=== PATIENT | female | born 1965 | race Caucasian/White ===

== ENCOUNTER → 2020-07-30 09:15 | Outpatient (BNVA) | payer BC, SELFPAY | PROVIDERS: PCP Internal Medicine; Referring Provider Internal Medicine; Visit Provider Internal Medicine | DX: Z76.89 Persons encountering health services in other specified circumstances (principal) ==

== ENCOUNTER → 2020-08-13 12:51 | Outpatient (REF) | payer BC, SELFPAY | LOC: HO.SL 12:51 | PROVIDERS: PCP Internal Medicine; Visit Provider Internal Medicine | DX: G47.33 Obstructive sleep apnea (adult) (pediatric) (principal) | CPT/HCPCS: 95806 ==

== ENCOUNTER → 2020-09-18 10:17 | Outpatient (BNVA) | payer BC, SELFPAY | PROVIDERS: PCP Internal Medicine; Referring Provider Internal Medicine; Visit Provider Psychiatry & Neurology Neurology | DX: Z76.89 Persons encountering health services in other specified circumstances (principal) ==

== ENCOUNTER → 2020-10-15 20:31 | Outpatient (REF) | payer BC, SELFPAY | LOC: HO.SL 20:31 | PROVIDERS: Visit Provider Psychiatry & Neurology Neurology | DX: G47.33 Obstructive sleep apnea (adult) (pediatric) (principal); E66.01 Morbid (severe) obesity due to excess calories | CPT/HCPCS: 95810 ==

== ENCOUNTER → 2020-11-13 10:24 | Outpatient (BNVA) | payer BC, SELFPAY | PROVIDERS: PCP Internal Medicine; Visit Provider Psychiatry & Neurology Neurology | DX: Z13.89 Encounter for screening for other disorder (principal) ==

== ENCOUNTER → 2020-12-12 13:14 | Outpatient (BNVA) | payer BC, SELFPAY | PROVIDERS: PCP Internal Medicine; Visit Provider Internal Medicine Pulmonary Disease ==

== ENCOUNTER → 2020-12-17 13:54 | Outpatient (REF) | payer BC, SELFPAY ==
--- NOTE | 2020-12-17 14:02 | CA_ITS ---
Transthoracic Echocardiogram Patient (Last, First, Middle): Tabby Reynoso, Gender: Female Date of : 1965 Age: 55 Procedure Date: 12/17/2020 Procedure Type: Transthoracic Echocardiogram Location: OP Height: 160.02 cm Weight: 145.15 kg BSA: 2.36 m2 Heart Rate: bpm BP: 132 / 80 mmHg Leak Gang Supervisor: Referring MD: Álvaro Celis MD Symptoms: Z98.890 - Other specified postprocedural states Study Quality: Technically Difficult ECG Rhythm: Atrial flutter Conclusions: - The left ventricular systolic function is normal. The visually estimated ejection fraction is between 55-60%. - There is mild septal asymmetric hypertrophy. - The left atrium is severely dilated. - There is moderate mitral annular calcification. There is mild mitral valve regurgitation. Gradient across the mitral valve increased to 8 mm Hg at 70/Min. Mitral valve area by pressure half time 2.4 sq cm. The leaflets seem to be opening. Overall doubt any significant mitral stenosis. - There is mild tricuspid valve regurgitation. - The right ventricular systolic pressure is 60 mmHg. Moderate to severe pulmonary hypertension is present. Findings Procedure Information Contrast agent, definity, is being given per protocol without apparent complications. Left Ventricle Normal left ventricular cavity size. The left ventricular systolic function is normal. The visually estimated ejection fraction is between 55-60%. There is no evidence of regional wall motion abnormalities. Diastolic function is indeterminate on the basis of available data. E/E prime ratio is >15, consistent with elevated filling pressures. There is mild septal asymmetric hypertrophy. Right Ventricle Normal right ventricular cavity size and systolic function. Atria The left atrium is severely dilated. The right atrium is mildly dilated. Aortic Valve The aortic valve was not well visualized. The peak aortic velocity is 2.35 m/s with a calculated peak gradient of 22 mmHg. The mean gradient is 14 mmHg. The aortic valve area is 1.81 cm2. There is no aortic valve regurgitation. Dimensionless index 0.51. No significant aortic stenosis. Mitral Valve There is moderate mitral annular calcification. There is mild mitral valve regurgitation. Gradient across the mitral valve increased to 8 mm Hg at 70/Min. Mitral valve area by pressure half time 2.4 sq cm. The leaflets seem to be opening. Overall doubt any significant mitral stenosis. Elevated gradients probably from the mitral annular calcification. Pulmonic Valve The pulmonic valve was not well visualized. Tricuspid Valve Normal tricuspid valve structure. There is mild tricuspid valve regurgitation. The right ventricular systolic pressure is 60 mmHg. Moderate to severe pulmonary hypertension is present. Great Vessels The asc aorta is normal in size. Venous The inferior vena cava is normal in size and collapses greater than 50% with inspiration. Pericardium/Pleural There is no evidence of pericardial effusion. Prior Study Comparison No significant change compared to prior study dated: 10/25/2019. Measurements 2D Linear Measurements IVSd: 1.22 0.6-0.9/0.6-1.0 cm LVIDd: 4.87 3.9-5.3/4.2-5.9 cm LVIDd Index: 2.06 2.4-3.2/2.2-3.1 cm/m2 LVIDs: 3.20 2.0-3.6 cm LVPWd: 1.22 0.7-1.1 cm LA Diam: 5.00 2.7-3.8/3.0-4.0 cm LAIDs Index: 2.12 1.5-2.3 cm/m2 LV Mass: 286.12 67-162/88-224 g LV Mass Index: 121.24 43-95/49-115 g/m2 LVOT Diam: 2.00 3.0+(-)1.3 cm 2D Systolic Function EF 4C: 57.90 >55% EF 2C: 57.60 >55% EF BiP: 57.90 >55% Mitral Valve MV VTI: 0.63 MV Pk Drake: 2.15 MV Mn Drake: 1.17 MV Pk Grad: 18.00 MV Mn Grad: 7.00 MV Pk E: 2.15 MV PK A: 1.09 MV Decel Time: 266.00 E/A: 2.00 E'Lateral: 7.18 E'Medial: 6.20 E/E' Med: 34.70 E/E' Lat: 29.90 PHT: 78.00 MVA PHT: 2.82 MVA Continuity: 1.36 Decel [place]: 8.62 Aortic Valve AoV Pk Drake: 2.35 AoV Mn Drake: 1.77 AoV VTI: 0.48 AoV Pk Grad: 22.00 Aov Mn Grad: 14.00 DAVID Cont.VTI: 1.81 LVOT LVOT Pk Drake: 1.21 LVOT Mn Drake: 0.81 LVOT VTI: 0.27 LVOT Pk Grad: 6.00 LVOT Mn Grad: 3.00 LVOT Diam: 2.00 LVOT Area: 3.14 Diastolic Function MV Pk E: 2.15 MV Pk A: 1.09 E/A: 2.00 E'Medial: 6.20 E/E' Med: 34.70 E' Laterial: 7.18 E/E' Lat: 29.90 Tricuspid Valve TR Pk Drake: 3.51 TR Pk Grad: 49.00 RA Press: 3.00 RVSP: 60.00 Great Vessels Aorta Ao Asc: 2.50 2.1-3.4 cm Pulmonary Valve PV Pk Drake: 1.02 Peak PV Grad: 4.00 Updated in Other Vendor System with Status of Final Álvaro Celis MD electronically signed on 12/19/2020 5:13:49 PM with status of Final
== END ==
LOC: HO.CARD 13:54
PROVIDERS: PCP Internal Medicine; Visit Provider Internal Medicine
DX: Z98.890 Other specified postprocedural states (principal)
CPT/HCPCS: 93306; Q9957

== ENCOUNTER → 2020-12-25 12:30 | Outpatient (BNVA) | payer BC, SELFPAY | PROVIDERS: PCP Internal Medicine; Visit Provider Internal Medicine | DX: Z45.018 Encounter for adjustment and management of other part of cardiac pacemaker (principal); I42.1 Obstructive hypertrophic cardiomyopathy; I48.0 Paroxysmal atrial fibrillation; I05.9 Rheumatic mitral valve disease, unspecified; I27.20 Pulmonary hypertension, unspecified; E66.01 Morbid (severe) obesity due to excess calories; G47.33 Obstructive sleep apnea (adult) (pediatric); Z98.890 Other specified postprocedural states | CPT/HCPCS: 93005 ==

== ENCOUNTER 2020-12-28 10:41 | Outpatient (REF) | payer BC, SELFPAY ==
--- NOTE | 2020-12-28 15:00 | PFT_ITS ---
FLOWS: FEV1 of 73% of predicted at 1.94 L. FVC 79% of predicted at 2.68 L. FEV1 to FVC ratio of 0.73. Positive bronchodilator response. Next line. LUNG VOLUMES: Total lung capacity 89% of predicted at 4.37 L. Residual volume 111% of predicted at 2.0 L. Slow vital capacity 76% of predicted at 2.37 L. Expiratory reserve volume 14% of predicted at 0.14 L. Diffusion capacity is mildly decreased, diffusion capacity adjust normal after correction for alveolar ventilation. IMPRESSION: No obstructive or restrictive ventilatory defect. Positive bronchodilator response. Decreased expiratory reserve volume suggests extrathoracic restriction likely secondary to abdominal obesity. Freddy Kraus MD AP/MODL / [id number]
== END 2020-12-28 10:42 | disposition home or self-care (01) ==
LOC: HO.RESP 10:41
PROVIDERS: PCP Internal Medicine; Visit Provider Internal Medicine Pulmonary Disease
DX: R06.00 Dyspnea, unspecified (principal)
CPT/HCPCS: 94060; 94727; 94729

== ENCOUNTER → 2021-01-01 09:38 | Outpatient (BNVA) | payer BC, SELFPAY | PROVIDERS: PCP Internal Medicine; Visit Provider Psychiatry & Neurology Neurology ==

== ENCOUNTER → 2021-01-02 12:53 | Outpatient (BNVA) | payer BC, SELFPAY | PROVIDERS: PCP Internal Medicine; Visit Provider Internal Medicine Pulmonary Disease ==

== ENCOUNTER → 2021-01-30 13:01 | Outpatient (BNVA) | payer BC, SELFPAY | PROVIDERS: PCP Internal Medicine; Visit Provider Internal Medicine Pulmonary Disease ==

== ENCOUNTER → 2021-02-05 10:29 | Outpatient (BNVA) | payer BC, SELFPAY | PROVIDERS: PCP Internal Medicine; Visit Provider Psychiatry & Neurology Neurology ==

== ENCOUNTER → 2021-03-27 12:58 | Outpatient (BNVA) | payer BC, SELFPAY | PROVIDERS: PCP Internal Medicine; Visit Provider Internal Medicine Pulmonary Disease ==

== ENCOUNTER → 2021-06-24 12:38 | Outpatient (BNVA) | payer BC, SELFPAY | PROVIDERS: PCP Internal Medicine; Referring Provider Internal Medicine; Visit Provider Internal Medicine ==

== ENCOUNTER → 2021-12-09 10:24 | Outpatient (REF) | payer BC, SELFPAY ==
--- NOTE | 2021-12-09 10:28 | CA_ITS ---
Transthoracic Echocardiogram Patient (Last, First, Middle): Tabby Reynoso, Gender: Female Date of : 1965 Age: 56 Procedure Date: 12/09/2021 Procedure Type: Transthoracic Echocardiogram Location: OP Height: 160.02 cm Weight: 145.15 kg BSA: 2.36 m2 Heart Rate: bpm BP: 122 / 80 mmHg Automatic Pattern Edger: VH/OT Referring MD: Álvaro Celis MD Electric Meter Technician: Nicolas Medina MD Symptoms: I42.1 - Obstructive hypertrophic cardiomyopathy Study Quality: Technically Difficult ECG Rhythm: Sinus Conclusions: - 1. Normal LV systolic function with elevated filling pressures 2. Severely elevated right ventricular systolic pressure 3. Mild aortic stenosis and regurgitation 4. Mean gradient of 8 mm across mitral valve of unclear significance, consider CINDY Findings Procedure Information Contrast agent, definity, is being given per protocol without apparent complications. Left Ventricle Normal left ventricular cavity size. There is mildly increased left ventricular wall thickness. The left ventricular systolic function is normal. The visually estimated ejection fraction is between 55-60%. Elevated filling pressures. Right Ventricle The right ventricle was not well visualized. Atria The left atrium was not well visualized. Interatrial shunt cannot be excluded. The right atrium was not well visualized. Aortic Valve The aortic valve was not well visualized. There is mild aortic valve stenosis. The peak aortic gradient is 25 mmHg.The mean gradient is 13 mmHg. The aortic valve area is 1.86 cm2. There is mild aortic valve regurgitation. Mitral Valve The mitral valve was not well visualized. The mean mitral valve gradient is 8.00 mmHg. Mitral stenosis cannot be entirely ruled out on this study Pulmonic Valve The pulmonic valve was not well visualized. Tricuspid Valve There is mild tricuspid valve regurgitation. Mildly elevated right atrial pressure. Severe pulmonary hypertension is present. Great Vessels All visible segments of the aorta are normal in size. The pulmonary artery was not well visualized. Venous The inferior vena cava is mildly dilated and collapses less than 50% with inspiration. Prior Study Comparison Changes noted compared to prior study. RV systolic pressure is further elevated. Cannot entirely rule out mitral stenosis on this study. Mild aortic stenosis is present. Recommendations, Care & Conclusions Consider a CINDY if clinically appropriate. Measurements 2D Linear Measurements IVSd: 1.21 0.6-0.9/0.6-1.0 cm LVIDd: 5.19 3.9-5.3/4.2-5.9 cm LVIDd Index: 2.20 2.4-3.2/2.2-3.1 cm/m2 LVIDs: 3.83 2.0-3.6 cm LVPWd: 1.23 0.7-1.1 cm LV Mass: 316.57 67-162/88-224 g LV Mass Index: 134.14 43-95/49-115 g/m2 LVOT Diam: 2.10 3.0+(-)1.3 cm 2D Systolic Function EF 4C: 57.80 >55% EF 2C: 51.00 >55% Mitral Valve MV VTI: 0.66 MV Pk Drake: 2.28 MV Mn Drake: 1.29 MV Pk Grad: 21.00 MV Mn Grad: 8.00 MV Pk E: 1.45 MV PK A: 0.80 MV Decel Time: 233.00 E/A: 1.80 E'Lateral: 6.64 E'Medial: 4.68 E/E' Med: 31.00 E/E' Lat: 21.80 PHT: 68.00 MVA Continuity: 1.47 Decel [place]: 6.24 MR VTI: 2.38 Aortic Valve AoV Pk Drake: 2.50 AoV Mn Drake: 1.66 AoV VTI: 0.52 AoV Pk Grad: 25.00 Aov Mn Grad: 13.00 DAVID Cont.VTI: 1.86 AI Pk Drake: 4.44 AI [place]: 1.79 LVOT LVOT Pk Drake: 1.11 LVOT Mn Drake: 0.79 LVOT VTI: 0.28 LVOT Pk Grad: 5.00 LVOT Mn Grad: 3.00 LVOT Diam: 2.10 LVOT Area: 3.46 Diastolic Function MV Pk E: 1.45 MV Pk A: 0.80 E/A: 1.80 E'Medial: 4.68 E/E' Med: 31.00 E' Laterial: 6.64 E/E' Lat: 21.80 Right Ventricle TAPSE (mm): 18.00 TVS' Drake: 9.00 Tricuspid Valve TR Pk Drake: 4.08 TR Pk Grad: 67.00 RA Press: 8.00 RVSP: 75.00 Great Vessels Aorta Sinus of Valsalva: 3.10 2.0-3.5 cm Ao Asc: 2.70 2.1-3.4 cm Updated in Other Vendor System with Status of Final Nicolas Medina MD electronically signed on 12/09/2021 4:43:17 PM with status of Final
== END ==
LOC: HO.CARD 10:24
PROVIDERS: Visit Provider Internal Medicine
DX: I42.1 Obstructive hypertrophic cardiomyopathy (principal)
CPT/HCPCS: 93306; Q9957

== ENCOUNTER → 2021-12-24 12:39 | Outpatient (BNVA) | payer BC, SELFPAY | PROVIDERS: PCP Internal Medicine; Referring Provider Internal Medicine; Visit Provider Internal Medicine | DX: Z45.018 Encounter for adjustment and management of other part of cardiac pacemaker (principal); I42.1 Obstructive hypertrophic cardiomyopathy; I48.0 Paroxysmal atrial fibrillation; I05.9 Rheumatic mitral valve disease, unspecified; I27.20 Pulmonary hypertension, unspecified; G47.33 Obstructive sleep apnea (adult) (pediatric); E66.01 Morbid (severe) obesity due to excess calories; Z98.890 Other specified postprocedural states; Z68.43 Body mass index [BMI] 50.0-59.9, adult | CPT/HCPCS: 93005; 93280 ==

== ENCOUNTER → 2021-12-26 14:59 | Outpatient (BNVA) | payer BC, SELFPAY | PROVIDERS: PCP Internal Medicine; Visit Provider Internal Medicine Pulmonary Disease | DX: Z13.89 Encounter for screening for other disorder (principal) ==

== ENCOUNTER 2022-04-06 13:09 | Inpatient (IN) | payer BC, SELFPAY ==
--- NOTE | ~2022-04-06 | CT_ITS ---
EXAMINATION: CT ABDOMEN AND PELVIS WITHOUT CONTRAST CLINICAL INFORMATION: Abdominal wall cellulitis. Rule out abscess. COMPARISON: None TECHNIQUE: Multidetector volumetric imaging was performed from the superior aspect of the liver through the pubic symphysis. Sagittal and coronal reformatted images were obtained on the technologist's workstation. This CT examination was performed using dose optimization techniques as appropriate, variously including the following: *Automated exposure control *Adjustment of mA and/or kV according to patient size (this includes techniques or standardized protocols for targeted exams where dose is matched to indication/reason for exam; i.e. extremities or head) *Use of iterative reconstruction technique DLP: 1995 mGy-cm FINDINGS: LUNG BASES: Incompletely imaged cardiac pacer leads. Mild right basilar atelectasis. LIVER, GALLBLADDER, AND BILIARY TREE: Subtly nodular surface contour and enlarged caudate lobe. No gross liver lesion. No biliary ductal dilation. The gallbladder is unremarkable with no evidence of radiopaque gallstones, gallbladder wall thickening, or obvious pericholecystic inflammatory changes. PANCREAS: Unremarkable. SPLEEN: Unremarkable. ADRENAL GLANDS: Unremarkable. KIDNEYS AND URETERS: The kidneys are normal in size, shape, and attenuation. No hydronephrosis, hydroureter, or calculi seen. No perinephric stranding. BLADDER: Unremarkable. GASTROINTESTINAL TRACT: Sigmoid and descending colonic diverticulosis. No evidence of acute diverticulitis. No dilated bowel loops. No bowel wall thickening. Normal appendix. No ascites or free air. ABDOMINAL WALL: Skin edema and subcutaneous stranding in the ventral lower abdominal wall/pannus. No loculated fluid collection to suggest abscess. Possible small fat-containing umbilical hernia. LYMPH NODES: Prominent right inguinal lymph nodes measuring up to 1.2 cm in right external iliac chain lymph node measuring 0.8 cm, nonspecific and presumably reactive. Enlarged portacaval lymph node measuring 1.3 cm in short axis, also nonspecific. No other lymphadenopathy. VASCULAR: Unremarkable. PELVIC VISCERA: Gynecologic structures grossly unremarkable. OSSEOUS STRUCTURES: No acute fracture or suspicious osseous lesion. Mild degenerative disc disease in the lower thoracic spine. CT/CT abdomen pelvis wo con IMPRESSION: 1. Skin and subcutaneous edema in the ventral lower abdominal wall/pannus. No loculated fluid collection to suggest abscess. No soft tissue gas. 2. No acute intra-abdominal process. 3. Subtly nodular liver surface contour and mild enlargement of the caudate lobe. Correlate clinically with history or signs or symptoms of hepatocellular disease and cirrhosis. 4. Colonic diverticulosis.
--- NOTE | ~2022-04-06 | XR_ITS ---
EXAMINATION: XR CHEST CLINICAL INFORMATION: Shortness of breath. COMPARISON: Chest radiograph done on 08/17/2018. TECHNIQUE: Frontal view of the chest was obtained. FINDINGS: Postsurgical changes of sternotomy with intact hardware. Bilateral clear lung eddy. Both lungs are hyperinflated. The cardiac mediastinal silhouette is apparently enlarged likely related to the technique. Dual lead pacer device is present at left pectoralis region with intact hardware. No evidence of any pleural effusion or pneumothorax. XR/XR chest 1V IMPRESSION: Hyperinflated clear lung eddy.
[2022-04-06 13:32] VITALS: BP 158/79; PULSE 70; RESP 20; TEMP 37.2; O2SAT 94; BMI 53.1
[2022-04-06 13:50] LABS: Basophils Absolute Auto 0.1 X10*3/uL (0.0-0.2); Basophils Percent Auto 0.4 % (0-2); Eosinophils Absolute Auto 0.1 X10*3/uL (0.0-0.4); Eosinophils Percent Auto 0.6 % (0-4); Hematocrit 37.4 % (37.0-47.0); Hemoglobin 11.5 g/dl (12.0-16.0); Imm Gran Abs Auto 0.12 X10*3/uL (0.00-0.03); Imm Gran Pct Auto 0.5 % (0.0-0.4); Lymphocytes Absolute Auto 0.8 X10*3/uL (1.2-4.9); Lymphocytes Percent Auto 3.4 % (20-40); MANUAL DIFF FLAG SCAN; Mean Corpuscular HGB Conc 30.7 g/dl (31.0-35.0); Mean Corpuscular Hemoglobin 24.1 pg (27.0-33.0); Mean Corpuscular Volume 78.4 fL (80.0-98.0); Mean Platelet Volume 9.2 fL (9.4-12.3); Monocytes Absolute Auto 1.2 X10*3/uL (0.1-1.2); Monocytes Percent Auto 5.5 % (2-11); Neutrophils Absolute Auto 20.1 x10*3/uL (2.0-8.3); Neutrophils Percent Auto 89.6 % (45-73); Platelet Count 281 X10*3/uL (160-400); Red Blood Count 4.77 X10*6/uL (4.20-5.50); Red Cell Distribution Width 16.6 % (11.0-16.0); SCAN SMEAR FLAG 1; White Blood Count 22.4 X10*3/uL (4.8-10.8)
[2022-04-06 14:09] LABS: Anion Gap 16 (12-20); Blood Urea Nitrogen 12 mg/dL (9-16); Calcium 8.7 mg/dL (8.4-10.2); Carbon Dioxide 26 mmol/L (22-29); Chloride 99 mmol/L (96-108); Creatinine Clr Calc Pharmacy 111.7; Estimated Glomerular Filt Rate > 60; Glucose Random 141 mg/dL (60-115); Potassium 3.9 mmol/L (3.3-5.1); SLIDE REVIEW VERIFIED; Sodium 137 mmol/L (135-145)
--- NOTE | 2022-04-06 14:50 | ED.GENADULT ---
HPI - General Adult General Chief complaint: General Medical Stated complaint: Cellulitis/Fever Time Seen by Provider: 04/06/22 14:39 Source: patient and family Mode of arrival: ambulatory Limitations: no limitations History of Present Illness HPI narrative: 56-year-old female with a history of paroxysmal AFib s/p MAZE procedure, untreated plaque psoriasis, pulmonary HTN, restrictive lung disease, MIKIE, HOCM s/p ventricular septic myomectomy, morbid obesity with BMI 53 and history of abdominal wall cellulitis x2 in the past who presents to the ER for evaluation after she woke up today with shaking chills, generalized weakness and new onset right lower abdominal wall redness and tenderness. She reports about 1 month ago she was on antibiotics for abdominal wall cellulitis in the same area, completely resolved with PO antibiotics. The other prior episode was several years ago. She reports generally feeling unwell with fatigue, dry mouth and weakness. She denies history of DM but admits she was pre-diabetic and needed to get rechecked. MD complaint: abdominal wall cellulitis Onset (ago): hour(s) Location: abdomen Radiation: non-radiation Severity: moderate Severity scale (1-10): 6 Quality: aching Pain Consistency: constant Relieving factors: immobilization Exacerbating factors: movement Associated symptoms: fever/chills, loss of appetite, malaise, shortness of breath and weakness Treatments prior to arrival: none Related Data Home Medications Medication Instructions Recorded Confirmed acitretin 25 mg capsule 25 mg PO QAM 07/30/20 12/24/21 cholecalciferol (vitamin D3) 25 25 mcg PO DAILY 07/30/20 12/24/21 mcg (1,000 unit) capsule venlafaxine 150 mg 150 mg PO DAILY 07/30/20 12/24/21 capsule,extended release 24 hr levothyroxine 88 mcg tablet 1 tab PO DAILY 04/06/22 Previous Rx's Medication Instructions Recorded gabapentin 300 mg capsule 300 mg PO BEDTIME Periodic Limb 11/13/20 Movement disorder #30 caps tiotropium bromide 18 mcg capsule 1 cap inhalation DAILY #60 ea 06/21/21 with inhalation device (Spiriva with HandiHaler) metoprolol tartrate 50 mg tablet 50 mg PO BID 90 days #180 tabs 07/22/21 apixaban 5 mg tablet (Eliquis) 5 mg PO BID #180 tabs 12/24/21 potassium chloride 20 mEq 20 meq PO DAILY 90 days #90 tabs 12/24/21 tablet,extended release montelukast 10 mg tablet 10 mg PO DAILY 30 days #30 tabs 12/26/21 (Singulair) bumetanide 2 mg tablet 2 mg PO DAILY #90 tabs 03/13/22 Allergies Allergy/AdvReac Type Severity Reaction Status Date / Time adhesive [ADHESIVE] AdvReac Unknown RASH - Verified 04/06/22 13:32 SKIN CAME OFF WITH TAPE apremilast [Otezla] AdvReac Unknown nausea, Verified 04/06/22 13:32 vomiting Sulfa (Sulfonamide AdvReac Unknown UNKNOWN Verified 04/06/22 13:32 Antibiotics) [SULFA (SULFONAMIDE ANTIBIOTICS)] Review of Systems Review of Systems: Constitutional: No Fever, + Chills ENT/Mouth: No sore throat, No Rhinorrhea, No Swallowing Difficulty Eyes: No Eye Pain, No Swelling, No Redness Cardiovascular: No Chest Pain, + SOB, No Orthopnea, No Edema Respiratory: No Cough, No Sputum, No Wheezing, + dyspnea Gastrointestinal: No Nausea, No Vomiting, No Diarrhea, No abdominal Pain, No Hematochezia, No Melena Genitourinary: No Dysuria, No Urinary Frequency, No Hematuria Musculoskeletal: No joint pain, No Myalgias Skin: + Skin Lesions, + rash Neuro: + Weakness, No Numbness, No Dizziness, No Headache Psych: No Anxiety/Panic, No Depression Heme/Lymph: No Bruising, No Lymphadenopathy Endocrine: No Polyuria, No Polydipsia PMFSH Past Medical History Medical History Celiac disease HOCM (hypertrophic obstructive cardiomyopathy) MONICA (iron deficiency anemia) Mitral valve disease Morbid obesity PAF (paroxysmal atrial fibrillation) Pulmonary hypertension Surgical History History of cardiac catheterization History of cardiac pacemaker (~10/2018) History of heart surgery (~10/2018) Status post ventricular septal myectomy Family History Family History Father CVD (cardiovascular disease) Mother CVD (cardiovascular disease) Social History Social History Advance Directives: No Advance Directives Information Provided: No Physical Exam ED Vital Signs: Vital Signs - 24 hr 04/06/22 13:32 Temperature 98.9 F Pulse Rate 70 Respiratory Rate 20 Blood Pressure 158/79 H Pulse Oximetry 94 Oxygen Delivery Method Room Air BMI result Body Mass Index 53.1 Course Course Course Narrative: 56-year-old female with history of Paroxysmal AFib, MIKIE, pulmonary hypertension, HOCM s/p ventricular septal mymectomy, status post pacemaker who presents to the ER for evaluation of shaking chills, rigors, and lower abdominal wall cellulitis. Recent history of the same about 1 month ago with complete resolution. On arrival to the ER today she is afebrile and hemodynamically stable. She generally feels unwell with weakness, fatigue, malaise. Basic labs were sent from triage and patient has a significant leukocytosis of 22,000. her abdominal wall cellulitis appears to be superficial, very tender without any areas of fluctuance. Anticipate she will require admission for IV antibiotics. Case d/w Dr. Moody. Reevaluation(s) Reevaluation #1: elevated inflammatory markers. Lactic acid is normal. Blood cultures have been sent. Spoke with the hospitalist regarding admission, recommending CT scan for further evaluation and abscess rule out. This has been ordered. Plan for admission and IV antibiotics discussed with the patient who agrees with plan. Medical Decision Making Lab Data Result diagrams: 04/06/22 13:45 04/06/22 13:45 Labs: Lab Results 04/06/22 04/06/22 04/06/22 Range/Units 13:45 13:45 13:45 WBC 22.4 H (4.8-10.8) X10*3/uL RBC 4.77 (4.20-5.50) X10*6/uL Hgb 11.5 L (12.0-16.0) g/dl Hct 37.4 (37.0-47.0) % MCV 78.4 L (80.0-98.0) fL MCH 24.1 L (27.0-33.0) pg MCHC 30.7 L (31.0-35.0) g/dl RDW 16.6 H (11.0-16.0) % Plt Count 281 (160-400) X10*3/uL MPV 9.2 L (9.4-12.3) fL Immature Gran % (Auto) 0.5 H (0.0-0.4) % Neut % (Auto) 89.6 H (45-73) % Lymph % (Auto) 3.4 L (20-40) % [place] % (Auto) 5.5 (2-11) % Eos % (Auto) 0.6 (0-4) % Baso % (Auto) 0.4 (0-2) % Lymph # (Auto) 0.8 L (1.2-4.9) X10*3/uL [place] # (Auto) 1.2 (0.1-1.2) X10*3/uL Eos # (Auto) 0.1 (0.0-0.4) X10*3/uL Baso # (Auto) 0.1 (0.0-0.2) X10*3/uL Abs Immat Gran (auto) 0.12 H (0.00-0.03) X10*3/uL Absolute Neuts (auto) 20.1 H (2.0-8.3) x10*3/uL Absolute Nucleated RBC 0.000 (0.0-0.012) X10*3/uL Nucleated RBC % (auto) 0.0 (0.0-0.2) /100WBC Smear Tech's Comments VERIFIED ESR 39 H (0-20) MM/HR Sodium 137 (135-145) mmol/L Potassium 3.9 (3.3-5.1) mmol/L Chloride 99 (96-108) mmol/L Carbon Dioxide 26 (22-29) mmol/L Anion Gap 16 (12-20) BUN 12 (9-16) mg/dL Creatinine 0.78 (0.5-1.4) mg/dL Estim Creat Clear Calc 111.7 Estimated GFR > 60 Random Glucose 141 H (60-115) mg/dL Estimat Average Glucose mg/dL Hemoglobin A1c % % Lactic Acid (0.5-2.0) mmol/L Calcium 8.7 (8.4-10.2) mg/dL C-Reactive Protein 3.08 H (< or = 0.50) mg/dL B-Natriuretic Peptide (<100) pg/mL COVID-19 (FLY) (Negative) COVID-19 Clin Com 04/06/22 04/06/22 04/06/22 Range/Units 13:45 13:45 14:54 WBC (4.8-10.8) X10*3/uL RBC (4.20-5.50) X10*6/uL Hgb (12.0-16.0) g/dl Hct (37.0-47.0) % MCV (80.0-98.0) fL MCH (27.0-33.0) pg MCHC (31.0-35.0) g/dl RDW (11.0-16.0) % Plt Count (160-400) X10*3/uL MPV (9.4-12.3) fL Immature Gran % (Auto) (0.0-0.4) % Neut % (Auto) (45-73) % Lymph % (Auto) (20-40) % [place] % (Auto) (2-11) % Eos % (Auto) (0-4) % Baso % (Auto) (0-2) % Lymph # (Auto) (1.2-4.9) X10*3/uL [place] # (Auto) (0.1-1.2) X10*3/uL Eos # (Auto) (0.0-0.4) X10*3/uL Baso # (Auto) (0.0-0.2) X10*3/uL Abs Immat Gran (auto) (0.00-0.03) X10*3/uL Absolute Neuts (auto) (2.0-8.3) x10*3/uL Absolute Nucleated RBC (0.0-0.012) X10*3/uL Nucleated RBC % (auto) (0.0-0.2) /100WBC Smear Tech's Comments ESR (0-20) MM/HR Sodium (135-145) mmol/L Potassium (3.3-5.1) mmol/L Chloride (96-108) mmol/L Carbon Dioxide (22-29) mmol/L Anion Gap (12-20) BUN (9-16) mg/dL Creatinine (0.5-1.4) mg/dL Estim Creat Clear Calc Estimated GFR Random Glucose (60-115) mg/dL Estimat Average Glucose 137 mg/dL Hemoglobin A1c % 6.4 % Lactic Acid 1.8 (0.5-2.0) mmol/L Calcium (8.4-10.2) mg/dL C-Reactive Protein (< or = 0.50) mg/dL B-Natriuretic Peptide 77 (<100) pg/mL COVID-19 (FLY) (Negative) COVID-19 Clin Com 04/06/22 Range/Units 14:54 WBC (4.8-10.8) X10*3/uL RBC (4.20-5.50) X10*6/uL Hgb (12.0-16.0) g/dl Hct (37.0-47.0) % MCV (80.0-98.0) fL MCH (27.0-33.0) pg MCHC (31.0-35.0) g/dl RDW (11.0-16.0) % Plt Count (160-400) X10*3/uL MPV (9.4-12.3) fL Immature Gran % (Auto) (0.0-0.4) % Neut % (Auto) (45-73) % Lymph % (Auto) (20-40) % [place] % (Auto) (2-11) % Eos % (Auto) (0-4) % Baso % (Auto) (0-2) % Lymph # (Auto) (1.2-4.9) X10*3/uL [place] # (Auto) (0.1-1.2) X10*3/uL Eos # (Auto) (0.0-0.4) X10*3/uL Baso # (Auto) (0.0-0.2) X10*3/uL Abs Immat Gran (auto) (0.00-0.03) X10*3/uL Absolute Neuts (auto) (2.0-8.3) x10*3/uL Absolute Nucleated RBC (0.0-0.012) X10*3/uL Nucleated RBC % (auto) (0.0-0.2) /100WBC Smear Tech's Comments ESR (0-20) MM/HR Sodium (135-145) mmol/L Potassium (3.3-5.1) mmol/L Chloride (96-108) mmol/L Carbon Dioxide (22-29) mmol/L Anion Gap (12-20) BUN (9-16) mg/dL Creatinine (0.5-1.4) mg/dL Estim Creat Clear Calc Estimated GFR Random Glucose (60-115) mg/dL Estimat Average Glucose mg/dL Hemoglobin A1c % % Lactic Acid (0.5-2.0) mmol/L Calcium (8.4-10.2) mg/dL C-Reactive Protein (< or = 0.50) mg/dL B-Natriuretic Peptide (<100) pg/mL COVID-19 (FLY) Negative (Negative) COVID-19 Clin Com See Note Discharge Plan Discharge Clinical Impression: Cellulitis Patient Disposition: Admitted As Inpatient
[2022-04-06 14:55] LABS: C Reactive Protein 3.08 mg/dL (< or = 0.50)
[2022-04-06 15:13] LABS: Lactic Acid 1.8 mmol/L (0.5-2.0)
[2022-04-06 15:15] LABS: Estimated Average Glucose 137 mg/dL; Hemoglobin A1c % 6.4 %
[2022-04-06 15:18] LABS: COVID-19 Test Negative (Negative)
[2022-04-06] MEDS: 0.9 % Sodium Chloride 1,000 ML 999 ML IVCONT (15:20)
[2022-04-06 15:29] LABS: Erythrocyte Sedimentation Rate 39 MM/HR (0-20)
[2022-04-06] MEDS: cefTRIAXone sodium 1 GM in 0.9 % Sodium Chloride 50 ML IV (15:29)
[2022-04-06 15:30] LABS: B Type Natriuretic Peptide 77 pg/mL (<100)
--- NOTE | 2022-04-06 15:44 | PM.IMHP ---
History of Present Illness Date of Service: 04/06/22 Attending physician on admission: Isaura Herrera Chief Complaint: Abdominal warmth and pain This is a 56-year-old female who presents the emergency department with warmth and pain in her lower abdomen. Patient has a history of abdominal wall cellulitis in the past and today she noticed her lower abdomen was very warm and tender to touch. She had associated chills as well as nausea without vomiting. This was the same way she felt last time she had abdominal wall cellulitis therefore she came directly to the emergency department for evaluation. In the emergency department she was afebrile. Workup revealed leukocytosis of over 22,000. She was started on IV antibiotics and the decision was made to admit her to the hospital for further management. COVID-19 vaccination status-1st dose Yariel & Yariel, 2nd dose Moderna Review of Systems Review of Systems: Yes all other systems are reviewed and are negative Constitutional: Constitutional: Reports chills and Denies fever(s) Cardiovascular: Cardiovascular: Denies chest pain, Denies palpitations and Denies dyspnea Respiratory: Respiratory: Denies cough and Denies dyspnea Gastrointestinal: Gastrointestinal: Denies abdominal pain, Denies diarrhea, Reports nausea and Denies vomiting Endocrine: Endocrine: Denies palpitations [facility] Medical History Celiac disease HOCM (hypertrophic obstructive cardiomyopathy) MONICA (iron deficiency anemia) Mitral valve disease Morbid obesity PAF (paroxysmal atrial fibrillation) Pulmonary hypertension Functional capacity: independent ambulation Family History Father CVD (cardiovascular disease) Mother CVD (cardiovascular disease) Surgical History History of cardiac catheterization History of cardiac pacemaker (~10/2018) History of heart surgery (~10/2018) Status post ventricular septal myectomy Social History Advance Directives: No Advance Directives Information Provided: No Meds Allergies Allergy/AdvReac Type Severity Reaction Status Date / Time adhesive [ADHESIVE] AdvReac Unknown RASH - Verified 04/06/22 13:32 SKIN CAME OFF WITH TAPE apremilast [Otezla] AdvReac Unknown nausea, Verified 04/06/22 13:32 vomiting Sulfa (Sulfonamide AdvReac Unknown UNKNOWN Verified 04/06/22 13:32 Antibiotics) [SULFA (SULFONAMIDE ANTIBIOTICS)] Active Medications: Current Medications Sodium Chloride (Ns) 1,000 mls @ 999 mls/hr IVCONT .Q1H1M REBECA Stop: 04/06/22 16:00 Last Admin: 04/06/22 15:20 Dose: 999 mls/hr Vancomycin HCl () 2,000 mg in 520 mls @ 260 mls/hr IV ONCE ONE Stop: 04/06/22 16:48 Pharmacy Consult (Consult Rx Perform Med Rec) 1 each MISCELLANE ONCE PRN PRN Reason: Consult order Home Medications Medication Instructions Recorded Confirmed Last Taken Type acitretin 25 mg capsule 25 mg PO QAM 07/30/20 12/24/21 Unknown History cholecalciferol (vitamin D3) 25 25 mcg PO DAILY 07/30/20 12/24/21 Unknown History mcg (1,000 unit) capsule venlafaxine 150 mg 150 mg PO DAILY 07/30/20 12/24/21 Unknown History capsule,extended release 24 hr levothyroxine 88 mcg tablet 1 tab PO DAILY 04/06/22 Unknown History Physical Exam Vital Signs and Narrative: Vital Signs: Last Vital Signs Temp 98.9 F 04/06/22 13:32 Pulse 70 04/06/22 13:32 Resp 20 04/06/22 13:32 BP 158/79 H 04/06/22 13:32 Pulse Ox 94 04/06/22 13:32 O2 Del Method 04/06/22 13:32 BMI result Body Mass Index 53.1 Const: General: cooperative, comfortable, no acute distress, alert and awake Nutritional Appearance: obese Orientation/consciousness: patient oriented x3 Resp: Effort & Inspection: normal respiratory effort and able to speak in complete sentences Auscultation: clear to auscultation bilaterally Cardio: Rate: regular rate Heart sounds: S1 normal heart sound present and S2 normal heart sound present GI: Other: large area of erythema mid abdomen extending under pannus, some indurated skin, no fluctuance Inspection: No distended, Yes Abdominal panniculus present and Yes obesity Palpation (GI): Soft to palpation and nontender Skin: Other: as above GI eval; multiple areas of psoriasis Neuro: General: patient oriented x3 Extrem: General: Yes no pedal edema Results Labs CBC and Chem 7: 04/06/22 13:45 04/06/22 13:45 Labs: Laboratory Results - last 24 hr 04/06/22 04/06/22 04/06/22 13:45 13:45 13:45 MCV 78.4 L MCH 24.1 L MCHC 30.7 L RDW 16.6 H Plt Count 281 MPV 9.2 L Immature Gran % (Auto) 0.5 H Neut % (Auto) 89.6 H Lymph % (Auto) 3.4 L [place] % (Auto) 5.5 Eos % (Auto) 0.6 Baso % (Auto) 0.4 Lymph # (Auto) 0.8 L [place] # (Auto) 1.2 Eos # (Auto) 0.1 Baso # (Auto) 0.1 Abs Immat Gran (auto) 0.12 H Absolute Neuts (auto) 20.1 H Absolute Nucleated RBC 0.000 Nucleated RBC % (auto) 0.0 Smear Tech's Comments VERIFIED ESR 39 H Anion Gap 16 Estim Creat Clear Calc 111.7 Estimated GFR > 60 Random Glucose 141 H Estimat Average Glucose Hemoglobin A1c % Lactic Acid Calcium 8.7 C-Reactive Protein 3.08 H B-Natriuretic Peptide COVID-19 (FLY) COVID-19 Clin [employer] 04/06/22 04/06/22 04/06/22 13:45 13:45 14:54 MCV MCH MCHC RDW Plt Count MPV Immature Gran % (Auto) Neut % (Auto) Lymph % (Auto) [place] % (Auto) Eos % (Auto) Baso % (Auto) Lymph # (Auto) [place] # (Auto) Eos # (Auto) Baso # (Auto) Abs Immat Gran (auto) Absolute Neuts (auto) Absolute Nucleated RBC Nucleated RBC % (auto) Smear Tech's Comments ESR Anion Gap Estim Creat Clear Calc Estimated GFR Random Glucose Estimat Average Glucose 137 Hemoglobin A1c % 6.4 Lactic Acid 1.8 Calcium C-Reactive Protein B-Natriuretic Peptide 77 COVID-19 (FLY) COVID-19 Clin Com 04/06/22 14:54 MCV MCH MCHC RDW Plt Count MPV Immature Gran % (Auto) Neut % (Auto) Lymph % (Auto) [place] % (Auto) Eos % (Auto) Baso % (Auto) Lymph # (Auto) [place] # (Auto) Eos # (Auto) Baso # (Auto) Abs Immat Gran (auto) Absolute Neuts (auto) Absolute Nucleated RBC Nucleated RBC % (auto) Smear Tech's Comments ESR Anion Gap Estim Creat Clear Calc Estimated GFR Random Glucose Estimat Average Glucose Hemoglobin A1c % Lactic Acid Calcium C-Reactive Protein B-Natriuretic Peptide COVID-19 (FLY) Negative COVID-19 Clin Com See Note Imaging Radiologist's Impressions: Impressions Chest X-Ray 04/06/22 15:02 IMPRESSION: Hyperinflated clear lung eddy. Assessment and Plan (1) Abdominal wall cellulitis: Status: Acute Plan This is a 56-year-old female with history of HOCM, PAF on Eliquis, pulmonary hypertension, celiac disease, morbid obesity who presents to the emergency department with abdominal wall pain erythema and chills found to have abdominal wall cellulitis Abdominal wall cellulitis No evidence of sepsis -IV vancomycin, Zosyn -CT scan pending to evaluate for abscess -follow blood cultures Celiac disease -gluten free diet Morbid obesity BMI 53.1 med rec still pending dvt ppx - boots, continue eliquis when med rec complete Healthcare proxy- attending - Dr. Herrera Will likely need 2 midnight stay in the hospital for management of abdominal wall cellulitis and need for IV antibiotics Quality Stroke Does the patient have a stroke diagnosis?: No VTE Prior VTE?: No VTE Risk Level:: Medical - moderate - high VTE Device Contraindication: N/A - Device Ordered VTE Drug Contraindication: N/A - Med Ordered
[2022-04-06] MEDS: Morphine Sulfate 4 MG/ML CARTRIDGE IVPUSH (15:51)
[2022-04-06 16:06] VITALS: BP 127/82; PULSE 70; RESP 18; O2SAT 94
--- NOTE | 2022-04-06 16:32 | HE.PHANOTE ---
Vanco 2 gm x1 followed by 1 gm q12h, predicted trough 13 auc 486
--- NOTE | 2022-04-06 16:45 | PHA.MEDREC ---
Pharmacy Consult ? Medication Reconciliation Pharmacy has completed the medication reconciliation. Pt able to name all medications; did state that she uses a combination of creams for her psoriasis that she mixes with Cerave, however there were no creams in her claim history and she was unable to name what she uses. Noted that the only morning medication she did not take today was her water pill.
[2022-04-06] MEDS: 0.9 % Sodium Chloride Flush 3 ML SYRINGE IVFLUSH ×2 (18:59→23:59)
[2022-04-06] MEDS: Piperacillin Sodium/Tazobactam 4.5 GM in 0.9 % Sodium Chloride 100 ML IV ×2 (18:59→22:46)
--- NOTE | 2022-04-06 19:15 | PC.NURSE ---
Report given to Inessa MCKINNEY. [facility]
[2022-04-06 19:18] VITALS: BP 128/63; PULSE 70; RESP 20; TEMP 37; O2SAT 95
[2022-04-06] MEDS: Potassium Chloride ER 20 MEQ TAB.ER.PRT PO (20:18)
[2022-04-06] MEDS: Venlafaxine HCl ER 150 MG CAP.ER.24H PO (20:18)
[2022-04-06] MEDS: Apixaban 5 MG TABLET PO (20:18)
[2022-04-06] MEDS: Metoprolol Tartrate 50 MG TABLET PO (20:18)
[2022-04-06] MEDS: oxyCODONE HCl Immed Release 5 MG TABLET PO (20:49)
--- NOTE | 2022-04-06 21:17 | PC.NURSE ---
Pt complaining of 6/10 pain to abd at cellulitis site. Requesting pain meds. Contacted MD, one time dose oxi 5mg ordered and admin. Will reassess pain.
--- NOTE | 2022-04-06 21:23 | PC.NURSE ---
Pt states has sleep apnea and has CPAP at home but does not use hates that thing per pt
[2022-04-06 23:53] VITALS: BP 116/57; PULSE 85; RESP 20; TEMP 36; O2SAT 93
[2022-04-07 05:23] LABS: MANUAL DIFF FLAG NO
[2022-04-07 05:26] LABS: Basophils Absolute Auto 0.1 X10*3/uL (0.0-0.2); Basophils Percent Auto 0.5 % (0-2); Eosinophils Absolute Auto 0.2 X10*3/uL (0.0-0.4); Eosinophils Percent Auto 1.1 % (0-4); Hematocrit 33.4 % (37.0-47.0); Hemoglobin 10.2 g/dl (12.0-16.0); Imm Gran Abs Auto 0.08 X10*3/uL (0.00-0.03); Imm Gran Pct Auto 0.5 % (0.0-0.4); Lymphocytes Absolute Auto 1.2 X10*3/uL (1.2-4.9); Lymphocytes Percent Auto 7.2 % (20-40); Mean Corpuscular HGB Conc 30.5 g/dl (31.0-35.0); Mean Corpuscular Hemoglobin 24.1 pg (27.0-33.0); Mean Corpuscular Volume 78.8 fL (80.0-98.0); Mean Platelet Volume 9.5 fL (9.4-12.3); Monocytes Absolute Auto 0.8 X10*3/uL (0.1-1.2); Monocytes Percent Auto 4.7 % (2-11); Neutrophils Absolute Auto 13.9 x10*3/uL (2.0-8.3); Platelet Count 243 X10*3/uL (160-400); Red Blood Count 4.24 X10*6/uL (4.20-5.50); White Blood Count 16.2 X10*3/uL (4.8-10.8)
[2022-04-07] MEDS: Piperacillin Sodium/Tazobactam 4.5 GM in 0.9 % Sodium Chloride 100 ML IV ×4 (05:41→22:02)
[2022-04-07] MEDS: Acetaminophen 325 MG TABLET 650 MG PO ×3 (05:41→20:49)
[2022-04-07 05:42] LABS: Anion Gap 14 (12-20); Blood Urea Nitrogen 10 mg/dL (9-16); Calcium 8.4 mg/dL (8.4-10.2); Carbon Dioxide 27 mmol/L (22-29); Chloride 102 mmol/L (96-108); Estimated Glomerular Filt Rate > 60; Glucose Random 122 mg/dL (60-115); Potassium 3.7 mmol/L (3.3-5.1); Sodium 139 mmol/L (135-145)
[2022-04-07] MEDS: Levothyroxine Sodium 88 MCG TABLET PO (05:42)
--- NOTE | 2022-04-07 07:31 | PM.EVENT ---
Event Note Date of Service: 04/07/22 Event Note: This patient is seen and examined with APC. Patient came with 1 day history of lower abdominal erythema and soreness, pain. Found to have possible cellulitis of lower abdominal wall. Lab imaging. Physical exam and assessment and plan coordinated in APCs note, Agree with the plan in addition: Abdominal wall cellulitis started iv antibiotics ct abd pending
[2022-04-07 07:44] VITALS: BP 171/90; PULSE 70; RESP 18; TEMP 36; O2SAT 97
[2022-04-07] MEDS: Bumetanide 1 MG TABLET 2 MG PO (07:46)
[2022-04-07] MEDS: Metoprolol Tartrate 50 MG TABLET PO ×2 (07:46→20:05)
[2022-04-07] MEDS: Cholecalciferol (Vitamin D3) 25 MCG TABLET PO (07:46)
[2022-04-07] MEDS: Montelukast Sodium 10 MG TABLET PO (07:46)
[2022-04-07] MEDS: Apixaban 5 MG TABLET PO ×2 (07:46→20:05)
[2022-04-07] MEDS: 0.9 % Sodium Chloride Flush 3 ML SYRINGE IVFLUSH ×3 (07:46→23:53)
[2022-04-07] MEDS: vancomycin HCL 1,000 MG in 0.9 % Sodium Chloride 250 ML 270 MG IV ×2 (07:59→18:36)
[2022-04-07 08:08] VITALS: PULSE 75; RESP 16; O2SAT 97
--- NOTE | 2022-04-07 09:04 | HO.PM.IMPN ---
Subjective Subjective Date of Service: 04/07/22 Review of Systems Follow up abd wall cellulitis feeling better, less redness and swelling Physical Exam Vital Signs: Vital Signs: Last Vital Signs Temp 96.8 F 04/07/22 07:44 Pulse 75 04/07/22 08:08 Resp 16 04/07/22 08:08 BP 171/90 H 04/07/22 07:44 Pulse Ox 97 04/07/22 07:44 O2 Del Method 04/07/22 07:44 BMI result Body Mass Index 53.1 Appearing in no acute distress lung sounds are clear to auscultation heart regular rate rhythm, clear S1, S2 positive bowel sounds, abdomen is soft, nontender, large area of erythema mostly to mid/right abdomen neuro patient is alert x3, no focal deficits Objective Data Active Medications Acetaminophen (Acetaminophen 325 Mg Tablet) 650 mg PO Q6H PRN PRN Reason: Pain, Mild (Pain Scale 1-3) Last Admin: 04/07/22 05:41 Dose: 650 mg Documented By: VIANCA Apixaban (Apixaban 5 Mg Tablet) 5 mg PO BID [facility] Last Admin: 04/07/22 07:46 Dose: 5 mg Documented By: PACO Bumetanide (Bumetanide 1 Mg Tablet) 2 mg PO DAILY [facility]; Protocol Last Admin: 04/07/22 07:46 Dose: 2 mg Documented By: PACO Docusate Sodium (Docusate Sodium 100 Mg Capsule) 100 mg PO DAILY PRN PRN Reason: Constipation Piperacillin Sod/Tazobactam (Sod 4.5 gm/ Sodium Chloride) 100 mls @ 200 mls/hr IV Q6H [facility] Last Infusion: 04/07/22 07:17 Dose: 0 mls/hr Documented By: VIANCA Vancomycin HCl 1,000 mg/ (Sodium Chloride) 270 mls @ 270 mls/hr IV Q12H [facility] Last Admin: 04/07/22 07:59 Dose: 270 mls/hr Documented By: PACO Levothyroxine Sodium (Levothyroxine Sodium 88 Mcg Tablet) 88 mcg PO DAILY@0600 [facility] Last Admin: 04/07/22 05:42 Dose: 88 mcg Documented By: VIANCA Metoprolol Tartrate (Metoprolol Tartrate 50 Mg Tablet) 50 mg PO BID [facility]; Protocol Last Admin: 04/07/22 07:46 Dose: 50 mg Documented By: PACO Montelukast Sodium (Montelukast Sodium 10 Mg Tablet) 10 mg PO DAILY [facility] Last Admin: 04/07/22 07:46 Dose: 10 mg Documented By: PACO Ondansetron HCl (Ondansetron Hcl 4 Mg/2 Ml Vial) 4 mg IVPUSH Q8H PRN PRN Reason: Nausea and Vomiting Pharmacy Consult (Consult Rx Perform Med Rec) 1 each MISCELLANE ONCE PRN PRN Reason: Consult order Pharmacy Consult (Consult Rx Vancomycin Dosing) 1 each MISCELLANE DAILY PRN PRN Reason: Consult order Potassium Chloride (Potassium Chloride Er 20 Meq Tab.Er.Prt) 20 meq PO BEDTIME [facility] Last Admin: 04/06/22 20:18 Dose: 20 meq Documented By: FARHAT Sodium Chloride (0.9 % Sodium Chloride Flush 3 Ml Syringe) 3 ml IVFLUSH QSHIFT [facility] Last Admin: 04/07/22 07:46 Dose: 3 ml Documented By: PACO Tiotropium [place] (Tiotropium [place] 18 Mcg Cap.W.Dev) 1 puff INHALE RDAILY [facility] Last Admin: 04/07/22 08:05 Dose: 1 puff Documented By: VLADIMIR Venlafaxine HCl (Venlafaxine Hcl Er 150 Mg Cap.Er.24h) 150 mg PO BEDTIME [facility] Last Admin: 04/06/22 20:18 Dose: 150 mg Documented By: FARHAT Vitamin D (Cholecalciferol (Vitamin D3) 25 Mcg Tablet) 25 mcg PO DAILY [facility] Last Admin: 04/07/22 07:46 Dose: 25 mcg Documented By: PACO Labs CBC & Chem 7: 04/07/22 05:09 04/07/22 05:09 Labs: Laboratory Results - last 24 hr 04/06/22 04/06/22 04/06/22 13:45 13:45 13:45 MCV 78.4 L MCH 24.1 L MCHC 30.7 L RDW 16.6 H Plt Count 281 MPV 9.2 L Immature Gran % (Auto) 0.5 H Neut % (Auto) 89.6 H Lymph % (Auto) 3.4 L [place] % (Auto) 5.5 Eos % (Auto) 0.6 Baso % (Auto) 0.4 Lymph # (Auto) 0.8 L [place] # (Auto) 1.2 Eos # (Auto) 0.1 Baso # (Auto) 0.1 Abs Immat Gran (auto) 0.12 H Absolute Neuts (auto) 20.1 H Absolute Nucleated RBC 0.000 Nucleated RBC % (auto) 0.0 Smear Tech's Comments VERIFIED ESR 39 H Anion Gap 16 Estim Creat Clear Calc 111.7 Estimated GFR > 60 Random Glucose 141 H Estimat Average Glucose Hemoglobin A1c % Lactic Acid Calcium 8.7 C-Reactive Protein 3.08 H B-Natriuretic Peptide COVID-19 (FLY) COVID-19 [employer]Out 04/06/22 04/06/22 04/06/22 13:45 13:45 14:54 MCV MCH MCHC RDW Plt Count MPV Immature Gran % (Auto) Neut % (Auto) Lymph % (Auto) [place] % (Auto) Eos % (Auto) Baso % (Auto) Lymph # (Auto) [place] # (Auto) Eos # (Auto) Baso # (Auto) Abs Immat Gran (auto) Absolute Neuts (auto) Absolute Nucleated RBC Nucleated RBC % (auto) Smear Tech's Comments ESR Anion Gap Estim Creat Clear Calc Estimated GFR Random Glucose Estimat Average Glucose 137 Hemoglobin A1c % 6.4 Lactic Acid 1.8 Calcium C-Reactive Protein B-Natriuretic Peptide 77 COVID-19 (FLY) COVID-19 [employer]Out 04/06/22 04/07/22 04/07/22 14:54 05:09 05:09 MCV 78.8 L MCH 24.1 L MCHC 30.5 L RDW 17.0 H Plt Count 243 MPV 9.5 Immature Gran % (Auto) 0.5 H Neut % (Auto) 86.0 H Lymph % (Auto) 7.2 L [place] % (Auto) 4.7 Eos % (Auto) 1.1 Baso % (Auto) 0.5 Lymph # (Auto) 1.2 [place] # (Auto) 0.8 Eos # (Auto) 0.2 Baso # (Auto) 0.1 Abs Immat Gran (auto) 0.08 H Absolute Neuts (auto) 13.9 H Absolute Nucleated RBC 0.000 Nucleated RBC % (auto) 0.0 Smear Tech's Comments ESR Anion Gap 14 Estim Creat Clear Calc 109.0 Estimated GFR > 60 Random Glucose 122 H Estimat Average Glucose Hemoglobin A1c % Lactic Acid Calcium 8.4 C-Reactive Protein B-Natriuretic Peptide COVID-19 (FLY) Negative COVID-19 Clin Com See Note Assessment and Plan (1) Cellulitis: Status: Acute Plan This is a 56-year-old female with history of HOCM, PAF on Eliquis, pulmonary hypertension, celiac disease, morbid obesity who presents to the emergency department with abdominal wall pain erythema and chills found to have abdominal wall cellulitis Abdominal wall cellulitis No evidence of sepsis continue IV vancomycin, Zosyn CT scan neg for abscess follow blood cultures Celiac disease gluten free diet Morbid obesity BMI 53.1 dvt ppx [facility] proxy- attending - Dr. Corrales continued stay in the hospital for management of abdominal wall cellulitis and need for IV antibiotics Quality Stroke Does the patient have a stroke diagnosis?: No VTE Prior VTE?: No VTE Risk Level:: Medical - moderate - high VTE Device Contraindication: N/A - Device Ordered VTE Drug Contraindication: N/A - Med Ordered
--- NOTE | 2022-04-07 09:35 | MHC.CM.PN ---
No IMM required Patient reports she lives with her , is independent at home and community, CPAP at home but no other DME, denies any home services in place, Covid vax'd J&J and MRNA booster, PCP: Terrence Kaur, Spouse will transport. HCP completed, original and copies to patient, uploaded to [facility], and filed in chart. D/C Plan: Home (self-care)
[2022-04-07 09:50] LABS: Alanine Aminotransferase 32 U/L (0-31); Albumin Level 3.7 g/dL (3.5-5.0); Alkaline Phosphatase 66 U/L (39-117); Aspartate Amino Transferase 48 U/L (5-31); Bilirubin Direct 0.5 mg/dL (0.0-0.5); Total Protein 6.8 g/dL (6.5-8.0)
[2022-04-07 15:38] VITALS: BP 137/71; PULSE 75; RESP 18; TEMP 36.2; O2SAT 94
[2022-04-07] MEDS: oxyCODONE HCl Immed Release 5 MG TABLET 10 MG PO ×2 (16:49→20:49)
[2022-04-07] MEDS: Potassium Chloride ER 20 MEQ TAB.ER.PRT PO (20:05)
[2022-04-07] MEDS: Venlafaxine HCl ER 150 MG CAP.ER.24H PO (20:05)
[2022-04-07 23:23] VITALS: BP 149/79; PULSE 67; RESP 17; TEMP 36.2; O2SAT 96
[2022-04-08] MEDS: Piperacillin Sodium/Tazobactam 4.5 GM in 0.9 % Sodium Chloride 100 ML IV ×2 (04:26→11:09)
[2022-04-08] MEDS: Levothyroxine Sodium 88 MCG TABLET PO (04:26)
[2022-04-08 06:38] LABS: Hematocrit 33.8 % (37.0-47.0); Hemoglobin 10.3 g/dl (12.0-16.0); Mean Corpuscular HGB Conc 30.5 g/dl (31.0-35.0); Mean Corpuscular Hemoglobin 23.9 pg (27.0-33.0); Mean Corpuscular Volume 78.4 fL (80.0-98.0); Mean Platelet Volume 9.8 fL (9.4-12.3); Platelet Count 234 X10*3/uL (160-400); Red Blood Count 4.31 X10*6/uL (4.20-5.50); Red Cell Distribution Width 16.9 % (11.0-16.0); White Blood Count 12.9 X10*3/uL (4.8-10.8)
[2022-04-08 06:53] LABS: Anion Gap 15 (12-20); Blood Urea Nitrogen 10 mg/dL (9-16); Calcium 8.4 mg/dL (8.4-10.2); Carbon Dioxide 26 mmol/L (22-29); Chloride 103 mmol/L (96-108); Creatinine Clr Calc Pharmacy 111.7; Estimated Glomerular Filt Rate > 60; Glucose Random 110 mg/dL (60-115); Potassium 3.5 mmol/L (3.3-5.1); Sodium 140 mmol/L (135-145)
[2022-04-08 06:57] LABS: Vancomycin Trough 9.7 mcg/mL (10.0-20.0)
--- NOTE | 2022-04-08 07:10 | HE.PHANOTE ---
[Vanco addendum] Increased dose to 1250mg Q12H with predicted AUC 485mg/L. Next level to be drawn 04/09/22 @0600
[2022-04-08 07:43] VITALS: BP 164/93; PULSE 78; RESP 17; TEMP 36.4; O2SAT 94
[2022-04-08] MEDS: vancomycin HCL 1,250 MG in 0.9 % Sodium Chloride 250 ML 166.67 MG IV (07:59)
[2022-04-08] MEDS: Cholecalciferol (Vitamin D3) 25 MCG TABLET PO (08:00)
[2022-04-08] MEDS: Metoprolol Tartrate 50 MG TABLET PO (08:00)
[2022-04-08] MEDS: 0.9 % Sodium Chloride Flush 3 ML SYRINGE IVFLUSH (08:00)
[2022-04-08] MEDS: Montelukast Sodium 10 MG TABLET PO (08:00)
[2022-04-08] MEDS: Apixaban 5 MG TABLET PO (08:00)
[2022-04-08] MEDS: Bumetanide 1 MG TABLET 2 MG PO (08:01)
[2022-04-08 08:07] VITALS: PULSE 70; RESP 16; O2SAT 98
--- NOTE | 2022-04-08 09:10 | PM.DS ---
DS: Providers Provider Date of Service: 04/08/22 Date of admission: 04/06/22 15:40 Primary care physician: Terrence Kaur MD Attending physician on discharge: Antwan Pal Discharging clinician: Melissa Joyce DS: Diagnosis Discharge Diagnosis (1) Cellulitis: Status: Acute DS: Summary Hospital Course Hospital Course: HP as per admitting provider This is a 56-year-old female who presents the emergency department with warmth and pain in her lower abdomen.? Patient has a history of abdominal wall cellulitis in the past and today she noticed her lower abdomen was very warm and tender to touch.? She had associated chills as well as nausea without vomiting.? This was the same way she felt last time she had abdominal wall cellulitis therefore she came directly to the emergency department for evaluation.? In the emergency department she was afebrile.? Workup revealed leukocytosis of over 22,000.? She was started on IV antibiotics and the decision was made to admit her to the hospital for further management. COVID-19 vaccination status-1st dose Yariel & Yariel, 2nd dose Moderna . Abdominal wall cellulitis No evidence of sepsis treated with IV vancomycin, Zosyn CT scan neg for abscess neg blood cx after 24 hours continue Celiac disease gluten free diet Morbid obesity BMI 53.1 weight management Time Spent with Patient Time attestation: Total time spent providing and/or coordinating discharge services: Discharge coordination time: Greater than 30 minutes Quality: Safe Use of Opioids Does Pt have an Active Cancer Diagnosis on the Problem List?: No Quality: Stroke Does the patient have a stroke diagnosis?: No Physical Exam Vital Signs: Vital Signs: Last Vital Signs Temp 97.5 F 04/08/22 07:43 Pulse 70 04/08/22 08:07 Resp 16 04/08/22 08:07 BP 164/93 H 04/08/22 07:43 Pulse Ox 94 04/08/22 07:43 O2 Del Method 04/08/22 07:43 BMI result Body Mass Index 53.1 Appearing in no acute distress head is normocephalic atraumatic eyes pupils are PERRLA sclera is anicteric mouth throat mucous membranes are intact and moist neck is supple no lymphadenopathy, no JVD noted lung sounds are clear to auscultation heart regular rate rhythm, clear S1, S2 positive bowel sounds, abdomen is soft, nontender, obese, right lower abd erythema neuro patient is alert x3, no focal deficits DS: Data Data Completed and Pending Labs on day of discharge: Laboratory Results - last 24 hr 04/07/22 04/08/22 04/08/22 05:09 06:08 06:08 WBC 12.9 H RBC 4.31 Hgb 10.3 L Hct 33.8 L MCV 78.4 L MCH 23.9 L MCHC 30.5 L RDW 16.9 H Plt Count 234 MPV 9.8 Absolute Nucleated RBC 0.000 Nucleated RBC % (auto) 0.0 Sodium 140 Potassium 3.5 Chloride 103 Carbon Dioxide 26 Anion Gap 15 BUN 10 Creatinine 0.78 Estim Creat Clear Calc 111.7 Estimated GFR > 60 Random Glucose 110 Calcium 8.4 Total Bilirubin 1.0 Direct Bilirubin 0.5 AST 48 H ALT 32 H Alkaline Phosphatase 66 Total Protein 6.8 Albumin 3.7 Vancomycin Trough 04/08/22 06:08 WBC RBC Hgb Hct MCV MCH MCHC RDW Plt Count MPV Absolute Nucleated RBC Nucleated RBC % (auto) Sodium Potassium Chloride Carbon Dioxide Anion Gap BUN Creatinine Estim Creat Clear Calc Estimated GFR Random Glucose Calcium Total Bilirubin Direct Bilirubin AST ALT Alkaline Phosphatase Total Protein Albumin Vancomycin Trough 9.7 L Preliminary micro results at discharge 04/06/22 15:12 Blood Culture - Preliminary Blood - Venous No growth after 24 hours. 04/06/22 15:12 Blood Culture - Preliminary Blood - Venous No growth after 24 hours. Discharge Plan Discharge Anticipated Discharge Date/Time: 04/08/22 09:22 Patient Disposition: Home, Self-Care Discharge Diagnosis: Abdominal wall cellulitis Referrals: Terrence Kaur MD [Primary Care Provider] - 1 Week Discharge Medications: New oxycodone 5 mg Tablet 10 mg PO Q4H PRN (Reason: Pain, Severe (Pain Scale 7-10)) Qty: 24 0RF Rx Instructions: Partial Fill upon patient request. amoxicillin-pot clavulanate 875-125 mg tablet 1 tab PO BID Qty: 16 0RF doxycycline hyclate 100 mg tablet 100 mg PO BID Qty: 16 0RF Continued Spiriva with HandiHaler 18 mcg capsule, w/inhalation device 1 cap inhalation DAILY Qty: 60 3RF metoprolol tartrate 50 mg tablet 50 mg PO BID 90 Days Qty: 180 3RF bumetanide 2 mg tablet 2 mg PO DAILY Qty: 90 1RF levothyroxine 88 mcg tablet 1 tab PO DAILY@0600 acetaminophen [Tylenol] 325 mg Tablet 650 mg PO Q6H PRN (Reason: Pain) potassium chloride 20 mEq tablet extended release 20 meq PO BEDTIME venlafaxine 150 mg capsule,extended release 24hr 150 mg PO BEDTIME cholecalciferol (vitamin D3) 25 mcg (1,000 unit) capsule 25 mcg PO DAILY montelukast [Singulair] 10 mg tablet 10 mg PO DAILY 30 Days Qty: 30 11RF Eliquis 5 mg tablet 5 mg PO BID Qty: 180 3RF Discharge Orders: Discharge Order (Routine); Ordered 04/08/22 Ordered By: Melissa Joyce Diet: Advance to usual diet Activity on Discharge: As tolerated Stand Alone Forms: Patient Portal Discharge page Care Plan Goals: Complete resolution of symptoms Health Concerns: Abdominal wall cellulitis Plan of Treatment: Follow-up with primary care provider for weeks Continue all medications as prescribed Return to the ER or urgent care if symptoms worsen or persist after the completion of antibiotic therapy Assessment: See discharge summary Discharge Date/Time: 04/08/22 14:17
[2022-04-08 11:29] LABS: MRSA Nasal PCR NEGATIVE (Negative); SA Nasal PCR NEGATIVE (Negative)
--- NOTE | 2022-04-08 13:45 | MHC.CM.PN ---
Patient had been medically cleared for discharge today, Home (self-care). No IMM needed
== END 2022-04-08 14:17 | disposition home or self-care (01) | DRG 383 ==
LOC: HO.ED 15:54 → HO.EDOVER 16:28 → HO.S3 18:32
PROVIDERS: Physician Assistant; Admitting Provider Physician Assistant Medical; Emergency Provider Student in an Organized Health Care Education/Training Program; PCP Internal Medicine; Visit Provider Nurse Practitioner Acute Care
DX: L03.311 Cellulitis of abdominal wall (principal); I27.20 Pulmonary hypertension, unspecified; G47.33 Obstructive sleep apnea (adult) (pediatric); Z68.43 Body mass index [BMI] 50.0-59.9, adult; K90.0 Celiac disease; E66.01 Morbid (severe) obesity due to excess calories; Z20.822 Contact with and (suspected) exposure to COVID-19; Z88.2 Allergy status to sulfonamides; Z88.8 Allergy status to other drugs, medicaments and biological substances; Z79.890 Hormone replacement therapy; Z79.899 Other long term (current) drug therapy
CPT/HCPCS: 36415; 71045; 74176; 80048; 80076; 80202; 83036; 83605; 83880; 85025; 85027; 85652; 86140; 87040; 87635; 87640; 87641; 96361; 96374; 96375; 99285; J0696; J2270; J2543; J3370

== ENCOUNTER 2022-05-15 10:10 | Emergency (ER) | payer BC, SELFPAY ==
[2022-05-15 10:13] VITALS: BP 136/70; PULSE 72; RESP 18; TEMP 37.1; O2SAT 97; BMI 51.3
[2022-05-15 12:35] LABS: MANUAL DIFF FLAG NO
[2022-05-15 12:39] LABS: Basophils Absolute Auto 0.1 X10*3/uL (0.0-0.2); Basophils Percent Auto 0.5 % (0-2); Eosinophils Absolute Auto 0.3 X10*3/uL (0.0-0.4); Eosinophils Percent Auto 1.9 % (0-4); Hematocrit 37.1 % (37.0-47.0); Hemoglobin 11.4 g/dl (12.0-16.0); Imm Gran Abs Auto 0.09 X10*3/uL (0.00-0.03); Imm Gran Pct Auto 0.6 % (0.0-0.4); Lymphocytes Absolute Auto 1.7 X10*3/uL (1.2-4.9); Lymphocytes Percent Auto 11.9 % (20-40); Mean Corpuscular HGB Conc 30.7 g/dl (31.0-35.0); Mean Corpuscular Hemoglobin 23.9 pg (27.0-33.0); Mean Corpuscular Volume 77.8 fL (80.0-98.0); Monocytes Absolute Auto 0.8 X10*3/uL (0.1-1.2); Monocytes Percent Auto 5.2 % (2-11); Neutrophils Absolute Auto 11.5 x10*3/uL (2.0-8.3); Neutrophils Percent Auto 79.9 % (45-73); Platelet Count 294 X10*3/uL (160-400); Red Blood Count 4.77 X10*6/uL (4.20-5.50); Red Cell Distribution Width 17.3 % (11.0-16.0); White Blood Count 14.4 X10*3/uL (4.8-10.8)
[2022-05-15 12:45] LABS: Lactic Acid 0.9 mmol/L (0.5-2.0)
[2022-05-15 12:51] LABS: INTERNATIONAL NORM RATIO 1.3 (0.9-1.1); Prothrombin Time 15.1 SEC (10.0-13.1)
[2022-05-15 12:55] LABS: Alanine Aminotransferase 19 U/L (0-31); Albumin Level 3.9 g/dL (3.5-5.0); Alkaline Phosphatase 79 U/L (39-117); Anion Gap 15 (12-20); Aspartate Amino Transferase 28 U/L (5-31); Bilirubin Total 0.5 mg/dL (0.0-1.0); Blood Urea Nitrogen 6 mg/dL (9-16); Calcium 8.4 mg/dL (8.4-10.2); Carbon Dioxide 28 mmol/L (22-29); Chloride 100 mmol/L (96-108); Creatinine Clr Calc Pharmacy 112.3; Estimated Glomerular Filt Rate > 60; Glucose Random 93 mg/dL (60-115); Lipase 10 U/L (8-78); Magnesium 1.9 mg/dL (1.6-2.6); Potassium 3.4 mmol/L (3.3-5.1); Sodium 140 mmol/L (135-145); Total Protein 7.7 g/dL (6.5-8.0)
--- NOTE | 2022-05-15 22:11 | ED.SKABFB ---
HPI - Skin/Abscess/Foreign Bdy General Chief complaint: General Medical Stated complaint: abd cellulitis Time Seen by Provider: 05/15/22 11:55 Source: patient and old records reviewed Mode of arrival: ambulatory Limitations: no limitations History of Present Illness HPI narrative: 56 yo female with hx of PAF on eliquis, HOCM, obesity, recurrent abdominal wall cellulitis, last admission back in April reports yesterday at 4pm she developed chills and felt feverish with abdominal wall redness and pain. This is typical of her abdominal wall cellulitis. MD complaint: rash Onset (ago): hour(s) (30) Tetanus up to date: yes Location: generalized (abdominal wall ) Severity: moderate Quality: aching and dull Pain Consistency: constant Relieving factors: none Exacerbating factors: palpation Context: other (hx of similar episodes) Associated symptoms: fever and chills Treatments prior to arrival: none Related Data Home Medications Medication Instructions Recorded Confirmed cholecalciferol (vitamin D3) 25 25 mcg PO DAILY 07/30/20 04/06/22 mcg (1,000 unit) capsule venlafaxine 150 mg 150 mg PO BEDTIME 07/30/20 04/06/22 capsule,extended release 24 hr acetaminophen 325 mg tablet 650 mg PO Q6H PRN Pain 04/06/22 04/06/22 (Tylenol) levothyroxine 88 mcg tablet 1 tab PO DAILY@0600 04/06/22 04/06/22 potassium chloride 20 mEq 20 meq PO BEDTIME 04/06/22 04/06/22 tablet,extended release Previous Rx's Medication Instructions Recorded tiotropium bromide 18 mcg capsule 1 cap inhalation DAILY #60 ea 06/21/21 with inhalation device (Spiriva with HandiHaler) metoprolol tartrate 50 mg tablet 50 mg PO BID 90 days #180 tabs 07/22/21 apixaban 5 mg tablet (Eliquis) 5 mg PO BID #180 tabs 12/24/21 montelukast 10 mg tablet 10 mg PO DAILY 30 days #30 tabs 12/26/21 (Singulair) bumetanide 2 mg tablet 2 mg PO DAILY #90 tabs 03/13/22 amoxicillin 875 mg-potassium 1 tab PO BID #16 tabs 04/08/22 clavulanate 125 mg tablet doxycycline hyclate 100 mg tablet 100 mg PO BID #16 tabs 04/08/22 oxycodone 5 mg tablet 10 mg PO Q4H PRN Pain, Severe 04/08/22 (Pain Scale 7-10) #24 tabs amoxicillin 875 mg-potassium 1 tab PO BID #14 tabs 05/15/22 clavulanate 125 mg tablet doxycycline hyclate 100 mg capsule 100 mg PO BID 10 days #20 caps 05/15/22 Allergies Allergy/AdvReac Type Severity Reaction Status Date / Time adhesive [ADHESIVE] AdvReac Unknown RASH - Verified 04/06/22 13:32 SKIN CAME OFF WITH TAPE apremilast [Otezla] AdvReac Unknown nausea, Verified 04/06/22 13:32 vomiting Sulfa (Sulfonamide AdvReac Unknown UNKNOWN Verified 04/06/22 13:32 Antibiotics) [SULFA (SULFONAMIDE ANTIBIOTICS)] Review of Systems Review of Systems: Constitutional : pos Fever, pos Chills ENT/Mouth : No sore throat, No Rhinorrhea Eyes: No Eye Pain, No Swelling, No Redness Cardiovascular : No Chest Pain, No SOB Respiratory : No Cough, No Sputum Gastrointestinal : No Nausea, No Vomiting, No Diarrhea, No abdominal Pain Genitourinary : No Dysuria, No Hematuria Musculoskeletal : No joint pain, No Myalgias, No Joint Swelling Skin : No Skin Lesions, positive skin rash Neuro : No Weakness, No Numbness, No Headache Psych : No Anxiety, No Depression Heme/Lymph: No Bruising, No Bleeding,No Lymphadenopathy Endocrine : No Polyuria, No Polydipsia All other systems reviewed and are negative [facility] Past Medical History Attestation statement: The following information was validated with the patient. Source: old records reviewed Medical History Celiac disease HOCM (hypertrophic obstructive cardiomyopathy) MONICA (iron deficiency anemia) Mitral valve disease Morbid obesity PAF (paroxysmal atrial fibrillation) Pulmonary hypertension Surgical History History of cardiac catheterization History of cardiac pacemaker (~10/2018) History of heart surgery (~10/2018) Status post ventricular septal myectomy Family History Family History Father CVD (cardiovascular disease) Mother CVD (cardiovascular disease) Social History Social History Household Members: Spouse Housing: House Do you presently have visiting nurse or other home services: No Patient Tobacco Use Status: Former Tobacco user Use of substances other than those prescribed or required for medical reasons: Yes Substance Use Type: Marijuana Advance Directives: No Advance Directives Information Provided: No service: No Current occupational status: disabled Physical Exam Vital Signs: Vital Signs: Last Vital Signs Temp 98.9 F 05/15/22 22:17 Pulse 70 05/15/22 22:17 Resp 18 05/15/22 22:17 BP 128/59 L 05/15/22 22:17 Pulse Ox 94 05/15/22 22:17 O2 Del Method 05/15/22 22:17 BMI result Body Mass Index 51.3 Appearance: Alert. Oriented X3. No acute distress. Eyes: Pupils equal, round and reactive to light. ENT: Pharynx normal. Neck: Normal inspection. Neck supple. CVS: Normal heart rate and rhythm. Pulses normal. Respiratory: No respiratory distress. Breath sounds normal. Abdomen: Soft with erythema along lower lower abdomen and pannus no fluctuance felt no abscess noted - erythematous with warmth, no open lesions - large 8cm area Skin: Skin warm and dry. Normal skin color. Normal skin turgor. Extremities: No lower extremity edema. No calf ttp Neuro: Oriented X 3. No motor deficit. No sensory deficit. Course Course Course Narrative: WBC count is lower, no lactic acid, no tachycardia - at this time after dose of IV antibiotics can trial PO antibiotics course with strict precautions to return MDM - Skin/Abscess/Foreign Bdy MDM Narrative Medical decision making narrative: 56 yo female with hx of PAF on eliquis, HOCM, obesity, recurrent abdominal wall cellulitis here with chills, subjective fevers and signs of abdominal wall cellulitis - at this time will repeat CBC from waiting room, obtain cultures, start on zosyn and vancomycin. Possible admission pending repeat CBC. Dispo per results and findings. Lab Data Result diagrams: 05/15/22 22:25 05/15/22 12:31 Labs: Lab Results 05/15/22 05/15/22 05/15/22 Range/Units 12:31 12:31 12:31 WBC 14.4 H (4.8-10.8) X10*3/uL RBC 4.77 (4.20-5.50) X10*6/uL Hgb 11.4 L (12.0-16.0) g/dl Hct 37.1 (37.0-47.0) % MCV 77.8 L (80.0-98.0) fL MCH 23.9 L (27.0-33.0) pg MCHC 30.7 L (31.0-35.0) g/dl RDW 17.3 H (11.0-16.0) % Plt Count 294 D (160-400) X10*3/uL MPV 9.0 L (9.4-12.3) fL Immature Gran % (Auto) 0.6 H (0.0-0.4) % Neut % (Auto) 79.9 H (45-73) % Lymph % (Auto) 11.9 L (20-40) % [place] % (Auto) 5.2 (2-11) % Eos % (Auto) 1.9 (0-4) % Baso % (Auto) 0.5 (0-2) % Lymph # (Auto) 1.7 (1.2-4.9) X10*3/uL [place] # (Auto) 0.8 (0.1-1.2) X10*3/uL Eos # (Auto) 0.3 (0.0-0.4) X10*3/uL Baso # (Auto) 0.1 (0.0-0.2) X10*3/uL Abs Immat Gran (auto) 0.09 H (0.00-0.03) X10*3/uL Absolute Neuts (auto) 11.5 H (2.0-8.3) x10*3/uL Absolute Nucleated RBC 0.000 (0.0-0.012) X10*3/uL Nucleated RBC % (auto) 0.0 (0.0-0.2) /100WBC PT 15.1 H (10.0-13.1) SEC INR 1.3 H (0.9-1.1) Sodium 140 (135-145) mmol/L Potassium 3.4 (3.3-5.1) mmol/L Chloride 100 (96-108) mmol/L Carbon Dioxide 28 (22-29) mmol/L Anion Gap 15 (12-20) BUN 6 L (9-16) mg/dL Creatinine 0.76 (0.5-1.4) mg/dL Estim Creat Clear Calc 112.3 Estimated GFR > 60 Random Glucose 93 (60-115) mg/dL Lactic Acid (0.5-2.0) mmol/L Calcium 8.4 (8.4-10.2) mg/dL Magnesium 1.9 (1.6-2.6) mg/dL Total Bilirubin 0.5 (0.0-1.0) mg/dL AST 28 D (5-31) U/L ALT 19 (0-31) U/L Alkaline Phosphatase 79 (39-117) U/L Total Protein 7.7 (6.5-8.0) g/dL Albumin 3.9 (3.5-5.0) g/dL Lipase 10 (8-78) U/L 05/15/22 05/15/22 Range/Units 12:31 22:25 WBC 13.0 H (4.8-10.8) X10*3/uL RBC 4.79 (4.20-5.50) X10*6/uL Hgb 11.3 L (12.0-16.0) g/dl Hct 36.6 L (37.0-47.0) % MCV 76.4 L (80.0-98.0) fL MCH 23.6 L (27.0-33.0) pg MCHC 30.9 L (31.0-35.0) g/dl RDW 17.6 H (11.0-16.0) % Plt Count 308 (160-400) X10*3/uL MPV 9.4 (9.4-12.3) fL Immature Gran % (Auto) 0.5 H (0.0-0.4) % Neut % (Auto) 77.4 H (45-73) % Lymph % (Auto) 13.3 L (20-40) % [place] % (Auto) 6.1 (2-11) % Eos % (Auto) 2.2 (0-4) % Baso % (Auto) 0.5 (0-2) % Lymph # (Auto) 1.7 (1.2-4.9) X10*3/uL [place] # (Auto) 0.8 (0.1-1.2) X10*3/uL Eos # (Auto) 0.3 (0.0-0.4) X10*3/uL Baso # (Auto) 0.1 (0.0-0.2) X10*3/uL Abs Immat Gran (auto) 0.07 H (0.00-0.03) X10*3/uL Absolute Neuts (auto) 10.1 H (2.0-8.3) x10*3/uL Absolute Nucleated RBC 0.000 (0.0-0.012) X10*3/uL Nucleated RBC % (auto) 0.0 (0.0-0.2) /100WBC PT (10.0-13.1) SEC INR (0.9-1.1) Sodium (135-145) mmol/L Potassium (3.3-5.1) mmol/L Chloride (96-108) mmol/L Carbon Dioxide (22-29) mmol/L Anion Gap (12-20) BUN (9-16) mg/dL Creatinine (0.5-1.4) mg/dL Estim Creat Clear Calc Estimated GFR Random Glucose (60-115) mg/dL Lactic Acid 0.9 (0.5-2.0) mmol/L Calcium (8.4-10.2) mg/dL Magnesium (1.6-2.6) mg/dL Total Bilirubin (0.0-1.0) mg/dL AST (5-31) U/L ALT (0-31) U/L Alkaline Phosphatase (39-117) U/L Total Protein (6.5-8.0) g/dL Albumin (3.5-5.0) g/dL Lipase (8-78) U/L Discharge Plan Discharge Clinical Impression: Abdominal wall cellulitis Patient Disposition: Home, Self-Care Instructions: Cellulitis (ED) Additional Instructions: return to ED for any worsening symptoms or concerns if fevers persist, redness worsens, you are not improving please return to the emergency department take a probiotic while on antibiotics Prescriptions: New doxycycline hyclate 100 mg capsule 100 mg PO BID 10 Days Qty: 20 0RF amoxicillin-pot clavulanate 875-125 mg tablet 1 tab PO BID Qty: 14 0RF No Action Spiriva with HandiHaler 18 mcg capsule, w/inhalation device 1 cap inhalation DAILY Qty: 60 3RF metoprolol tartrate 50 mg tablet 50 mg PO BID 90 Days Qty: 180 3RF bumetanide 2 mg tablet 2 mg PO DAILY Qty: 90 1RF levothyroxine 88 mcg tablet 1 tab PO DAILY@0600 acetaminophen [Tylenol] 325 mg Tablet 650 mg PO Q6H PRN (Reason: Pain) potassium chloride 20 mEq tablet extended release 20 meq PO BEDTIME oxycodone 5 mg Tablet 10 mg PO Q4H PRN (Reason: Pain, Severe (Pain Scale 7-10)) Qty: 24 0RF Rx Instructions: Partial Fill upon patient request. amoxicillin-pot clavulanate 875-125 mg tablet 1 tab PO BID Qty: 16 0RF doxycycline hyclate 100 mg tablet 100 mg PO BID Qty: 16 0RF venlafaxine 150 mg capsule,extended release 24hr 150 mg PO BEDTIME cholecalciferol (vitamin D3) 25 mcg (1,000 unit) capsule 25 mcg PO DAILY montelukast [Singulair] 10 mg tablet 10 mg PO DAILY 30 Days Qty: 30 11RF Eliquis 5 mg tablet 5 mg PO BID Qty: 180 3RF Referrals: Terrence Kaur MD [Primary Care Provider] - (Thursday for rash check)
[2022-05-15 22:17] VITALS: BP 128/59; PULSE 70; RESP 18; TEMP 37.2; O2SAT 94
[2022-05-15 22:28] LABS: MANUAL DIFF FLAG NO
[2022-05-15 22:30] LABS: Basophils Absolute Auto 0.1 X10*3/uL (0.0-0.2); Basophils Percent Auto 0.5 % (0-2); Eosinophils Absolute Auto 0.3 X10*3/uL (0.0-0.4); Eosinophils Percent Auto 2.2 % (0-4); Hematocrit 36.6 % (37.0-47.0); Hemoglobin 11.3 g/dl (12.0-16.0); Imm Gran Abs Auto 0.07 X10*3/uL (0.00-0.03); Imm Gran Pct Auto 0.5 % (0.0-0.4); Lymphocytes Absolute Auto 1.7 X10*3/uL (1.2-4.9); Lymphocytes Percent Auto 13.3 % (20-40); Mean Corpuscular HGB Conc 30.9 g/dl (31.0-35.0); Mean Corpuscular Hemoglobin 23.6 pg (27.0-33.0); Mean Corpuscular Volume 76.4 fL (80.0-98.0); Mean Platelet Volume 9.4 fL (9.4-12.3); Monocytes Absolute Auto 0.8 X10*3/uL (0.1-1.2); Monocytes Percent Auto 6.1 % (2-11); Neutrophils Absolute Auto 10.1 x10*3/uL (2.0-8.3); Neutrophils Percent Auto 77.4 % (45-73); Platelet Count 308 X10*3/uL (160-400); Red Blood Count 4.79 X10*6/uL (4.20-5.50); Red Cell Distribution Width 17.6 % (11.0-16.0)
[2022-05-15] MEDS: Piperacillin Sodium/Tazobactam 3.375 GM in 0.9 % Sodium Chloride 50 ML IV (22:34)
[2022-05-15] MEDS: Acetaminophen 325 MG TABLET 650 MG PO (22:34)
[2022-05-15 22:50] LABS: COVID-19 Test Negative (Negative)
[2022-05-16 00:52] VITALS: BP 98/75; PULSE 68; RESP 18; TEMP 36.5
--- NOTE | 2022-05-16 02:30 | PC.NURSE ---
I assumed nursing care of Tabby at 2300. Since that time she has remained alert, oriented x 3, calm and cooperative and able to verbalize her needs adequately. No chest pain. No SOB. Speech clear and appropriate. No nausea or vomiting. IV Abx completed, pt D/C'd.
== END 2022-05-16 02:29 | disposition home or self-care (01) ==
PROVIDERS: Physician Assistant Medical; Emergency Provider Emergency Medicine; PCP Internal Medicine
DX: L03.311 Cellulitis of abdominal wall (principal); Z79.899 Other long term (current) drug therapy; Z20.822 Contact with and (suspected) exposure to COVID-19
CPT/HCPCS: 36415; 80053; 83605; 83690; 83735; 85025; 85610; 87040; 87635; 96365; 96375; 99284; J2543; J3370

== ENCOUNTER 2022-05-16 21:41 | Inpatient (IN) | payer BC, SELFPAY ==
[2022-05-16 21:46] VITALS: BP 150/97; PULSE 72; RESP 18; TEMP 37.2; O2SAT 95; BMI 51.3
[2022-05-16 22:07] LABS: MANUAL DIFF FLAG NO
[2022-05-16 22:23] LABS: Basophils Absolute Auto 0.1 X10*3/uL (0.0-0.2); Basophils Percent Auto 0.6 % (0-2); Eosinophils Absolute Auto 0.3 X10*3/uL (0.0-0.4); Eosinophils Percent Auto 2.3 % (0-4); Hematocrit 36.8 % (37.0-47.0); Hemoglobin 11.1 g/dl (12.0-16.0); Imm Gran Abs Auto 0.07 X10*3/uL (0.00-0.03); Imm Gran Pct Auto 0.6 % (0.0-0.4); Lymphocytes Absolute Auto 1.2 X10*3/uL (1.2-4.9); Lymphocytes Percent Auto 9.5 % (20-40); Mean Corpuscular HGB Conc 30.2 g/dl (31.0-35.0); Mean Corpuscular Hemoglobin 23.3 pg (27.0-33.0); Mean Corpuscular Volume 77.3 fL (80.0-98.0); Mean Platelet Volume 9.4 fL (9.4-12.3); Monocytes Absolute Auto 0.6 X10*3/uL (0.1-1.2); Neutrophils Absolute Auto 10.4 x10*3/uL (2.0-8.3); Platelet Count 312 X10*3/uL (160-400); Red Blood Count 4.76 X10*6/uL (4.20-5.50); Red Cell Distribution Width 17.4 % (11.0-16.0); White Blood Count 12.7 X10*3/uL (4.8-10.8)
[2022-05-16 22:25] LABS: Alanine Aminotransferase 18 U/L (0-31); Alkaline Phosphatase 71 U/L (39-117); Anion Gap 17 (12-20); Aspartate Amino Transferase 24 U/L (5-31); Bilirubin Direct 0.3 mg/dL (0.0-0.5); Bilirubin Total 0.7 mg/dL (0.0-1.0); Blood Urea Nitrogen 9 mg/dL (9-16); Calcium 8.8 mg/dL (8.4-10.2); Carbon Dioxide 29 mmol/L (22-29); Chloride 98 mmol/L (96-108); Creatinine Clr Calc Pharmacy 76.2; Estimated Glomerular Filt Rate 51; Glucose Random 212 mg/dL (60-115); Magnesium 1.7 mg/dL (1.6-2.6); Potassium 3.5 mmol/L (3.3-5.1); Sodium 140 mmol/L (135-145); Total Protein 7.5 g/dL (6.5-8.0)
[2022-05-16 22:26] LABS: Lactic Acid 2.5 mmol/L (0.5-2.0)
--- NOTE | 2022-05-16 22:38 | ED.SKABFB ---
HPI - Skin/Abscess/Foreign Bdy General Chief complaint: Recheck/Abnormal Lab/Rx Stated complaint: cellulitis isnt getting better. Meds arent working Time Seen by Provider: 05/16/22 21:44 Source: patient Mode of arrival: ambulatory Limitations: no limitations History of Present Illness HPI narrative: 56 yo female with hx of PAF on eliquis, pulm HTN, obesity, recurrent abdominal wall cellulitis notes 2 days of red skin on abdomen. Seen yesterday in ED sent home with augmentin and doxy feels she is worsening with redness, feels weak, not eating has fevers/chills. complaint: rash and lesion Onset (ago): day(s) (2) Tetanus up to date: yes Location: generalized (abdominal wall) Severity: moderate Quality: aching, dull and constant Pain Consistency: constant Relieving factors: none Exacerbating factors: palpation and movement Context: recent illness and other (hx of recurrent abdominal wall cellulitis) Associated symptoms: fever, chills, nausea and myalgias Treatments prior to arrival: antibiotic (augmentin/doxycycline) Related Data Home Medications Medication Instructions Recorded Confirmed venlafaxine 150 mg 150 mg PO BEDTIME 07/30/20 04/06/22 capsule,extended release 24 hr levothyroxine 88 mcg tablet 1 tab PO DAILY@0600 04/06/22 04/06/22 potassium chloride 20 mEq 20 meq PO BEDTIME 04/06/22 04/06/22 tablet,extended release oxycodone 5 mg tablet 5 mg PO Q4H PRN Pain, Severe (Pain 05/16/22 Scale 7-10) Previous Rx's Medication Instructions Recorded metoprolol tartrate 50 mg tablet 50 mg PO BID 90 days #180 tabs 07/22/21 apixaban 5 mg tablet (Eliquis) 5 mg PO BID #180 tabs 12/24/21 montelukast 10 mg tablet 10 mg PO DAILY 30 days #30 tabs 12/26/21 (Singulair) bumetanide 2 mg tablet 2 mg PO DAILY #90 tabs 03/13/22 Allergies Allergy/AdvReac Type Severity Reaction Status Date / Time adhesive [ADHESIVE] AdvReac Unknown RASH - Verified 04/06/22 13:32 SKIN CAME OFF WITH TAPE apremilast [Otezla] AdvReac Unknown nausea, Verified 04/06/22 13:32 vomiting Sulfa (Sulfonamide AdvReac Unknown UNKNOWN Verified 04/06/22 13:32 Antibiotics) [SULFA (SULFONAMIDE ANTIBIOTICS)] Review of Systems Review of Systems: Constitutional : No Fever, pos Chills ENT/Mouth : No sore throat, No Rhinorrhea Eyes: No Eye Pain, No Swelling, No Redness Cardiovascular : No Chest Pain, No SOB Respiratory : No Cough, No Sputum Gastrointestinal : No Nausea, No Vomiting, No Diarrhea, No abdominal Pain Genitourinary : No Dysuria, No Hematuria Musculoskeletal : No joint pain, No Myalgias, No Joint Swelling Skin : No Skin Lesions, positive skin rash Neuro : pos Weakness, No Numbness, No Headache Psych : No Anxiety, No Depression Heme/Lymph: No Bruising, No Bleeding,No Lymphadenopathy Endocrine : No Polyuria, No Polydipsia All other systems reviewed and are negative [facility] Past Medical History Attestation statement: The following information was validated with the patient. Medical History Celiac disease HOCM (hypertrophic obstructive cardiomyopathy) MONICA (iron deficiency anemia) Mitral valve disease Morbid obesity PAF (paroxysmal atrial fibrillation) Pulmonary hypertension Surgical History History of cardiac catheterization History of cardiac pacemaker (~10/2018) History of heart surgery (~10/2018) Status post ventricular septal myectomy Family History Family History Father CVD (cardiovascular disease) Mother CVD (cardiovascular disease) Social History Social History Household Members: Spouse Housing: House Do you presently have visiting nurse or other home services: No Patient Tobacco Use Status: Former Tobacco user Substance Use Type: Marijuana service: No Current occupational status: disabled Physical Exam Vital Signs: Vital Signs: Last Vital Signs Temp 98.9 F 05/16/22 21:46 Pulse 72 05/16/22 21:46 Resp 18 05/16/22 21:46 BP 150/97 H 05/16/22 21:46 Pulse Ox 95 05/16/22 21:46 O2 Del Method 05/16/22 21:46 BMI result Body Mass Index 51.3 Appearance: Alert. Oriented X3. No acute distress. Eyes: Pupils equal, round and reactive to light. ENT: Pharynx normal. Neck: Normal inspection. Neck supple. CVS: Normal heart rate and rhythm. Pulses normal. Respiratory: No respiratory distress. Breath sounds normal. Abdomen: Soft and obese, ttp along R sided of abdomen on pannus and under fold no fluctuance or abscess felt it is tender to palpation, no crepitus felt, about 10cm total in size Skin: Skin warm and dry. Normal skin color. Normal skin turgor. Extremities: No lower extremity edema. No calf ttp Neuro: Oriented X 3. No motor deficit. No sensory deficit. MDM - Skin/Abscess/Foreign Bdy MDM Narrative Medical decision making narrative: 56 yo female with hx of PAF on eliquis, pulm HTN, obesity, recurrent abdominal wall cellulitis here with failed outpatient oral antibiotic treatment at this time will repeat labs, cultures, lactic acid - trough for vancomycin sent off. will redose zosyn and admit patient. Lab Data Result diagrams: 05/16/22 21:57 05/16/22 21:57 Labs: Lab Results 05/16/22 05/16/22 05/16/22 Range/Units 21:57 21:57 21:57 WBC 12.7 H (4.8-10.8) X10*3/uL RBC 4.76 (4.20-5.50) X10*6/uL Hgb 11.1 L (12.0-16.0) g/dl Hct 36.8 L (37.0-47.0) % MCV 77.3 L (80.0-98.0) fL MCH 23.3 L (27.0-33.0) pg MCHC 30.2 L (31.0-35.0) g/dl RDW 17.4 H (11.0-16.0) % Plt Count 312 (160-400) X10*3/uL MPV 9.4 (9.4-12.3) fL Immature Gran % (Auto) 0.6 H (0.0-0.4) % Neut % (Auto) 82.0 H (45-73) % Lymph % (Auto) 9.5 L (20-40) % [place] % (Auto) 5.0 (2-11) % Eos % (Auto) 2.3 (0-4) % Baso % (Auto) 0.6 (0-2) % Lymph # (Auto) 1.2 (1.2-4.9) X10*3/uL [place] # (Auto) 0.6 (0.1-1.2) X10*3/uL Eos # (Auto) 0.3 (0.0-0.4) X10*3/uL Baso # (Auto) 0.1 (0.0-0.2) X10*3/uL Abs Immat Gran (auto) 0.07 H (0.00-0.03) X10*3/uL Absolute Neuts (auto) 10.4 H (2.0-8.3) x10*3/uL Absolute Nucleated RBC 0.000 (0.0-0.012) X10*3/uL Nucleated RBC % (auto) 0.0 (0.0-0.2) /100WBC Sodium 140 (135-145) mmol/L Potassium 3.5 (3.3-5.1) mmol/L Chloride 98 (96-108) mmol/L Carbon Dioxide 29 (22-29) mmol/L Anion Gap 17 (12-20) BUN 9 (9-16) mg/dL Creatinine 1.12 (0.5-1.4) mg/dL Estim Creat Clear Calc 76.2 Estimated GFR 51 Random Glucose 212 H (60-115) mg/dL Lactic Acid 2.5 H* (0.5-2.0) mmol/L Calcium 8.8 (8.4-10.2) mg/dL Magnesium 1.7 (1.6-2.6) mg/dL Total Bilirubin 0.7 (0.0-1.0) mg/dL Direct Bilirubin 0.3 (0.0-0.5) mg/dL AST 24 (5-31) U/L ALT 18 (0-31) U/L Alkaline Phosphatase 71 (39-117) U/L Total Protein 7.5 (6.5-8.0) g/dL Albumin 4.0 (3.5-5.0) g/dL Discharge Plan Discharge Clinical Impression: Abdominal wall cellulitis, Acidosis, lactic Patient Disposition: Admitted As Inpatient Prescriptions: No Action Spiriva with HandiHaler 18 mcg capsule, w/inhalation device 1 cap inhalation DAILY Qty: 60 3RF metoprolol tartrate 50 mg tablet 50 mg PO BID 90 Days Qty: 180 3RF bumetanide 2 mg tablet 2 mg PO DAILY Qty: 90 1RF levothyroxine 88 mcg tablet 1 tab PO DAILY@0600 acetaminophen [Tylenol] 325 mg Tablet 650 mg PO Q6H PRN (Reason: Pain) potassium chloride 20 mEq tablet extended release 20 meq PO BEDTIME oxycodone 5 mg Tablet 10 mg PO Q4H PRN (Reason: Pain, Severe (Pain Scale 7-10)) Qty: 24 0RF Rx Instructions: Partial Fill upon patient request. amoxicillin-pot clavulanate 875-125 mg tablet 1 tab PO BID Qty: 16 0RF doxycycline hyclate 100 mg tablet 100 mg PO BID Qty: 16 0RF doxycycline hyclate 100 mg capsule 100 mg PO BID 10 Days Qty: 20 0RF amoxicillin-pot clavulanate 875-125 mg tablet 1 tab PO BID Qty: 14 0RF venlafaxine 150 mg capsule,extended release 24hr 150 mg PO BEDTIME cholecalciferol (vitamin D3) 25 mcg (1,000 unit) capsule 25 mcg PO DAILY montelukast [Singulair] 10 mg tablet 10 mg PO DAILY 30 Days Qty: 30 11RF Eliquis 5 mg tablet 5 mg PO BID Qty: 180 3RF
[2022-05-16 22:44] LABS: COVID-19 Test Negative (Negative)
[2022-05-16 23:21] LABS: Vancomycin Trough 5.2 mcg/mL (10.0-20.0)
--- NOTE | 2022-05-16 23:23 | P.HPHOSP_ITS ---
History of Present Illness Date of Service: 05/16/22 Chief Complaint: Abd WALL CELLULITI 56-year-old female with past medical history of her come, ADA, mitral valve disease, morbid obesity, paroxysmal AFib, pulmonary hypertension, solute disease who presents to the hospital with complaints of worsening cellulitis of abdominal wall. Patient was seen 1 day prior to this presentation to the ED with complaints of abdominal tenderness, erythema, as well as swelling around the lower abdomen wall, and was started on doxycycline and Augmentin, patient states that she took the medication for 1 day, but was worried because her pain and redness around the abdominal wall has increased therefore she returned to the hospital She denies any vision change, no headache, no chest pain, no shortness of breath, no abdominal pain nausea or vomiting, no diarrhea constipation, no urinary symptoms and no lower extremity edema. On arrival to the ED patient hemodynamically stable Labs are significant for WBC count of 21.7, hematocrit 36.8, lactic acid of 2.5, improved with IV fluids, Patient started on IV antibiotics and will be admitted for further management Review of Systems Review of Systems: Yes all other systems are reviewed and are negative [facility] Medical History Celiac disease HOCM (hypertrophic obstructive cardiomyopathy) MONICA (iron deficiency anemia) Mitral valve disease Morbid obesity PAF (paroxysmal atrial fibrillation) Pulmonary hypertension Family History Father CVD (cardiovascular disease) Mother CVD (cardiovascular disease) Surgical History History of cardiac catheterization History of cardiac pacemaker (~10/2018) History of heart surgery (~10/2018) Status post ventricular septal myectomy Social History Household Members: Spouse Housing: House Do you presently have visiting nurse or other home services: No Patient Tobacco Use Status: Former Tobacco user Substance Use Type: Marijuana Advance Directives: No Advance Directives Information Provided: No service: No Current occupational status: disabled Meds Allergies Allergy/AdvReac Type Severity Reaction Status Date / Time adhesive [ADHESIVE] AdvReac Unknown RASH - Verified 04/06/22 13:32 SKIN CAME OFF WITH TAPE apremilast [Otezla] AdvReac Unknown nausea, Verified 04/06/22 13:32 vomiting Sulfa (Sulfonamide AdvReac Unknown UNKNOWN Verified 04/06/22 13:32 Antibiotics) [SULFA (SULFONAMIDE ANTIBIOTICS)] Active Medications: Current Medications Pharmacy Consult (Consult Rx Perform Med Rec) 1 each MISCELLANE ONCE PRN PRN Reason: Consult order Home Medications Medication Instructions Recorded Confirmed Last Taken Type venlafaxine 150 mg 150 mg PO BEDTIME 07/30/20 04/06/22 04/06/22 History capsule,extended release 24 hr levothyroxine 88 mcg tablet 1 tab PO DAILY@0600 04/06/22 04/06/22 04/06/22 History potassium chloride 20 mEq 20 meq PO BEDTIME 04/06/22 04/06/22 04/05/22 History tablet,extended release oxycodone 5 mg tablet 5 mg PO Q4H PRN Pain, Severe (Pain 05/16/22 Unknown History Scale 7-10) Physical Exam Vital Signs and Narrative: Vital Signs: Last Vital Signs Temp 98.9 F 05/16/22 21:46 Pulse 72 05/16/22 21:46 Resp 18 05/16/22 21:46 BP 150/97 H 05/16/22 21:46 Pulse Ox 95 05/16/22 21:46 O2 Del Method 05/16/22 21:46 BMI result Body Mass Index 51.3 Const: General: cooperative and no acute distress Orientation/consciousness: patient oriented x3 Eyes: General: appearance normal, both eyes and all related structures Pupils: Equal, round and reactive pupils present Resp: Effort & Inspection: normal respiratory effort Auscultation: clear to auscultation bilaterally Cardio: Rate: regular rate Rhythm: regular rhythm GI: Palpation (GI): Soft to palpation Auscultation: normal bowel sounds Skin: Other: Abdominal wall shows erythema, warmth, and swelling mostly in the right lower abdomen as well as at the skin fold between the abdomen and to the suprapubic region Neuro: General: patient oriented x3 Cranial nerves: Yes Equal, round and reactive pupils present Cognition (Neuro): normal cognition Extrem: General: Yes normal to inspection and Yes no pedal edema Results Labs CBC and Chem 7: 05/16/22 21:57 05/16/22 21:57 Labs: Laboratory Results - last 24 hr 0905/16/22 05/16/22 21:57 21:57 21:57 MCV 77.3 L MCH 23.3 L MCHC 30.2 L RDW 17.4 H Plt Count 312 MPV 9.4 Immature Gran % (Auto) 0.6 H Neut % (Auto) 82.0 H Lymph % (Auto) 9.5 L [place] % (Auto) 5.0 Eos % (Auto) 2.3 Baso % (Auto) 0.6 Lymph # (Auto) 1.2 [place] # (Auto) 0.6 Eos # (Auto) 0.3 Baso # (Auto) 0.1 Abs Immat Gran (auto) 0.07 H Absolute Neuts (auto) 10.4 H Absolute Nucleated RBC 0.000 Nucleated RBC % (auto) 0.0 Anion Gap 17 Estim Creat Clear Calc 76.2 Estimated GFR 51 Random Glucose 212 H Lactic Acid 2.5 H* Calcium 8.8 Magnesium 1.7 Total Bilirubin 0.7 Direct Bilirubin 0.3 AST 24 ALT 18 Alkaline Phosphatase 71 Total Protein 7.5 Albumin 4.0 Vancomycin Trough COVID-19 (FLY) COVID-19 Clin Com 05/16/22 05/16/22 21:57 21:57 MCV MCH MCHC RDW Plt Count MPV Immature Gran % (Auto) Neut % (Auto) Lymph % (Auto) [place] % (Auto) Eos % (Auto) Baso % (Auto) Lymph # (Auto) [place] # (Auto) Eos # (Auto) Baso # (Auto) Abs Immat Gran (auto) Absolute Neuts (auto) Absolute Nucleated RBC Nucleated RBC % (auto) Anion Gap Estim Creat Clear Calc Estimated GFR Random Glucose Lactic Acid Calcium Magnesium Total Bilirubin Direct Bilirubin AST ALT Alkaline Phosphatase Total Protein Albumin Vancomycin Trough 5.2 L COVID-19 (FLY) Negative COVID-19 Clin Com See Note Assessment and Plan (1) Abdominal wall cellulitis: Status: Acute (2) Acidosis, lactic: Status: Acute Plan 56-year-old female with past medical history [place], pulmonary hypertension, paroxysmal AFib who presents to the hospital with worsening abdominal wall cellulitis # abdominal wall cellulitis - failed outpatient therapy - has leukocytosis, afebrile - will treat with IV antibiotics - follow cultures # lactic acidosis - likely secondary to above - no hypotension, no hypoxia - improved after IV fluids - monitor # paroxysmal AFib - continue metoprolol, as well as apixaban # hypothyroidism - continue levothyroxine DVT prophylaxis: Apixaban Given failed outpatient therapy with p.o. antibiotics, patient required minimum to 2 night hospital stay for management with IV antibiotics Quality Stroke Does the patient have a stroke diagnosis?: No VTE Prior VTE?: No VTE Risk Level:: Medical - moderate - high VTE Device Contraindication: Treatment Not Indicated VTE Drug Contraindication: N/A - Med Ordered
[2022-05-16] MEDS: Piperacillin Sodium/Tazobactam 3.375 GM in 0.9 % Sodium Chloride 50 ML IV (23:26)
[2022-05-16] MEDS: Acetaminophen 325 MG TABLET 650 MG PO (23:38)
[2022-05-17] VITALS (7 sets, daily range): BP systolic 134–157; BP diastolic 57–93; PULSE 68–71; RESP 15–22; TEMP 35.9–36.9; O2SAT 93–98
[2022-05-17 00:06] LABS: Reflex Lactate? Lactic Acid Added
[2022-05-17] MEDS: Lactated Ringers 1,000 ML 100 ML IVCONT ×3 (01:22→20:02)
[2022-05-17 07:10] LABS: MANUAL DIFF FLAG NO
--- NOTE | 2022-05-17 07:13 | PHA.PROG ---
Addendum entered by Whitney Bass [facility] 05/17/22 08:18: Creatinine 0.81 today. Changed to 1250 mg q12h Original Note: Admission Date/Time: May 16, 2022 23:21 Indication: SKIN/SKIN STRUCTURE INF Weight in k.542 kg Adjusted body weight in K.1 KG [place] body weight in K.4 KG Obesity Dosing Indication % IBW: Serum Creatinine - Last 168 Hours 05/16/22 21:57 Creatinine 1.12 Estimated CrCl and GFR - Last 168 Hours 05/16/22 21:57 Estim Creat Clear Calc 76.2 Estimated GFR 51 Vancomycin Loading Dose: 2000 MG X 1 Current Vancomycin Dosing Regimen: 1000 MG Q12H Vancomycin Monitoring using AUC goal of 400 - 600 range with trough as surrogate marker: PREDICTED AUC 478 Date and Time for next Vancomycin Level to be drawn: 05/18/22 @1000 Vancomycin Trough 5.2 mcg/mL (10.0-20.0) L 05/16/22 21:57 Pharmacist Comments on Vancomycin Plan: OBESE MODEL USED. PATIENT RECEIVED A 2000 MG LOAD AT PREVIOUS ER VISIT ON 05/15/22 @2346. RANDOM LEVEL 05/16/22 @2157 WAS 5.2. ANOTHER 2000 MG LOAD GIVEN. Vancomycin dosing will take advantage of [employer] as a clinical decision support tool that uses Bayesian modeling to calculate individual patient's pharmacokinetic parameters and forecast the patient's drug concentration time course with the target goal AUC 24 range of 400 - 600 mg/L/hr.
[2022-05-17 07:20] LABS: Basophils Absolute Auto 0.1 X10*3/uL (0.0-0.2); Basophils Percent Auto 0.7 % (0-2); Eosinophils Absolute Auto 0.4 X10*3/uL (0.0-0.4); Eosinophils Percent Auto 3.5 % (0-4); Hematocrit 36.8 % (37.0-47.0); Hemoglobin 11.1 g/dl (12.0-16.0); Imm Gran Abs Auto 0.08 X10*3/uL (0.00-0.03); Imm Gran Pct Auto 0.7 % (0.0-0.4); Lymphocytes Absolute Auto 1.7 X10*3/uL (1.2-4.9); Mean Corpuscular HGB Conc 30.2 g/dl (31.0-35.0); Mean Corpuscular Hemoglobin 23.1 pg (27.0-33.0); Mean Corpuscular Volume 76.7 fL (80.0-98.0); Mean Platelet Volume 9.6 fL (9.4-12.3); Monocytes Absolute Auto 0.6 X10*3/uL (0.1-1.2); Monocytes Percent Auto 5.5 % (2-11); Neutrophils Absolute Auto 8.6 x10*3/uL (2.0-8.3); Neutrophils Percent Auto 74.6 % (45-73); Platelet Count 317 X10*3/uL (160-400); Red Cell Distribution Width 17.3 % (11.0-16.0); White Blood Count 11.5 X10*3/uL (4.8-10.8)
[2022-05-17 07:47] LABS: Anion Gap 15 (12-20); Blood Urea Nitrogen 9 mg/dL (9-16); Calcium 8.8 mg/dL (8.4-10.2); Carbon Dioxide 28 mmol/L (22-29); Chloride 99 mmol/L (96-108); Creatinine Clr Calc Pharmacy 105.3; Estimated Glomerular Filt Rate > 60; Glucose Random 109 mg/dL (60-115); Potassium 3.6 mmol/L (3.3-5.1); Sodium 138 mmol/L (135-145)
--- NOTE | 2022-05-17 09:10 | PC.NURSE ---
called the floor for report, awaiting a call back
--- NOTE | 2022-05-17 09:38 | PC.NURSE ---
report given to raina stover
--- NOTE | 2022-05-17 09:43 | PHA.MEDREC ---
Pharmacy Consult ? Medication Reconciliation Pharmacy has completed the medication reconciliation.
--- NOTE | 2022-05-17 10:03 | P.PNIM_ITS ---
Subjective Subjective Date of Service: 05/18/22 Interval History: Seen in f/u for abdominal wall cellulitis interval history: erythema on abdomianl wall is better Review of Systems no fever, no abd pain Physical Exam Vital Signs: Vital Signs: Last Vital Signs Temp 98.0 F 05/17/22 07:52 Pulse 70 05/17/22 07:52 Resp 18 05/17/22 07:52 BP 152/93 H 05/17/22 07:52 Pulse Ox 98 05/17/22 07:52 O2 Del Method 05/17/22 07:52 BMI result Body Mass Index 51.3 Const: Other: General: AO X 3, no acute distress Resp: CTA bilateral CVS: S1,S2,RRR GI: +BS, NT, no distention Skin: residual erythema of lowr abd wall Neuro: motor grossly intact Psych: appropriate affect Objective Data Active Medications Acetaminophen (Acetaminophen 325 Mg Tablet) 650 mg PO Q6H PRN PRN Reason: Pain, Mild (Pain Scale 1-3) Last Admin: 05/16/22 23:38 Dose: 650 mg Documented By: SU Docusate Sodium (Docusate Sodium 100 Mg Capsule) 100 mg PO DAILY PRN PRN Reason: Constipation Lactated Ringer's (Lr) 1,000 mls @ 100 mls/hr IVCONT .Q10H [facility] Last Admin: 05/17/22 01:22 Dose: 100 mls/hr Documented By: SU Vancomycin HCl 1,250 mg/ (Sodium Chloride) 250 mls @ 166.667 mls/hr IV Q12H REBECA Ondansetron HCl (Ondansetron Hcl 4 Mg/2 Ml Vial) 4 mg IVPUSH Q8H PRN PRN Reason: Nausea and Vomiting Oxycodone HCl (Oxycodone Hcl Immed Release 5 Mg Tablet) 5 mg PO Q6H PRN PRN Reason: Pain, Severe (Pain Scale 7-10) Pharmacy Consult (Consult Rx Perform Med Rec) 1 each MISCELLANE ONCE PRN PRN Reason: Consult order Pharmacy Consult (Consult Rx Vancomycin Dosing) 1 each MISCELLANE DAILY PRN PRN Reason: Consult order Sodium Chloride (0.9 % Sodium Chloride Flush 3 Ml Syringe) 3 ml IVFLUSH QSHIFT [facility] Last Admin: 05/17/22 09:38 Dose: Not Given Documented By: ANGIE Non-Admin Reason: IV Running Labs CBC & Chem 7: 05/17/22 06:42 05/18/22 05:02 Labs: Laboratory Results - last 24 hr 05/16/22 05/16/22 05/16/22 21:57 21:57 21:57 MCV 77.3 L MCH 23.3 L MCHC 30.2 L RDW 17.4 H Plt Count 312 MPV 9.4 Immature Gran % (Auto) 0.6 H Neut % (Auto) 82.0 H Lymph % (Auto) 9.5 L [place] % (Auto) 5.0 Eos % (Auto) 2.3 Baso % (Auto) 0.6 Lymph # (Auto) 1.2 [place] # (Auto) 0.6 Eos # (Auto) 0.3 Baso # (Auto) 0.1 Abs Immat Gran (auto) 0.07 H Absolute Neuts (auto) 10.4 H Absolute Nucleated RBC 0.000 Nucleated RBC % (auto) 0.0 Anion Gap 17 Estim Creat Clear Calc 76.2 Estimated GFR 51 Random Glucose 212 H Lactic Acid 2.5 H* Lactic Acid F/U @ 2Hr Calcium 8.8 Magnesium 1.7 Total Bilirubin 0.7 Direct Bilirubin 0.3 AST 24 ALT 18 Alkaline Phosphatase 71 Total Protein 7.5 Albumin 4.0 Vancomycin Trough COVID-19 (FLY) COVID-19 Clin Com 05/16/22 05/16/22 05/17/22 21:57 21:57 00:38 MCV MCH MCHC RDW Plt Count MPV Immature Gran % (Auto) Neut % (Auto) Lymph % (Auto) [place] % (Auto) Eos % (Auto) Baso % (Auto) Lymph # (Auto) [place] # (Auto) Eos # (Auto) Baso # (Auto) Abs Immat Gran (auto) Absolute Neuts (auto) Absolute Nucleated RBC Nucleated RBC % (auto) Anion Gap Estim Creat Clear Calc Estimated GFR Random Glucose Lactic Acid Lactic Acid F/U @ 2Hr 1.0 Calcium Magnesium Total Bilirubin Direct Bilirubin AST ALT Alkaline Phosphatase Total Protein Albumin Vancomycin Trough 5.2 L COVID-19 (FLY) Negative COVID-19 Clin Com See Note 05/17/22 05/17/22 06:42 06:42 MCV 76.7 L MCH 23.1 L MCHC 30.2 L RDW 17.3 H Plt Count 317 MPV 9.6 Immature Gran % (Auto) 0.7 H Neut % (Auto) 74.6 H Lymph % (Auto) 15.0 L [place] % (Auto) 5.5 Eos % (Auto) 3.5 Baso % (Auto) 0.7 Lymph # (Auto) 1.7 [place] # (Auto) 0.6 Eos # (Auto) 0.4 Baso # (Auto) 0.1 Abs Immat Gran (auto) 0.08 H Absolute Neuts (auto) 8.6 H Absolute Nucleated RBC 0.000 Nucleated RBC % (auto) 0.0 Anion Gap 15 Estim Creat Clear Calc 105.3 Estimated GFR > 60 Random Glucose 109 Lactic Acid Lactic Acid F/U @ 2Hr Calcium 8.8 Magnesium Total Bilirubin Direct Bilirubin AST ALT Alkaline Phosphatase Total Protein Albumin Vancomycin Trough COVID-19 (FLY) COVID-19 Clin Com Assessment and Plan (1) Abdominal wall cellulitis: Status: Acute Plan 56-year-old female with past medical history [place], pulmonary hypertension, paroxysmal AFib who presents to the hospital with worsening abdominal wall cellulitis # abdominal wall cellulitis - failed outpatient therapy - has leukocytosis, afebrile - will treat with IV antibiotics (Vanco D#2) - follow cultures # lactic acidosis - likely secondary to above - no hypotension, no hypoxia - improved after IV fluids - monitor # paroxysmal AFib - continue metoprolol, as well as apixaban # hypothyroidism - continue levothyroxine DVT prophylaxis:? Apixaban Given failed outpatient therapy with p.o. antibiotics, patient required minimum to 2 night hospital stay for management with IV antibiotics Quality Stroke Does the patient have a stroke diagnosis?: No VTE Prior VTE?: No VTE Risk Level:: Medical - moderate - high VTE Device Contraindication: Treatment Not Indicated VTE Drug Contraindication: N/A - Med Ordered
[2022-05-17] MEDS: vancomycin HCL 1,250 MG in 0.9 % Sodium Chloride 250 ML 166.67 MG IV ×2 (11:45→23:39)
[2022-05-17] MEDS: Apixaban 5 MG TABLET PO ×2 (14:23→20:02)
[2022-05-17] MEDS: Metoprolol Tartrate 50 MG TABLET PO ×2 (14:23→20:02)
[2022-05-17] MEDS: Potassium Chloride ER 20 MEQ TAB.ER.PRT PO (20:02)
[2022-05-17] MEDS: Venlafaxine HCl ER 150 MG CAP.ER.24H PO (20:02)
[2022-05-18] MEDS: traZODone HCL 25 MG HALFTAB PO (00:31)
[2022-05-18 03:18] VITALS: BP 130/68; PULSE 72; RESP 17; TEMP 36.1; O2SAT 96
--- NOTE | 2022-05-18 04:13 | PC.NURSE ---
Pt requested for sleep med, Dr. Estes made aware, Trazodone po given, slept fairly after.
[2022-05-18] MEDS: Levothyroxine Sodium 88 MCG TABLET PO (05:58)
[2022-05-18 06:10] LABS: Creatinine Clr Calc Pharmacy 112.3; Estimated Glomerular Filt Rate > 60
[2022-05-18 07:19] VITALS: BP 144/91; PULSE 73; RESP 18; TEMP 36.1; O2SAT 98
[2022-05-18] MEDS: Bumetanide 1 MG TABLET 2 MG PO (07:25)
[2022-05-18] MEDS: Apixaban 5 MG TABLET PO (07:26)
[2022-05-18] MEDS: Metoprolol Tartrate 50 MG TABLET PO (07:26)
--- NOTE | 2022-05-18 08:41 | PM.DS ---
DS: Providers Provider Date of Service: 05/18/22 Date of admission: 05/16/22 23:21 Primary care physician: Terrence Kaur MD DS: Diagnosis Discharge Diagnosis (1) Abdominal wall cellulitis: Status: Acute DS: Summary Hospital Course Hospital Course: Chief Complaint: Abd WALL CELLULITI 56-year-old female with past medical history of her come, ADA, mitral valve disease, morbid obesity, paroxysmal AFib, pulmonary hypertension, solute disease who presents to the hospital with complaints of worsening cellulitis of abdominal wall.? Patient was seen 1 day prior to this presentation to the ED with complaints of abdominal tenderness, erythema, as well as swelling around the lower abdomen wall, and was started on doxycycline and Augmentin, patient states that she took the medication for 1 day, but was worried because her pain and redness around the abdominal wall has increased therefore she returned to the hospital She denies any vision change, no headache, no chest pain, no shortness of breath, no abdominal pain nausea or vomiting, no diarrhea constipation, no urinary symptoms and no lower extremity edema.? On arrival to the ED patient hemodynamically stable Labs are significant for WBC count of 14, hematocrit 36.8, lactic acid of 2.5, improved with IV fluids, Patient started on IV antibiotics and will be admitted for further management Hospital course: Patient presented with abdominal wall cellulitis that had treated on outpatient basis with Doxycycline and was also supposed to be on Augmentin but was not available at the local pharmacy at that time, in the hospital she was noted to have lactic acidosis, leukocytosis of 14 blood cultures were drawan and have been negative. She was treated with IV Vancomcycin with marked improvement at this time with near complete resolution of the erythema. She has no tenderness, no fever or chills. She will be discharged to complete the course of Doxycycline previously prescribed just a day before coming as she did take sufficient quantity to fail. She also is supposed to have available Augmentin in a day which she may take to further augment treatment. She comfortable going home at this time Time Spent with Patient Time attestation: Total time spent providing and/or coordinating discharge services: Discharge coordination time: Greater than 30 minutes Quality: Safe Use of Opioids Does Pt have an Active Cancer Diagnosis on the Problem List?: No Quality: Stroke Does the patient have a stroke diagnosis?: No Physical Exam Vital Signs: Vital Signs: Last Vital Signs Temp 97 F 05/18/22 07:19 Pulse 73 05/18/22 07:19 Resp 18 05/18/22 07:19 BP 144/91 H 05/18/22 07:19 Pulse Ox 98 05/18/22 07:19 O2 Del Method 05/18/22 07:19 BMI result Body Mass Index 51.3 DS: Data Data Completed and Pending Labs on day of discharge: Laboratory Results - last 24 hr 05/18/22 05:02 Creatinine 0.76 Estim Creat Clear Calc 112.3 Estimated GFR > 60 Preliminary micro results at discharge 05/16/22 21:57 Blood Culture - Preliminary Blood - Venous No growth after 24 hours. 05/16/22 21:57 Blood Culture - Preliminary Blood - Venous No growth after 24 hours. Discharge Plan Discharge Anticipated Discharge Date/Time: 05/18/22 08:39 Patient Disposition: Home, Self-Care Discharge Diagnosis: Abdominal wall cellulitis Referrals: Terrence Kaur MD [Primary Care Provider] - 1 Week Discharge Medications: Continued metoprolol tartrate 50 mg tablet 50 mg PO BID 90 Days Qty: 180 3RF bumetanide 2 mg tablet 2 mg PO DAILY Qty: 90 1RF levothyroxine 88 mcg tablet 1 tab PO DAILY@0600 potassium chloride 20 mEq tablet extended release 20 meq PO BEDTIME oxycodone 5 mg tablet 5 mg PO Q4H PRN (Reason: Pain, Severe (Pain Scale 7-10)) Rx Instructions: Partial Fill upon patient request. venlafaxine 150 mg capsule,extended release 24hr 150 mg PO BEDTIME montelukast [Singulair] 10 mg tablet 10 mg PO DAILY 30 Days Qty: 30 11RF Eliquis 5 mg tablet 5 mg PO BID Qty: 180 3RF Discharge Orders: Discharge Order (Routine); Ordered 05/18/22 Ordered By: Tyrone Sevilla Diet: Advance to usual diet Activity on Discharge: As tolerated Stand Alone Forms: Patient Portal Discharge page Care Plan Goals: Full recovery from cellulitis Health Concerns: abdominal wall cellulitis Plan of Treatment: Take Doxycycline and Augmentin as previously recommended and follow up with your doctor in a week Assessment: As above
--- NOTE | 2022-05-18 09:02 | MHC.CM.PN ---
MD order for D/C to home, self care; patient D/C prior to CM ability for interview. MD D/C order acknowledged.
== END 2022-05-18 10:13 | disposition home or self-care (01) | DRG 383 ==
LOC: HO.ED 23:05 → HO.EDOVER 23:27 → HO.S3 05-17 07:35
PROVIDERS: Admitting Provider Internal Medicine; Emergency Provider Emergency Medicine; PCP Internal Medicine; Visit Provider Internal Medicine
DX: L03.311 Cellulitis of abdominal wall (principal); E87.2 Acidosis; Z68.43 Body mass index [BMI] 50.0-59.9, adult; K90.0 Celiac disease; E66.01 Morbid (severe) obesity due to excess calories; E03.9 Hypothyroidism, unspecified; I48.0 Paroxysmal atrial fibrillation; Z20.822 Contact with and (suspected) exposure to COVID-19; Z95.0 Presence of cardiac pacemaker; Z87.891 Personal history of nicotine dependence; Z88.2 Allergy status to sulfonamides; Z79.01 Long term (current) use of anticoagulants; Z79.890 Hormone replacement therapy; Z79.899 Other long term (current) drug therapy
CPT/HCPCS: 36415; 80048; 80076; 80202; 82565; 83605; 83735; 85025; 87040; 87635; 99285; J2543; J3370

== ENCOUNTER 2022-06-02 09:57 | Outpatient (REF) | payer BC, SELFPAY ==
[2022-06-02 10:27] LABS: MANUAL DIFF FLAG NO
[2022-06-02 10:57] LABS: Basophils Absolute Auto 0.1 X10*3/uL (0.0-0.2); Eosinophils Absolute Auto 0.3 X10*3/uL (0.0-0.4); Eosinophils Percent Auto 3.4 % (0-4); Hematocrit 39.1 % (37.0-47.0); Hemoglobin 11.5 g/dl (12.0-16.0); Imm Gran Abs Auto 0.05 X10*3/uL (0.00-0.03); Imm Gran Pct Auto 0.5 % (0.0-0.4); Lymphocytes Absolute Auto 1.5 X10*3/uL (1.2-4.9); Lymphocytes Percent Auto 15.3 % (20-40); Mean Corpuscular HGB Conc 29.4 g/dl (31.0-35.0); Mean Corpuscular Hemoglobin 22.6 pg (27.0-33.0); Mean Platelet Volume 9.6 fL (9.4-12.3); Monocytes Absolute Auto 0.7 X10*3/uL (0.1-1.2); Monocytes Percent Auto 7.4 % (2-11); Neutrophils Absolute Auto 7.2 x10*3/uL (2.0-8.3); Neutrophils Percent Auto 72.4 % (45-73); Platelet Count 321 X10*3/uL (160-400); Red Blood Count 5.08 X10*6/uL (4.20-5.50); Red Cell Distribution Width 17.3 % (11.0-16.0)
[2022-06-02 11:22] LABS: Alanine Aminotransferase 27 U/L (0-31); Alkaline Phosphatase 84 U/L (39-117); Anion Gap 15 (12-20); Aspartate Amino Transferase 40 U/L (5-31); Bilirubin Direct 0.2 mg/dL (0.0-0.5); Bilirubin Total 0.4 mg/dL (0.0-1.0); Blood Urea Nitrogen 12 mg/dL (9-16); Calcium 9.1 mg/dL (8.4-10.2); Carbon Dioxide 29 mmol/L (22-29); Chloride 100 mmol/L (96-108); Cholesterol 189 mg/dL; Estimated Glomerular Filt Rate > 60; Glucose Random 115 mg/dL (60-115); HDL Cholesterol 32 mg/dL; LDL Cholesterol Calculated 139 mg/dl; Potassium 4.5 mmol/L (3.3-5.1); Sodium 139 mmol/L (135-145); Total Protein 7.5 g/dL (6.5-8.0); Triglycerides 93 mg/dL
[2022-06-02 11:43] LABS: HBS Num1 1.05 mIU/mL (0-7.99); HBc Num1 0.07 S/CO (0.00-0.79); HBsAGNum1 0.27 S/CO (0.00-0.99); Hepatitis B Core Antibody Nonreactive (Nonreactive); Hepatitis B Surface Antigen Negative (Negative); ~HepC Num1 0.06 S/CO (0.00-0.79); ~Hepatitis B Surface Antibody NONREACTIVE (Nonreactive); ~Hepatitis C Antibody Nonreactive (Nonreactive)
[2022-06-05 15:36] LABS: TS Negative Control Passed; TS Panel A 0; TS Panel B 0; TS Positive Control Passed; TSpotTB Negative (Negative)
== END 2022-06-02 09:58 | disposition home or self-care (01) ==
LOC: HO.LAB 09:57
PROVIDERS: PCP Internal Medicine; Visit Provider Physician Assistant Medical
DX: Z11.1 Encounter for screening for respiratory tuberculosis (principal); L40.0 Psoriasis vulgaris
CPT/HCPCS: 36415; 80048; 80061; 80076; 85025; 86481; 86704; 86706; 86803; 87340

== ENCOUNTER 2022-07-25 10:55 | Outpatient (REF) | payer BC, SELFPAY ==
[2022-07-25 10:59] LABS: MANUAL DIFF FLAG NO
[2022-07-25 11:09] LABS: Appearance Urine Cloudy; Color Urine Yellow; Glucose Urine UA Negative (Negative); Leukocyte Esterase Urine Moderate (2+) (Negative); Nitrite Urine Negative (Negative); PH 5.5 (5.0-9.0); UMIC TRIGGER UA YES; Urine Blood Trace (Negative); Urine Ketones Negative (Negative); Urine Protein Negative (Neg-Trace)
[2022-07-25 11:12] LABS: Basophils Absolute Auto 0.1 X10*3/uL (0.0-0.2); Basophils Percent Auto 0.8 % (0-2); Eosinophils Absolute Auto 0.5 X10*3/uL (0.0-0.4); Eosinophils Percent Auto 3.8 % (0-4); Hemoglobin 12.7 g/dl (12.0-16.0); Imm Gran Abs Auto 0.05 X10*3/uL (0.00-0.03); Imm Gran Pct Auto 0.4 % (0.0-0.4); Lymphocytes Percent Auto 16.8 % (20-40); Mean Corpuscular HGB Conc 29.5 g/dl (31.0-35.0); Mean Corpuscular Volume 77.8 fL (80.0-98.0); Mean Platelet Volume 9.9 fL (9.4-12.3); Monocytes Absolute Auto 0.9 X10*3/uL (0.1-1.2); Monocytes Percent Auto 7.8 % (2-11); Neutrophils Absolute Auto 8.3 x10*3/uL (2.0-8.3); Neutrophils Percent Auto 70.4 % (45-73); Platelet Count 349 X10*3/uL (160-400); Red Blood Count 5.53 X10*6/uL (4.20-5.50); Red Cell Distribution Width 20.3 % (11.0-16.0); White Blood Count 11.8 X10*3/uL (4.8-10.8)
[2022-07-25 11:14] LABS: Bacteria Urine 1+ (None Seen); Hyaline Casts Urine 0-2 /LPF (0-2); RBC Urine 0-2 /HPF (0-2)
[2022-07-25 12:32] LABS: Alanine Aminotransferase 34 U/L (0-31); Alkaline Phosphatase 98 U/L (39-117); Anion Gap 17 (12-20); Aspartate Amino Transferase 46 U/L (5-31); Bilirubin Total 0.3 mg/dL (0.0-1.0); Blood Urea Nitrogen 10 mg/dL (9-16); Carbon Dioxide 29 mmol/L (22-29); Chloride 100 mmol/L (96-108); Cholesterol 239 mg/dL; Estimated Glomerular Filt Rate > 60; Glucose Fasting 124 mg/dL (60-99); HDL Cholesterol 36 mg/dL; LDL Cholesterol Calculated 178 mg/dl; Potassium 4.2 mmol/L (3.3-5.1); Sodium 142 mmol/L (135-145); Total Protein 7.5 g/dL (6.5-8.0); Triglycerides 126 mg/dL
== END 2022-07-25 10:56 | disposition home or self-care (01) ==
LOC: HO.LNP 10:55
PROVIDERS: Visit Provider Internal Medicine
DX: Z00.00 Encounter for general adult medical examination without abnormal findings (principal); I10 Essential (primary) hypertension
CPT/HCPCS: 80053; 80061; 81001; 85025

== ENCOUNTER 2022-08-22 09:27 | Outpatient (REF) | payer BC, SELFPAY ==
--- NOTE | ~2022-08-22 | FL_ITS ---
PROCEDURE: XR FLUOROSCOPY UPPER GI WITH AIR CLINICAL INFORMATION: Esophageal dysphagia. Significant heartburn and sensation of food stuck in the mid chest region. COMPARISON: None TECHNIQUE: Upper GI air-contrast study. FINDINGS: Following oral administration of thick barium and effervescent granules there is normal propagation of bolus from the oral cavity through the pharynx, esophagus into stomach without any evidence of obstruction, narrowing or stricture. There is a prominent cricoesophageal sphincter noted at the pharyngeal esophageal junction. There is no intrinsic narrowing, stricture or extrinsic compression. On placing patient supine and prone there is mild gastroesophageal reflux without hiatal hernia. The mucosal pattern of stomach, duodenal bulb and sweep is normal. The course, caliber and peristalsis of the stomach are normal. There are multiple proximal jejunal small diverticula noted. There are median sternotomy sutures and mediastinal lucas from previous intervention. There are plates and screws across the midline sternum from sternotomy. FLUOROSCOPY TIME: 3.4 minutes DOSE AREA PRODUCT: 380.404 uGy-m2 (microgray-meter squared) FL/FL upper GI w air IMPRESSION: Mild gastroesophageal reflux without hiatal hernia.
== END 2022-08-22 09:28 | disposition home or self-care (01) ==
LOC: HO.XRAY 09:27
PROVIDERS: PCP Internal Medicine; Visit Provider Internal Medicine
DX: R13.19 Other dysphagia (principal)
CPT/HCPCS: 74246

== ENCOUNTER → 2022-10-20 10:16 | Outpatient (BNVA) | payer BC, SELFPAY | PROVIDERS: PCP Internal Medicine; Visit Provider Internal Medicine | DX: I42.1 Obstructive hypertrophic cardiomyopathy (principal); I48.0 Paroxysmal atrial fibrillation; I05.9 Rheumatic mitral valve disease, unspecified; I27.20 Pulmonary hypertension, unspecified; E66.01 Morbid (severe) obesity due to excess calories; G47.33 Obstructive sleep apnea (adult) (pediatric); Z98.890 Other specified postprocedural states; Z68.43 Body mass index [BMI] 50.0-59.9, adult | CPT/HCPCS: 93005 ==

== ENCOUNTER → 2023-04-09 09:10 | Outpatient (REF) | payer BC, SELFPAY ==
--- NOTE | 2023-04-09 09:13 | CA_ITS ---
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 The calculated ejection fraction is 55% by biplane method. - Evidence suggests grade III (severe) diastolic dysfunction. - There is mild aortic valve regurgitation. - Elevated gradients across mitral valve; differential includes diastolic dysfunction, increased stroke volume and less likely, mitral stenosis. Findings Procedure Information Contrast agent, definity, is being given per protocol without apparent complications. Left Ventricle Normal left ventricular cavity size. The left ventricular systolic function is normal. The calculated ejection fraction is 55% by biplane method. There is no evidence of regional wall motion abnormalities. Evidence suggests grade III (severe) diastolic dysfunction. There is mild septal asymmetric hypertrophy. Right Ventricle Mildly increased right ventricular cavity size. There is mildly decreased right ventricular systolic function. Atria The left atrium is mildly dilated. The right atrium is normal in size. Aortic Valve The aortic valve was not well visualized. There is no aortic valve stenosis. There is mild aortic valve regurgitation. Mitral Valve There is mild mitral annular calcification. There is mild mitral valve regurgitation. Mean gradient across mitral valve 8 mm Hg at 60/min. Cannot exclude mitral stenosis. Could also be due to diastolic dysfunction. Also, based on LVOT VTI, she has a high stroke volume which can contribute to high gradients. Pulmonic Valve The pulmonic valve is likely normal. Tricuspid Valve The tricuspid valve was not well visualized. There is mild tricuspid valve regurgitation. Moderate pulmonary hypertension is present. Venous The inferior vena cava is normal in size and collapses greater than 50% with inspiration. Prior Study Comparison No significant change compared to prior study dated: 12/09/2021. Measurements 2D Linear Measurements IVSd: 1.46 0.6-0.9/0.6-1.0 cm LVIDd: 4.65 3.9-5.3/4.2-5.9 cm LVIDd Index: 2.04 2.4-3.2/2.2-3.1 cm/m2 LVIDs: 3.02 2.0-3.6 cm LVPWd: 1.44 0.7-1.1 cm LV Mass: 343.02 67-162/88-224 g LV Mass Index: 150.45 43-95/49-115 g/m2 LVOT Diam: 2.10 3.0+(-)1.3 cm 2D Systolic Function EF 4C: 53.60 >55% EF 2C: 55.70 >55% EF BiP: 55.20 >55% Mitral Valve MV VTI: 0.82 MV Pk Drake: 2.43 MV Mn Drake: 1.33 MV Pk Grad: 24.00 MV Mn Grad: 8.00 MV Pk E: 2.02 MV PK A: 0.96 MV Decel Time: 350.00 E/A: 2.10 E'Lateral: 6.41 E'Medial: 4.54 E/E' Med: 44.50 E/E' Lat: 31.50 PHT: 102.00 MVA PHT: 2.16 MVA Continuity: 1.28 Decel [place]: 5.76 MR VTI: 1.75 Aortic Valve AoV Pk Drake: 2.52 AoV Mn Drake: 1.88 AoV VTI: 0.62 AoV Pk Grad: 25.00 Aov Mn Grad: 15.00 DAVID Cont.VTI: 1.67 AI Pk Drake: 4.33 AI [place]: 2.35 LVOT LVOT Pk Drake: 1.24 LVOT Mn Drake: 0.91 LVOT VTI: 0.30 LVOT Pk Grad: 6.00 LVOT Mn Grad: 4.00 LVOT Diam: 2.10 LVOT Area: 3.46 Diastolic Function MV Pk E: 2.02 MV Pk A: 0.96 E/A: 2.10 E'Medial: 4.54 E/E' Med: 44.50 E' Laterial: 6.41 E/E' Lat: 31.50 Right Ventricle TAPSE (mm): 18.30 TVS' Drake: 8.60 Tricuspid Valve TR Pk Drake: 3.62 TR Pk Grad: 52.00 RA Press: 8.00 RVSP: 60.00 Great Vessels Aorta Ao Asc: 3.20 2.1-3.4 cm Updated in Other Vendor System with Status of Final Álvaro Celis MD electronically signed on 04/11/2023 12:51:00 PM with status of Final
[2023-04-09 11:16] LABS: Basophils Absolute Auto 0.1 X10*3/uL (0.0-0.2); Eosinophils Absolute Auto 0.4 X10*3/uL (0.0-0.4); Hematocrit 42.3 % (37.0-47.0); Hemoglobin 13.1 g/dl (12.0-16.0); Imm Gran Abs Auto 0.06 X10*3/uL (0.00-0.03); Imm Gran Pct Auto 0.6 % (0.0-0.4); Lymphocytes Absolute Auto 1.6 X10*3/uL (1.2-4.9); Lymphocytes Percent Auto 17.1 % (20-40); MANUAL DIFF FLAG NO; Mean Corpuscular Hemoglobin 27.4 pg (27.0-33.0); Mean Corpuscular Volume 88.5 fL (80.0-98.0); Mean Platelet Volume 9.4 fL (9.4-12.3); Monocytes Absolute Auto 0.6 X10*3/uL (0.1-1.2); Neutrophils Absolute Auto 6.6 x10*3/uL (2.0-8.3); Neutrophils Percent Auto 71.3 % (45-73); Platelet Count 271 X10*3/uL (160-400); Red Blood Count 4.78 X10*6/uL (4.20-5.50); Red Cell Distribution Width 16.8 % (11.0-16.0); White Blood Count 9.3 X10*3/uL (4.8-10.8)
[2023-04-09 12:10] LABS: Alanine Aminotransferase 26 U/L (0-31); Albumin Level 3.9 g/dL (3.5-5.0); Alkaline Phosphatase 92 U/L (39-117); Anion Gap 16 (12-20); Aspartate Amino Transferase 32 U/L (5-31); Bilirubin Direct 0.1 mg/dL (0.0-0.5); Bilirubin Total 0.4 mg/dL (0.0-1.0); Blood Urea Nitrogen 12 mg/dL (9-16); Carbon Dioxide 28 mmol/L (22-29); Chloride 101 mmol/L (96-108); Cholesterol 215 mg/dL; Estimated Glomerular Filt Rate > 60; Glucose Random 124 mg/dL (60-115); HDL Cholesterol 29 mg/dL; LDL Cholesterol Calculated 157 mg/dl; Potassium 4.1 mmol/L (3.3-5.1); Sodium 141 mmol/L (135-145); Triglycerides 149 mg/dL
[2023-04-11 22:28] LABS: TS Negative Control Passed; TS Panel A 0; TS Panel B 2; TS Positive Control Passed; TSpotTB Negative (Negative)
== END ==
LOC: HO.CARD 09:10
PROVIDERS: Absent Provider Physician Assistant Medical; PCP Internal Medicine; Visit Provider Internal Medicine
DX: L40.0 Psoriasis vulgaris (principal); I42.1 Obstructive hypertrophic cardiomyopathy; Z79.899 Other long term (current) drug therapy
CPT/HCPCS: 36415; 80048; 80061; 80076; 85025; 86481; 93306; Q9957

== ENCOUNTER → 2023-04-09 09:13 | Outpatient (BNV) | payer BC, SELFPAY | PROVIDERS: Absent Provider Physician Assistant Medical; PCP Internal Medicine; Visit Provider Internal Medicine | DX: I35.1 Nonrheumatic aortic (valve) insufficiency (principal); I34.0 Nonrheumatic mitral (valve) insufficiency | CPT/HCPCS: 93306 ==

== ENCOUNTER 2023-05-04 12:25 | Outpatient (AMB) | payer BC, SELFPAY ==
--- NOTE | 2023-05-04 12:41 | A.OFFVIS_ITS ---
Intake Vital Signs 05/04/23 12:57 Height 5 ft 3 in Weight 325 lb 6.436 oz BMI 57.6 BP 124/76 Blood Pressure Location Lt brachial Position Sitting Pulse 68 Intake Visit Reasons: 6 mth fu with [employer] Intake Note: 6 month follow up Resident Advisor Required: No Accompanied by: Self / Same As Patient Allergies adhesive [ADHESIVE] Adverse Reaction (Unknown, Verified 05/04/23 12:58) RASH - SKIN CAME OFF WITH TAPE apremilast [Otezla] Adverse Reaction (Unknown, Verified 05/04/23 12:58) nausea, vomiting Sulfa (Sulfonamide Antibiotics) [SULFA (SULFONAMIDE ANTIBIOTICS)] Adverse Reaction (Unknown, Verified 05/04/23 12:58) UNKNOWN Medication List - Last Reconciled 05/04/23 by Álvaro Celis MD amlodipine 5 mg PO DAILY apixaban (Eliquis) 5 mg PO BID bumetanide 2 mg PO DAILY clobetasol 0.05% grams topical guselkumab (Tremfya) mg subcut levothyroxine 88 mcg PO DAILY@0600 metoprolol tartrate 50 mg PO BID montelukast 10 mg PO DAILY potassium chloride ER 20 mEq PO BEDTIME 90 days tiotropium bromide (Spiriva with HandiHaler) 1 cap inhalation DAILY valsartan 320 mg PO DAILY venlafaxine ER 150 mg PO BEDTIME HPI HPI Comments History of Present Illness Details Tabby returns for follow-up regarding hypertrophic cardiomyopathy as well as atrial fibrillation. In 2019, she underwent extended septal myectomy procedure. Subsequently, she also underwent permanent pacemaker implantation. She continues to be on Bumex for congestive heart failure. Overall, no major change in clinical symptoms or anything else overall. Seems to be getting along okay. Shortness of breath is at baseline. Continues to have symptoms from so reassess. Not much of leg swelling and that is at baseline. [facility] Medical History Celiac disease HOCM (hypertrophic obstructive cardiomyopathy) MONICA (iron deficiency anemia) Mitral valve disease Morbid obesity PAF (paroxysmal atrial fibrillation) Pulmonary hypertension Surgical History History of cardiac catheterization History of cardiac pacemaker (~10/2018) History of heart surgery (~10/2018) Status post ventricular septal myectomy Family History Father CVD (cardiovascular disease) Mother CVD (cardiovascular disease) Social History Household Members: Spouse and Children Housing: House Do you presently have visiting nurse or other home services: No Alcohol intake: current Alcohol intake frequency: holidays/special occasions only Patient Tobacco Use Status: Former Tobacco user Substance Use Type: Marijuana service: No Current occupational status: disabled Review of Systems Const Denies weakness ENT Denies dizziness Card Denies chest pain, Denies chest pain with activity, Denies syncope, Denies rapid heart rate, Denies pedal edema, Denies edema, Denies leg edema, Denies lightheadedness, Denies palpitations, Denies dyspnea, Denies dyspnea on exertion and Denies orthopnea Resp Denies cough, Denies dyspnea and Denies dyspnea on exertion GI Denies hematochezia and Denies change in stool character Musc Denies abnormal gait, Denies muscle cramps, Denies muscle weakness, Denies numbness, Denies radiating pain into limb and Denies tingling Neuro Denies abnormal gait, Denies dizziness, Denies syncope, Denies numbness, Denies tingling and Denies weakness Endo Denies palpitations Physical Exam Vital Signs: Last Vital Signs Pulse 68 05/04/23 12:57 BP 124/76 05/04/23 12:57 BMI result Body Mass Index 57.6 Const General: comfortable and no acute distress Orientation/consciousness: patient oriented x3 HEENT Other: Unremarkable Head: Yes normal to inspection Neck Neck: Yes normal visual inspection Chest Chest palpation & inspection: normal inspection of the chest Resp Auscultation: clear to auscultation bilaterally Cardio Palpation: normal PMI Heart sounds: S1 normal heart sound present, S2 normal heart sound present, no gallops, Murmur heart sound present systolic holo and at the apex and no rubs GI Palpation (GI): Soft to palpation Back/Spine/Pelvis Other: unremarkable Skin Other: psoriasis lesions on right leg Neuro General: patient oriented x3 Extrem Other: 1+ edema General: Yes normal to inspection Psych Mental Status: mental status grossly normal Assessment & Plan Assessment & Plan (1) Chronic heart failure with preserved ejection fraction: Code(s): I50.32 - Chronic diastolic (congestive) heart failure Plan: Stable. Continue diuretics. In the most recent echocardiogram, LVEF 55%. Grade 3 diastolic dysfunction. (2) HOCM (hypertrophic obstructive cardiomyopathy): Code(s): I42.1 - Obstructive hypertrophic cardiomyopathy Plan: Stable. (3) Status post ventricular septal myectomy: Code(s): Z98.890 - Other specified postprocedural states Plan: No new issues. (4) PAF (paroxysmal atrial fibrillation): Code(s): I48.0 - Paroxysmal atrial fibrillation Plan: Continue metoprolol and Eliquis. (5) Mitral valve disease: Code(s): I05.9 - Rheumatic mitral valve disease, unspecified Plan: Elevated gradients across the mitral valve. Thought to be from some combination of diastolic dysfunction and increased stroke volume. Less likely that she has any significant mitral stenosis. This has been present for a long time including 2018. No specific workup at this time. (6) Pulmonary hypertension: Code(s): I27.20 - Pulmonary hypertension, unspecified Plan: Multifactorial; suspected to be from obesity, untreated obstructive sleep apnea, left heart dysfunction, diastolic heart failure. In the past, she was even sent to Pulmonary hypertension Clinic in [place]. (7) Morbid obesity: Code(s): E66.01 - Morbid (severe) obesity due to excess calories Plan: Has been chronic unlikely that she will lose much. (8) MIKIE (obstructive sleep apnea): Code(s): G47.33 - Obstructive sleep apnea (adult) (pediatric) Plan: Sleep study shows severe sleep apnea. Not using regularly. Coding Level of Care Code Est Pt Level 4 (69723) Diagnoses Chronic heart failure with preserved ejection fraction I50.32 HOCM (hypertrophic obstructive cardiomyopathy) I42.1 Status post ventricular septal myectomy Z98.890 PAF (paroxysmal atrial fibrillation) I48.0 Mitral valve disease I05.9 Pulmonary hypertension I27.20 Morbid obesity E66.01 MIKIE (obstructive sleep apnea) G47.33
[2023-05-04 12:57] VITALS: BP 124/76; PULSE 68; BMI 57.6
== END 2023-05-04 13:13 | disposition home or self-care (01) ==
PROVIDERS: PCP Internal Medicine; Referring Provider Internal Medicine; Visit Provider Internal Medicine
DX: I50.32 Chronic diastolic (congestive) heart failure (principal); I42.1 Obstructive hypertrophic cardiomyopathy; Z98.890 Other specified postprocedural states; I48.0 Paroxysmal atrial fibrillation; I05.9 Rheumatic mitral valve disease, unspecified; I27.20 Pulmonary hypertension, unspecified; E66.01 Morbid (severe) obesity due to excess calories; G47.33 Obstructive sleep apnea (adult) (pediatric)
CPT/HCPCS: 99214

== ENCOUNTER → 2023-05-04 12:25 | Outpatient (BNVA) | payer BC, SELFPAY | PROVIDERS: PCP Internal Medicine; Referring Provider Internal Medicine; Visit Provider Internal Medicine ==

== ENCOUNTER → 2023-06-01 23:59 | Outpatient (BNV) | payer BC, SELFPAY ==
--- NOTE | 2023-06-07 10:22 | A.OFFVIS_ITS ---
Intake Intake Visit Reasons: Remote device check- [employer] Allergies adhesive [ADHESIVE] Adverse Reaction (Unknown, Verified 05/04/23 12:58) RASH - SKIN CAME OFF WITH TAPE apremilast [Otezla] Adverse Reaction (Unknown, Verified 05/04/23 12:58) nausea, vomiting Sulfa (Sulfonamide Antibiotics) [SULFA (SULFONAMIDE ANTIBIOTICS)] Adverse Reaction (Unknown, Verified 05/04/23 12:58) UNKNOWN PFSH Medical History Celiac disease HOCM (hypertrophic obstructive cardiomyopathy) MONICA (iron deficiency anemia) Mitral valve disease Morbid obesity PAF (paroxysmal atrial fibrillation) Pulmonary hypertension Surgical History History of cardiac catheterization History of cardiac pacemaker (~10/2018) History of heart surgery (~10/2018) Status post ventricular septal myectomy Family History Father CVD (cardiovascular disease) Mother CVD (cardiovascular disease) Social History Household Members: Spouse and Children Housing: House Do you presently have visiting nurse or other home services: No Alcohol intake: current Alcohol intake frequency: holidays/special occasions only Patient Tobacco Use Status: Former Tobacco user Substance Use Type: Marijuana service: No Current occupational status: disabled Office Procedures Cardiac Device Check Cardiac Device Check Details: Date of service- 06/01/2023 ; Battery life 3 years; normal lead parameters; AP 24%; TOPOGRAPHIC COMPUTATOR 99%; no significant arrhythmias. Overall normal device function. [id number] Cardiac Device Interrogation, pacemaker Procedure code (CPT) selection complete Assessment & Plan Assessment & Plan (1) HOCM (hypertrophic obstructive cardiomyopathy): Code(s): I42.1 - Obstructive hypertrophic cardiomyopathy (2) PAF (paroxysmal atrial fibrillation): Code(s): I48.0 - Paroxysmal atrial fibrillation Coding Level of Care Code Procedure Only Diagnoses HOCM (hypertrophic obstructive cardiomyopathy) I42.1 PAF (paroxysmal atrial fibrillation) I48.0 CPT Codes Cardiac Device Check - Cardiac Device 12: [id number] Cardiac Device Interrogation, pacemaker ([id number])
== END ==
PROVIDERS: PCP Internal Medicine; Visit Provider Internal Medicine
DX: I48.0 Paroxysmal atrial fibrillation (principal); Z95.0 Presence of cardiac pacemaker
CPT/HCPCS: 93294

== ENCOUNTER 2023-08-04 10:46 | Outpatient (REF) | payer BC, SELFPAY ==
[2023-08-04 10:52] LABS: MANUAL DIFF FLAG NO
[2023-08-04 11:17] LABS: Appearance Urine Cloudy; Color Urine Yellow; Glucose Urine UA Negative (Negative); Leukocyte Esterase Urine Small (1+) (Negative); Nitrite Urine Negative (Negative); UMIC TRIGGER UACC YES; Urine Blood Small (1+) (Negative); Urine Ketones Negative (Negative); Urine Protein Negative (Neg-Trace)
[2023-08-04 11:38] LABS: Bacteria Urine 2+ (None Seen); Calcium Oxalate Crystals Urine Present; Hyaline Casts Urine 0-2 /LPF (0-2); RBC Urine 0-2 /HPF (0-2); UACC Culture Trigger YES
[2023-08-04 11:51] LABS: Basophils Absolute Auto 0.1 X10*3/uL (0.0-0.2); Basophils Percent Auto 0.9 % (0-2); Eosinophils Absolute Auto 0.4 X10*3/uL (0.0-0.4); Eosinophils Percent Auto 3.7 % (0-4); Hematocrit 43.7 % (37.0-47.0); Hemoglobin 13.4 g/dl (12.0-16.0); Imm Gran Abs Auto 0.06 X10*3/uL (0.00-0.03); Imm Gran Pct Auto 0.5 % (0.0-0.4); Lymphocytes Absolute Auto 2.4 X10*3/uL (1.2-4.9); Lymphocytes Percent Auto 21.2 % (20-40); Mean Corpuscular HGB Conc 30.7 g/dl (31.0-35.0); Mean Corpuscular Hemoglobin 27.2 pg (27.0-33.0); Mean Corpuscular Volume 88.6 fL (80.0-98.0); Mean Platelet Volume 10.5 fL (9.4-12.3); Monocytes Absolute Auto 0.8 X10*3/uL (0.1-1.2); Monocytes Percent Auto 7.3 % (2-11); Neutrophils Absolute Auto 7.5 x10*3/uL (2.0-8.3); Neutrophils Percent Auto 66.4 % (45-73); Platelet Count 309 X10*3/uL (160-400); Red Blood Count 4.93 X10*6/uL (4.20-5.50); Red Cell Distribution Width 16.2 % (11.0-16.0); White Blood Count 11.3 X10*3/uL (4.8-10.8)
[2023-08-04 12:16] LABS: Alanine Aminotransferase 50 U/L (0-31); Albumin Level 4.1 g/dL (3.5-5.0); Alkaline Phosphatase 87 U/L (39-117); Anion Gap 14 (12-20); Aspartate Amino Transferase 65 U/L (5-31); Bilirubin Total 0.5 mg/dL (0.0-1.0); Blood Urea Nitrogen 10 mg/dL (9-16); Calcium 9.6 mg/dL (8.4-10.2); Carbon Dioxide 25 mmol/L (22-29); Chloride 104 mmol/L (96-108); Cholesterol 197 mg/dL (<200); Estimated Glomerular Filt Rate > 60; Glucose Fasting 130 mg/dL (60-99); HDL Cholesterol 29 mg/dL (>40); LDL Cholesterol Calculated 136 mg/dL (<100); Potassium 4.1 mmol/L (3.3-5.1); Sodium 139 mmol/L (135-145); Triglycerides 161 mg/dL (<150)
== END 2023-08-04 10:47 | disposition home or self-care (01) ==
LOC: HO.LNP 10:46
PROVIDERS: Visit Provider Internal Medicine
DX: Z00.00 Encounter for general adult medical examination without abnormal findings (principal); I10 Essential (primary) hypertension; R82.90 Unspecified abnormal findings in urine
CPT/HCPCS: 80053; 80061; 81001; 85025; 87086

== ENCOUNTER 2023-08-11 15:22 | Outpatient (REF) | payer BC, SELFPAY ==
[2023-08-11 16:05] LABS: TSH reflex Free T4 5.16 uIU/mL (0.32-4.0)
[2023-08-11 16:36] LABS: Free T4 (Free Thyroxine) 0.95 ng/dL (0.71-1.85)
== END 2023-08-11 15:23 | disposition home or self-care (01) ==
LOC: HO.LNP 15:22
PROVIDERS: Visit Provider Internal Medicine
DX: E03.9 Hypothyroidism, unspecified (principal)
CPT/HCPCS: 84439; 84443

== ENCOUNTER 2023-08-12 13:53 | Outpatient (AMB) | payer BC, SELFPAY ==
--- NOTE | 2023-08-12 14:00 | MHC.OFFVIS ---
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 Required: No Accompanied by: Self / Same As Patient Allergies adhesive [ADHESIVE] Adverse Reaction (Unknown, Verified 08/12/23 14:03) RASH - SKIN CAME OFF WITH TAPE apremilast [Otezla] Adverse Reaction (Unknown, Verified 08/12/23 14:03) nausea, vomiting Sulfa (Sulfonamide Antibiotics) [SULFA (SULFONAMIDE ANTIBIOTICS)] Adverse Reaction (Unknown, Verified 08/12/23 14:03) UNKNOWN Medication List - Last Reconciled 08/12/23 by Álvaro Celis MD amlodipine 5 mg PO DAILY apixaban (Eliquis) 5 mg PO BID bumetanide 2 mg PO DAILY clobetasol 0.05% grams topical guselkumab (Tremfya) mg subcut levothyroxine 88 mcg PO DAILY@0600 metoprolol tartrate 50 mg PO BID montelukast 10 mg PO DAILY potassium chloride ER 20 mEq PO BEDTIME 90 days tiotropium bromide (Spiriva with HandiHaler) 1 cap inhalation DAILY valsartan 320 mg PO DAILY venlafaxine ER 150 mg PO BEDTIME HPI HPI Comments History of Present Illness Details Tabby returns for follow-up regarding hypertrophic cardiomyopathy as well as atrial fibrillation. In 2019, she underwent extended septal myectomy procedure. Subsequently, she also underwent permanent pacemaker implantation. She continues to be on Bumex for congestive heart failure. Few days back, she called stating that she was in feeling good and was having some shortness of breath. However, she generally has good days and bad days and has been this way for a long time. Today, she states she has again almost back to her normal self. Some nonspecific tiredness which is again long-standing problem. Leg swelling is just about the same as before. COUNTS INCLUDE 234 BEDS AT THE [facility] Medical History Celiac disease HOCM (hypertrophic obstructive cardiomyopathy) MONICA (iron deficiency anemia) Mitral valve disease Morbid obesity PAF (paroxysmal atrial fibrillation) Pulmonary hypertension Surgical History Status post ventricular septal myectomy History of cardiac pacemaker (~10/2018) History of heart surgery (~10/2018) History of cardiac catheterization Family History Father CVD (cardiovascular disease) Mother CVD (cardiovascular disease) Social History Household Members: Spouse and Children Housing: House Do you presently have visiting nurse or other home services: No Alcohol intake: current Alcohol intake frequency: holidays/special occasions only Patient Tobacco Use Status: Former Tobacco user Substance Use Type: Marijuana service: No Current occupational status: disabled Review of Systems ENT Denies dizziness Card Denies chest pain, Denies chest pain with activity, Denies syncope, Denies rapid heart rate, Denies pedal edema, Denies edema, Denies leg edema, Denies lightheadedness, Denies palpitations, Denies dyspnea and Denies orthopnea Resp Denies cough and Denies dyspnea GI Denies hematochezia and Denies change in stool character Musc Denies abnormal gait, Denies muscle cramps, Denies muscle weakness, Denies numbness, Denies radiating pain into limb and Denies tingling Neuro Denies abnormal gait, Denies dizziness, Denies syncope, Denies numbness and Denies tingling Endo Denies palpitations Physical Exam Vital Signs: Last Vital Signs Pulse 70 08/12/23 14:02 BP 128/82 08/12/23 14:02 BMI result Body Mass Index 57.4 Const General: comfortable and no acute distress Orientation/consciousness: patient oriented x3 HEENT Other: Unremarkable Head: Yes normal to inspection Neck Neck: Yes normal visual inspection Chest Chest palpation & inspection: normal inspection of the chest Resp Auscultation: clear to auscultation bilaterally Cardio Palpation: normal PMI Heart sounds: S1 normal heart sound present, S2 normal heart sound present, no gallops, Murmur heart sound present systolic holo and at the apex and no rubs GI Palpation (GI): Soft to palpation Back/Spine/Pelvis Other: unremarkable Skin Other: psoriasis lesions on right leg Neuro General: patient oriented x3 Extrem Other: 1+ edema General: Yes normal to inspection Psych Mental Status: mental status grossly normal Office Procedures EKG Details: EKG with the arm ventricular paced rhythm at 70/Min; underlying atrial rhythm seems to be flutter. [id number], Complete Assessment & Plan Assessment & Plan (1) Chronic heart failure with preserved ejection fraction: Code(s): I50.32 - Chronic diastolic (congestive) heart failure Plan: Stable. Continue diuretics. In the most recent echocardiogram, LVEF 55%. Grade 3 diastolic dysfunction. (2) HOCM (hypertrophic obstructive cardiomyopathy): Code(s): I42.1 - Obstructive hypertrophic cardiomyopathy Plan: Stable. (3) Status post ventricular septal myectomy: Code(s): Z98.890 - Other specified postprocedural states Plan: No new issues. (4) PAF (paroxysmal atrial fibrillation): Code(s): I48.0 - Paroxysmal atrial fibrillation Plan: On looking at the trend from her pacemaker, she does get off and on episodes of atrial fibrillation. For the last few days or so she has again in atrial flutter but controlled rate. That might be the reason for shortness of breath. Most of the time, she has gone back to normal rhythm by herself. Also with her many comorbidities including obesity and untreated sleep apnea, likely not suitable for aggressive rhythm control either. Hence no further changes now. (5) Mitral valve disease: Code(s): I05.9 - Rheumatic mitral valve disease, unspecified Plan: Elevated gradients across the mitral valve. Thought to be from some combination of diastolic dysfunction and increased stroke volume. Less likely that she has any significant mitral stenosis. This has been present for a long time including 2018. No specific workup at this time. (6) Pulmonary hypertension: Code(s): I27.20 - Pulmonary hypertension, unspecified Plan: Multifactorial; suspected to be from obesity, untreated obstructive sleep apnea, left heart dysfunction, diastolic heart failure. In the past, she was even sent to Pulmonary hypertension Clinic in [place]. (7) Morbid obesity: Code(s): E66.01 - Morbid (severe) obesity due to excess calories Plan: Has been chronic unlikely that she will lose much. (8) MIKIE (obstructive sleep apnea): Code(s): G47.33 - Obstructive sleep apnea (adult) (pediatric) Plan: Sleep study shows severe sleep apnea. However, patient not able to use CPAP due to intolerance. We have discussed this many times including today. Coding Level of Care Code Est Pt Level 4 (84874) Diagnoses Chronic heart failure with preserved ejection fraction I50.32 HOCM (hypertrophic obstructive cardiomyopathy) I42.1 Status post ventricular septal myectomy Z98.890 PAF (paroxysmal atrial fibrillation) I48.0 Mitral valve disease I05.9 Pulmonary hypertension I27.20 Morbid obesity E66.01 MIKIE (obstructive sleep apnea) G47.33 CPT Codes EKG - CPT: 13406-[id number], Complete ([id number])
[2023-08-12 14:02] VITALS: BP 128/82; PULSE 70; BMI 57.4
== END 2023-08-12 14:22 | disposition home or self-care (01) ==
PROVIDERS: PCP Internal Medicine; Visit Provider Internal Medicine
DX: I50.32 Chronic diastolic (congestive) heart failure (principal); I42.1 Obstructive hypertrophic cardiomyopathy; Z98.890 Other specified postprocedural states; I48.0 Paroxysmal atrial fibrillation; I05.9 Rheumatic mitral valve disease, unspecified; I27.20 Pulmonary hypertension, unspecified; E66.01 Morbid (severe) obesity due to excess calories; G47.33 Obstructive sleep apnea (adult) (pediatric)
CPT/HCPCS: 93010; 99214

== ENCOUNTER → 2023-08-12 13:53 | Outpatient (BNVA) | payer BC, SELFPAY | PROVIDERS: PCP Internal Medicine; Visit Provider Internal Medicine | DX: I50.32 Chronic diastolic (congestive) heart failure (principal); I42.1 Obstructive hypertrophic cardiomyopathy; I48.0 Paroxysmal atrial fibrillation; I27.20 Pulmonary hypertension, unspecified; Z98.890 Other specified postprocedural states | CPT/HCPCS: 93005 ==

== ENCOUNTER 2023-08-17 10:52 | Outpatient (REF) | payer BC, SELFPAY ==
[2023-08-17 11:52] LABS: Appearance Urine Clear; Color Urine Yellow; Glucose Urine UA Negative (Negative); Leukocyte Esterase Urine Negative (Negative); Nitrite Urine Negative (Negative); Urine Blood Negative (Negative); Urine Ketones Negative (Negative); Urine Protein Negative (Neg-Trace)
[2023-08-17 11:59] LABS: Bacteria Urine None Seen (None Seen); Hyaline Casts Urine 0-2 /LPF (0-2); RBC Urine 0-2 /HPF (0-2); Squamous Epithelial Cell Urine 0-2 /HPF (0-2); WBC Urine 0-5 /HPF (0-5)
== END 2023-08-17 10:53 | disposition home or self-care (01) ==
LOC: HO.LNP 10:52
PROVIDERS: Visit Provider Internal Medicine
DX: R31.9 Hematuria, unspecified (principal)
CPT/HCPCS: 81001

== ENCOUNTER 2023-10-05 07:37 | Outpatient (REF) | payer BC, SELFPAY ==
[2023-10-09 05:29] LABS: HPV mRNA E6/E7 rflx Not Detected (Not Detected)
== END 2023-10-05 07:38 | disposition home or self-care (01) ==
LOC: HO.LNP 07:37
PROVIDERS: PCP Internal Medicine; Visit Provider Obstetrics & Gynecology
DX: Z01.419 Encounter for gynecological examination (general) (routine) without abnormal findings (principal); Z11.51 Encounter for screening for human papillomavirus (HPV); N93.9 Abnormal uterine and vaginal bleeding, unspecified
CPT/HCPCS: 87624; 88142

== ENCOUNTER 2023-10-05 07:37 | Outpatient (AMB) | payer BC, SELFPAY ==
[2023-10-05 07:44] VITALS: BP 110/70; BMI 57.4
--- NOTE | 2023-10-05 07:44 | MHC.OFFVIS ---
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 Water Filterer Required: No Information Interpreted: non-clinical & clinical Hand Pattern Marker: Hand Pattern Marker Present (Jacinda Mckenzie GUSTAVO) Accompanied by: Self / Same As Patient Allergies adhesive [ADHESIVE] Adverse Reaction (Unknown, Verified 10/05/23 07:48) RASH - SKIN CAME OFF WITH TAPE apremilast [Otezla] Adverse Reaction (Unknown, Verified 10/05/23 07:48) nausea, vomiting Sulfa (Sulfonamide Antibiotics) [SULFA (SULFONAMIDE ANTIBIOTICS)] Adverse Reaction (Unknown, Verified 10/05/23 07:48) UNKNOWN Post menopausal: Yes HPI HPI Comments History of Present Illness Details Presenting for annual exam. Complaining of abnormal uterine bleeding preop Last Pap/HPV was many years ago Last Mammogram was more than a year ago Last screening Colonoscopy was more than 10 years ago according the patient [facility] Medical History Celiac disease Mitral valve disease Morbid obesity MONICA (iron deficiency anemia) Pulmonary hypertension PAF (paroxysmal atrial fibrillation) HOCM (hypertrophic obstructive cardiomyopathy) Surgical History Status post ventricular septal myectomy History of cardiac pacemaker (~10/2018) History of heart surgery (~10/2018) History of cardiac catheterization Family History Father CVD (cardiovascular disease) Mother CVD (cardiovascular disease) Brother Diabetes CVD (cardiovascular disease) HTN (hypertension) Social History Household Members: Spouse and Children Housing: House Do you presently have visiting nurse or other home services: No Alcohol intake: current Alcohol intake frequency: holidays/special occasions only Patient Tobacco Use Status: Former Tobacco user Substance Use Type: Marijuana service: No Current occupational status: disabled Sexually active: Yes Sexual orientation: Straight/Heterosexual Gender identity: Female Female Reproductive History Menstrual Total pregnancies: 3 Full term: 1 Number of Living Children: 2 Ab induced: 1 Review of Systems Const All systems reviewed & are unremarkable except as noted in HPI and below Card Reports as per HPI Resp Reports as per HPI GI Reports as per HPI and Reports no additional complaints Reports as per HPI Physical Exam Vital Signs: Last Vital Signs BP 110/70 10/05/23 07:44 BMI result Body Mass Index 57.4 Const General: cooperative, healthy appearing and comfortable Chest Chest palpation & inspection: normal inspection of the chest and normal palpation of entire chest wall Breast/axilla inspection: normal inspection of the breasts and normal inspection of the axillae Breast/axilla palpation: normal palpation of the breasts, normal palpation of the axillae and no axillary lymphadenopathy Resp Effort & Inspection: normal respiratory effort Auscultation: clear to auscultation bilaterally Percussion: percussion normal Cardio Palpation: normal PMI Rate: regular rate Rhythm: regular rhythm Heart sounds: no murmurs and no rubs Peripheral pulses: Peripheral pulses 2+ throughout GI Inspection: Yes normal to inspection Palpation (GI): Soft to palpation, nontender, no guarding, not rigid and No hepatosplenomegaly present Percussion: Yes normal to percussion Auscultation: normal bowel sounds Rectal Exam - Female: deferred General: Yes bladder normal to palpation External Female Exam: No lesion Speculum Exam - Vagina: normal appearance of the vagina, normal palpation, normal vaginal discharge and not erythematous Speculum Exam - Cervix: normal appearance of the cervix and normal palpation Bimanual exam- vagina & uterus: normal bimanual exam, normal palpation, uterine size normal, bladder normal to palpation, consistency normal and normal palpation Bimanual Exam- Adnexa, other: normal adnexae, no masses and no tenderness Assessment & Plan Assessment & Plan (1) Well woman exam: Code(s): Z01.419 - Encounter for gynecological examination (general) (routine) without abnormal findings Plan: Co testing done. Counseled the patient about the recommended dietary allowance of 1200 mg of Calcium & 600 IU of vitamin D. Mammogram ordered. The patient was referred to GI for screening colonoscopy . The patient was instructed to perform monthly self-breast exams and schedule annual exam in a year. All questions answered and the patient verbalized understanding. (2) Abnormal uterine bleeding (AUB): Comment: On Eliquis Code(s): N93.9 - Abnormal uterine and vaginal bleeding, unspecified Plan: Co testing done, GC and chlamydia taken CBC, TSH, FSH/LH, prolactin HCG, and pelvic ultrasound ordered. Discussed with the patient the different causes of abnormal bleeding including thyroid disorders, uterine and ovarian pathology, endometrial hyperplasia, carcinoma and other potential causes. Discussed with the patient the work up including CBC (to r/o anemia), TSH, FSH/LH, prolactin pelvic Ultrasound, endometrial biopsy to r/o endometrial pathology. All questions answered and the patient verbalized understanding. Instructed the patient to schedule an appointment for an endometrial biopsy in 2 weeks. Orders: Orders TSH reflex Free T4 Today N93.9 - Abnormal uterine and vaginal bleeding, unspecified Prolactin Today N93.9 - Abnormal uterine and vaginal bleeding, unspecified HCG Quantitative Today N93.9 - Abnormal uterine and vaginal bleeding, unspecified Follicle Stimulating Hormone Today N93.9 - Abnormal uterine and vaginal bleeding, unspecified MM screening mammo BI Today Z12.31 - Encounter for screening mammogram for malignant neoplasm of breast Lutenizing Hormone Today N93.9 - Abnormal uterine and vaginal bleeding, unspecified Complete Blood Count no Diff Today N93.9 - Abnormal uterine and vaginal bleeding, unspecified US pelvic and transvaginal Today N93.9 - Abnormal uterine and vaginal bleeding, unspecified Referrals Gastroenterology Referral Z12.11 - Encounter for screening for malignant neoplasm of colon Coding Level of Care Code New Pt Prev Care 40-64y(24628) Diagnoses Well woman exam Z01.419 Abnormal uterine bleeding (AUB) N93.9
== END 2023-10-05 08:24 | disposition home or self-care (01) ==
PROVIDERS: PCP Internal Medicine; Visit Provider Obstetrics & Gynecology
DX: Z01.419 Encounter for gynecological examination (general) (routine) without abnormal findings (principal); N93.9 Abnormal uterine and vaginal bleeding, unspecified
CPT/HCPCS: 99386

== ENCOUNTER 2023-10-05 08:38 | Outpatient (REF) | payer BC, SELFPAY ==
[2023-10-05 09:51] LABS: Hematocrit 39.6 % (37.0-47.0); Hemoglobin 12.2 g/dl (12.0-16.0); Mean Corpuscular HGB Conc 30.8 g/dl (31.0-35.0); Mean Corpuscular Volume 84.3 fL (80.0-98.0); Mean Platelet Volume 9.8 fL (9.4-12.3); Platelet Count 257 X10*3/uL (160-400); Red Cell Distribution Width 16.4 % (11.0-16.0); White Blood Count 9.1 X10*3/uL (4.8-10.8)
[2023-10-05 10:36] LABS: HCG Quantitative < 2 mIU/mL; TSH reflex Free T4 3.92 uIU/mL (0.32-4.0)
[2023-10-05 10:57] LABS: CT PCR NOT DETECTED (Not Detect.); NG PCR NOT DETECTED (Not Detect.)
== END 2023-10-05 08:39 | disposition home or self-care (01) ==
LOC: HO.LAB 08:38
PROVIDERS: PCP Internal Medicine; Visit Provider Obstetrics & Gynecology
DX: Z01.419 Encounter for gynecological examination (general) (routine) without abnormal findings (principal); N93.9 Abnormal uterine and vaginal bleeding, unspecified; Z20.2 Contact with and (suspected) exposure to infections with a predominantly sexual mode of transmission
CPT/HCPCS: 0353U; 83001; 83002; 84146; 84443; 84702; 85027

== ENCOUNTER 2023-10-16 08:08 | Outpatient (REF) | payer BC, SELFPAY ==
--- NOTE | ~2023-10-16 | MM_ITS ---
EXAMINATION: MM SCREENING DIGITAL BREAST TOMOSYNTHESIS, BILATERAL CLINICAL INFORMATION: Screening. Asymptomatic. COMPARISON: Mammography: This study is compared with prior exams dating back to 2021. TECHNIQUE: Digital breast tomosynthesis is performed in both the craniocaudal and mediolateral oblique views along with computer-aided detection (CAD). Synthesized 2D images are generated from the tomosynthesis. FINDINGS: The breasts are almost entirely fatty (ACR BI-RADS breast composition Category a). There are no significant masses, abnormal calcifications, or other abnormalities. There is a pacemaker at the superiormost aspect of the left breast. MM/MM tomosynthesis screening BI IMPRESSION: No mammographic evidence of malignancy. ASSESSMENT: BI-RADS BI-RADS 1 - Negative RECOMMENDATION: Routine annual mammography screening. 1 year F/U This examination should not preclude the clinical evaluation of a suspicious palpable abnormality. This patient's information was entered into a reminder system with a target due date for their next mammogram.
== END 2023-10-16 08:09 | disposition home or self-care (01) ==
LOC: HO.MAMMO 08:08
PROVIDERS: PCP Internal Medicine; Visit Provider Internal Medicine
DX: Z12.31 Encounter for screening mammogram for malignant neoplasm of breast (principal)
CPT/HCPCS: 77063; 77067

== ENCOUNTER → 2023-10-16 08:30 | Outpatient (BNV) | payer BC, SELFPAY | PROVIDERS: PCP Internal Medicine; Visit Provider Radiology Diagnostic Radiology | DX: Z12.31 Encounter for screening mammogram for malignant neoplasm of breast (principal) | CPT/HCPCS: 77063; 77067 ==

== ENCOUNTER 2023-10-27 13:11 | Outpatient (AMB) | payer BC, SELFPAY ==
--- NOTE | 2023-10-27 13:19 | MHC.OFFVIS ---
Intake Vital Signs 10/27/23 13:20 Height 5 ft 3 in Weight 337 lb 4.916 oz BMI 59.7 BP 118/78 Blood Pressure Location Lt brachial Position Sitting Pulse 77 Intake Visit Reasons: 6 mth [facility] Intake Note: 6 month follow up Padded Box Sewer Required: No Accompanied by: Self / Same As Patient Allergies adhesive [ADHESIVE] Adverse Reaction (Unknown, Verified 10/27/23 13:41) RASH - SKIN CAME OFF WITH TAPE apremilast [Otezla] Adverse Reaction (Unknown, Verified 10/27/23 13:41) nausea, vomiting Sulfa (Sulfonamide Antibiotics) [SULFA (SULFONAMIDE ANTIBIOTICS)] Adverse Reaction (Unknown, Verified 10/27/23 13:41) UNKNOWN Medication List - Last Reconciled 10/27/23 by Álvaro Celis MD amlodipine 5 mg PO DAILY apixaban (Eliquis) 5 mg PO BID bumetanide 2 mg PO DAILY clobetasol 0.05% grams topical guselkumab (Tremfya) mg subcut levothyroxine 88 mcg PO DAILY@0600 metoprolol tartrate 50 mg PO BID montelukast 10 mg PO DAILY potassium chloride ER 20 mEq PO BEDTIME 90 days tiotropium bromide (Spiriva with HandiHaler) 1 cap inhalation DAILY valsartan 320 mg PO DAILY venlafaxine ER 150 mg PO BEDTIME HPI HPI Comments History of Present Illness Details Tabby returns for follow-up regarding hypertrophic cardiomyopathy as well as atrial fibrillation. In 2019, she underwent extended septal myectomy procedure. Subsequently, she also underwent permanent pacemaker implantation. She continues to be on Bumex for congestive heart failure. Overall, she feels just about the same as before. Chronic shortness of breath, unchanged. She feels the same whether she is in atrial fibrillation or otherwise. No major changes in her clinical situation overall. Nonspecific tiredness, again unchanged for many years. [facility] Medical History Celiac disease Mitral valve disease Morbid obesity MONICA (iron deficiency anemia) Pulmonary hypertension PAF (paroxysmal atrial fibrillation) HOCM (hypertrophic obstructive cardiomyopathy) Surgical History Status post ventricular septal myectomy History of cardiac pacemaker (~10/2018) History of heart surgery (~10/2018) History of cardiac catheterization Family History Father CVD (cardiovascular disease) Mother CVD (cardiovascular disease) Brother Diabetes CVD (cardiovascular disease) HTN (hypertension) Social History Household Members: Spouse and Children Housing: House Do you presently have visiting nurse or other home services: No Alcohol intake: current Alcohol intake frequency: holidays/special occasions only Patient Tobacco Use Status: Former Tobacco user Substance Use Type: Marijuana service: No Current occupational status: disabled Sexual orientation: Straight/Heterosexual Gender identity: Female Review of Systems Const Denies weakness ENT Denies dizziness Card Denies chest pain, Denies chest pain with activity, Denies syncope, Denies rapid heart rate, Denies pedal edema, Denies edema, Denies palpitations and Denies orthopnea Resp Denies cough GI Denies hematochezia and Denies change in stool character Musc Denies abnormal gait, Denies muscle cramps, Denies muscle weakness, Denies numbness, Denies radiating pain into limb and Denies tingling Neuro Denies abnormal gait, Denies dizziness, Denies syncope, Denies numbness, Denies tingling and Denies weakness Endo Denies palpitations Physical Exam Vital Signs: Last Vital Signs Pulse 77 10/27/23 13:20 BP 118/78 10/27/23 13:20 BMI result Body Mass Index 59.7 Const General: comfortable and no acute distress Orientation/consciousness: patient oriented x3 HEENT Other: Unremarkable Head: Yes normal to inspection Neck Neck: Yes normal visual inspection Chest Chest palpation & inspection: normal inspection of the chest Resp Auscultation: clear to auscultation bilaterally Cardio Palpation: normal PMI Heart sounds: S1 normal heart sound present, S2 normal heart sound present, no gallops, no murmurs and no rubs GI Palpation (GI): Soft to palpation Back/Spine/Pelvis Other: unremarkable Skin General skin exam: no rashes or lesions noted Neuro General: patient oriented x3 Extrem General: Yes normal to inspection Psych Mental Status: mental status grossly normal Office Procedures Cardiac Device Check Cardiac Device Check Details: Pacemaker interrogated today. Dual-chamber device, programmed in DDDR mode. Battery status about 2 years. Normal lead parameters. 100% V paced. Atrial fibrillation since end of September. Over the last year, proximally 28% burden. Nonsustained VT episodes but very brief. Overall, normal device function. [id number] Cardiac Device Check, pacemaker dual lead Procedure code (CPT) selection complete EKG Details: Error [id number], Complete Assessment & Plan Assessment & Plan (1) Chronic heart failure with preserved ejection fraction: Code(s): I50.32 - Chronic diastolic (congestive) heart failure Plan: Stable. Continue diuretics. In the most recent echocardiogram, LVEF 55%. Grade 3 diastolic dysfunction. (2) HOCM (hypertrophic obstructive cardiomyopathy): Code(s): I42.1 - Obstructive hypertrophic cardiomyopathy Plan: Stable. (3) Status post ventricular septal myectomy: Code(s): Z98.890 - Other specified postprocedural states Plan: No new issues. (4) PAF (paroxysmal atrial fibrillation): Code(s): I48.0 - Paroxysmal atrial fibrillation Plan: She does get atrial fibrillation off and on. She does go back to sinus it seems based on the trend. However, she feels absolutely the same whether she is in atrial fibrillation or not. Overall, would not pursue this aggressively especially as she has so many comorbidities including obesity, untreated sleep apnea, significant structural heart disease. She is aware of the rationale. Otherwise, continue anticoagulation. (5) Mitral valve disease: Code(s): I05.9 - Rheumatic mitral valve disease, unspecified Plan: Elevated gradients across the mitral valve. Thought to be from some combination of diastolic dysfunction and increased stroke volume. Less likely that she has any significant mitral stenosis. This has been present for a long time including 2018. No specific workup at this time. (6) Pulmonary hypertension: Code(s): I27.20 - Pulmonary hypertension, unspecified Plan: Multifactorial; suspected to be from obesity, untreated obstructive sleep apnea, left heart dysfunction, diastolic heart failure. In the past, she was even sent to Pulmonary hypertension Clinic in [place]. (7) Morbid obesity: Code(s): E66.01 - Morbid (severe) obesity due to excess calories Plan: Has been chronic unlikely that she will lose much. (8) MIKIE (obstructive sleep apnea): Code(s): G47.33 - Obstructive sleep apnea (adult) (pediatric) Plan: Sleep study shows severe sleep apnea. However, patient not able to use CPAP due to intolerance. We have discussed this many times including today. Coding Level of Care Code Est Pt Level 4 (60105) Diagnoses Chronic heart failure with preserved ejection fraction I50.32 HOCM (hypertrophic obstructive cardiomyopathy) I42.1 Status post ventricular septal myectomy Z98.890 PAF (paroxysmal atrial fibrillation) I48.0 Mitral valve disease I05.9 Pulmonary hypertension I27.20 Morbid obesity E66.01 MIKIE (obstructive sleep apnea) G47.33 CPT Codes Cardiac Device Check - Cardiac Device 2: [id number] Cardiac Device Check, pacemaker dual lead ([id number]) EKG - CPT: 16901-Dgbakkugiptvziqja, Complete ([id number])
[2023-10-27 13:20] VITALS: BP 118/78; PULSE 77; BMI 59.7
== END 2023-10-27 14:01 | disposition home or self-care (01) ==
PROVIDERS: PCP Internal Medicine; Visit Provider Internal Medicine
DX: I50.32 Chronic diastolic (congestive) heart failure (principal); I42.1 Obstructive hypertrophic cardiomyopathy; Z98.890 Other specified postprocedural states; I48.0 Paroxysmal atrial fibrillation; I05.9 Rheumatic mitral valve disease, unspecified; I27.20 Pulmonary hypertension, unspecified; E66.01 Morbid (severe) obesity due to excess calories; G47.33 Obstructive sleep apnea (adult) (pediatric)
CPT/HCPCS: 93280; 99214

== ENCOUNTER → 2023-10-27 13:11 | Outpatient (BNVA) | payer BC, SELFPAY | PROVIDERS: PCP Internal Medicine; Visit Provider Internal Medicine | DX: I50.32 Chronic diastolic (congestive) heart failure (principal); I42.1 Obstructive hypertrophic cardiomyopathy; I48.0 Paroxysmal atrial fibrillation; I05.9 Rheumatic mitral valve disease, unspecified; I27.20 Pulmonary hypertension, unspecified; E66.01 Morbid (severe) obesity due to excess calories; G47.33 Obstructive sleep apnea (adult) (pediatric); Z79.01 Long term (current) use of anticoagulants; Z98.890 Other specified postprocedural states; Z45.018 Encounter for adjustment and management of other part of cardiac pacemaker | CPT/HCPCS: 93280 ==

== ENCOUNTER → 2023-10-28 23:59 | Outpatient (BNV) | payer BC, SELFPAY ==
--- NOTE | 2023-11-02 19:55 | MHC.OFFVIS ---
Intake Intake Visit Reasons: Remote Device Check- [employer] Allergies adhesive [ADHESIVE] Adverse Reaction (Unknown, Verified 10/27/23 13:41) RASH - SKIN CAME OFF WITH TAPE apremilast [Otezla] Adverse Reaction (Unknown, Verified 10/27/23 13:41) nausea, vomiting Sulfa (Sulfonamide Antibiotics) [SULFA (SULFONAMIDE ANTIBIOTICS)] Adverse Reaction (Unknown, Verified 10/27/23 13:41) UNKNOWN [facility] Medical History Celiac disease Mitral valve disease Morbid obesity MONICA (iron deficiency anemia) Pulmonary hypertension PAF (paroxysmal atrial fibrillation) HOCM (hypertrophic obstructive cardiomyopathy) Surgical History Status post ventricular septal myectomy History of cardiac pacemaker (~10/2018) History of heart surgery (~10/2018) History of cardiac catheterization Family History Father CVD (cardiovascular disease) Mother CVD (cardiovascular disease) Brother Diabetes CVD (cardiovascular disease) HTN (hypertension) Social History Household Members: Spouse and Children Housing: House Do you presently have visiting nurse or other home services: No Alcohol intake: current Alcohol intake frequency: holidays/special occasions only Patient Tobacco Use Status: Former Tobacco user Substance Use Type: Marijuana service: No Current occupational status: disabled Sexual orientation: Straight/Heterosexual Gender identity: Female Office Procedures Cardiac Device Check Cardiac Device Check Details: Date of service- 10/28/2023 ; Battery life 2 years; normal lead parameters; AP 0%; FABRIC WORKER FOREMAN 100%; in atrial fibrillation with controlled rate, per strips. Overall normal device function. [id number] Cardiac Device Interrogation, pacemaker Procedure code (CPT) selection complete Assessment & Plan Assessment & Plan (1) PAF (paroxysmal atrial fibrillation): Code(s): I48.0 - Paroxysmal atrial fibrillation (2) HOCM (hypertrophic obstructive cardiomyopathy): Code(s): I42.1 - Obstructive hypertrophic cardiomyopathy Plan x Coding Level of Care Code Procedure Only Diagnoses PAF (paroxysmal atrial fibrillation) I48.0 HOCM (hypertrophic obstructive cardiomyopathy) I42.1 CPT Codes Cardiac Device Check - Cardiac Device 12: [id number] Cardiac Device Interrogation, pacemaker ([id number])
== END ==
PROVIDERS: PCP Internal Medicine; Visit Provider Internal Medicine
DX: I48.0 Paroxysmal atrial fibrillation (principal); Z95.0 Presence of cardiac pacemaker
CPT/HCPCS: 93294

== ENCOUNTER 2023-10-30 13:43 | Outpatient (REF) | payer BC, SELFPAY ==
--- NOTE | ~2023-10-30 | US_ITS ---
EXAMINATION: US PELVIS CLINICAL INFORMATION: Abnormal bleeding, postmenopausal. COMPARISON: CT abdomen and pelvis of April 06, 2022. TECHNIQUE: Ultrasound of the pelvis is performed using both transabdominal and transvaginal transducers along with Doppler. Transvaginal imaging is performed due to inadequate visualization transabdominally. FINDINGS: The uterus measures 10.6 x 3.9 x 5.3 cm and is diffusely heterogeneous. No discrete fibroids appreciated. Abnormal endometrial thickening of 9-10 mm in postmenopausal patient. Limited visualization of endometrium due to bowel gas and uterine heterogeneity. No significant free fluid. Right ovary measures 1.9 x 2.0 x 1.4 cm, volume 2.7 mL. Left ovary measures 3.3 x 2.1 x 2.0 cm, volume 7.0 mL. Bilateral ovaries were seen only on transabdominal ultrasound images and appear grossly unremarkable allowing for limited visualization. US/US pelvic and transvaginal IMPRESSION: Abnormal endometrial thickening of 9-10 mm in postmenopausal patient. Limited visualization of endometrium due to bowel gas and uterine heterogeneity. Suspicious finding. Gynecologic consultation and possible biopsy recommended. This study was presented November 02, 2023 for interpretation. PSA staff will provide results to referring provider at this time.
== END 2023-10-30 13:44 | disposition home or self-care (01) ==
LOC: HO.US 13:43
PROVIDERS: PCP Internal Medicine; Visit Provider Obstetrics & Gynecology
DX: N93.9 Abnormal uterine and vaginal bleeding, unspecified (principal)
CPT/HCPCS: 76830; 76856

== ENCOUNTER 2023-11-10 08:40 | Outpatient (AMB) | payer BC, SELFPAY ==
[2023-11-10 08:46] VITALS: BP 118/80; BMI 59.7
--- NOTE | 2023-11-10 08:46 | A.OFFVIS_ITS ---
Intake Vital Signs 11/10/23 08:46 Height 5 ft 3 in Weight 337 lb BMI 59.7 BP 118/80 Intake Visit Reasons: U/S results and EMB Passenger Car Conductor Required: No Information Interpreted: non-clinical & clinical Sub Assembly Team Worker: Sub Assembly Team Worker Present Accompanied by: Sister Allergies adhesive [ADHESIVE] Adverse Reaction (Unknown, Verified 11/10/23 08:47) RASH - SKIN CAME OFF WITH TAPE apremilast [Otezla] Adverse Reaction (Unknown, Verified 11/10/23 08:47) nausea, vomiting Sulfa (Sulfonamide Antibiotics) [SULFA (SULFONAMIDE ANTIBIOTICS)] Adverse Reaction (Unknown, Verified 11/10/23 08:47) UNKNOWN Is last menstrual period known: No Post menopausal: Yes Patient : No HPI HPI Comments History of Present Illness Details Presenting for EMB [facility] Medical History Celiac disease Mitral valve disease Morbid obesity MONICA (iron deficiency anemia) Pulmonary hypertension PAF (paroxysmal atrial fibrillation) HOCM (hypertrophic obstructive cardiomyopathy) Surgical History Status post ventricular septal myectomy History of cardiac pacemaker (~10/2018) History of heart surgery (~10/2018) History of cardiac catheterization Family History Father CVD (cardiovascular disease) Mother CVD (cardiovascular disease) Brother Diabetes CVD (cardiovascular disease) HTN (hypertension) Social History Household Members: Spouse and Children Housing: House Do you presently have visiting nurse or other home services: No Alcohol intake: current Alcohol intake frequency: holidays/special occasions only Patient Tobacco Use Status: Former Tobacco user Substance Use Type: Marijuana service: No Current occupational status: disabled Sexual orientation: Straight/Heterosexual Gender identity: Female Physical Exam Vital Signs: BMI result Body Mass Index 59.7 Office Procedures Endometrial Biopsy Details: The patient was counseled regarding the indication and benefits of endometrial sampling to rule out endometrial pathology including not limited to endometrial hyperplasia or endometrial cancer and others; The alternatives (Either do nothing vs. hysteroscopy D&C) & the risks were discussed with the patient including but not limited: pain, uterine perforation, bleeding, infection, possible injury to bladder, bowel, ureter, possible need for blood transfusion with all its possible risks. The patient verbalized understanding all questions answered and signed consent. The patient was placed into the dorsal lithotomy position; a speculum was inserted in the vagina. Using aseptic technique for the procedure, the cervix was cleansed with Betadine. The anterior lip of the cervix was grasped with a single tooth tenaculum. The uterus was sounded to 7 cm with a 4 mm Pipelle was used. Tissues samples were obtained and placed in formalin, in a patient labeled container and sent to the pathology department. At the end of the procedure, there was minimal bleeding noted The patient tolerated the procedure well and was discharged in good condition with the following instructions: Nothing in the vagina until the bleeding stops. No sex until the bleeding stops, to call if any of the following occurs: fever (>100.4), flu-like symptoms, abdominal pain, heavy bleeding, four smelling vaginal discharge. The patient was instructed to schedule a Follow up appointment in 2 weeks to discuss pathology results of the biopsy and treatment options. This note was generated with a voice recognition program. Some errors may have been overlooked during the review of this note. Sometimes these errors may affect the content or meaning of a given sentence. [id number] Biopsy Assessment & Plan Assessment & Plan (1) Abnormal uterine bleeding (AUB): Comment: On Eliquis Code(s): N93.9 - Abnormal uterine and vaginal bleeding, unspecified Plan: EMB done, see procedure note Orders: Orders AMB Endometrial Biopsy Today N93.9 - Abnormal uterine and vaginal bleeding, unspecified Coding Level of Care Code Procedure Only Diagnoses Abnormal uterine bleeding (AUB) N93.9 CPT Codes Endometrial Biopsy - CPT: 74050-Deenduizzug Biopsy ([id number])
== END 2023-11-10 10:44 | disposition home or self-care (01) ==
PROVIDERS: PCP Internal Medicine; Visit Provider Obstetrics & Gynecology
DX: N93.9 Abnormal uterine and vaginal bleeding, unspecified (principal)
CPT/HCPCS: 58100

== ENCOUNTER 2023-11-10 08:40 | Outpatient (REF) | payer BC, SELFPAY | END 2023-11-10 08:41 | disposition home or self-care (01) | LOC: HO.LNP 08:40 | PROVIDERS: PCP Internal Medicine; Visit Provider Obstetrics & Gynecology | DX: N93.9 Abnormal uterine and vaginal bleeding, unspecified (principal) | CPT/HCPCS: 58100; 88305 ==

== ENCOUNTER 2023-11-18 14:52 | Outpatient (AMB) | payer BC, SELFPAY ==
[2023-11-18 15:01] VITALS: BP 114/62; BMI 59.4
--- NOTE | 2023-11-18 15:01 | A.OFFVIS_ITS ---
Intake Vital Signs 11/18/23 15:01 Height 5 ft 3 in Weight 335 lb 1.642 oz BMI 59.4 BP 114/62 Intake Visit Reasons: Emb results Land Economist Required: No Information Interpreted: non-clinical & clinical Accompanied by: Spouse Allergies adhesive [ADHESIVE] Adverse Reaction (Unknown, Verified 11/18/23 15:08) RASH - SKIN CAME OFF WITH TAPE apremilast [Otezla] Adverse Reaction (Unknown, Verified 11/18/23 15:08) nausea, vomiting Sulfa (Sulfonamide Antibiotics) [SULFA (SULFONAMIDE ANTIBIOTICS)] Adverse Reaction (Unknown, Verified 11/18/23 15:08) UNKNOWN Post menopausal: Yes HPI HPI Comments History of Present Illness Details The patient is presenting post hysteroscopy D&C no complaints minimal vaginal bleeding no feverishness chills or abdominal pain. The pathology showed the following: Endometrium, biopsy: Endometrioid intraepithelial neoplasia/atypical hyperplasia (EIN/AH) involving endometrial polyp PFSH Medical History Celiac disease Mitral valve disease Morbid obesity MONICA (iron deficiency anemia) Pulmonary hypertension PAF (paroxysmal atrial fibrillation) HOCM (hypertrophic obstructive cardiomyopathy) Surgical History Status post ventricular septal myectomy History of cardiac pacemaker (~10/2018) History of heart surgery (~10/2018) History of cardiac catheterization Family History Father CVD (cardiovascular disease) Mother CVD (cardiovascular disease) Brother Diabetes CVD (cardiovascular disease) HTN (hypertension) Social History Household Members: Spouse and Children Housing: House Do you presently have visiting nurse or other home services: No Alcohol intake: current Alcohol intake frequency: holidays/special occasions only Patient Tobacco Use Status: Former Tobacco user Substance Use Type: Marijuana service: No Current occupational status: disabled Sexual orientation: Straight/Heterosexual Gender identity: Female Review of Systems Const All systems reviewed & are unremarkable except as noted in HPI and below Reports as per HPI and Reports no additional complaints GI Reports no additional complaints Reports no additional complaints Physical Exam Vital Signs: Last Vital Signs BP 114/62 11/18/23 15:01 BMI result Body Mass Index 59.4 Assessment & Plan Assessment & Plan (1) EIN (endometrial intraepithelial neoplasia): Code(s): N85.02 - Endometrial intraepithelial neoplasia [EIN] Plan: Discussed with the patient the pathology of endometrial biopsy showing endometrial intraepithelial neoplasia, endometrial hyperplasia with atypia. Discussed with the patient the following: -If untreated the risk of progression of EIN to endometrial carcinoma -Coexistent endometrial carcinoma may be present in up to 40 percent of patients with EH with atypia -Given the high risk of concurrent, or progression to, endometrial carcinoma, for most postmenopausal patients and premenopausal patients who have completed childbearing, hysterectomy for treatment of EH with atypia is the preferred treatment. -Other options of treatment discussed with the patient include Progestin therapy: A- levonorgestrel (LNG)-releasing intrauterine device (IUD; LNG 52), could be an alternative treatment, though long-term surveillance and medical therapy are required and treatment may not be curative, as with hysterectomy.. B-Progestin therapy includes intrauterine and oral progestins. There is a risk of the persistence of endometrial carcinoma and risk of recurrence, the risk of which can increase with time. While various oral progestin therapies are effective for this indication, the LNG 52 IUD (Mirena, Liletta) is the most effective first-line therapy , compared with oral progestins levonorgestrel IUD treatment is associated with higher regression rates in oral progestin and lower relapse rates. In addition, patients with a higher body mass index (BMI) may derive a greater relative benefit from the LNG 52 than those with lower BMIs Given her high-risk medical condition will defer hysteroscopy/D&C/polypectomy to rule out adenocarcinoma and Will refer to [facility] for further management. Orders: Referrals Gynecologic Oncology Referral N85.02 - Endometrial intraepithelial neoplasia [EIN] Coding Level of Care Code Est Pt Level 3 (96041) Diagnoses EIN (endometrial intraepithelial neoplasia) N85.02
== END 2023-11-18 16:13 | disposition home or self-care (01) ==
LOC: HO.HWS 14:52
PROVIDERS: PCP Internal Medicine; Visit Provider Obstetrics & Gynecology
DX: N85.02 Endometrial intraepithelial neoplasia [EIN] (principal)
CPT/HCPCS: 99213

== ENCOUNTER → 2023-11-18 14:52 | Outpatient (BNVA) | payer BC, SELFPAY | PROVIDERS: PCP Internal Medicine; Visit Provider Obstetrics & Gynecology ==

== ENCOUNTER 2023-12-15 12:48 | Outpatient (AMB) | payer BC, SELFPAY ==
[2023-12-15 12:50] VITALS: BP 124/66; PULSE 69; BMI 60.1
--- NOTE | 2023-12-15 12:50 | A.OFFVIS_ITS ---
Intake Vital Signs 12/15/23 12:50 Height 5 ft 3 in Weight 339 lb 8.19 oz BMI 60.1 BP 124/66 Blood Pressure Location Lt brachial Position Sitting Pulse 69 Intake Visit Reasons: Colonoscopy Screening Intake Note: Tabby presents in the office as a new patient colonoscopy screening. CC: She states she went to the PCP and she was orderd an Upper GI series - she states that whatever she eats she gets it stuck at the end of her GEJ. She had a heart operation and she chokes on everything since the procedure. Allergies adhesive [ADHESIVE] Adverse Reaction (Unknown, Verified 12/15/23 12:54) RASH - SKIN CAME OFF WITH TAPE apremilast [Otezla] Adverse Reaction (Unknown, Verified 12/15/23 12:54) nausea, vomiting Sulfa (Sulfonamide Antibiotics) [SULFA (SULFONAMIDE ANTIBIOTICS)] Adverse Reaction (Unknown, Verified 12/15/23 12:54) UNKNOWN Medication List - Last Reconciled 12/15/23 by Joanie Mccain PA-C amlodipine 5 mg PO DAILY apixaban (Eliquis) 5 mg PO BID bumetanide 2 mg PO DAILY clobetasol 0.05% grams topical levothyroxine 88 mcg PO DAILY@0600 metoprolol tartrate 50 mg PO BID montelukast 10 mg PO DAILY potassium chloride ER 20 mEq PO BEDTIME 90 days tiotropium bromide (Spiriva with HandiHaler) 1 cap inhalation DAILY valsartan 320 mg PO DAILY venlafaxine ER 150 mg PO BEDTIME HPI HPI Comments History of Present Illness Details A 58 y/o female with dysphagia for a couple years- food sticks-she says she chokes on occasion, however does admit she eats too- started after having cardiac surgery- had a test-back some time ago- details unknown She does not have any nausea or vomiting she has had no weight loss-she does get heartburn she has not taking any medication for this. She does not smoke tobacco she drinks socially she does smoke marijuana She now has a pacemaker-5 years ago She sees cardiology- had been in AFIB- she is taking elequis- she is having a UX INFORMATION ARCHITECT procedure this month- Colonoscopy- about 5 years ago- she says she has celiac disease-follows gluten free diet Normal bowels- with eating prunes every day No N/V/ wt loss- Reviewed 2021-UGI- acid reflux/ HH Colonoscopy 03/2019 reported as normal [facility] Medical History Celiac disease Mitral valve disease Morbid obesity MONICA (iron deficiency anemia) Pulmonary hypertension PAF (paroxysmal atrial fibrillation) HOCM (hypertrophic obstructive cardiomyopathy) Surgical History (Updated 12/15/23 @ 13:22 by Joanie Mccain PA-C) Hx of colonoscopy History of esophagogastroduodenoscopy (EGD) Status post ventricular septal myectomy History of cardiac pacemaker (~10/2018) History of heart surgery (~10/2018) History of cardiac catheterization Family History Father CVD (cardiovascular disease) Mother CVD (cardiovascular disease) Brother Diabetes CVD (cardiovascular disease) HTN (hypertension) Social History (Updated 12/15/23 @ 13:14 by Joanie Mccain PA-C) Household Members: Spouse and Children Housing: House Do you presently have visiting nurse or other home services: No Alcohol intake: current Alcohol intake frequency: holidays/special occasions only Comment: social Patient Tobacco Use Status: Former Tobacco user Substance Use Type: Marijuana service: No Current occupational status: disabled Sexual orientation: Straight/Heterosexual Gender identity: Female Physical Exam Vital Signs: Last Vital Signs Pulse 69 12/15/23 12:50 BP 124/66 12/15/23 12:50 BMI result Body Mass Index 60.1 Const General: cooperative, comfortable and no acute distress Nutritional Appearance: obese Orientation/consciousness: patient oriented x3 Resp Effort & Inspection: normal respiratory effort and able to speak in complete sentences Auscultation: clear to auscultation bilaterally, no rales, no rhonchi and no wheezes Cardio Rate: regular rate Heart sounds: no murmurs GI Inspection: Yes Abdominal panniculus present and Yes obesity Palpation (GI): Soft to palpation and nontender Auscultation: normal bowel sounds Neuro General: patient oriented x3 Psych Appearance: well kempt Speech and movement: Clear speech present Affect: Labile affect present Attitude: cooperative Results Reviewed Results Reviewed: 2021 FL/FL upper GI w air IMPRESSION: Mild gastroesophageal reflux without hiatal hernia. Colonoscopy- 03/2019 [facility] - says no polyps- never had them Assessment & Plan Assessment & Plan (1) Dysphagia: Comment: Consider EGD, anesthesia risk Code(s): R13.10 - Dysphagia, unspecified Plan: Chew well eat slowly Barium swallow (2) Acid reflux: Comment: Upper GI series 2021 shows acid reflux hiatal hernia Code(s): K21.9 - Gastro-esophageal reflux disease without esophagitis Plan: Reflux precautions review Begin pantoprazole 20 mg daily Plan Barium Swallow She will call for a TELEVISIT ( having sdurgery, transportation issues)after barium- Orders: Orders [place] barium swallow Today G47.33 - Obstructive sleep apnea (adult) (pediatric), I48.0 - Paroxysmal atrial fibrillation, I50.32 - Chronic diastolic (congestive) heart failure, R13.10 - Dysphagia, unspecified, Z45.018 - Encounter for adjustment and management of other part of cardiac pacemaker Medications: New pantoprazole 20 mg PO QAM 30 tabs 6RF Patient Instructions: Barium swallow-she will call for tele visit for results she has difficulty with transportation as well as 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
== END 2023-12-15 14:01 | disposition home or self-care (01) ==
PROVIDERS: PCP Internal Medicine; Visit Provider Physician Assistant
DX: R13.10 Dysphagia, unspecified (principal); K21.9 Gastro-esophageal reflux disease without esophagitis
CPT/HCPCS: 99204

== ENCOUNTER → 2023-12-15 12:48 | Outpatient (BNVA) | payer BC, SELFPAY | PROVIDERS: PCP Internal Medicine; Visit Provider Physician Assistant ==

== ENCOUNTER → 2024-01-26 23:59 | Outpatient (BNV) | payer BC, SELFPAY ==
--- NOTE | 2024-02-02 19:47 | MHC.OFFVIS ---
Intake Visit Reasons: Remote device check- [employer] Allergies adhesive [ADHESIVE] Adverse Reaction (Unknown, Verified 12/15/23 12:54) RASH - SKIN CAME OFF WITH TAPE apremilast [Otezla] Adverse Reaction (Unknown, Verified 12/15/23 12:54) nausea, vomiting Sulfa (Sulfonamide Antibiotics) [SULFA (SULFONAMIDE ANTIBIOTICS)] Adverse Reaction (Unknown, Verified 12/15/23 12:54) UNKNOWN [facility] Medical History Celiac disease Mitral valve disease Morbid obesity MONICA (iron deficiency anemia) Pulmonary hypertension PAF (paroxysmal atrial fibrillation) HOCM (hypertrophic obstructive cardiomyopathy) Surgical History (Updated 12/15/23 @ 13:22 by Joanie Mccain PA-C) Hx of colonoscopy History of esophagogastroduodenoscopy (EGD) Status post ventricular septal myectomy History of cardiac pacemaker (~10/2018) History of heart surgery (~10/2018) History of cardiac catheterization Family History Father CVD (cardiovascular disease) Mother CVD (cardiovascular disease) Brother Diabetes CVD (cardiovascular disease) HTN (hypertension) Social History (Updated 12/15/23 @ 13:14 by Joanie Mccain PA-C) Household Members: Spouse and Children Housing: House Do you presently have visiting nurse or other home services: No Alcohol intake: current Alcohol intake frequency: holidays/special occasions only Comment: social Patient Tobacco Use Status: Former Tobacco user Substance Use Type: Marijuana service: No Current occupational status: disabled Sexual orientation: Straight/Heterosexual Gender identity: Female Office Procedures Cardiac Device Check Cardiac Device Check Details: Date of service- 01/26/2024 ; Battery life 1.5 years; normal lead parameters; AP 0%; VIDEO CONTROL OPERATOR 99%; In atrial fibrillation. Overall normal device function. [id number] Cardiac Device Interrogation, pacemaker Procedure code (CPT) selection complete Assessment & Plan Assessment & Plan (1) HOCM (hypertrophic obstructive cardiomyopathy): Code(s): I42.1 - Obstructive hypertrophic cardiomyopathy Category: Medical (2) PAF (paroxysmal atrial fibrillation): Code(s): I48.0 - Paroxysmal atrial fibrillation Category: Medical Plan x Coding Level of Care Code Procedure Only Diagnoses HOCM (hypertrophic obstructive cardiomyopathy) I42.1 PAF (paroxysmal atrial fibrillation) I48.0 CPT Codes Cardiac Device Check - Cardiac Device 12: [id number] Cardiac Device Interrogation, pacemaker ([id number])
== END ==
PROVIDERS: PCP Internal Medicine; Visit Provider Internal Medicine
DX: I42.1 Obstructive hypertrophic cardiomyopathy (principal); I48.0 Paroxysmal atrial fibrillation; Z95.0 Presence of cardiac pacemaker
CPT/HCPCS: 93294

== ENCOUNTER 2024-02-19 10:43 | Outpatient (REF) | payer BC, SELFPAY ==
[2024-02-19 11:35] LABS: Iron 34 mcg/dL (30-160); Percent Iron Saturation 9 % (15-50); Total Iron Binding Capacity 383 mcg/dL (228-428); Unsaturated Iron Binding 349 ug/dL
== END 2024-02-19 10:44 | disposition home or self-care (01) ==
LOC: HO.LNP 10:43
PROVIDERS: Visit Provider Internal Medicine
DX: F50.89 Other specified eating disorder (principal)
CPT/HCPCS: 83540

== ENCOUNTER 2024-04-26 10:21 | Outpatient (AMB) | payer BC, SELFPAY ==
[2024-04-26 10:26] VITALS: BP 120/80; PULSE 70; BMI 60.0
--- NOTE | 2024-04-26 10:26 | MHC.OFFVIS ---
Vital Signs 04/26/24 10:26 Height 5 ft 3 in Weight 338 lb 10.08 oz BMI 60.0 BP 120/80 Blood Pressure Location Lt brachial Position Sitting Pulse 70 Pulse Source Pulse Oximeter Intake Visit Reasons: 6 mth f/up Information Systems Security Officer Required: No Accompanied by: Self / Same As Patient Allergies adhesive [ADHESIVE] Adverse Reaction (Unknown, Verified 12/15/23 12:54) RASH - SKIN CAME OFF WITH TAPE apremilast [Otezla] Adverse Reaction (Unknown, Verified 12/15/23 12:54) nausea, vomiting Sulfa (Sulfonamide Antibiotics) [SULFA (SULFONAMIDE ANTIBIOTICS)] Adverse Reaction (Unknown, Verified 12/15/23 12:54) UNKNOWN Medication List - Last Reconciled 04/26/24 by Álvaro Celis MD amlodipine 5 mg PO DAILY apixaban (Eliquis) 5 mg PO BID bumetanide 2 mg PO DAILY clobetasol 0.05% grams topical levothyroxine 88 mcg PO DAILY@0600 metoprolol tartrate 50 mg PO BID montelukast 10 mg PO DAILY pantoprazole 20 mg PO QAM potassium chloride ER 20 mEq PO BEDTIME 90 days tiotropium bromide (Spiriva with HandiHaler) 1 cap inhalation DAILY valsartan 320 mg PO DAILY venlafaxine ER 150 mg PO BEDTIME HPI Comments Details: Tabby returns for follow-up regarding hypertrophic cardiomyopathy as well as atrial fibrillation. In 2018, she underwent extended septal myectomy procedure. Subsequently, she also underwent permanent pacemaker implantation. She continues to be on Bumex for congestive heart failure. Overall, no changes in clinical status. Weight is about the same as before. Breathing is also just about the same. Chronic shortness of breath and unchanged. No other concerns. [facility] Medical History Celiac disease Mitral valve disease Morbid obesity MONICA (iron deficiency anemia) Pulmonary hypertension PAF (paroxysmal atrial fibrillation) HOCM (hypertrophic obstructive cardiomyopathy) Surgical History (Updated 12/15/23 @ 13:22 by Joanie Mccain PA-C) Hx of colonoscopy History of esophagogastroduodenoscopy (EGD) Status post ventricular septal myectomy History of cardiac pacemaker (~10/2018) History of heart surgery (~10/2018) History of cardiac catheterization Family History Father CVD (cardiovascular disease) Mother CVD (cardiovascular disease) Brother Diabetes CVD (cardiovascular disease) HTN (hypertension) Social History (Updated 12/15/23 @ 13:14 by Joanie Mccain PA-C) Household Members: Spouse and Children Housing: House Do you presently have visiting nurse or other home services: No Alcohol intake: current Alcohol intake frequency: holidays/special occasions only Comment: social Patient Tobacco Use Status: Former Tobacco user Substance Use Type: Marijuana service: No Current occupational status: disabled Sexual orientation: Straight/Heterosexual Gender identity: Female Review of Systems Const Denies chills, Denies fatigue, Denies fever(s), Denies weight gain and Denies weight loss ENT Denies dizziness Card Denies chest pain, Reports leg edema, Denies lightheadedness, Denies palpitations, Reports dyspnea on exertion, Denies orthopnea and Denies other Resp Denies cough and Reports dyspnea on exertion GI Denies hematochezia and Denies change in stool character Musc Denies abnormal gait, Denies muscle weakness, Denies numbness, Denies radiating pain into limb and Denies tingling Neuro Denies abnormal gait, Denies dizziness, Denies numbness and Denies tingling Endo Denies fatigue and Denies palpitations Physical Exam Vital Signs: Last Vital Signs Pulse 70 04/26/24 10:26 BP 120/80 04/26/24 10:26 BMI result Body Mass Index 60.0 Const General: comfortable and no acute distress Orientation/consciousness: patient oriented x3 HEENT Other: Unremarkable Head: Yes normal to inspection Neck Neck: Yes normal visual inspection Chest Chest palpation & inspection: normal inspection of the chest Resp Auscultation: clear to auscultation bilaterally Cardio Palpation: normal PMI Heart sounds: S1 normal heart sound present, S2 normal heart sound present, no gallops, no murmurs and no rubs GI Palpation (GI): Soft to palpation Back/Spine/Pelvis Other: unremarkable Skin General skin exam: no rashes or lesions noted Neuro General: patient oriented x3 Extrem Other: Chronic changes and some discoloration but no significant swelling. General: Yes normal to inspection Psych Mental Status: mental status grossly normal Assessment & Plan Assessment & Plan (1) Chronic heart failure with preserved ejection fraction: Code(s): I50.32 - Chronic diastolic (congestive) heart failure Category: Medical Plan: Remains quite stable. She has not had any hospitalizations recently. Continue diuretics. She does need some lab work done for kidney function and she would like to just get that done through her own PCP. We discussed about it today. (2) HOCM (hypertrophic obstructive cardiomyopathy): Code(s): I42.1 - Obstructive hypertrophic cardiomyopathy Category: Medical Plan: Stable. (3) Status post ventricular septal myectomy: Code(s): Z98.890 - Other specified postprocedural states Category: Surgical Plan: No new issues. (4) PAF (paroxysmal atrial fibrillation): Code(s): I48.0 - Paroxysmal atrial fibrillation Category: Medical Plan: By the last device check, she has been in atrial fibrillation since October of this year. Hence persistent. However, she feels the same either atrial fibrillation or not. Not suitable for cardioversion as highly unlikely to respond as she has obesity and untreated sleep apnea and with significant structural heart disease. Continue anticoagulation. Again needs labs and she wants to just get them done through PCP as she has an appointment next month. (5) Mitral valve disease: Code(s): I05.9 - Rheumatic mitral valve disease, unspecified Category: Medical Plan: Elevated gradients across the mitral valve. Thought to be from some combination of diastolic dysfunction and increased stroke volume. Less likely that she has any significant mitral stenosis. This has been present for a long time including 2018. No specific workup at this time. (6) Pulmonary hypertension: Code(s): I27.20 - Pulmonary hypertension, unspecified Category: Medical Plan: Multifactorial; suspected to be from obesity, untreated obstructive sleep apnea, left heart dysfunction, diastolic heart failure. In the past, she was even sent to Pulmonary hypertension Clinic in [place]. (7) Morbid obesity: Code(s): E66.01 - Morbid (severe) obesity due to excess calories Category: Medical Plan: This has not changed in a long time. Very likely, this is the long-term weight. (8) MIKIE (obstructive sleep apnea): Code(s): G47.33 - Obstructive sleep apnea (adult) (pediatric) Category: Medical Plan: Sleep study shows severe sleep apnea. However, patient not able to use CPAP due to intolerance. Has been discussed several times. Coding Level of Care Code Est Pt Level 4 (87702) Diagnoses Chronic heart failure with preserved ejection fraction I50.32 HOCM (hypertrophic obstructive cardiomyopathy) I42.1 Status post ventricular septal myectomy Z98.890 PAF (paroxysmal atrial fibrillation) I48.0 Mitral valve disease I05.9 Pulmonary hypertension I27.20 Morbid obesity E66.01 MIKIE (obstructive sleep apnea) G47.33
== END 2024-04-26 10:51 | disposition home or self-care (01) ==
PROVIDERS: PCP Internal Medicine; Visit Provider Internal Medicine
DX: I50.32 Chronic diastolic (congestive) heart failure (principal); I42.1 Obstructive hypertrophic cardiomyopathy; Z98.890 Other specified postprocedural states; I48.0 Paroxysmal atrial fibrillation; I05.9 Rheumatic mitral valve disease, unspecified; I27.20 Pulmonary hypertension, unspecified; E66.01 Morbid (severe) obesity due to excess calories; G47.33 Obstructive sleep apnea (adult) (pediatric)
CPT/HCPCS: 99214

== ENCOUNTER → 2024-04-26 10:21 | Outpatient (BNVA) | payer BC, SELFPAY | PROVIDERS: PCP Internal Medicine; Visit Provider Internal Medicine ==

== ENCOUNTER → 2024-05-02 23:59 | Outpatient (BNV) | payer BC, SELFPAY ==
--- NOTE | 2024-05-05 09:53 | A.OFFVIS_ITS ---
Intake Visit Reasons: Remote device check- [employer] Allergies adhesive [ADHESIVE] Adverse Reaction (Unknown, Verified 12/15/23 12:54) RASH - SKIN CAME OFF WITH TAPE apremilast [Otezla] Adverse Reaction (Unknown, Verified 12/15/23 12:54) nausea, vomiting Sulfa (Sulfonamide Antibiotics) [SULFA (SULFONAMIDE ANTIBIOTICS)] Adverse Reaction (Unknown, Verified 12/15/23 12:54) UNKNOWN [facility] Medical History Celiac disease Mitral valve disease Morbid obesity MONICA (iron deficiency anemia) Pulmonary hypertension PAF (paroxysmal atrial fibrillation) HOCM (hypertrophic obstructive cardiomyopathy) Surgical History (Updated 12/15/23 @ 13:22 by Joanie Mccain PA-C) Hx of colonoscopy History of esophagogastroduodenoscopy (EGD) Status post ventricular septal myectomy History of cardiac pacemaker (~10/2018) History of heart surgery (~10/2018) History of cardiac catheterization Family History Father CVD (cardiovascular disease) Mother CVD (cardiovascular disease) Brother Diabetes CVD (cardiovascular disease) HTN (hypertension) Social History (Updated 12/15/23 @ 13:14 by Joanie Mccain PA-C) Household Members: Spouse and Children Housing: House Do you presently have visiting nurse or other home services: No Alcohol intake: current Alcohol intake frequency: holidays/special occasions only Comment: social Patient Tobacco Use Status: Former Tobacco user Substance Use Type: Marijuana service: No Current occupational status: disabled Sexual orientation: Straight/Heterosexual Gender identity: Female Office Procedures Cardiac Device Check Cardiac Device Check Details: Date of service- 05/02/2024 ; Battery life 1 year; normal lead parameters; AP 0%; MOBILITY MANAGER 99%; in atrial fibrillation, controlled rates. Overall normal device function. [id number] Cardiac Device Interrogation, pacemaker Procedure code (CPT) selection complete Assessment & Plan Assessment & Plan (1) HOCM (hypertrophic obstructive cardiomyopathy): Code(s): I42.1 - Obstructive hypertrophic cardiomyopathy Category: Medical Plan x Coding Level of Care Code Procedure Only Diagnoses HOCM (hypertrophic obstructive cardiomyopathy) I42.1 CPT Codes Cardiac Device Check - Cardiac Device 12: [id number] Cardiac Device Interrogation, pacemaker ([id number])
== END ==
PROVIDERS: PCP Internal Medicine; Visit Provider Internal Medicine
DX: I42.1 Obstructive hypertrophic cardiomyopathy (principal); Z95.0 Presence of cardiac pacemaker
CPT/HCPCS: 93294

== ENCOUNTER 2024-05-27 11:14 | Outpatient (REF) | payer BC, SELFPAY ==
[2024-05-27 11:55] LABS: Iron 44 mcg/dL (30-160); Percent Iron Saturation 14 % (15-50); Total Iron Binding Capacity 308 mcg/dL (228-428); Unsaturated Iron Binding 264 ug/dL
== END 2024-05-27 11:15 | disposition home or self-care (01) ==
LOC: HO.LNP 11:14
PROVIDERS: Visit Provider Internal Medicine
DX: F50.89 Other specified eating disorder (principal)
CPT/HCPCS: 83540

== ENCOUNTER 2024-08-09 11:16 | Outpatient (REF) | payer BC, SELFPAY ==
[2024-08-09 11:21] LABS: MANUAL DIFF FLAG NO
[2024-08-09 12:35] LABS: Basophils Absolute Auto 0.1 X10*3/uL (0.0-0.2); Basophils Percent Auto 0.9 % (0-2); Eosinophils Absolute Auto 0.4 X10*3/uL (0.0-0.4); Eosinophils Percent Auto 3.4 % (0-4); Hematocrit 47.9 % (37.0-47.0); Hemoglobin 15.4 g/dl (12.0-16.0); Imm Gran Abs Auto 0.05 X10*3/uL (0.00-0.03); Imm Gran Pct Auto 0.4 % (0.0-0.4); Lymphocytes Percent Auto 18.2 % (20-40); Mean Corpuscular HGB Conc 32.2 g/dl (31.0-35.0); Mean Corpuscular Hemoglobin 30.6 pg (27.0-33.0); Mean Platelet Volume 10.6 fL (9.4-12.3); Monocytes Absolute Auto 0.7 X10*3/uL (0.1-1.2); Monocytes Percent Auto 5.8 % (2-11); Neutrophils Percent Auto 71.3 % (45-73); Platelet Count 276 X10*3/uL (160-400); Red Blood Count 5.04 X10*6/uL (4.20-5.50); Red Cell Distribution Width 14.9 % (11.0-16.0); White Blood Count 11.2 X10*3/uL (4.8-10.8)
[2024-08-09 12:39] LABS: Appearance Urine Clear; Color Urine Yellow; Glucose Urine UA Negative (Negative); Leukocyte Esterase Urine Small (1+) (Negative); Nitrite Urine Negative (Negative); PH 5.5 (5.0-9.0); UMIC TRIGGER UACC YES; Urine Blood Negative (Negative); Urine Ketones Negative (Negative); Urine Protein Trace mg/dL (Neg-Trace)
[2024-08-09 12:56] LABS: Alanine Aminotransferase 51 U/L (0-31); Albumin Level 3.9 g/dL (3.5-5.0); Alkaline Phosphatase 83 U/L (39-117); Anion Gap 15 (12-20); Aspartate Amino Transferase 71 U/L (5-31); Bilirubin Total 0.5 mg/dL (0.0-1.0); Blood Urea Nitrogen 11 mg/dL (9-16); Calcium 9.3 mg/dL (8.4-10.2); Carbon Dioxide 31 mmol/L (22-29); Chloride 97 mmol/L (96-108); Cholesterol 199 mg/dL (<200); Estimated Glomerular Filt Rate > 60; Glucose Fasting 208 mg/dL (60-99); HDL Cholesterol 27 mg/dL (>40); LDL Cholesterol Calculated 140 mg/dL (<100); Sodium 139 mmol/L (135-145); Total Protein 7.7 g/dL (6.5-8.0); Triglycerides 164 mg/dL (<150)
[2024-08-09 13:10] LABS: TSH reflex Free T4 4.16 uIU/mL (0.32-4.0)
[2024-08-09 13:13] LABS: Bacteria Urine 1+ (None Seen); Hyaline Casts Urine 0-2 /LPF (0-2); RBC Urine 0-2 /HPF (0-2); UACC Culture Trigger YES; WBC Urine 0-5 /HPF (0-5)
[2024-08-09 14:25] LABS: Free T4 (Free Thyroxine) 1.12 ng/dL (0.71-1.85)
--- OUTSIDE RECORDS SUMMARY | 2024-08-16 13:20 | XMS_ITS | Patient Health Record ---
Author Organization Terrence Kaur MD Address [address] [place], [place] [id number] Care Team Providers Care Cook Pickled Meat Name Role Phone Terrence Kaur Primary Care Provider ALLERGIES Allergen (clinical drug ingredient) Drug/Non Drug Allergy documented on EMR Reaction Allergy Type Onset Date Status Substance with sulfonamide structure and antibacterial mechanism of action (substance) Sulfa Antibiotics ? Drug Allergy Active RESULTS Component Value Reference Range Notes Hemoglobin A1c Reviewed date:08/16/2024 11:08:42 AM Interpretation: Performing Lab: Notes/Report: Value Hemoglobin A1c 9.2 UA ClnCatch+Micro w/rflx Cul t Reviewed date:08/17/2023 12:08:42 PM Interpretation: Performing Lab:[facility], [address] [place] [phone] Notes/Report: Urine, Clean Catch Color Urine Yellow Appearance Urine Clear PH 6.0 5.0-9.0 Glucose Urine UA Negative Negative mg/dL Urine Blood Negative Negative Specific [employer] - Urine 1.010 1.005-1.025 Urine Protein Negative Neg-Trace mg/dL Urine Ketones Negative Negative mg/dL Nitrite Urine Negative Negative Leukocyte Esterase Urine Negative Negative RBC Urine 0-2 0-2 /HPF WBC Urine 0-5 0-5 /HPF Squamous Epithelial Cell Urine 0-2 0-2 /HPF Bacteria Urine None Seen None Seen Hyaline Casts Urine 0-2 0-2 /LPF Complete Blood Count no Diff Reviewed date:10/05/2023 12:44:27 PM Interpretation: Performing Lab:[facility], [address] [place] [phone] Notes/Report: White Blood Count 9.1 4.8-10.8 X10*3/uL Red Blood Count 4.70 4.20-5.50 X10*6/uL Hemoglobin 12.2 12.0-16.0 g/dl Hematocrit 39.6 37.0-47.0 % Mean Corpuscular Volume 84.3 80.0-98.0 fL Mean Corpuscular Hemoglobin 26.0 27.0-33.0 pg Mean Corpuscular HGB Conc 30.8 31.0-35.0 g/dl Red Cell Distribution Width 16.4 11.0-16.0 % Platelet Count 257 160-400 X10*3/uL Mean Platelet Volume 9.8 9.4-12.3 fL NRBC Pct Auto 0.0 0.0-0.2 /100WBC NRBC Abs Auto 0.000 0.0-0.012 X10*3/uL TSH reflex Free T4 Reviewed date:10/05/2023 12:29:12 PM Interpretation: Performing Lab:[address] [address] Notes/Report: TSH reflex Free T4 3.92 0.32-4.0 uIU/mL Follicle Stimulating Hormone Reviewed date:10/06/2023 10:52:17 AM Interpretation: Performing Lab:[address] [address] Notes/Report: Follicle Stimulating Hormone 17.0 Reference Range Follicular Phase 2.5-10.2 Mid-cycle Peak 3.1-17.7 Luteal Phase 1.5- 9.1 Postmenopausal 23.0-116.3 THIS TEST WAS PERFORMED AT: [facility] [address] [place] [phone] ROSEMARIE SEVILLA MD Lutenizing Hormone Reviewed date:10/06/2023 10:52:24 AM Interpretation: Performing Lab:[address] [address] Notes/Report: Lutenizing Hormone 8.0 Reference Range Follicular Phase 1.9-12.5 Mid-Cycle Peak 8.7-76.3 Luteal Phase 0.5-16.9 Postmenopausal 10.0-54.7 THIS TEST WAS PERFORMED AT: [facility] [address] [place] [phone] ROSEMARIE SEVILLA MD Prolactin Reviewed date:10/06/2023 10:50:42 AM Interpretation: Performing Lab:[address] [address] Notes/Report: Prolactin 9.0 Reference Range Females Non- 3.0-30.0 10.0-209.0 Postmenopausal 2.0-20.0 THIS TEST WAS PERFORMED AT: [facility] [address] [place] [phone] ROSEMARIE SEVILLA MD HCG Quantitative Reviewed date:10/05/2023 12:30:18 PM Interpretation: Performing Lab:[address] [address] Notes/Report: HCG Quantitative < 2 Weeks post LMP Approximate hCG (Last Menstrual Period) Range (mIU/ml) 3 - 4 weeks 9 - 130 4 - 5 weeks 75 - 2,600 5 - 6 weeks 850 - 20,800 6 - 7 weeks 4000 - 100,200 7 - 12 weeks 11,500 - 289,000 12 - 16 weeks 18,300 - 137,000 16 - 29 weeks (2nd trimester) 1,400 - 53,000 29 - 41 weeks (3rd trimester) 940 - 60,000 The Joe B-hCG assay is used for the early detection of ; it cannot be used to diagnose any condition unrelated to . If a B-hCG level is not supported by the clinical evidence, results should be confirmed by an alternative method (qualitative urine hCG, for example). CT NG by PCR Reviewed date:10/05/2023 12:29:39 PM Interpretation: Performing Lab:[address] [address] Notes/Report: Urine CT PCR NOT DETECTED Not Detect. A not detected test result does not exclude the possibility of infection because test results can be affected by improper specimen collection, concurrent antibiotic therapy, or the number of organisms in the specimen which may be below the sensitivity of the test. As with many diagnostic tests, results from the Xpert CT/NG assay should be interpreted in conjunction with other laboratory and clinical data available to the clinician. Xpert CT/NG performance has not been evaluated in patients less than 14 years of age. The assay should not be used for the evaluation of suspected sexual abuse or for other medico-legal indications. Additional testing is recommended in any circumstance when false positive or false negative results could lead to adverse medical, social or psychological consequences. NG PCR NOT DETECTED Not Detect. A not detected test result does not exclude the possibility of infection because test results can be affected by improper specimen collection, concurrent antibiotic therapy, or the number of organisms in the specimen which may be below the sensitivity of the test. As with many diagnostic tests, results from the Xpert CT/NG assay should be interpreted in conjunction with other laboratory and clinical data available to the clinician. Xpert CT/NG performance has not been evaluated in patients less than 14 years of age. The assay should not be used for the evaluation of suspected sexual abuse or for other medico-legal indications. Additional testing is recommended in any circumstance when false positive or false negative results could lead to adverse medical, social or psychological consequences. Pap Smear Reviewed date:10/17/2023 06:45:03 PM Interpretation: Performing Lab:[address] [phone] Notes/Report: MM tomosynthesis screening B I Reviewed date:2023 04:52:31 PM Interpretation: Performing Lab: Notes/Report: [facility] [place] [address] Mammography Report Signed Patient: Tabby Reynoso MR#: [id number] : 1965 Acct:[id number] Age/Sex: 57 / F ADM Date: 10/16/23 Loc: HO.MAMMO Attending Dr: Terrence Kaur MD Ordering Physician: Hero Quinn MD Results: 1Negativ e Date of Service: 10/16/23 Follow Up: 1 Year From [facility] Mammogram Procedure(s): MM tomosynthesis screening BI Accession Number(s): [id number] cc: Terrnece Kaur MD; Hero Quinn MD EXAMINATION: MM SCREENING DIGITAL BREAST TOMOSYNTHESIS, BILATERAL CLINICAL INFORMATION: Screening. Asymptomatic. COMPARISON: Mammography: This study is compared with prior exams dating back to 2021. TECHNIQUE: Digital breast tomosynthesis is performed in both the craniocaudal and mediolateral oblique views along with computer-aided detection (CAD). Synthesized 2D images are generated from the tomosynthesis. FINDINGS: The breasts are almost entirely fatty (ACR BI-RADS breast composition Category a). There are no significant masses, abnormal calcifications, or other abnormalities. There is a pacemaker at the superiormost aspect of the left breast. MM/MM tomosynthesis screening BI IMPRESSION: No mammographic evidence of malignancy. ASSESSMENT: BI-RADS BI-RADS 1 - Negative RECOMMENDATION: Routine annual mammography screening. 1 year F/U This examination should not preclude the clinical evaluation of a suspicious palpable abnormality. This patient's information was entered into a reminder system with a target due date for their next mammogram. Dictated By: Tali Crump MD Signed By: <Electronically signed by Tali Crump MD in OV> 11/09/23 1420 DD/ 0838 TD/TT: [employer] Manager: US pelvic and transvaginal Reviewed date:11/05/2023 12:36:04 PM Interpretation: Performing Lab: Notes/Report: [address] [address] Ultrasound Report Signed with Addenda Patient: Tabby Reynoso MR#: [id number] : 1965 Acct:[id number] Age/Sex: 57 / F ADM Date: 10/30/23 Loc: .US Attending Dr: Hero Quinn MD Ordering Physician: Hero Quinn MD Date of Service: 10/30/23 Procedure(s): US pelvic and transvaginal Accession Number(s): [id number] cc: Terrence Kaur MD; Hero Quinn MD ADDENDUM PSA Iliana Crespo provided results on November 04, 2023 at 9:54 AM the nurse Kandi a covering for referring provider. Addendum Dictated By: Madison Jacobsen MD Addendum Signed By: <Electronically signed by Madison Jacobsen MD in OV> 11/04/23 1053 Addendum Cosigned By: DD/ TD/TT: / ADDENDUM . Addendum Dictated By: Madison Jacobsen MD Addendum Signed By: <Electronically signed by Madison Jacobsen MD in OV> 11/03/23 0706 Addendum Cosigned By: DD/ TD/TT: / EXAMINATION: US PELVIS CLINICAL INFORMATION: Abnormal bleeding, postmenopausal. COMPARISON: CT abdomen and pelvis of April 06, 2022. TECHNIQUE: Ultrasound of the pelvis is performed using both transabdominal and transvaginal transducers along with Doppler. Transvaginal imaging is performed due to inadequate visualization transabdominally. FINDINGS: The uterus measures 10.6 x 3.9 x 5.3 cm and is diffusely heterogeneous. No discrete fibroids appreciated. Abnormal endometrial thickening of 9-10 mm in postmenopausal patient. Limited visualization of endometrium due to bowel gas and uterine heterogeneity. No significant free fluid. Right ovary measures 1.9 x 2.0 x 1.4 cm, volume 2.7 mL. Left ovary measures 3.3 x 2.1 x 2.0 cm, volume 7.0 mL. Bilateral ovaries were seen only on transabdominal ultrasound images and appear grossly unremarkable allowing for limited visualization. US/US pelvic and transvaginal IMPRESSION: Abnormal endometrial thickening of 9-10 mm in postmenopausal patient. Limited visualization of endometrium due to bowel gas and uterine heterogeneity. Suspicious finding. Gynecologic consultation and possible biopsy recommended. This study was presented November 02, 2023 for interpretation. PSA staff will provide results to referring provider at this time. Dictated By: Madison Jacobsen MD Signed By: <Electronically signed by Madison Jacobsen MD in OV> 11/02/23 1936 DD/ 1428 TD/TT: [employer] Manager: Pathology Reviewed date:11/12/2023 02:15:05 PM Interpretation: Performing Lab:[facility], [address] [place] [phone] Notes/Report: IRON PROFILE Reviewed date:02/19/2024 12:38:31 PM Interpretation: Performing Lab:[facility], [address] [place] [phone] Notes/Report: Iron 34 30-160 mcg/dL Total Iron Binding Capacity 383 228-428 mcg/dL Percent Iron Saturation 9 15-50 % Unsaturated Iron Binding 349 IRON PROFILE Reviewed date:05/27/2024 12:25:49 PM Interpretation: Performing Lab:[facility], [address] [place] [phone] Notes/Report: Iron 44 30-160 mcg/dL Total Iron Binding Capacity 308 228-428 mcg/dL Percent Iron Saturation 14 15-50 % Unsaturated Iron Binding 264 Free T4 (Free Thyroxine) Reviewed date:08/09/2024 04:50:18 PM Interpretation: Performing Lab:[facility], [address] [place] [phone] Notes/Report: Free T4 (Free Thyroxine) 1.12 0.71-1.85 ng/dL Hold Gold Reviewed date:08/09/2024 12:42:40 PM Interpretation: Performing Lab:[facility], [address] [place] [phone] Notes/Report: Hold Gold See Note Specimen held untested for 24 hours; Call to request Chemistry testing. Urine Culture Reviewed date:08/10/2024 07:25:45 PM Interpretation: Performing Lab:[facility], [address] [place] [phone] Notes/Report: Urine Culture Report Result Urine Culture 10,000 to 50,000 cfu/ml Urine Culture Mixed bacterial nathalie a characteristic of Urine Culture urogenital contamination. Complete Blood Count Auto Di ff Reviewed date:08/09/2024 12:58:14 PM Interpretation: Performing Lab:[facility], [address] [place] [phone] Notes/Report: White Blood Count 11.2 4.8-10.8 X10*3/uL Red Blood Count 5.04 4.20-5.50 X10*6/uL Hemoglobin 15.4 12.0-16.0 g/dl Hematocrit 47.9 37.0-47.0 % Mean Corpuscular Volume 95.0 80.0-98.0 fL Mean Corpuscular Hemoglobin 30.6 27.0-33.0 pg Mean Corpuscular HGB Conc 32.2 31.0-35.0 g/dl Red Cell Distribution Width 14.9 11.0-16.0 % Platelet Count 276 160-400 X10*3/uL Mean Platelet Volume 10.6 9.4-12.3 fL Neutrophils Percent Auto 71.3 45-73 % Imm Gran Pct Auto 0.4 0.0-0.4 % Lymphocytes Percent Auto 18.2 20-40 % Monocytes Percent Auto 5.8 2-11 % Eosinophils Percent Auto 3.4 0-4 % Basophils Percent Auto 0.9 0-2 % NRBC Pct Auto 0.0 0.0-0.2 /100WBC Neutrophils Absolute Auto 8.0 2.0-8.3 x10*3/u L Imm Gran Abs Auto 0.05 0.00-0.03 X10*3/uL Lymphocytes Absolute Auto 2.0 1.2-4.9 X10*3/u L Monocytes Absolute Auto 0.7 0.1-1.2 X10*3/uL Eosinophils Absolute Auto 0.4 0.0-0.4 X10*3/u L Basophils Absolute Auto 0.1 0.0-0.2 X10*3/uL NRBC Abs Auto 0.000 0.0-0.012 X10*3/uL Comprehensive [place]. Panel Fa st Reviewed date:08/09/2024 04:50:41 PM Interpretation: Performing Lab:[facility], [address] [place] [phone] Notes/Report: Sodium 139 135-145 mmol/L Potassium 4.0 3.3-5.1 mmol/L Chloride 97 96-108 mmol/L Carbon Dioxide 31 22-29 mmol/L Anion Gap 15 12-20 Blood Urea Nitrogen 11 9-16 mg/dL Creatinine 0.89 0.5-1.4 mg/dL Estimated Glomerular Filt Rate > 60 Chronic Kidney Disease: Estimated GFR < 60 mL/min/1.73m2 Severe Kidney Disease: Estimated GFR < 15 mL/min/1.73m2 Glucose Fasting 208 60-99 mg/dL A fasting glucose of 126 mg/dl or greater on more than one occasion is considered diagnostic of diabetes. Calcium 9.3 8.4-10.2 mg/dL Bilirubin Total 0.5 0.0-1.0 mg/dL Aspartate Amino Transferase 71 5-31 U/L Alanine Aminotransferase 51 0-31 U/L Total Protein 7.7 6.5-8.0 g/dL Albumin Level 3.9 3.5-5.0 g/dL Alkaline Phosphatase 83 39-117 U/L Lipid Panel Reviewed date:08/09/2024 04:46:55 PM Interpretation: Performing Lab:[facility], [address] [place] [phone] Notes/Report: Triglycerides 164 <150 mg/dL Desirable Triglyceride: less than 150 mg/dL Borderline High Triglyceride 150-199 mg/dL High Triglyceride: 200-499 mg/dL Very High Triglyceride: greater than or equal to 5OO mg/dL Cholesterol 199 <200 mg/dL Desirable Cholesterol: less than 200 mg/dL Borderline High Cholesterol: 200-239 mg/dL High Cholesterol: greater than 239 mg/dL LDL Cholesterol Calculated 140 <100 mg/dL Desirable LDL: less than 100 mg/dL Near Optimal/Above Optimal LDL: 110-129 mg/dL Borderline High LDL: 130-159 mg/dL High LDL: 160-189 mg/dL Very High LDL: greater than or equal to 190 mg/dL HDL Cholesterol 27 >40 mg/dL Desirable HDL: greater than 40 mg/dL Note: This HDL assay may give artificially low results in patients with liver disease. TSH reflex Free T4 Reviewed date:08/09/2024 04:48:42 PM Interpretation: Performing Lab:[facility], [address] [place] [phone] Notes/Report: TSH reflex Free T4 4.16 0.32-4.0 uIU/mL UA ClnCatch+Micro w/rflx Cul t Reviewed date:08/09/2024 01:26:11 PM Interpretation: Performing Lab:[facility], [address] [place] [phone] Notes/Report: Urine, Clean Catch Color Urine Yellow Appearance Urine Clear PH 5.5 5.0-9.0 Glucose Urine UA Negative Negative mg/dL Urine Blood Negative Negative Specific [employer] - Urine 1.020 1.005-1.025 Urine Protein Trace Neg-Trace mg/dL Urine Ketones Negative Negative mg/dL Nitrite Urine Negative Negative Leukocyte Esterase Urine Small (1+) Negative RBC Urine 0-2 0-2 /HPF WBC Urine 0-5 0-5 /HPF Squamous Epithelial Cell Urine 3-5 0-2 /HPF Bacteria Urine 1+ None Seen Hyaline Casts Urine 0-2 0-2 /LPF REASON FOR REFERRAL No Information MEDICATIONS Medication SIG (Take, Route, Frequency, Duration) Notes Start Date End Date Status Singulair 10 MG 1 tablet Orally Once a day Active Spiriva HandiHaler 18 MCG 1 capsule by i nhaling the contents of the capsule using the HandiHaler device Inhalation Once a day Active Eliquis 5 MG as directed Orally BID Active Valsartan 320 MG TAKE 1 TABLET BY TYESHA TH EVERY DAY FOR 90 DAYS for 90 Active Levothyroxine Sodium 88 MCG TAKE 1 TABLET BY MOUTH EVERY DAY IN THE MORNING ON EMPTY STOMACH for 90 Active Venlafaxine HCl ER 150 MG TAKE 1 CAPSULE BY MOUTH EVERY DAY WITH FOOD Orally Once a day for 90 days Active Bumetanide 2 MG TAKE 1 TABLET BY TYESHA TH EVERY DAY FOR 30 DAYS for 90 Active Taltz 80 MG/ML 1 mL Subcutaneous fo r 30 day(s) Active amLODIPine Besylate 5 MG TAKE 1 TABLET B Y MOUTH EVERY DAY FOR 30 DAYS for 90 Active Potassium Chloride ER 20 MEQ 1 tablet with food Orally Once a day for 30 day(s) Active Clobetasol Propionate 0.05 % 1 application Externally Twice a day for 30 days Active Cholecalciferol 25 MCG (1000 UT) 1 capsule Orally Once a day Active Tylenol 325 MG 1 tablet as needed Orally every 4 hrs Not-Taking Metoprolol Tartrate 50 MG 1 tablet with food Orally Twice a day Active metFORMIN HCl 500 MG 1 tablet with a josephine l Orally twice a day for 30 days 08/16/2024 Active Acetaminophen 325 MG 1 capsule as needed Orally every 6 hrs Not-Taking IMMUNIZATIONS Vaccine Route Administration Date Status Comme nts Covid Vaccine Unknown 12/12/2020 Administered [employer] SARS-COV-2 Moderna Unknown 09/02/2021 Administered Fluarix Quadrivalent Unknown 08/05/2021 Administered Covid Vaccine Unknown 12/12/2020 Administered [employer] SARS-COV-2 Moderna Unknown 09/02/2021 Administered Fluarix Quadrivalent IM Intramuscular 07/25/2022 Administe red Fluarix Quadrivalent - 150 IM Intramuscular 08/16/2024 Administered SOCIAL HISTORY Tobacco Use: Social History Observation Description Date Details (start date - stop date) Never Smoker NA - NA Sex Assigned At : Social History Observation Description Sex Assigned At Unknown Tobacco Use/Smoking Question Answer Notes Patient is a nonsmoker Additional Findings: Tobacco Non-User Cu rrent non-smoker, currently using no form of tobacco Alcohol Screen Question Answer Notes Did you have a drink containing alcohol in the p ast year? No Points 0 Interpretation Negative PROBLEMS Problem Type ICD Code Onset Dates Problem Status W/U Status Risk SNOMED Code Notes Problem Benign essential hypertension (I10) Active confirmed Benign essentia l hypertension (1296959) Problem Asthma (J45.909) Active confirmed Asthm a (661210740) Problem Hypertrophic cardiomyopathy (I42.2) Active confirmed Hypertrophic cardiomyopathy (151463455) Problem History of pacemaker (Z95.0) Active confirmed Cardiac pa cemaker in situ (540704085) Problem Atrial fibrillation (I48.91) Active confirmed Atrial fibrillation (81471184) Problem Celiac disease (K90.0) Active confirmed Celiac disease (015780472) Problem Psoriasis (L40.9) Active confirmed Psor iasis (4141438) Problem Acquired hypothyroidism (E03.9) Active confirmed 365662855 Problem Pagophagia (F50.89) Active confirmed 05680944 Problem Controlled type 2 diabetes mellitus without complication, without long-term current use of insulin (E11.9) Active confirmed 907522873 VITAL SIGNS Blood pressure diastolic 94 mm Hg 08/16/2024 jamey ght is down 15 pounds since 02-19-24 Height 63 in 08/16/2024 weight is down 15 pounds since 02-19-24 Blood pressure systolic 132 mm Hg 08/16/2024 weig ht is down 15 pounds since 02-19-24 Weight 327 lbs 08/16/2024 weight is down 15 pounds since 02-19-24 BMI 57.92 kg/m2 08/16/2024 weight is down 15 pounds since 02-19-24 Encounters Encounter Location Date Provider Diagnosis Terrence Kaur MD [address] [place] [id number] 08/16/2024 Terrence Kaur Psoriasis L40.9 ; Controlled type 2 diabetes mellitus without complication, without long-term current use of insulin E11.9 ; Celiac disease K90.0 ; Hypertrophic cardiomyopathy I42.2 and Encounter for immunization Z23 Terrence Kaur MD [address] [place] [address] Drive [address] [place] [id number] 08/09/2024 Terrence Kaur Blood tests for routine general physical examination Z00.00 ; Benign essential hypertension I10 and Acquired hypothyroidism E03.9 Terrence Kaur MD [address] [place] [id number] 05/27/2024 Terrence Kaur Pagophagia F50.89 Terrence Kaur MD [address] [place] [id number] 08/17/2023 Terrence Kaur Hematuria R31.9 ; Benign essential hypertension I10 and Atrial fibrillation I48.91 Terrence Kaur MD [address] [place] [id number] 02/19/2024 Terrence Kaur Pagophagia F50.89 ; Celiac disease K90.0 and Esophageal dysphagia R13.19 Terrence Kaur MD [address] [place] [id number] 10/02/2023 Terrence Guzmanardier Psoriasis L40.9 Terrence Kaur MD [address] [place] [id number] 11/27/2023 Terrence Bombardier Psoriasis L40.9 Terrence Kaur MD [address] [place] [id number] 03/14/2024 Terrence Kaur MD [address] [place] [id number] 03/14/2024 Terrence Bombardier Psoriasis L40.9 Terrence Kaur MD [address] [place] [id number] 06/28/2024 Terrence Bombardier Psoriasis L40.9 ASSESSMENTS Encounter Date Diagnosis Assessment Notes Treatment Notes Treatment Clinical Notes 08/16/2024 Psoriasis (ICD-10 - L40.9) needs to see dermatology/ needs to go to [facility]/ info for [facility] side Derm given to patient 08/09/2024 Benign essential hypertension (ICD-10 - I10) 08/09/2024 Blood tests for routine general physical examination (ICD-10 - Z00.00) 05/27/2024 Pagophagia (ICD-10 - F50.89) 08/17/2023 Hematuria (ICD-10 - R31.9) still getting periods at times 08/17/2023 Benign essential hypertension (ICD-10 - I10) is probably a little better than shown since arms are so big around will over estimate the bp 02/19/2024 Celiac disease (ICD-10 - K90.0) was without polyps 02/19/2024 Pagophagia (ICD-10 - F50.89) 10/02/2023 Psoriasis (ICD-10 - L40.9) 11/27/2023 Psoriasis (ICD-10 - L40.9) 03/14/2024 Psoriasis (ICD-10 - L40.9) 06/28/2024 Psoriasis (ICD-10 - L40.9) 08/16/2024 Controlled type 2 diabetes mellitus without complication, without long-term current use of insulin (ICD-10 - E11.9) will check a1c. never had diabetes before and [place] been [place] 08/09/2024 Acquired hypothyroidism (ICD-10 - E03.9) 08/17/2023 Atrial fibrillation (ICD-10 - I48.91) comes and goes 02/19/2024 Esophageal dysphagia (ICD-10 - R13.19) should get the gi series and follow up with gastro 08/16/2024 Celiac disease (ICD-10 - K90.0) is careful with gluten 08/16/2024 Hypertrophic cardiomyopathy (ICD-10 - I42.2) sees dr bowman 08/16/2024 Encounter for immunization (ICD-10 - Z23) PLAN OF TREATMENT Pending Test Test Name Order Date XR GI SERIES 08/05/2022 Next Appt Details Provider Name:Terrence garzonr, 09/15/2024 10:45:00 AM, [address] [place] [address], [address], [phone], Provider Name:Terrence Ramos ier, 08/15/2025 07:15:00 AM, [address] [place] [address], [address], [phone], Provider Name:Terrence Ramos ier, 08/22/2025 10:30:00 AM, [address] [place] [address], [address], [phone], Insurance Providers Payer Name Payer Address Payer Phone Subscriber Number Group Number Insured Name Patient Relationship to Insured Coverage Start Date Coverage End Date [employer] [address] [place], [place] [id number] Tabby Cifuentes Self - patient is the insured MEDICAL (GENERAL) HISTORY Medical History History ICD Code IHSS with surgery in 2018 COLONOSCOPY 2018
--- OUTSIDE RECORDS SUMMARY | 2024-08-16 13:20 | XMS_ITS ---
Author Organization Terrence Kaur MD Address [address] [place] [phone] Care Team Providers Care Natural Foods Clerk Name Role Phone Terrence Kaur Primary Care Provider ALLERGIES Allergen (clinical drug ingredient) Drug/Non Drug Allergy documented on EMR Reaction Allergy Type Onset Date Status Substance with sulfonamide structure and antibacterial mechanism of action (substance) Sulfa Antibiotics ? Drug Allergy Active RESULTS Component Value Reference Range Notes Hemoglobin A1c Reviewed date:08/16/2024 11:08:42 AM Interpretation: Performing Lab: Notes/Report: 0 Value Hemoglobin A1c 9.2 REASON FOR VISIT annual visit MEDICATIONS Medication SIG (Take, Route, Frequency, Duration) Notes Start Date End Date Status Bumetanide 2 MG TAKE 1 TABLET BY TYESHA TH EVERY DAY FOR 30 DAYS for 90 Active amLODIPine Besylate 5 MG TAKE 1 TABLET B Y MOUTH EVERY DAY FOR 30 DAYS for 90 Active Clobetasol Propionate 0.05 % 1 application Externally Twice a day for 30 days Active Tylenol 325 MG 1 tablet as needed Orally every 4 hrs Not-Taking Acetaminophen 325 MG 1 capsule as needed Orally every 6 hrs Not-Taking Eliquis 5 MG as directed Orally BID [...] Once a day for 90 days Active metFORMIN HCl 500 MG 1 tablet with a josephine l Orally twice a day for 30 days 08/16/2024 Active Singulair 10 MG 1 tablet Orally Once a day Active Spiriva HandiHaler 18 MCG 1 capsule by i nhaling the contents of the capsule using the HandiHaler device Inhalation Once a day Active Potassium Chloride ER 20 MEQ 1 tablet with food Orally Once a day for 30 day(s) Active Cholecalciferol 25 MCG (1000 UT) 1 capsule Orally Once a day Active Metoprolol Tartrate 50 MG 1 tablet with food Orally Twice a day Active Taltz 80 MG/ML 1 mL Subcutaneous fo r 30 day(s) Active IMMUNIZATIONS Vaccine Route Administration Date Status Comme nts Fluarix Quadrivalent - 150 IM Intramuscular 08/16/2024 Adm inistered SOCIAL HISTORY Tobacco Use: Social History Observation [...] W/U Status Risk SNOMED Code Notes Problem Controlled type 2 diabetes mellitus without complication, without long-term current use of insulin (E11.9) Active confirmed [id number] VITAL SIGNS BMI 57.92 kg/m2 08/16/2024 Blood pressure systolic 132 mm Hg 08/16/20 24 Blood pressure diastolic 94 mm Hg 024 Height 63 in 08/16/2024 Weight 327 lbs 08/16/2024 weight is down 15 pounds sin ce 02-19-24 Encounters Encounter Location Date Provider Diagnosis Terrence Kaur MD [address] [place] [address] [place] [phone] 08/16/2024 Terrence Kaur Psoriasis L40.9 ; Controlled type 2 diabetes mellitus without complication, without long-term current use of insulin E11.9 ; Celiac disease K90.0 ; Hypertrophic cardiomyopathy I42.2 and Encounter for immunization Z23 ASSESSMENTS Encounter Date Diagnosis Assessment Notes Treatment Notes Treatment Clinical Notes 08/16/2024 Psoriasis (ICD-10 - L40.9) needs to see dermatology/ needs to go to [facility]/ info for [facility] given to patient 08/16/2024 Controlled type 2 diabetes mellitus without complication, without long-term current use of insulin (ICD-10 - E11.9) will check a1c. never had diabetes before and [place] 08/16/2024 Celiac disease (ICD-10 - K90.0) is careful with gluten 08/16/2024 Hypertrophic cardiomyopathy (ICD-10 - I42.2) sees dr bowman 08/16/2024 Encounter for immunization (ICD-10 - Z23) PLAN OF TREATMENT Medication Medication Name Sig Start Date Stop Date Notes metFORMIN HCl 500 MG 1 tablet with a josephine l Orally twice a day for 30 days 08/16/2024 Treatment Notes Assessment Notes Psoriasis needs to see dermato logy/ needs to go to [facility]/ info for [facility] given to patient Controlled type 2 diabetes m ellitus without complication, without long-term current use of insulin will check a1c. never had diabetes before [place] Celiac disease is careful with glut en Hypertrophic cardiomyopathy sees dr audrey pratt Next Appt Details Follow Up: 4 Weeks, Reason: Provider Name:Terrence green, 09/15/2024 10:45:00 AM, [address] [place] [address], [address], [phone], Provider Name:Terrence garzonr, 08/15/2025 07:15:00 AM, [address] [place] [address], [address], [phone], Provider Name:Terrence garzonr, 08/22/2025 10:30:00 AM, [address] [place] [address], [address], [phone], Progress Notes * Examination Category Sub-Category Detail Notes General Examination GENERAL APPEARANCE: well dev eloped, well nourished, in no acute distress HEAD: normocephalic, atrau matic EYES: pupils equal, round, reactive to light and accommodation, sclera non- icteric EARS: normal THROAT: clear NECK/THYROID: neck supple, full ra nge of motion, no cervical lymphadenopathy, no bruits HEART: regular rate and rhy thm, S1, S2 normal, no murmurs LUNGS: clear to auscultatio n bilaterally ABDOMEN: soft, nontender, non distended, bowel sounds present, normal, no organomegaly , no masses palpable NEUROLOGIC: nonfocal, motor stre ngth normal upper and lower extremities, sensory exam intact SKIN: warm and dry, no tara picious lesions EXTREMITIES: no clubbing, cyanosi s, or edema BREASTS: done by filleter RECTAL EXAM: done by filleter FEMALE GENITOURINARY: done by filleter ORAL CAVITY: mucosa moist History and Physical Notes * HPI (History of Present Illness) Category Sub-Category Detail Notes Depression Screening PHQ-9 Little inte rest or pleasure in doing things: Not at all Feeling down, depressed, or hopeless: No t at all Trouble falling or staying asleep, or sl eeping too much: Not at all Feeling tired or having little energy: N ot at all Poor appetite or overeating: Not at all Feeling bad about yourself o r that you are a failure, or have let yourself or your family down: Not at all Trouble concentrating on thi ngs, such as reading the newspaper or watching television: Not at all Moving or speaking so slowly that other people could have noticed; or the opposite, being so fidgety or restless that you have been moving around a lot more than usual: Not at all Thoughts that you would be b sariah off or of hurting yourself in some way: Not at all Total Score: 0 SDOH Questions SDOH Questions In the past year have you been worried about losing housing?: No In the past year have you or any family members you live with been unable to get any of the following when it was really needed? Check all that apply:: None Communication Needs Communication Needs Does the patient have a hearing impairment: No Does the patient have a vision impairmen t?: Yes ?If yes, what is the vision impairment?: Glasses Does the patient have a cognition impair ment?: No
--- OUTSIDE RECORDS SUMMARY | 2024-08-16 13:20 | XMS_ITS ---
Author Organization Terrence Kaur MD Address [address] [place], [place] [phone] Care Team Providers Care White Sugar Supervisor Name Role Phone Terrence Kaur Primary Care Provider [phone] RESULTS Component Value Reference Range Notes Complete Blood Count Auto Di ff Reviewed date:08/09/2024 12:58:14 PM Interpretation: Performing Lab:[facility], [address] [place] [phone] Notes/Report: White Blood Count 11.2 4.8-10.8 X10*3/uL [...] NRBC Abs Auto 0.000 0.0-0.012 X10*3/uL Comprehensive Kell. Panel Fa st Reviewed date:08/09/2024 04:50:41 PM Interpretation: Performing Lab:[facility], [address] [place] [phone] Notes/Report: Sodium 139 135-145 mmol/L Potassium 4.0 [...] Panel Reviewed date:08/09/2024 04:46:55 PM Interpretation: Performing Lab:[facility], [address] [place] [phone] Notes/Report: Triglycerides 164 <150 mg/dL Desirable Triglyceride: [...] T4 Reviewed date:08/09/2024 04:48:42 PM Interpretation: Performing Lab:[address] [phone] Notes/Report: TSH reflex Free T4 4.16 0.32-4.0 uIU/mL UA ClnCatch+Micro w/rflx Cul t Reviewed date:08/09/2024 01:26:11 PM Interpretation: Performing Lab:[address] [phone] Notes/Report: Urine, Clean Catch Color Urine Yellow Appearance Urine Clear PH 5.5 5.0-9.0 Glucose Urine UA Negative Negative mg/dL Urine Blood Negative Negative Specific Aurora - Urine 1.020 1.005-1.025 Urine Protein Trace Neg-Trace mg/dL Urine Ketones Negative Negative mg/dL Nitrite Urine Negative Negative Leukocyte Esterase Urine Small (1+) Negative RBC Urine 0-2 0-2 /HPF WBC Urine 0-5 0-5 /HPF Squamous Epithelial Cell Urine 3-5 0-2 /HPF Bacteria Urine 1+ None Seen Hyaline Casts Urine 0-2 0-2 /LPF REASON FOR VISIT yearly fasting labs Encounters Encounter Location Date Provider Diagnosis Terrence Kaur MD [address] [place], [place] [phone] 08/09/2024 Terrence Kaur Blood tests for routine general physical examination Z00.00 ; Benign essential hypertension I10 and Acquired hypothyroidism E03.9 ASSESSMENTS Encounter Date Diagnosis Assessment Notes Treatment Notes Treatment Clinical Notes 08/09/2024 Blood tests for routine general physical examination (ICD-10 - Z00.00) 08/09/2024 Benign essential hypertension (ICD-10 - I10) 08/09/2024 Acquired hypothyroidism (ICD-10 - E03.9) PLAN OF TREATMENT Next Appt Details Provider Name:Terrence green, 09/15/2024 10:45:00 AM, [address] [place] [address], [place] [address], [place], [place], [phone], Provider Name:Terrence green, 08/15/2025 07:15:00 AM, [address] [place] [address], [place] [address], [place], [place], [phone], Provider Name:Terrence green, 08/22/2025 10:30:00 AM, [address] [place] [address], [place] [address], [place], [place], [phone],
--- OUTSIDE RECORDS SUMMARY | 2024-08-16 13:20 | XMS_ITS ---
Author Organization Terrence Kaur MD Address [address] [place] [phone] Care Team Providers Care Silk Screen Cutter Name Role Phone Terrence Kaur Primary Care Provider REASON FOR VISIT New Refill Request MEDICATIONS Medication SIG (Take, Route, Frequency, Duration) Notes Start Date End Date Status Clobetasol Propionate 0.05 % 1 application Externally Twice a day for 30 days Active Encounters Encounter Location Date Provider Diagnosis Terrence Kaur MD [address] [place] [phone] 06/28/2024 Terrence Kaur Psoriasis L40.9 ASSESSMENTS Encounter Date Diagnosis Assessment Notes Treatment Notes Treatment Clinical Notes 06/28/2024 Psoriasis (ICD-10 - L40.9) PLAN OF TREATMENT Medication Medication Name Sig Start Date Stop Date Notes Clobetasol Propionate 0.05 % 1 applicati on Externally Twice a day for 30 days Next Appt Details Provider Name:Terrence green, 09/15/2024 10:45:00 AM, [address] [place] [address], [phone], Provider Name:Terrence Ramos iesim, 08/15/2025 07:15:00 AM, [address] [place] [address], [phone], Provider Name:Terrence green, 08/22/2025 10:30:00 AM, [address] [place] [address], [phone],
== END 2024-08-09 11:17 | disposition home or self-care (01) ==
LOC: HO.LNP 11:16
PROVIDERS: Visit Provider Internal Medicine
DX: Z00.00 Encounter for general adult medical examination without abnormal findings (principal); I10 Essential (primary) hypertension; E03.9 Hypothyroidism, unspecified
CPT/HCPCS: 80053; 80061; 81001; 84439; 84443; 85025; 87086

== ENCOUNTER 2024-10-25 13:51 | Outpatient (AMB) | payer OTHER, SELFPAY ==
[2024-10-25 14:14] VITALS: BP 124/68; PULSE 78; BMI 60.0
--- NOTE | 2024-10-25 14:14 | A.OFFVIS_ITS ---
Vital Signs 10/25/24 14:14 Height 5 ft 3 in Weight 339 lb BMI 60.0 BP 124/68 Blood Pressure Location Lt brachial Position Sitting Pulse 78 Pulse Source Pulse Oximeter Intake Visit Reasons: f/up w/ [facility] Allergies adhesive [ADHESIVE] Adverse Reaction (Unknown, Verified 12/15/23 12:54) RASH - SKIN CAME OFF WITH TAPE apremilast [Otezla] Adverse Reaction (Unknown, Verified 12/15/23 12:54) nausea, vomiting Sulfa (Sulfonamide Antibiotics) [SULFA (SULFONAMIDE ANTIBIOTICS)] Adverse Reaction (Unknown, Verified 12/15/23 12:54) UNKNOWN Medication List - Last Reconciled 10/25/24 by Álvaro Celis MD amlodipine 5 mg PO DAILY apixaban (Eliquis) 5 mg PO BID 90 days bumetanide 2 mg PO DAILY clobetasol 0.05% grams topical levothyroxine 88 mcg PO DAILY@0600 metformin 500 mg PO BID metoprolol tartrate 75 mg (1.5 x 50 mg) PO BID montelukast 10 mg PO DAILY potassium chloride ER 20 mEq PO BEDTIME 90 days tiotropium bromide (Spiriva with HandiHaler) 1 cap inhalation DAILY venlafaxine ER 150 mg PO BEDTIME HPI Comments Details: Tabby returns for follow-up regarding hypertrophic cardiomyopathy as well as atrial fibrillation. In 2019, she underwent extended septal myectomy procedure. Subsequently, she also underwent permanent pacemaker implantation. She continues to be on Bumex for congestive heart failure. Overall, she is just about the same as before. Shortness of breath is very much unchanged. Otherwise, feels okay. [facility] Medical History Celiac disease Mitral valve disease Morbid obesity MONICA (iron deficiency anemia) Pulmonary hypertension PAF (paroxysmal atrial fibrillation) HOCM (hypertrophic obstructive cardiomyopathy) Surgical History (Updated 12/15/23 @ 13:22 by Joanie Mccain PA-C) Hx of colonoscopy History of esophagogastroduodenoscopy (EGD) Status post ventricular septal myectomy History of cardiac pacemaker (~10/2018) History of heart surgery (~10/2018) History of cardiac catheterization Family History Father CVD (cardiovascular disease) Mother CVD (cardiovascular disease) Brother Diabetes CVD (cardiovascular disease) HTN (hypertension) Social History (Updated 12/15/23 @ 13:14 by Joanie Mccain PA-C) Household Members: Spouse and Children Housing: House Do you presently have visiting nurse or other home services: No Alcohol intake: current Alcohol intake frequency: holidays/special occasions only Comment: social Patient Tobacco Use Status: Former Tobacco user Substance Use Type: Marijuana service: No Current occupational status: disabled Sexual orientation: Straight/Heterosexual Gender identity: Female Review of Systems Const Denies weakness ENT Denies dizziness Card Denies chest pain, Denies chest pain with activity, Denies syncope, Denies rapid heart rate, Denies pedal edema, Denies edema, Denies leg edema, Denies lightheadedness, Denies palpitations, Denies dyspnea, Denies dyspnea on exertion and Denies orthopnea Resp Denies cough, Denies dyspnea and Denies dyspnea on exertion GI Denies hematochezia and Denies change in stool character Musc Denies abnormal gait, Denies muscle cramps, Denies muscle weakness, Denies numbness, Denies radiating pain into limb and Denies tingling Neuro Denies abnormal gait, Denies dizziness, Denies syncope, Denies numbness, Denies tingling and Denies weakness Endo Denies palpitations Physical Exam Vital Signs: Last Vital Signs Pulse 78 10/25/24 14:14 BP 124/68 10/25/24 14:14 BMI result Body Mass Index 60.0 Const General: comfortable and no acute distress Orientation/consciousness: patient oriented x3 HEENT Other: Unremarkable Head: Yes normal to inspection Neck Neck: Yes normal visual inspection Chest Chest palpation & inspection: normal inspection of the chest Resp Auscultation: clear to auscultation bilaterally Cardio Palpation: normal PMI Heart sounds: S1 normal heart sound present, S2 normal heart sound present, no gallops, Murmur heart sound present systolic II/ and no rubs GI Palpation (GI): Soft to palpation Back/Spine/Pelvis Other: unremarkable Skin General skin exam: no rashes or lesions noted Neuro General: patient oriented x3 Extrem Other: Chronic changes and some discoloration but no significant swelling. General: Yes normal to inspection Psych Mental Status: mental status grossly normal Office Procedures Cardiac Device Check Cardiac Device Check Details: Pacemaker interrogated today. Dual-chamber device, programmed DDDR mode. Battery status 9 months. Atrial fibrillation noticed from October of 2023. 100% burden. Normal lead parameters. Ventricular pacing 99%. Overall, normal device function. [id number] Cardiac Device Check, pacemaker dual lead [id number] Cardiac Device Interrogation, pacemaker Procedure code (CPT) selection complete Assessment & Plan Assessment & Plan (1) Chronic heart failure with preserved ejection fraction: Code(s): I50.32 - Chronic diastolic (congestive) heart failure Category: Medical Plan: Continue diuretics. Most recent creatinine is 0.89. Potassium is 4. (2) HOCM (hypertrophic obstructive cardiomyopathy): Code(s): I42.1 - Obstructive hypertrophic cardiomyopathy Category: Medical Plan: Stable. (3) Status post ventricular septal myectomy: Code(s): Z98.890 - Other specified postprocedural states Category: Surgical Plan: No new issues. (4) PAF (paroxysmal atrial fibrillation): Code(s): I48.0 - Paroxysmal atrial fibrillation Category: Medical Plan: Has been ongoing for about the last year. She feels the same either in atrial fibrillation or sinus. Not suitable for cardioversion as highly unlikely to respond as she has obesity and untreated sleep apnea and with significant structural heart disease. Continue anticoagulation. (5) Mitral valve disease: Code(s): I05.9 - Rheumatic mitral valve disease, unspecified Category: Medical Plan: Elevated gradients across the mitral valve. Thought to be from some combination of diastolic dysfunction and increased stroke volume. Less likely that she has any significant mitral stenosis. This has been present for a long time including 2018. No specific workup at this time. We will follow on echocardiogram. (6) Pulmonary hypertension: Code(s): I27.20 - Pulmonary hypertension, unspecified Category: Medical Plan: Multifactorial; suspected to be from obesity, untreated obstructive sleep apnea, left heart dysfunction, diastolic heart failure. In the past, she was even sent to Pulmonary hypertension Clinic in [place]. (7) Morbid obesity: Code(s): E66.01 - Morbid (severe) obesity due to excess calories Category: Medical Plan: This has not changed in a long time. Very likely, this is the long-term weight. (8) MIKIE (obstructive sleep apnea): Code(s): G47.33 - Obstructive sleep apnea (adult) (pediatric) Category: Medical Plan: Sleep study shows severe sleep apnea. However, patient not able to use CPAP due to intolerance. Has been discussed several times. Plan We have not done an EKG in a while as patient states it is too expensive for her. Would rather not have it today again due to cost. Orders: Orders CA echo transthoracic complete 6 Months I42.1 - Obstructive hypertrophic cardiomyopathy Coding Level of Care Code Est Pt Level 4 (35984) Complex EM visit Add On G2211 Diagnoses Chronic heart failure with preserved ejection fraction I50.32 HOCM (hypertrophic obstructive cardiomyopathy) I42.1 Status post ventricular septal myectomy Z98.890 PAF (paroxysmal atrial fibrillation) I48.0 Mitral valve disease I05.9 Pulmonary hypertension I27.20 Morbid obesity E66.01 MIKIE (obstructive sleep apnea) G47.33 CPT Codes Cardiac Device Check - Cardiac Device 2: 03124-[id number] Cardiac Device Check, pacemaker dual lead ([id number]) Cardiac Device Check - Cardiac Device 12: [id number]-[id number] Cardiac Device Interrogation, pacemaker ([id number])
--- OUTSIDE RECORDS SUMMARY | 2024-10-25 14:54 | XMS_ITS ---
Author Organization Terrence Kaur MD Address [address] [place] [phone] Care Team Providers Care Stack Matcher Name Role Phone Terrence Kaur Primary Care Provider REASON FOR VISIT New Refill Request Medications Medication SIG (Take, Route, Frequency, Duration) Notes Start Date End Date Status Eliquis 5 MG as directed Orally BID Active Encounters Encounter Location Date Provider Diagnosis Terrence Kaur MD [address] [place] [address] Drive [address] [place] [phone] 09/05/2024 Terrence Kaur Atrial fibrillation I48.91 Assessments Encounter Date Diagnosis (ICD Code) Assessment Notes Treatment Notes Treatment Clinical Notes Section Notes 09/05/2024 Atrial fibrillation (ICD-10 - I48.91) Plan Of Treatment Medication Medication Name Sig Start Date Stop Date Notes Eliquis 5 MG as directed Orally BID Next Appt Details Provider Name:Terrence green, 11/10/2024 10:00:00 AM, [address] [place] [address], [address], [phone], Provider Name:Terrence green, 08/15/2025 07:15:00 AM, [address] [place] [address], [phone], Provider Name:Terrence green, 08/22/2025 10:30:00 AM, [address] [place] [address], [address], [phone], Progress Notes * Lopez REYNOSOOB:[birth year] (58 yo F)Acc No.[id number]:09/05/2024 Patient:?Tabby Reynoso :1965???Age:58 Y???Sex:Female Address:[address] [place] [address] , [place], [address] * Refills? Refill Eliquis Tablet, 5 MG, Orally, 60, as directed, BID, Refills=3 * true * Date:? Generated for Keren sethi/Elisa/eTransmitting on:?10/25/2024 02:54 PM EST
--- OUTSIDE RECORDS SUMMARY | 2024-10-25 14:54 | XMS_ITS ---
Author Organization Terrence Kaur MD Address [address] [place] [address] [place] [phone] Care Team Providers Care Credit Support Counselor Name Role Phone Terrence Kaur Primary Care Provider REASON FOR VISIT New Refill Request Encounters Encounter Location Date Provider Diagnosis Terrence Kaur MD [address] [place] [address] [place] [phone] 09/05/2024 Terrence Kaur Plan Of Treatment Next Appt Details Provider Name:Terrence Ramos ier, 11/10/2024 10:00:00 AM, [address] [place] [address], [address], [phone], Provider Name:Terrence Ramos ier, 08/15/2025 07:15:00 AM, [address] [place] [address], [address], [phone], Provider Name:Terrence Ramos ier, 08/22/2025 10:30:00 AM, [address] [place] [address], [address], [phone], Progress Notes * Cami HERRERAeDOB:[birth year] (58 yo F)Acc No.[id number]:09/05/2024 Patient:?Angeles Tabby :1965???Age:58 Y???Sex:Female Address:[address] [place] [address], [id number] * true * Date:? Generated for Keren sethi/Elisa/Tequilaitting on:?10/25/2024 02:54 PM EST
--- OUTSIDE RECORDS SUMMARY | 2024-10-25 14:54 | XMS_ITS ---
Author Organization Terrence Kaur MD Address [address] [place], [place] [id number] Care Team Providers Care Back Tender Pulp Drier Name Role Phone Terrence Kaur Primary Care Provider [phone] Allergies Allergen (clinical drug ingredient) Drug/Non Drug Allergy documented on EMR Reaction Allergy Type Onset Date Status Substance with sulfonamide structure and antibacterial mechanism of action (substance) Sulfa Antibiotics ? Drug Allergy Active Results Component Value Reference Range Notes Glucose, finger stick Reviewed date:09/15/2024 10:50:38 AM Interpretation: Performing Lab: Notes/Report: Value 154 REASON FOR VISIT 4 week Medications Medication SIG (Take, Route, Frequency, Duration) Notes Start Date End Date Status metFORMIN HCl 500 MG 1 tablet with a josephine l Orally twice a day 08/16/2024 Active Levothyroxine Sodium 88 MCG TAKE 1 TABLET BY MOUTH EVERY DAY IN THE MORNING ON EMPTY STOMACH for 90 Active Valsartan 320 MG TAKE 1 TABLET BY TYESHA TH EVERY DAY FOR 90 DAYS for 90 Active amLODIPine Besylate 5 MG TAKE 1 TABLET B Y MOUTH EVERY DAY FOR 30 DAYS for 90 Active Bumetanide 2 MG TAKE 1 TABLET BY TYESHA TH EVERY DAY FOR 30 DAYS for 90 Active Singulair 10 MG 1 tablet Orally Once a day Active Metoprolol Tartrate 50 MG 1.5 tablet wit h food Orally Twice a day Active Spiriva HandiHaler 18 MCG 1 capsule by i nhaling the contents of the capsule using the HandiHaler device Inhalation Once a day Active Potassium Chloride ER 20 MEQ 1 tablet with food Orally Once a day for 30 day(s) Active Cholecalciferol 25 MCG (1000 UT) 1 capsule Orally Once a day Active Acetaminophen 325 MG 1 capsule as needed Orally every 6 hrs Not-Taking Tylenol 325 MG 1 tablet as needed Orally every 4 hrs Not-Taking Eliquis 5 MG as directed Orally BID Active Venlafaxine HCl ER 150 MG TAKE 1 CAPSULE BY MOUTH EVERY DAY WITH FOOD Orally Once a day for 90 days Active Taltz 80 MG/ML 1 mL Subcutaneous fo r 30 day(s) Active Clobetasol Propionate 0.05 % 1 application Externally Twice a day for 30 days Active Vital Signs Blood pressure systolic 138 mm Hg 09/15/19 25 Blood pressure diastolic 94 mm Hg 025 Height 63 in 09/15/2024 Weight 324 lbs 09/15/2024 BMI 57.39 kg/m2 09/15/2024 weight is down 3 pounds formerly [facility] 08-16-24 Encounters Encounter Location Date Provider Diagnosis Terrence Kaur MD [address] [place] [address] [place] [phone] 09/15/2024 Terrence Kaur Controlled type 2 diabetes mellitus without complication, without long-term current use of insulin E11.9 Assessments Encounter Date Diagnosis (ICD Code) Assessment Notes Treatment Notes Treatment Clinical Notes Section Notes 09/15/2024 Controlled type 2 diabetes mellitus without complication, without long-term current use of insulin (ICD-10 - E11.9) stable, will contnue curent regiment and will continue to monitor Plan Of Treatment Medication Medication Name Sig Start Date Stop Date Notes metFORMIN HCl 500 MG 1 tablet with a josephine l Orally twice a day 08/16/2024 Venlafaxine HCl ER 150 MG TAKE 1 CAPSULE BY MOUTH EVERY DAY WITH FOOD Orally Once a day for 90 days Treatment Notes Assessment Notes Controlled type 2 diabetes m ellitus without complication, without long-term current use of insulin stable, will contnue curent regiment and will continue to monitor Next Appt Details Follow Up: 2 Months, Reason: Provider Name:Terrence green, 11/10/2024 10:00:00 AM, [address] [place] [address], [address] [facility], [place], [place], [phone], Provider Name:Terrence green, 08/15/2025 07:15:00 AM, [address] [place] [address], [address] [facility], [place], [place], [phone], Provider Name:Terrence Ramos ier, 08/22/2025 10:30:00 AM, [address], [address], [place], [place], [phone], Progress Notes * Cami HERRERAeDOB:[birth year] (58 yo F)Acc No.[id number]:09/15/2024 Progress Notes Patient:?Tabby Herrera Provider:?Terrence Kaur MD :[id number]???Age:58 Y???Sex:Female D ate:09/15/2024 Address:[address] [place], [place] [id number] Subjective: * Chief Complaints: * ???4 week * HPI: ???Symptom(s):? patient is a 58 yo female here for 4 week follow up visit. * ROS:?General/Constitutional:?Denies?Chills.?Denies?Fatigue.?Denies?Fever.?Denies?Headache.?ENT:?Patient denies?decreased sense of smell , any loss of taste , sore throat.?Denies?Sore throat.?Respiratory:?Denies?Cough.?Denies?Shortness of breath at rest.?Denies?Shortness of breath with exertion.?Gastrointestinal:?Denies?Diarrhea.?Denies?Nausea.?Musculoskeletal:?Patient denies?muscle aches.?Peripheral Vascular:?Patient denies?red and blue toes.? * Medical History:? * Surgical History:? * Hospitalization/Major Diagno stic Procedure:? * Medications:?TakingTaltz 80 MG/ML Solution Prefilled Syringe 1 mL Subcutaneous Potassium Chloride ER 20 MEQ Tablet Extended Release 1 tablet with food Orally Once a dayCholecalciferol 25 MCG (1000 UT) Capsule 1 capsule Orally Once a dayMetoprolol Tartrate 50 MG Tablet 1.5 tablet with food Orally Twice a daySingulair 10 MG Tablet 1 tablet Orally Once a daySpiriva HandiHaler 18 MCG Capsule 1 capsule by inhaling the contents of the capsule using the HandiHaler device Inhalation Once a dayValsartan 320 MG Tablet TAKE 1 TABLET BY MOUTH EVERY DAY FOR 90 DAYS Levothyroxine Sodium 88 MCG Tablet TAKE 1 TABLET BY MOUTH EVERY DAY IN THE MORNING ON EMPTY STOMACH Venlafaxine HCl ER 150 MG Capsule Extended Release 24 Hour TAKE 1 CAPSULE BY MOUTH EVERY DAY WITH FOOD Orally Once a dayBumetanide 2 MG Tablet TAKE 1 TABLET BY MOUTH EVERY DAY FOR 30 DAYS amLODIPine Besylate 5 MG Tablet TAKE 1 TABLET BY MOUTH EVERY DAY FOR 30 DAYS Clobetasol Propionate 0.05 % Ointment 1 application Externally Twice a daymetFORMIN HCl 500 MG Tablet 1 tablet with a meal Orally twice a dayEliquis 5 MG Tablet as directed Orally BIDTaking Taltz 80 MG/ML Solution Prefilled Syringe 1 mL Subcutaneous Taking Potassium Chloride ER 20 MEQ Tablet Extended Release 1 tablet with food Orally Once a dayTaking Cholecalciferol 25 MCG (1000 UT) Capsule 1 capsule Orally Once a dayTaking Metoprolol Tartrate 50 MG Tablet 1.5 tablet with food Orally Twice a dayTaking Singulair 10 MG Tablet 1 tablet Orally Once a dayTaking Spiriva HandiHaler 18 MCG Capsule 1 capsule by inhaling the contents of the capsule using the HandiHaler device Inhalation Once a dayTaking Valsartan 320 MG Tablet TAKE 1 TABLET BY MOUTH EVERY DAY FOR 90 DAYS Taking Levothyroxine Sodium 88 MCG Tablet TAKE 1 TABLET BY MOUTH EVERY DAY IN THE MORNING ON EMPTY STOMACH Taking Venlafaxine HCl ER 150 MG Capsule Extended Release 24 Hour TAKE 1 CAPSULE BY MOUTH EVERY DAY WITH FOOD Orally Once a dayTaking Bumetanide 2 MG Tablet TAKE 1 TABLET BY MOUTH EVERY DAY FOR 30 DAYS Taking amLODIPine Besylate 5 MG Tablet TAKE 1 TABLET BY MOUTH EVERY DAY FOR 30 DAYS Taking Clobetasol Propionate 0.05 % Ointment 1 application Externally Twice a dayTaking metFORMIN HCl 500 MG Tablet 1 tablet with a meal Orally twice a dayTaking Eliquis 5 MG Tablet as directed Orally BIDNot-Taking/PRNTylenol 325 MG Tablet 1 tablet as needed Orally every 4 hrsAcetaminophen 325 MG Capsule 1 capsule as needed Orally every 6 hrsMedication List reviewed and reconciled with the patientNot-Taking/PRN Tylenol 325 MG Tablet 1 tablet as needed Orally every 4 hrsNot-Taking/PRN Acetaminophen 325 MG Capsule 1 capsule as needed Orally every 6 hrsMedication List reviewed and reconciled with the patient * Allergies:?Sulfa Antibiotics : ?yes[Allergies Verified] Objective: * Vitals:?Ht: 63, Wt:324, BMI: 57.39, BP:138/94, Repeat BP:130/92 weight is down 3 pounds since 08-16-24. * Examination: ???General Examination: ?GENERAL APPEARANCE:?alert, well hydrated, in no distress.?HEAD:?normocephalic.?SKIN:?good turgor.?HEART:?no murmurs, rubs, gallops , regular rate and rhythm.?LUNGS:?no wheezes, rales, rhonchi , good air movement , clear to auscultation bilaterally.? Assessment: * Assessment: 1.?Controlled type 2 diabete s mellitus without complication, without long-term current use of insulin - E11.9 (Primary)? Plan: * Treatment: ? Value Reference Range ?Value 154 * Kaykay Ng 5 10:50:36 AM EST > Notes: stable, will contnue curent regiment and will continue to monitor?? * Procedure Codes:?20232 ASSAY , GLUCOSE, BLOOD QUANT, Modifiers: QW * Follow Up:?2 Months * * Sign off status: Completed true * Provider:?Terrence Kaur MD Date:?0 09/15/2024 Generated for Keren sethi/Elisa/Tequilaitting on:?10/25/2024 02:53 PM EST History and Physical Notes * HPI (History of Present Illness) Category Sub-Category Detail Notes Category Not es Symptom(s) patient is a 58 yo female here for 4 week follow up visit. Examination Category Sub-Category Detail Notes Category Not es General Examination GENERAL APPEARANCE: alert, w ell hydrated, in no distress HEAD: normocephalic HEART: no murmurs, rubs, ga llops , regular rate and rhythm LUNGS: no wheezes, rales, r honchi , good air movement , clear to auscultation bilaterally SKIN: good turgor
--- OUTSIDE RECORDS SUMMARY | 2024-10-25 14:54 | XMS_ITS | Patient Health Record ---
Author Organization Terrence Kaur MD Address [address] [place], [place] [id number] Care Team Providers Care Cco Name Role Phone Terrence Kaur Primary Care Provider Allergies Allergen (clinical drug ingredient) Drug/Non Drug Allergy documented on EMR Reaction Allergy Type Onset Date Status Substance with sulfonamide structure and antibacterial mechanism of action (substance) Sulfa Antibiotics ? Drug Allergy Active Results Component Value Reference Range Notes Hemoglobin A1c Reviewed date:08/16/2024 11:08:42 AM Interpretation: Performing Lab: Notes/Report: Hemoglobin A1c 9.2 US pelvic and transvaginal Reviewed date:11/05/2023 12:36:04 PM Interpretation: Performing Lab: Notes/Report: [facility] [address] [place] [address] Ultrasound Report Signed with Addenda Patient: Tabby Reynoso MR#: [id number] : 1965 Acct:[id number] Age/Sex: 57 / F ADM Date: 10/30/23 Loc: HO.US Attending Dr: Hero Quinn MD Ordering Physician: Hero Quinn MD Date of Service: 10/30/23 Procedure(s): US pelvic and transvaginal Accession Number(s): [id number] cc: Terrence Kaur MD; Hero Quinn MD [...] in OV> 11/02/23 1936 DD/ 1428 TD/TT: Carbon Paper Interleafer: [address] [address] Ultrasound Report Signed with Addquang Patient: Tabby Reynoso MR#: [id number] : 1965 Acct:[id number] Age/Sex: 57 / F ADM Date: 10/30/23 Loc: HO.US Attending Dr: Hero Quinn MD Ordering Physician: Hero Quinn MD Date of Service: 10/30/23 Procedure(s): US pel ashley and transvaginal Accession Number(s): [id number] cc: Terrence Kaur MD; Hero Quinn MD ADDENDUM [facility] Iliana Crespo provided results on November 04, 2023 at 9:54 AM the nurse Kandi a covering for referring provider. Addendum Dictated By : Madison Jacobsen MD Addendum Signed By: <Electronically signed by Madison Jacobsen MD in OV> 11/04/23 1053 Addendum Cosigned By: DD/ TD/TT: / ADDENDUM . Addendum Dictated By : Madison Jacobsen MD Addendum Signed By: <Electronically signed by Madison Jacobsen MD in OV> 11/03/23 0706 Addendum Cosigned By: DD/ TD/TT: / EXAMINATION: US PELVIS CLINICAL INFORMATION: Abnormal bleeding, postmenopausal. COMPARISON: CT abdomen and pelvi s of April 06, 2022. TECHNIQUE: Ultrasound of the pelvis is performed using both transabdominal and transvaginal transducers along with Doppler. Transvaginal imaging is performed due to inadequate visualization transabdominally. FINDINGS: The uterus measures 10.6 x 3.9 x 5.3 cm and is diffusely heterogeneous. No discrete fibroids appreciated. Abnormal endometrial thickening of 9-10 mm in postmenopausal patient. Limited visualizatio n of endometrium due to bowel gas and uterine heterogeneity. No significant free fluid. Right ovary measures 1.9 x 2.0 x 1.4 cm, volume 2.7 mL. Left ovary measures 3.3 x 2.1 x 2.0 cm, volume 7.0 mL. Bilateral ovaries were seen only on transabdomin al ultrasound images and appear grossly unremarkable allowin g for limited visualization. US/US pelvic and transvaginal IMPRESSION: Abnormal endometrial thickening of 9-10 mm in postmenopausal patient. Limited visualizatio n of endometrium due to bowel gas and uterine heterogeneity. Suspicious finding. Gynecologic consultation and possible biopsy recommended. This study was presented November 02, 2023 for interpretation. [facility] staff will provide results to referring provider at this time. Dictated By: Madison Jacobsen MD Signed By: <Electronically signed by Madison Jacobsen MD in OV> 11/02/231935 DD/ 1428 TD/TT: Carbon Paper Interleafer: Pathology Reviewed date:11/12/2023 02:15:05 PM Interpretation: Performing Lab:[facility], [address] [place] [phone] Notes/Report: --- Name: Tabby Reynoso Age/Sex: 58/F : 1965 Unit#: [id number] Attend Dr: Hero Quinn MD Re11/10/23 Status : DEP REF Location: [facility] Disch: --- SPEC : [id number] RECD : 11/10/23 STATUS: SARA CROCKETT NUM: [id number] ALLYN: 11/10/23 [facility] DR: Hero Quinn MD ENTERED: 11/10/23- 53 SP TYPE: Surgical OTHR DR: Terrence Kaur MD ORDERED: HE Stain/2, Gross Micro L4 Diagnosis Endometrium, biopsy: 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 Clinical History AUB Microscopic Description Microscopic sections reviewed. Material Received EMB Gross Description Received in formalin labeled ?EMB? is a 1.8 x 1.5 x 0.45 cm aggregate of predominantly mucus and blood and multip le irregular fragments of morales-pink tissue, submitted in toto in a cassette labeled Linda PEREA This case was review ed intradepartmentally. Copies To: Terrence Kaur MD [address] [facility] [address] [place] [address] Hero Quinn MD [address] [place] [address] Dr. Adolfo Herrera [place], [place] [id number] --- Signed (signature on file) Anusha Quintana MD 11/12/23 1339 --- END OF REPORT IRON PROFILE Reviewed date:02/19/2024 12:38:31 PM Interpretation: Performing Lab:[facility], [address] [place] [phone] Notes/Report: Iron 34 30-160 mcg/dL Total Iron Binding Capacity 383 228-428 mcg/dL Percent Iron Saturation 9 15-50 % Unsaturated Iron Binding 349 IRON PROFILE Reviewed date:05/27/2024 12:25:49 PM Interpretation: Performing Lab:[facility], [address] [place] [phone] Notes/Report: Iron 44 30-160 mcg/dL Total Iron Binding Capacity 308 228-428 mcg/dL Percent Iron Saturation 14 15-50 % Unsaturated Iron Binding 264 Free T4 (Free Thyroxine) Reviewed date:08/09/2024 04:50:18 PM Interpretation: Performing Lab:[facility], [address] [place] [phone] Notes/Report: Free T4 (Free Thyroxine) 1.12 0.71-1.85 ng/dL Zach Benjamin Reviewed date:08/09/2024 12:42:40 PM Interpretation: Performing Lab:[facility], [address] [place] [phone] Notes/Report: Zach Alexander See Note Specimen held untested for 24 hours; Call to request Chemistry testing. Urine Culture Reviewed date:08/10/2024 07:25:45 PM Interpretation: Performing Lab:[facility], [address] [place] [phone] Notes/Report: Urine Culture Report Result Urine Culture 10,000 to 50,000 cfu/ml Urine Culture Mixed bacterial nathalie a characteristic of Urine Culture urogenital contamination. Complete Blood Count Auto Di ff Reviewed date:08/09/2024 12:58:14 PM Interpretation: Performing Lab:[facility], [address] [place] [phone] Notes/Report: White Blood Count 11.2 4.8-10.8 X10*3/uL [...] NRBC Abs Auto 0.000 0.0-0.012 X10*3/uL Comprehensive Bradley. Panel Fa st Reviewed date:08/09/2024 04:50:41 PM Interpretation: Performing Lab:[facility], [address] [place] [phone] Notes/Report: Sodium 139 135-145 mmol/L Potassium 4.0 [...] Panel Reviewed date:08/09/2024 04:46:55 PM Interpretation: Performing Lab:[facility], [address] [place] [phone] Notes/Report: Triglycerides 164 <150 mg/dL Desirable Triglyceride: [...] T4 Reviewed date:08/09/2024 04:48:42 PM Interpretation: Performing Lab:[facility], [address] [place] [phone] Notes/Report: TSH reflex Free T4 4.16 0.32-4.0 uIU/mL UA ClnCatch+Micro w/rflx Cul t Reviewed date:08/09/2024 01:26:11 PM Interpretation: Performing Lab:[facility], [address] [place] [phone] Notes/Report: Urine, Clean Catch Color Urine Yellow Appearance Urine Clear PH 5.5 5.0-9.0 Glucose Urine UA Negative Negative mg/dL Urine Blood Negative Negative Specific [place] - Urine 1.020 1.005-1.025 Urine Protein Trace Neg-Trace mg/dL Urine Ketones Negative Negative mg/dL Nitrite Urine Negative Negative Leukocyte Esterase Urine Small (1+) Negative RBC Urine 0-2 0-2 /HPF WBC Urine 0-5 0-5 /HPF Squamous Epithelial Cell Urine 3-5 0-2 /HPF Bacteria Urine 1+ None Seen Hyaline Casts Urine 0-2 0-2 /LPF Glucose, finger stick Reviewed date:09/15/2024 10:50:38 AM Interpretation: Performing Lab: Notes/Report: Value 154 Reason For Referral No Information Medications Medication SIG (Take, Route, Frequency, Duration) Notes Start Date End Date Status Singulair 10 MG 1 tablet Orally Once a day Active Acetaminophen 325 MG 1 capsule as needed Orally every 6 hrs Not-Taking Metoprolol Tartrate 50 MG 1.5 tablet wit h food Orally Twice a day Active Tylenol 325 MG 1 tablet as needed Orally every 4 hrs Not-Taking Eliquis 5 MG as directed Orally BID Active metFORMIN HCl 500 MG 1 tablet with a josephine l Orally twice a day 08/16/2024 Active Levothyroxine Sodium 88 MCG TAKE 1 TABLET BY MOUTH EVERY DAY IN THE MORNING ON EMPTY STOMACH for 90 Active Valsartan 320 MG TAKE 1 TABLET BY TYESHA TH EVERY DAY FOR 90 DAYS for 90 Active Venlafaxine HCl ER 150 MG TAKE 1 CAPSULE BY MOUTH EVERY DAY WITH FOOD Orally Once a day for 90 days Active Spiriva HandiHaler 18 MCG 1 capsule by i nhaling the contents of the capsule using the HandiHaler device Inhalation Once a day Active Potassium Chloride ER 20 MEQ 1 tablet with food Orally Once a day for 30 day(s) Active Taltz 80 MG/ML 1 mL Subcutaneous fo r 30 day(s) Active Clobetasol Propionate 0.05 % 1 application Externally Twice a day for 30 days Active amLODIPine Besylate 5 MG TAKE 1 TABLET B Y MOUTH EVERY DAY FOR 30 DAYS for 90 Active Bumetanide 2 MG TAKE 1 TABLET BY TYESHA TH EVERY DAY FOR 30 DAYS for 90 Active Cholecalciferol 25 MCG (1000 UT) 1 capsule Orally Once a day Active Immunizations Vaccine Route Administration Date Status Comme nts Covid Vaccine Unknown 12/12/2020 Administered [employer] SARS-COV-2 Moderna Unknown 09/02/2021 Administered Fluarix Quadrivalent Unknown 08/05/2021 Administered Covid Vaccine Unknown 12/12/2020 Administered [employer]iel [employer]iel SARS-COV-2 Moderna Unknown 09/02/2021 Administered Fluarix Quadrivalent IM Intramuscular 07/25/2022 Administe red Fluarix Quadrivalent - 150 IM Intramuscular 08/16/2024 Administered Social History Tobacco Use: Social History Observation Description Date Details (start date - stop date) Never Smoker NA - NA Tobacco Use/Smoking Question Answer Notes Patient is a nonsmoker Additional Findings: Tobacco Non-User Cu rrent non-smoker, currently using no form of tobacco Alcohol Screen Question Answer Notes Did you have a drink containing alcohol in the p ast year? No Points 0 Interpretation Negative Problems Problem Type SNOMED Code ICD Code Onset Dates Problem Status W/U Status Risk Notes Problem Atrial fibrillation (10222464) Atrial fibrillation (I48.91) Active confirmed Problem Celiac disease (455740439) Celiac disease (K90.0) Active confirmed Problem Psoriasis (5493263) Psoriasis (L40.9) Active confirmed Problem 357934999 Acquired hypothyroidism (E03.9) Active confirmed Problem Benign essential hypertension (9542852) Benign essential hypertension (I10) Active confirmed Problem Hypertrophic cardiomyopathy (506397766) Hypertrophic cardiomyopathy (I42.2) Active confirmed Problem Asthma (308071938) Asthma (J45.909) Active confirmed Problem 511937734 Controlled type 2 diabetes mellitus without complication, without long-term current use of insulin (E11.9) Active confirmed Problem 97423338 Pagophagia (F50.89) Active confirmed Problem Cardiac pacemaker in situ (282915900) History of pacemaker (Z95.0) Active confirmed Vital Signs Blood pressure diastolic 94 mm Hg 09/15/2024 jamey ght is down 3 pounds since 08-16-24 Height 63 in 09/15/2024 weight is down 3 pounds since 08-16-24 Blood pressure systolic 138 mm Hg 09/15/2024 weig ht is down 3 pounds since 08-16-24 Weight 324 lbs 09/15/2024 weight is down 3 pounds since 08-16-24 BMI 57.39 kg/m2 09/15/2024 weight is down 3 pounds since 08-16-24 Encounters Encounter Location Date Provider Diagnosis Terrence Kaur MD [address] [place] [id number] 05/27/2024 Terrence Kaur Pagophagia F50.89 Terrence Kaur MD [address] [place] [id number] 08/09/2024 Terrence Kaur Blood tests for routine general physical examination Z00.00 ; Benign essential hypertension I10 and Acquired hypothyroidism E03.9 Terrence Kaur MD [address] [place] [id number] 02/19/2024 Terrence Kaur Pagophagia F50.89 ; Celiac disease K90.0 and Esophageal dysphagia R13.19 Terrence Kaur MD [address] [place] [id number] 08/16/2024 Terrence Kaur Psoriasis L40.9 ; Encounter for general adult medical examination without abnormal findings Z00.00 ; Controlled type 2 diabetes mellitus without complication, without long-term current use of insulin E11.9 ; Celiac disease K90.0 ; Hypertrophic cardiomyopathy I42.2 and Encounter for immunization Z23 Terrence Kaur MD [address] [place] [id number] 09/15/2024 Terrence Kaur Controlled type 2 diabetes mellitus without complication, without long-term current use of insulin E11.9 Terrence Kaur MD [address] [place] [id number] 11/27/2023 Terrence Lindquister Psoriasis L40.9 Terrence Kaur MD [address] [place] [id number] 03/14/2024 Terrence Kaur MD [address] [id number] 03/14/2024 Terrence Bombardier Psoriasis L40.9 Terrence Kaur MD [address] [id number] 06/28/2024 Terrence Kaur Psoriasis L40.9 Terrence Kaur MD [address] [place] [address] [id number] 09/05/2024 Terrence Kaur Atrial fibrillation I48.91 Terrence Kaur MD Hospital [address] [id number] 09/05/2024 Terrence Kaur Assessments Encounter Date Diagnosis (ICD Code) Assessment Notes Treatment Notes Treatment Clinical Notes Section Notes 05/27/2024 Pagophagia (ICD-10 - F50.89) 08/09/2024 Blood tests for routine general physical examination (ICD-10 - Z00.00) 08/09/2024 Benign essential hypertension (ICD-10 - I10) 02/19/2024 Pagophagia (ICD-10 - F50.89) 02/19/2024 Celiac disease (ICD-10 - K90.0) was without polyps 08/16/2024 Psoriasis (ICD-10 - L40.9) needs to see dermatology/ needs to go to [facility]/ info for [facility] Derm given to patient 08/16/2024 Encounter for general adult medical examination without abnormal findings (ICD-10 - Z00.00) Labs reviewed and discussed with patient 09/15/2024 Controlled type 2 diabetes mellitus without complication, without long-term current use of insulin (ICD-10 - E11.9) stable, will contnue curent regiment and will continue to monitor 11/27/2023 Psoriasis (ICD-10 - L40.9) 03/14/2024 Psoriasis (ICD-10 - L40.9) 06/28/2024 Psoriasis (ICD-10 - L40.9) 09/05/2024 Atrial fibrillation (ICD-10 - I48.91) 08/09/2024 Acquired hypothyroidism (ICD-10 - E03.9) 02/19/2024 Esophageal dysphagia (ICD-10 - R13.19) should get the gi series and follow up with gastro 08/16/2024 Controlled type 2 diabetes mellitus without complication, without long-term current use of insulin (ICD-10 - E11.9) will check a1c. never had diabetes before and [place] 08/16/2024 Celiac disease (ICD-10 - K90.0) is careful with gluten 08/16/2024 Hypertrophic cardiomyopathy (ICD-10 - I42.2) sees dr bowman 08/16/2024 Encounter for immunization (ICD-10 - Z23) Plan Of Treatment Pending Test Test Name Order Date XR GI SERIES 08/05/2022 Next Appt Details Provider Name:Terrence Ramos ier, 11/10/2024 10:00:00 AM, [address] [place] [address], [address], [phone], Provider Name:Terrence Ramos ier, 08/15/2025 07:15:00 AM, [address] [place] [address], [address] [place] [address], [phone], Provider Name:Terrence Ramos ier, 08/22/2025 10:30:00 AM, [address] [place] [address], [address], [phone], Insurance Providers Payer Name Payer Address Payer Phone Subscriber Number Group Number Insured Name Patient Relationship to Insured Coverage Start Date Coverage End Date [facility] [address] [place], [place] [id number] [employer], Tabby Self - patient is the insured Medical (General) History Medical History History ICD Code IHSS with surgery in 2018 COLONOSCOPY 2018
== END 2024-10-25 14:41 | disposition home or self-care (01) ==
PROVIDERS: PCP Internal Medicine; Visit Provider Internal Medicine
DX: I50.32 Chronic diastolic (congestive) heart failure (principal); I42.1 Obstructive hypertrophic cardiomyopathy; Z98.890 Other specified postprocedural states; I48.0 Paroxysmal atrial fibrillation; Z95.0 Presence of cardiac pacemaker; I05.9 Rheumatic mitral valve disease, unspecified; I27.20 Pulmonary hypertension, unspecified; E66.01 Morbid (severe) obesity due to excess calories; G47.33 Obstructive sleep apnea (adult) (pediatric)
CPT/HCPCS: 93280; 99214

== ENCOUNTER → 2024-10-25 13:51 | Outpatient (BNVA) | payer BC, SELFPAY | PROVIDERS: PCP Internal Medicine; Visit Provider Internal Medicine | DX: Z45.018 Encounter for adjustment and management of other part of cardiac pacemaker (principal); I42.1 Obstructive hypertrophic cardiomyopathy; I50.32 Chronic diastolic (congestive) heart failure; I48.0 Paroxysmal atrial fibrillation; I05.9 Rheumatic mitral valve disease, unspecified; I27.20 Pulmonary hypertension, unspecified; E66.01 Morbid (severe) obesity due to excess calories; Z68.44 Body mass index [BMI] 60.0-69.9, adult; G47.33 Obstructive sleep apnea (adult) (pediatric); Z79.01 Long term (current) use of anticoagulants; Z79.899 Other long term (current) drug therapy; Z98.890 Other specified postprocedural states | CPT/HCPCS: 93280 ==

== ENCOUNTER 2025-05-02 09:30 | Emergency (ER) | payer OTHER, SELFPAY ==
--- OUTSIDE RECORDS SUMMARY | 2025-02-13 06:00 | XMS_ITS ---
Author Organization Terrence Kaur MD Address [address] [place] [phone] Care Team Providers Care Shot Blaster Name Role Phone Terrence Kaur Primary Care [...] kg/m2 02/13/2025 weight is down 6 pounds [facility] 01-27-25 Encounters Encounter Location Date Provider Diagnosis Terrence Kaur MD [address] [place] [address] [place] [phone] 02/13/2025 Terrence Kaur Hypertrophic cardiomyopathy I42.2 ; [...] Provider Name:Terrence Ramos ier, 08/15/2025 07:15:00 AM, [address] [place] [address], [address] [place] [address], [phone], Provider Name:Terrence Ramos ier, 08/22/2025 10:30:00 AM, [address] [place] [address], [place] [address], [place], [place], [phone], Progress Notes * SHARONCamieDOB:[birth year] (59 yo F)Acc No.[id number]:02/13/2025 Progress Notes Patient: Tabby POLLOCK Provider: Nnamdi Kaur MD :1965 A ge:59 Y S ex:Female Date:02/13/2025 Address:[address] [place], [place] [phone] Subjective: * Chief Complaints: * 3 month [...] 2947 ASSAY, GLUCOSE, BLOOD QUANT, Modifiers: QW [id number] GLYCATED HEMOGLOBIN TEST, Modifiers: QW * Follow Up: 2 Months * * Sign off status: Completed true * Provider: Nnamdi Kaur MD Date: 0 02/13/2025 Generated for Keren sethi/Elisa/Tequilaitting on: 0 05/02/2025 11:30 AM EDT History and Physical Notes * [...]
--- OUTSIDE RECORDS SUMMARY | 2025-03-24 04:44 | XMS_ITS ---
Author Organization Terrence Kaur MD Address 10 [facility] [address] [place] [phone] Care Team Providers Care Cloth Calender Name Role Phone Terrence Kaur Primary Care Provider [phone] REASON FOR VISIT CELLULITIS Medications Medication SIG (Take, Route, Frequency, Duration) Notes Start Date End Date Status Amoxicillin-Pot Clavulanate 875-125 MG 1 tablet Orally every 12 hrs for 14 days 01/02/2025 Active Doxycycline Hyclate 100 MG 1 capsule Ora lly twice a day for 14 days 01/02/2025 Active Encounters Encounter Location Date Provider Diagnosis Terrence Kaur MD [address] [place] [address] [place] [phone] 03/24/2025 Terrence Kaur Cellulitis L03.90 Assessments Encounter [...] Details Provider Name:Terrence green, 08/15/2025 07:15:00 AM, [address] [address], [address], [phone], Provider Name:Terrence green, 08/22/2025 10:30:00 AM, [address] [place] [address], [address], [phone], Progress Notes * Cami REYNOSOeDOB:[birth year] (59 yo F)Acc No.[id number]:03/24/2025 Patient: Tabby POLLOCK :1965 A ge:59 Y S ex:Female Address:[address] [place] [address], [place], [address] * Refills Refill Doxycycline Hyclate Capsule, 100 MG, Orally, 28 Capsule, 1 capsule, twice a day, 14 days Refill Amoxicillin-Pot Clavulanate Tablet, 875-125 MG, Orally, 28 Tablet, 1 tablet, every 12 hrs, 14 days * true * Date: Generated for Keren sethi/Elisa/Tequilaitting on: 0 05/02/2025 11:30 AM EDT
--- OUTSIDE RECORDS SUMMARY | 2025-04-18 04:45 | XMS_ITS ---
Author Organization Terrence Kaur MD Address [address] [place] [phone] Care Team Providers Care Freelance Makeup Artist Name Role Phone Terrence Kaur Primary Care Provider [phone] Allergies Allergen (clinical drug ingredient) Drug/Non Drug [...] Location Date Provider Diagnosis Terrence Kaur MD [address] [place] [address] [place] [phone] 04/18/2025 Terrence Kaur Controlled type 2 diabetes [...] Name:Terrence Ramos ier, 08/15/2025 07:15:00 AM, 10 [facility], [address], [place], [place], [phone], Provider Name:Terrence Ramos ier, 08/22/2025 10:30:00 AM, [address] [facility] [address], [address], [place], [place], [phone], Progress Notes * Cami HERRERAeDOB:[birth year] (59 yo F)Acc No.[id number]:04/18/2025 Progress Notes Patient: Tabby POLLOCK Provider: Nnamdi Kaur MD :1965 A ge:59 Y S ex:Female Date:04/18/2025 Address:[address] [place], [place] [phone] Subjective: * Chief Complaints: * 2 MO [...] Kaur MD Date: 0 04/18/2025 Generated for Keren sethi/Elisa/eTransmitting on: 0 05/02/2025 11:30 AM EDT History [...]
[2025-05-02 09:51] VITALS: BP 125/69; PULSE 70; RESP 20; TEMP 36.2; O2SAT 93; BMI 54.9
--- NOTE | 2025-05-02 10:31 | ED.EPISTAXIS ---
History of Present Illness General Chief Complaint: Epistaxis Stated Complaint: Nosebleed Time Seen by Provider: 05/02/25 10:19 Source: patient and family Mode of arrival: ambulatory Limitations: no limitations History of Present Illness ED Provider: DR. Meraz HPI Narrative: 59-year-old female PMHx paroxysmal AFib on Eliquis for anticoagulation presented with left nostril bleed since this morning, do not remember having nasal injury or trauma, AC is on in the house, never had nasal bleed in the past, no dizziness, no chest pain, no shortness of breath. Related Data Home Medications ?Medication ?Instructions ?Recorded ?Confirmed venlafaxine 150 mg 150 mg PO BEDTIME 07/30/20 10/25/24 capsule,extended release 24 hr amlodipine 5 mg tablet 5 mg PO DAILY 10/20/22 10/25/24 clobetasol 0.05 % topical cream g topical 10/20/22 10/25/24 levothyroxine 88 mcg tablet 88 mcg PO DAILY@0600 10/20/22 10/25/24 metformin 500 mg tablet 500 mg PO BID 10/25/24 10/25/24 Previous Rx's ?Medication ?Instructions ?Recorded tiotropium bromide 18 mcg capsule 1 cap inhalation DAILY #90 ea 06/23/22 with inhalation device (Spiriva with HandiHaler) bumetanide 2 mg tablet 2 mg PO DAILY #90 tabs 11/10/22 montelukast 10 mg tablet 10 mg PO DAILY #90 tabs 10/28/23 apixaban 5 mg tablet (Eliquis) 5 mg PO BID 90 days #180 tabs 06/13/24 metoprolol tartrate 50 mg tablet 75 mg (1.5 x 50 mg) PO BID #180 08/19/24 tabs potassium chloride 20 mEq 20 meq PO BEDTIME #90 tabs 02/20/25 tablet,extended release amoxicillin 500 mg-potassium 1 tab PO Q12H #7 tabs 05/02/25 clavulanate 125 mg tablet (Augmentin) Allergies Allergy/AdvReac Type Severity Reaction Status Date / Time adhesive (ADHESIVE) AdvReac Unknown RASH - Verified 05/02/25 09:52 SKIN CAME OFF WITH TAPE apremilast (Otezla) AdvReac Unknown nausea, Verified 05/02/25 09:52 vomiting Sulfa (Sulfonamide AdvReac Unknown UNKNOWN Verified 05/02/25 09:52 Antibiotics) (SULFA (SULFONAMIDE ANTIBIOTICS)) Review of Systems Review of Systems: All other systems are reviewed and are negative Constitutional: Reports as per HPI and Reports no additional constitutional complaints Eyes: Reports as per HPI and Reports no additional eye complaints Reports system reviewed and no additional complaints, except as documented Cardiovascular: Reports as per HPI and Reports no additional cardiovascular complaints Respiratory: Reports as per HPI and Reports no additional respiratory complaints Gastrointestinal: Reports as per HPI and Reports no additional gastrointestinal complaints Genitourinary: Reports no additional female genitourinary complaints Musculoskeletal: Reports no additional musculoskeletal complaints Skin/Breast: Reports system reviewed and no additional complaints, except as docu Psychiatric: Reports no additional psychiatric complaints Endocrine: Reports no additional endocrine complaints Hematologic/Lymphatic: Reports no additional hematologic/lymphatic complaints Allergic/Immunologic: Reports no additional allergic/immunologic complaints Reports system reviewed and no additional complaints, except as documented and Reports Abnormal speech present PMFSH Past Medical History Medical History Celiac disease Mitral valve disease Morbid obesity MONICA (iron deficiency anemia) Pulmonary hypertension PAF (paroxysmal atrial fibrillation) HOCM (hypertrophic obstructive cardiomyopathy) Surgical History Hx of colonoscopy History of esophagogastroduodenoscopy (EGD) Status post ventricular septal myectomy History of cardiac pacemaker (~10/2018) History of heart surgery (~10/2018) History of cardiac catheterization Family History Family History Father CVD (cardiovascular disease) Mother CVD (cardiovascular disease) Brother Diabetes CVD (cardiovascular disease) HTN (hypertension) Social History Social History Household Members: Spouse and Children Housing: House Do you presently have visiting nurse or other home services: No Alcohol intake: current Alcohol intake frequency: holidays/special occasions only Comment: social Patient Tobacco Use Status: Former Tobacco user Substance Use Type: Marijuana Advance Directives: Yes Advance Directives on File: Yes Advance Directives Date on File: 04/09/22 service: No Current occupational status: disabled Sexual orientation: Straight/Heterosexual Gender identity: Female Physical Exam Vital Signs: Vital Signs: Last Vital Signs Temp 97.2 F 05/02/25 09:51 Pulse 70 05/02/25 09:51 Resp 20 05/02/25 09:51 BP 125/69 05/02/25 09:51 Pulse Ox 93 05/02/25 09:51 O2 Del Method Room Air 05/02/25 09:51 BMI result Body Mass Index 54.9 Vital signs have been reviewed and appear to be correct. Blood pressure elevated. Heart rate normal. Respiratory rate normal. Temperature normal. Oxygen saturation normal. Appearance: Alert. Oriented X3. No acute distress. Head: Normal external exam. Normocephalic. Atraumatic. No Wood signs noted. No raccoon eyes noted Eyes: PERRLA. EOMI. Conjunctiva and sclera normal. Eyelids normal. ENT: Left nostril mild bleed, site of bleeding is unclear. TM's Normal. Pharynx normal. Uvula midline. Moist mucous membranes. No trismus noted. No drooling noted. No muffled voice noted. Neck: Normal inspection. Neck supple. FROM. No adenopathy. Thyroid Normal. No meningeal signs. No neck mass noted. CVS: Normal heart rate and rhythm. Heart sound normal. No murmurs noted. Pulses normal throughout. Respiratory: No respiratory distress. Painless inspiration. Breath sounds normal. No wheezes/rales/rhonchi noted. Chest nontender. No accessory muscle usage noted or decreased air movement noted. Abdomen: Soft and nontender. Bowel sounds normal in all 4 quadrants. No distention noted. No organomegaly noted. No visible injury noted. Back: No CVA tenderness. Full range of motion noted. Skin: Skin warm and dry. Normal skin color. Normal skin turgor. No rashes/lesions/lacerations noted. Extremities: No lower extremity edema. Extremities exhibit normal range of motion. Extremities nontender. Neuro: Oriented X 3. Cranial nerve exam: II-XII are grossly intact No motor deficit. No sensory deficit. Reflexes normal. Course Reevaluation(s) Reevaluation #1: Patient require anterior packing to the left nostril controlling her bleeding, patient was observed in the ED no active bleeding, stable CBC H&H. Instructed to hold the next 2 doses of her Eliquis then resume to normal after 2 doses. Time: 15:54 Medications Administered Discontinued Medications Generic Name Dose Route Start Last Admin Trade Name Moreno PRN Reason Stop Dose Admin Acetaminophen 975 mg 05/02/25 13:19 05/02/25 13:22 Acetaminophen 325 Mg Tablet PO 05/02/25 13:20 975 mg ONCE ONE Administration Amoxicillin/Clavulanate Potassium 875 mg 05/02/25 15:39 05/02/25 15:45 Amoxicillin/Potassium Clav 875 Mg Tablet PO 05/02/25 15:40 875 mg ONCE ONE Administration Ondansetron HCl 4 mg 05/02/25 13:21 05/02/25 13:22 Ondansetron Odt 4 Mg Tab.Rapdis TRANSLINGU 05/02/25 13:22 4 mg ONCE ONE Administration Medical Decision Making Differential Diagnosis Differential Diagnoses: The differential diagnosis associated with the presentation includes (Epistaxis, hypercoagulable, severe anemia, electrolyte derangement, prophylactic antibiotic for prophylactic acute sinusitis.) Admission/Observation Consideration of admission/observation: Escalation of care including admission/observation considered Lab Data MDM Lab Attestation statement: I reviewed the patient's lab results. 05/02/25 11:17 05/02/25 11:17 Labs: Lab Results 05/02/25 Range/Units 11:17 WBC 9.9 (4.8-10.8) X10*3/uL RBC 4.53 (4.20-5.50) X10*6/uL Hgb 13.6 (12.0-16.0) g/dl Hct 41.6 (37.0-47.0) % MCV 91.8 (80.0-98.0) fL MCH 30.0 (27.0-33.0) pg MCHC 32.7 (31.0-35.0) g/dl RDW 15.4 (11.0-16.0) % Plt Count 253 (160-400) X10*3/uL MPV 9.7 (9.4-12.3) fL Immature Gran % (Auto) 0.6 H (0.0-0.4) % Neut % (Auto) 72.7 (45-73) % Lymph % (Auto) 16.4 L (20-40) % Guthrie % (Auto) 6.0 (2-11) % Eos % (Auto) 3.5 (0-4) % Baso % (Auto) 0.8 (0-2) % Lymph # (Auto) 1.6 (1.2-4.9) X10*3/uL Guthrie # (Auto) 0.6 (0.1-1.2) X10*3/uL Eos # (Auto) 0.4 (0.0-0.4) X10*3/uL Baso # (Auto) 0.1 (0.0-0.2) X10*3/uL Abs Immat Gran (auto) 0.06 H (0.00-0.03) X10*3/uL Absolute Neuts (auto) 7.2 (2.0-8.3) x10*3/uL Absolute Nucleated RBC 0.000 (0.0-0.012) X10*3/uL Nucleated RBC % (auto) 0.0 (0.0-0.2) /100WBC PT 13.9 H (10.9-12.4) SEC INR 1.2 H (0.9-1.1) Sodium 141 (135-145) mmol/L Potassium 4.0 (3.3-5.1) mmol/L Chloride 102 (96-108) mmol/L Carbon Dioxide 31 H (22-29) mmol/L Anion Gap 12 (12-20) BUN 11 (9-16) mg/dL Creatinine 0.74 (0.5-1.4) mg/dL Estim Creat Clear Calc 111.9 Estimated GFR > 60 Random Glucose 126 H (60-115) mg/dL Calcium 9.3 (8.4-10.2) mg/dL Total Bilirubin 0.5 (0.0-1.0) mg/dL Direct Bilirubin 0.2 (0.0-0.5) mg/dL AST 43 H (5-31) U/L ALT 27 (0-31) U/L Alkaline Phosphatase 75 (39-117) U/L Troponin I High Sens 5.4 (<3.5-17.0) ng/L Total Protein 7.7 (6.5-8.0) g/dL Albumin 4.1 (3.5-5.0) g/dL Lipase 16 (8-78) U/L Discharge Plan Discharge Clinical Impression: Acute anterior epistaxis Patient Disposition: Home, Self-Care Instructions: Nosebleed (ED) Additional Instructions: Take the antibiotic as prescribed. Hold your next 2 Eliquis dosees (tonight dose and tomorrow morning dose) then resume back to normal. Return to the ED on May 04 to remove a the left nostril packing. Seek immediate medical attention if the bleeding is worse. Prescriptions: New amoxicillin-pot clavulanate [Augmentin] 500-125 mg tablet 1 tab PO Q12H Qty: 7 0RF No Action Spiriva with HandiHaler 18 mcg capsule, w/inhalation device 1 cap inhalation DAILY Qty: 90 2RF bumetanide 2 mg tablet 2 mg PO DAILY Qty: 90 3RF montelukast 10 mg tablet 10 mg PO DAILY Qty: 90 3RF Eliquis 5 mg tablet 5 mg PO BID 90 Days Qty: 180 3RF metoprolol tartrate 50 mg tablet 75 mg PO BID Qty: 180 3RF potassium chloride 20 mEq tablet extended release 20 meq PO BEDTIME Qty: 90 3RF levothyroxine 88 mcg tablet 88 mcg PO DAILY@0600 venlafaxine 150 mg capsule,extended release 24hr 150 mg PO BEDTIME amlodipine 5 mg tablet 5 mg PO DAILY clobetasol 0.05 % cream topical metformin 500 mg tablet 500 mg PO BID Referrals: Terrence Kaur MD [Primary Care Provider, Medical] Print Language: Khmer
[2025-05-02 11:22] LABS: MANUAL DIFF FLAG NO
[2025-05-02 11:25] LABS: Hematocrit 41.6 % (37.0-47.0); Hemoglobin 13.6 g/dl (12.0-16.0); Imm Gran Abs Auto 0.06 X10*3/uL (0.00-0.03); Imm Gran Pct Auto 0.6 % (0.0-0.4); Lymphocytes Absolute Auto 1.6 X10*3/uL (1.2-4.9); Mean Corpuscular HGB Conc 32.7 g/dl (31.0-35.0); Mean Corpuscular Hemoglobin 30.0 pg (27.0-33.0); Mean Corpuscular Volume 91.8 fL (80.0-98.0); NRBC Abs Auto 0.000 X10*3/uL (0.0-0.012); NRBC Pct Auto 0.0 /100WBC (0.0-0.2); Platelet Count 253 X10*3/uL (160-400); Red Blood Count 4.53 X10*6/uL (4.20-5.50); White Blood Count 9.9 X10*3/uL (4.8-10.8)
--- OUTSIDE RECORDS SUMMARY | 2025-05-02 11:29 | XMS_ITS | Encounter Summary ---
Author Organization [facility] Address [address] [place] [address] Phone Care Team Providers Care Social Worker Masters Name Role Phone Antonette Kumar DO Primary Car e Provider Encounter Details Date Type Department Care Team (Late st Contact Info) Description 02/03/2018 Procedure Pass [facility] [place] [facility] [address] [facility], [address] [place] [address] Social History Tobacco Use Types Packs/Day Years Used Date Smoking Tobacco: Never Assessed Comments Unknown Sex and Gender Information Value Date Recorded Sex Assigned at Not on file Legal Sex Female 11:22 AM EDT Gender Identity Not on file Sexual Orientation Not on file documented as of this encounter Plan of Treatment Not on file documented as of this encounter Visit Diagnoses Not on filedocumented in this encounter Care Teams Social Worker Masters Relationship Specialty Start Date End Date Antonette Kumar DO [address] [place], [place] [id number] PCP - General Internal Medicine 11/30/17 documented as of this encounter Additional Source Comments The information contained in this document represents components of the legal health record. It is not the complete legal health record.[facility]
[2025-05-02 11:30] LABS: INTERNATIONAL NORM RATIO 1.2 (0.9-1.1); Prothrombin Time 13.9 SEC (10.9-12.4)
--- OUTSIDE RECORDS SUMMARY | 2025-05-02 11:30 | XMS_ITS ---
Author Name [facility] Organization Unknown Care Team Organization Name Specialty Phone Email Start Date End Da te [facility] Termed, PROVIDER Primary Care 09/15/202204/07 [facility] Jenny Plasencia Primary Care 07/15/202204/07
--- OUTSIDE RECORDS SUMMARY | 2025-05-02 11:30 | XMS_ITS | Clinical Summary ---
Author Organization [facility] Address [address] [place] [address] [place] [phone] Phone Care Team Providers Care Associate Director Finance Name Role Phone Antonette Kumar DO Primary Car e Provider Allergies Active Allergy Reactions Criticality Noted Date Comments Adhesive Tape-Silicones 12/15/2017 Sulfa (Sulfonamide Antibiotics) 12/06 Medications dilTIAZem (DILACOR XR) 120 MG 24 hr capsule Take 120 mg by mouth daily. Active metoprolol succinate (TOPROL-XL) 200 MG 24 hr tablet Take 200 mg by mouth daily. Active apixaban (ELIQUIS) 5 mg tablet Take 5 mg by mouth 2 (two) times a day. Active cetirizine (ZYRTEC) 10 mg Cap Take 10 mg by mouth daily. Active levothyroxine (SYNTHROID, LEVOTHROID) 75 MCG tablet Take 75 mcg by mouth every morning. Active clonazePAM (KLONOPIN) 0.5 MG tablet Take 0.5 mg by mouth 2 (two) times a day as needed for anxiety. Active venlafaxine (EFFEXOR) 75 MG tablet Take 75 mg by mouth daily. Active albuterol 90 mcg/actuation inhaler Inhale 2 puffs into the lungs every 6 (six) hours as needed for wheezing. Active bumetanide (BUMEX) 2 MG tablet Take 2 mg by mouth 2 (two) times a day. Active Social History Tobacco Use Types Packs/Day Years Used Date Smoking Tobacco: Never Assessed Education Answer Date Recorded Are you interested in more education? Not on nena e 01/02/2023 Are you concerned about learning? Not on file 01/02/2023 No 01/02/2023 No 01/02/2023 Digital Access Answer Date Recorded No 01/31/2023 No 01/31/2023 No 01/31/2023 Reliable internet access at home? Not on file 01/31/2023 Device with a working camera? Not on file Comments Unknown Sex and Gender Information Value Date Recorded Sex Assigned at Not on file Legal Sex Female 11:22 AM EDT Gender Identity Not on file Sexual Orientation Not on file Last Filed Vital Signs Vital Sign Reading Time Taken Comments Blood Pressure 138/90 12/15/2017 2:59 PM EDT Pulse 61 02/03/2018 1:08 PM EDT Temperature - - Respiratory Rate 16 02/03/2018 1:04 PM EDT Oxygen Saturation 88% 02/03/2018 1:08 PM EDT Inhaled Oxygen Concentration - - Weight 124.7 kg (275 lb) 12/15/2017 2:59 PM EDT Height 160 cm (5' 3 ) 12/15/2017 2:59 PM EDT Body Mass Index 48.71 12/15/2017 2:59 PM EDT Plan of Treatment Health Maintenance Due Date Last Done Comments CREATININE LEVEL 1967 LIPID PANEL 1967 TSH LEVEL 1967 DEPRESSION SCREENING 1979 SMOKING Hx and SMOKELESS TOB ACCO SCREENING 11/08/1980 HEPATITIS C SCREENING 11/08/1985 HIV ONE-TIME SCREENING (18-6 5 YEARS) 11/08/1985 PAP SMEAR 11/08/1988 MAMMOGRAM 2007 COLOGUARD 11/08/2012 COLONOSCOPY 11/08/2012 COLORECTAL CANCER SCREENING 11/08/2012 FIT TEST 11/08/2012 FOBT 11/08/2012 SIGMOIDOSCOPY 11/08/2012 VIRTUAL COLONOSCOPY 11/08/2012 PNEUMOCOCCAL VACCINES (50+ y ears) (2 of 2 - PCV) 11/08/2017 08/21/2016 ZOSTER VACCINES (1 of 2) 11/08/2017 Adult Td,Tdap Booster 12/23/2023 12/22/2013 COVID-19 VACCINE (2 - 2023-2 5 season) 2024 12/12/2020 HEPATITIS A VACCINES Aged Out No long er eligible based on patient's age to complete this topic HIB VACCINES Aged Out No longer eligi ble based on patient's age to complete this topic MENINGOCOCCAL VACCINES (ACWY) Aged Out No longer eligible based on patient's age to complete this topic MENINGOCOCCAL VACCINES (B) Aged Out N o longer eligible based on patient's age to complete this topic Medical Devices Not on file Insurance [address] [place], [place] [id number] [place] [address] HMO POS [address] [place] [facility] HMO POS [facility] HMO POS [address] [place] [facility] HMO POS [address] [place] [facility] POS [address] [place] [place] [facility] [address] [place] [place] [facility] [place] [address] [place] [address] HMO POS [facility] HMO POS Care Teams Associate Director Finance Relationship Specialty Start Date End Date Antonette Kumar DO [address] [place] [id number] PCP - General Internal Medicine 11/30/17 Additional Source Comments The information contained in this document represents components of the legal health record. It is not the complete legal health record.[facility]
--- OUTSIDE RECORDS SUMMARY | 2025-05-02 11:30 | XMS_ITS | Patient Health Record ---
Author Organization Terrence Kaur MD Address [address] [place], [place] [id number] Care Team Providers Care Economic Analyst Name Role Phone Terrence Kaur Primary Care Provider Allergies Allergen (clinical drug ingredient) Drug/Non Drug Allergy documented on EMR Reaction Allergy Type Onset Date Status Substance with sulfonamide structure and antibacterial mechanism of action (substance) Sulfa Antibiotics ? Drug Allergy Active Results Component Value Reference Range Notes Hemoglobin A1c Reviewed date:08/16/2024 11:08:42 AM Interpretation: Performing Lab: Notes/Report: Hemoglobin A1c 9.2 Hemoglobin A1c Reviewed date:11/10/2024 10:19:52 AM Interpretation: Performing Lab: Notes/Report: Hemoglobin A1c 6.8 Hemoglobin A1c Reviewed date:02/13/2025 10:14:57 AM Interpretation: Performing Lab: Notes/Report: Hemoglobin A1c 6.5 IRON PROFILE Reviewed date:05/27/2024 12:25:49 PM Interpretation: Performing Lab:[facility], [address] [place] [phone] Notes/Report: Iron 44 30-160 mcg/dL Total Iron Binding Capacity 308 228-428 mcg/dL Percent Iron Saturation 14 15-50 % Unsaturated Iron Binding 264 Free T4 (Free Thyroxine) Reviewed date:08/09/2024 04:50:18 PM Interpretation: Performing Lab:[facility], [address] [place] [phone] Notes/Report: Free T4 (Free Thyroxine) 1.12 0.71-1.85 ng/dL Zach Alexander Reviewed date:08/09/2024 12:42:40 PM Interpretation: Performing Lab:[facility], [address] [place] [phone] Notes/Report: Hold Gold See Note Specimen held untested for 24 hours; Call to request Chemistry testing. Urine Culture Reviewed date:08/10/2024 07:25:45 PM Interpretation: Performing Lab:[facility], [address] [place] [phone] Notes/Report: Urine Culture Report Result Urine Culture 10,000 to 50,000 cfu/ml Urine Culture Mixed bacterial nathalie a characteristic of Urine Culture urogenital contamination. Complete Blood Count Auto Di ff Reviewed date:08/09/2024 12:58:14 PM Interpretation: Performing Lab:[facility], [address] [place] [phone] Notes/Report: White Blood Count 11.2 4.8-10.8 X10*3/uL [...] NRBC Abs Auto 0.000 0.0-0.012 X10*3/uL Comprehensive Warren. Panel Fa Reviewed date:08/09/2024 04:50:41 PM Interpretation: Performing Lab:[facility], [address] [place] [phone] Notes/Report: Sodium 139 135-145 mmol/L Potassium 4.0 [...] Panel Reviewed date:08/09/2024 04:46:55 PM Interpretation: Performing Lab:[facility], [address] [place] [phone] Notes/Report: Triglycerides 164 <150 mg/dL Desirable Triglyceride: [...] T4 Reviewed date:08/09/2024 04:48:42 PM Interpretation: Performing Lab:[facility], [address] [place] [phone] Notes/Report: TSH reflex Free T4 4.16 0.32-4.0 uIU/mL UA ClnCatch+Micro w/rflx Cul t Reviewed date:08/09/2024 01:26:11 PM Interpretation: Performing Lab:[facility], [address] [place] [phone] Notes/Report: Urine, Clean Catch Color Urine Yellow Appearance Urine Clear PH 5.5 5.0-9.0 Glucose Urine UA Negative Negative mg/dL Urine Blood Negative Negative Specific Strawn - Urine 1.020 1.005-1.025 Urine Protein Trace [...] AM Interpretation: Performing Lab: Notes/Report: Value 154 Glucose, finger stick Reviewed date:11/10/2024 10:13:45 AM Interpretation: Performing Lab: Notes/Report: Value 133 Glucose, finger stick Reviewed date:02/13/2025 10:09:07 AM Interpretation: Performing Lab: Notes/Report: Value 121 Glucose, finger stick Reviewed date:04/18/2025 08:44:53 AM Interpretation: Performing Lab: Notes/Report: Value 147 Complete Blood Count Auto Di ff (Not yet reviewed by provider) Interpretation: Performing Lab:[facility], [address] [place] [phone] Notes/Report: White Blood Count 9.9 4.8-10.8 X10*3/uL Red Blood Count 4.53 4.20-5.50 X10*6/uL Hemoglobin 13.6 12.0-16.0 g/dl Hematocrit 41.6 37.0-47.0 % Mean Corpuscular Volume 91.8 80.0-98.0 fL Mean Corpuscular Hemoglobin 30.0 27.0-33.0 pg Mean Corpuscular HGB Conc 32.7 31.0-35.0 g/dl Red Cell Distribution Width 15.4 11.0-16.0 % Platelet Count 253 160-400 X10*3/uL Mean Platelet Volume 9.7 9.4-12.3 fL Neutrophils Percent Auto 72.7 45-73 % Imm Gran Pct Auto 0.6 0.0-0.4 % Lymphocytes Percent Auto 16.4 20-40 % Monocytes Percent Auto 6.0 2-11 % Eosinophils Percent Auto 3.5 0-4 % Basophils Percent Auto 0.8 0-2 % NRBC Pct Auto 0.0 0.0-0.2 /100WBC Neutrophils Absolute Auto 7.2 2.0-8.3 x10*3/u L Imm Gran Abs Auto 0.06 0.00-0.03 X10*3/uL Lymphocytes Absolute Auto 1.6 1.2-4.9 X10*3/u L Monocytes Absolute Auto 0.6 0.1-1.2 X10*3/uL Eosinophils Absolute Auto 0.4 0.0-0.4 X10*3/u L Basophils Absolute Auto 0.1 0.0-0.2 X10*3/uL NRBC Abs Auto 0.000 0.0-0.012 X10*3/uL Reason For Referral No Information Medications Medication SIG (Take, Route, Frequency, Duration) Notes Start Date End Date Status Venlafaxine HCl ER 150 MG TAKE 1 CAPSULE BY MOUTH EVERY DAY WITH FOOD Orally Once a day for 90 days Active Bumetanide 2 MG TAKE 1 TABLET BY TYESHA TH EVERY DAY FOR 30 DAYS for 90 Active Amoxicillin-Pot Clavulanate 875-125 MG 1 tablet Orally every 12 hrs for 14 days 01/02/2025 Active amLODIPine Besylate 5 MG TAKE 1 TABLET B Y MOUTH EVERY DAY FOR 30 DAYS Active Potassium Chloride ER 20 MEQ 1 tablet with food Orally Once a day for 30 day(s) Active metFORMIN HCl 500 MG TAKE 1 TABLET BY MO UTH TWICE A DAY WITH A MEAL FOR 30 DAYS Active Metoprolol Tartrate 50 MG 1.5 tablet wit h food Orally Twice a day Active Bimzelx 320 MG/2ML 2 mL Subcutaneous Active Doxycycline Hyclate 100 MG 1 capsule Ora lly twice a day for 14 days 01/02/2025 Active Valsartan 320 MG TAKE 1 TABLET BY TYESHA TH EVERY DAY FOR 90 DAYS Active Cholecalciferol 25 MCG (1000 UT) 1 capsule Orally Once a day Active Eliquis 5 MG as directed Orally BID Active Singulair 10 MG 1 tablet Orally Once a day Active Spiriva HandiHaler 18 MCG 1 capsule by i nhaling the contents of the capsule using the HandiHaler device Inhalation Once a day Active Clobetasol Propionate 0.05 % 1 application Externally Twice a day for 30 days Active Levothyroxine Sodium 88 MCG TAKE 1 TABLET BY MOUTH EVERY DAY IN THE MORNING ON EMPTY STOMACH for 90 Active Acetaminophen 325 MG 1 capsule as needed Orally every 6 hrs Not-Taking Tylenol 325 MG 1 tablet as needed Orally every 4 hrs Not-Taking Immunizations Vaccine Route Administration Date Status Comme [...] W/U Status Risk Notes Problem Atrial fibrillation (11790189) Atrial fibrillation (I48.91) Active confirmed Problem Celiac disease (061134278) Celiac disease (K90.0) Active confirmed Problem Psoriasis (7684962) Psoriasis (L40.9) Active confirmed Problem 025691199 Acquired hypothyroidism (E03.9) Active confirmed Problem Benign essential hypertension (4032568) Benign essential hypertension (I10) Active confirmed Problem Hypertrophic cardiomyopathy (411747200) Hypertrophic cardiomyopathy (I42.2) Active confirmed Problem Asthma (042028031) Asthma (J45.909) Active confirmed Problem 427137023 Controlled type 2 diabetes mellitus without complication, without long-term current use of insulin (E11.9) Active confirmed Problem 56821580 Pagophagia (F50.89) Active confirmed Problem Cardiac pacemaker in situ (248576909) History of pacemaker (Z95.0) Active confirmed Vital Signs Blood pressure diastolic 94 mm Hg 04/18/2025 Height 63 in 04/18/2025 Blood pressure systolic 148 mm Hg 04/18/2025 Weight 321 lbs 04/18/2025 BMI 56.86 kg/m2 04/18/2025 Encounters Encounter Location Date Provider Diagnosis Terrence Kaur MD [address] [place] [id number] 05/27/2024 Terrence Kaur Pagophagia F50.89 Terrence Kaur MD [address] [place] [address] [id number] 08/09/2024 Terrence Kaur Blood tests for routine general physical examination Z00.00 ; Benign essential hypertension I10 and Acquired hypothyroidism E03.9 Terrence Kaur MD [address] [place] [address] [id number] 08/16/2024 Terernce Kaur Psoriasis L40.9 ; Encounter for general adult medical examination without abnormal findings Z00.00 ; Controlled type 2 diabetes mellitus without complication, without long-term current use of insulin E11.9 ; Celiac disease K90.0 ; Hypertrophic cardiomyopathy I42.2 and Encounter for immunization Z23 Terrence Kaur MD [address] [place] [address] [id number] 09/15/2024 Terrence Kaur Controlled type 2 diabetes mellitus without complication, without long-term current use of insulin E11.9 Terrence Kaur MD [address] [place] [id number] 11/10/2024 Terrence Kaur Controlled type 2 diabetes mellitus without complication, without long-term current use of insulin E11.9 and Celiac disease K90.0 Terrence Kaur MD [address] [place] [id number] 01/02/2025 Terrence Bombardier Cellulitis L03.90 ; Psoriasis L40.9 and Controlled type 2 diabetes mellitus without complication, without long-term current use of insulin E11.9 Terrence Kaur MD [address] [place] [id number] 01/27/2025 Terrence Bombardier Cellulitis L03.90 an d Psoriasis L40.9 Terrence Kaur MD [address] [place] [id number] 02/13/2025 Terrence Kaur Hypertrophic cardiomyopathy I42.2 ; Benign essential hypertension I10 and Controlled type 2 diabetes mellitus without complication, without long-term current use of insulin E11.9 Terrence Kaur MD [address] [place] [id number] 04/18/2025 Terrence Kaur Controlled type 2 diabetes mellitus without complication, without long-term current use of insulin E11.9 ; Hypertrophic cardiomyopathy I42.2 ; Benign essential hypertension I10 and Asthma J45.909 Terrence Kaur MD [address] [place] [id number] 03/24/2025 Terrence Bombardier Cellulitis L03.90 Terrence Kaur MD [address] [place] [id number] 06/28/2024 Terrence Thomasardier Psoriasis L40.9 Terrence Kaur MD [address] [place] [address] [id number] 09/05/2024 Terrence Bombardier Atrial fibrillation I48.91 Terrence Kaur MD [address] [place] [address] [id number] 09/05/2024 Terrence Kaur MD [address] [place] [address] [id number] 10/31/2024 Terrence Bombardier Psoriasis L40.9 Terrence Kaur MD [address] [place] [id number] 11/16/2024 Terrence Bombardier Asthma J45.909 Terrence Kaur MD [address] [place] [address] [id number] 12/09/2024 Terrence Bombardier Atrial fibrillation I48.91 and Psoriasis L40.9 Assessments Encounter Date Diagnosis (ICD Code) Assessment Notes Treatment Notes Treatment Clinical Notes Section Notes 05/27/2024 Pagophagia (ICD-10 - F50.89) 08/09/2024 Blood tests for routine general physical examination (ICD-10 - Z00.00) 08/09/2024 Benign essential hypertension (ICD-10 - I10) 08/16/2024 Psoriasis (ICD-10 - L40.9) needs to see dermatology/ needs to go to [place]/ info for [facility] given to patient 08/16/2024 Encounter for general adult medical examination without abnormal findings (ICD-10 - Z00.00) Labs reviewed and discussed with patient 09/15/2024 Controlled type 2 diabetes mellitus without complication, without long-term current use of insulin (ICD-10 - E11.9) stable, will contnue curent regiment and will continue to monitor 11/10/2024 Controlled type 2 diabetes mellitus without complication, without long-term current use of insulin (ICD-10 - E11.9) doing much better. watching diet. 01/02/2025 Cellulitis (ICD-10 - L03.90) although not usually used together she is intolerant of sulfa and has beeen successfully treated with this in the past, patient verbalized understanding of medication and directions for use 01/27/2025 Cellulitis (ICD-10 - L03.90) patient verbalized understnading to continuemedication as prescribed 02/13/2025 Hypertrophic cardiomyopathy (ICD-10 - I42.2) patient not able to do jury duty due to chronic chf and shortness of breath/ letter given to patient and signed copy scanned in chart. 04/18/2025 Controlled type 2 diabetes mellitus without complication, without long-term current use of insulin (ICD-10 - E11.9) 04/18/2025 Hypertrophic cardiomyopathy (ICD-10 - I42.2) followed by cardiology 03/24/2025 Cellulitis (ICD-10 - L03.90) 06/28/2024 Psoriasis (ICD-10 - L40.9) 09/05/2024 Atrial fibrillation (ICD-10 - I48.91) 10/31/2024 Psoriasis (ICD-10 - L40.9) 11/16/2024 Asthma (ICD-10 - J45.909) 12/09/2024 Atrial fibrillation (ICD-10 - I48.91) 08/09/2024 Acquired hypothyroidism (ICD-10 - E03.9) 08/16/2024 Controlled type 2 diabetes mellitus without complication, without long-term current use of insulin (ICD-10 - E11.9) will check a1c. never had diabetes before and [place] been [place] 11/10/2024 Celiac disease (ICD-10 - K90.0) well controlled on diet 01/02/2025 Psoriasis (ICD-10 - L40.9) going to derm in 2 weeks 01/27/2025 Psoriasis (ICD-10 - L40.9) is improving/ hopefully with the infection 02/13/2025 Benign essential hypertension (ICD-10 - I10) is running high today will recheck in 2 months, continue curretn regiment 04/18/2025 Benign essential hypertension (ICD-10 - I10) running a little high 12/09/2024 Psoriasis (ICD-10 - L40.9) 08/16/2024 Celiac disease (ICD-10 - K90.0) is careful with gluten 01/02/2025 Controlled type 2 diabetes mellitus without complication, without long-term current use of insulin (ICD-10 - E11.9) stable, will continue current regiment 02/13/2025 Controlled type 2 diabetes mellitus without complication, without long-term current use of insulin (ICD-10 - E11.9) stable, will continue current regiment 04/18/2025 Asthma (ICD-10 - J45.909) was followed by dr portillo 08/16/2024 Hypertrophic cardiomyopathy (ICD-10 - I42.2) sees dr bowman 08/16/2024 Encounter for immunization (ICD-10 - Z23) Plan Of Treatment Pending Test Test Name Order Date XR GI SERIES 08/05/2022 Complete Blood Count Auto Diff Next Appt Details Provider Name:Terrence green, 08/15/2025 07:15:00 AM, [address] [place] [address], [address] [place] [address], [id number], Provider Name:Terrence green, 08/22/2025 10:30:00 AM, [address], [address], [place], [place], [phone], Insurance Providers Payer Name Payer Address Payer Phone Subscriber Number Group Number Insured Name Patient Relationship to Insured Coverage Start Date Coverage End Date [facility] [id number] [place], [place] [id number] Tabby Cifuentes Self - patient is the insured Medical (General) History Medical History History ICD Code IHSS with surgery in 2018 COLONOSCOPY 2018 bimzelx is new psoriasis med
[2025-05-02 11:46] LABS: Alanine Aminotransferase 27 U/L (0-31); Albumin Level 4.1 g/dL (3.5-5.0); Alkaline Phosphatase 75 U/L (39-117); Anion Gap 12 (12-20); Aspartate Amino Transferase 43 U/L (5-31); Blood Urea Nitrogen 11 mg/dL (9-16); Calcium 9.3 mg/dL (8.4-10.2); Carbon Dioxide 31 mmol/L (22-29); Chloride 102 mmol/L (96-108); Creatinine Clr Calc Pharmacy 111.9; Estimated Glomerular Filt Rate > 60; Lipase 16 U/L (8-78); Potassium 4.0 mmol/L (3.3-5.1); Sodium 141 mmol/L (135-145); Total Protein 7.7 g/dL (6.5-8.0); Troponin-I High Sensitivity 5.4 ng/L (<3.5-17.0)
[2025-05-02 16:06] VITALS: BP 125/69; PULSE 70; RESP 20; TEMP 36.2; O2SAT 93
== END 2025-05-02 16:06 | disposition home or self-care (01) ==
PROVIDERS: Emergency Provider Emergency Medicine; PCP Internal Medicine
DX: R04.0 Epistaxis (principal); I10 Essential (primary) hypertension; I48.0 Paroxysmal atrial fibrillation; Z79.01 Long term (current) use of anticoagulants; Z87.891 Personal history of nicotine dependence
CPT/HCPCS: 36415; 80048; 80076; 83690; 84484; 85025; 85610; 99283

== ENCOUNTER 2025-05-04 08:54 | Emergency (ER) | payer OTHER, SELFPAY ==
--- OUTSIDE RECORDS SUMMARY | 2025-02-13 06:00 | XMS_ITS ---
Author Organization Terrence Kaur MD Address [address] [place] [phone] Care Team Providers Care Daub Color Mixer Name Role Phone Terrence Kaur Primary Care [...] kg/m2 02/13/2025 weight is down 6 pounds [facility] 01-27-25 Encounters Encounter Location Date Provider Diagnosis Terrence Kaur MD [address] [place] [address] [place] [phone] 02/13/2025 Terrence Kaur Hypertrophic cardiomyopathy I42.2 ; [...] 2 Months, Reason: Provider Name:Terrence Ramos ier, 08/15/2025 07:15:00 AM, [address] [place] [address], [address] [place] [address], [phone], Provider Name:Terrence Ramos ier, 08/22/2025 10:30:00 AM, [address] [place] [address], [place] [address], [place], [place], [phone], Progress Notes * SHARONCamieDOB:[birth year] (59 yo F)Acc No.[id number]:02/13/2025 Progress Notes Patient: Tabby POLLOCK Provider: Nnamdi Kaur MD :1965 A ge:59 Y S ex:Female Date:02/13/2025 Address:[address] [place], [place] [phone] Subjective: * Chief Complaints: * 3 month [...] 2947 ASSAY, GLUCOSE, BLOOD QUANT, Modifiers: QW 19985 GLYCATED HEMOGLOBIN TEST, Modifiers: QW * Follow Up: 2 Months * * Sign off status: Completed true * Provider: Nnamdi Kaur MD Date: 0 02/13/2025 Generated for Keren sethi/Elisa/Tequilaitting on: 0 05/04/2025 11:32 AM EDT History and Physical Notes * HPI (History [...]
--- OUTSIDE RECORDS SUMMARY | 2025-03-24 04:44 | XMS_ITS ---
Author Organization Terrence Kaur MD Address 10 [facility] [address] [place] [phone] Care Team Providers Care Ornamental Iron Worker Name Role Phone Terrence Kaur Primary Care [...] Location Date Provider Diagnosis Terrence Kaur MD [address] [place] [address] [place] [phone] 03/24/2025 Terrence Kaur Cellulitis L03.90 Assessments Encounter [...] Details Provider Name:Terrence green, 08/15/2025 07:15:00 AM, [address] [place] [address], [address], [phone], Provider Name:Terrence green, 08/22/2025 10:30:00 AM, [address] [place] [address], [address], [phone], Progress Notes * Cami REYNOSOeDOB:[birth year] (59 yo F)Acc No.[id number]:03/24/2025 Patient: Tabby POLLOCK :1965 A ge:59 Y S ex:Female Address:[address] [place] [address], [place], [address] * Refills Refill Doxycycline Hyclate Capsule, 100 MG, Orally, 28 Capsule, 1 capsule, twice a day, 14 days Refill Amoxicillin-Pot Clavulanate Tablet, 875-125 MG, Orally, 28 Tablet, 1 tablet, every 12 hrs, 14 days * true * Date: Generated for Keren sethi/Elisa/Tequilaitting on: 0 05/04/2025 11:32 AM EDT
--- OUTSIDE RECORDS SUMMARY | 2025-04-18 04:45 | XMS_ITS ---
Author Organization Terrence Kaur MD Address [address] [place] [phone] Care Team Providers Care Mains And Service Supervisor Name Role Phone Terrence Kaur Primary Care Provider [phone] Allergies Allergen (clinical drug ingredient) Drug/Non Drug [...] Location Date Provider Diagnosis Terrence Kaur MD [address] [place] [address] [place] [phone] 04/18/2025 Terrence Kaur Controlled type 2 diabetes [...] Name:Terrence Ramos ier, 08/15/2025 07:15:00 AM, 10 [facility], [address], [place], [place], [phone], Provider Name:Terrence Ramos ier, 08/22/2025 10:30:00 AM, [address] [facility] [address], [address], [place], [place], [phone], Progress Notes * Cami HERRERAeDOB:[birth year] (59 yo F)Acc No.[id number]:04/18/2025 Progress Notes Patient: Tabby POLLOCK Provider: Nnamdi Kaur MD :1965 A ge:59 Y S ex:Female Date:04/18/2025 Address:[address] [place], [place] [phone] Subjective: * Chief Complaints: * 2 MO [...] 04/18/2025 Generated for Keren sethi/Elisa/eTransmitting on: 0 05/04/2025 11:32 AM EDT History [...]
[2025-05-04 09:26] VITALS: BP 131/67; PULSE 70; RESP 18; TEMP 35.9; O2SAT 95; BMI 53.1
--- NOTE | 2025-05-04 09:26 | ED_ITS ---
History of Present Illness General Chief Complaint: Epistaxis Stated Complaint: Tube removal from nose Time Seen by Provider: 05/04/25 10:56 Source: patient, RN notes reviewed and old records reviewed Mode of arrival: ambulatory Limitations: no limitations History of Present Illness ED Provider: Steven BOOGIE Narrative: 59-year-old female with past medical history significant for chronic heart failure, mitral valve disease, atrial fibrillation on Eliquis, hypertrophic cardiomyopathy presents for evaluation of nasal packing removal. The patient was seen here 2 days ago for a spontaneous bleed in the left nostril. She ultimately had a rapid rhino inserted for nasal packing to control the bleeding. The patient reports that that night on 05/02/2025 she had some bleeding from around the packing in yesterday she had some additional bleeding from the right nostril Today she reports virtually no bleeding in his here to have the packing removed She does reports some discomfort to her nose on the left side specifically She has not had any fevers or chills The patient held her Eliquis for the last 2 days but did take it this morning Related Data Home Medications ?Medication ?Instructions ?Recorded ?Confirmed venlafaxine 150 mg 150 mg PO BEDTIME 07/30/20 0 10/25/24 capsule,extended release 24 hr amlodipine 5 mg tablet 5 mg PO DAILY 10/20/2210/25 clobetasol 0.05 % topical cream g topical 10/20/22 levothyroxine 88 mcg tablet 88 mcg PO DAILY@0600 10/2010/25/24 metformin 500 mg tablet 500 mg PO BID 10/25/2410/25 Previous Rx's ?Medication ?Instructions ?Recorded tiotropium bromide 18 mcg capsule 1 cap inhalation KEELEY LY #90 ea 06/23/22 with inhalation device (Spiriva with HandiHaler) bumetanide 2 mg tablet 2 mg PO DAILY #90 tabs 11/10 montelukast 10 mg tablet 10 mg PO DAILY #90 tabs 10/09 09/30 apixaban 5 mg tablet (Eliquis) 5 mg PO BID 90 days #18 0 tabs 06/13/24 metoprolol tartrate 50 mg tablet 75 mg (1.5 x 50 mg) P O BID #180 08/19/24 tabs potassium chloride 20 mEq 20 meq PO BEDTIME #90 tabs 0 02/20/25 tablet,extended release amoxicillin 500 mg-potassium 1 tab PO Q12H #7 tabs clavulanate 125 mg tablet (Augmentin) Allergies Allergy/AdvReac Type Severity Reaction Status Date / Time adhesive (ADHESIVE) AdvReac Unknown RASH - Verified 05/04/25 09:27 SKIN CAME OFF WITH TAPE apremilast (Otezla) AdvReac Unknown nausea, Verified 05/04/25 09:27 vomiting Sulfa (Sulfonamide AdvReac Unknown UNKNOWN Verified 05/04/25 09:27 Antibiotics) (SULFA (SULFONAMIDE ANTIBIOTICS)) Review of Systems 2 Constitutional: Constitutional: Denies body ache(s), Denies chills and Denies fever(s) Eyes: Eyes: Denies blurry vision ENT: Denies vertigo, Denies dizziness, Reports epistaxis and Reports nose pain Cardiovascular: Cardiovascular: Denies chest pain and Denies dyspnea on exertion Respiratory: Respiratory: Denies cough and Denies dyspnea on exertion Gastrointestinal: Gastrointestinal: Denies abdominal pain, Denies nausea and Denies vomiting Musculoskeletal: Musculoskeletal: Denies back pain Integumentary/Breasts: Skin/Breast: Denies rash Neurologic: Denies vertigo and Denies dizziness Psychiatric: Psychiatric: Denies anxiety PMFSH Past Medical History Medical History Celiac disease Mitral valve disease Morbid obesity MONICA (iron deficiency anemia) Pulmonary hypertension PAF (paroxysmal atrial fibrillation) HOCM (hypertrophic obstructive cardiomyopathy) Surgical History Hx of colonoscopy History of esophagogastroduodenoscopy (EGD) Status post ventricular septal myectomy History of cardiac pacemaker (~10/2018) History of heart surgery (~10/2018) History of cardiac catheterization Family History Family History Father CVD (cardiovascular disease) Mother CVD (cardiovascular disease) Brother Diabetes CVD (cardiovascular disease) HTN (hypertension) Social History Social History Household Members: Spouse and Children Housing: House Do you presently have visiting nurse or other home services: No Alcohol intake: never Comment: social Patient Tobacco Use Status: Former Tobacco user Smoked in Last 30 Days: No Use of substances other than those prescribed or required for medical reasons: No Substance Use Type: Marijuana Advance Directives: Yes Advance Directives on File: Yes Advance Directives Date on File: 04/09/22 Patient : No service: No Current occupational status: disabled Sexual orientation: Straight/Heterosexual Gender identity: Female Physical Exam 2 Vital Signs: Vital Signs: Last Vital Signs Temp 97.5 F 05/04/25 12:00 Pulse 70 05/04/25 12:00 Resp 18 05/04/25 12:00 BP 135/63 05/04/25 12:00 Pulse Ox 99 05/04/25 12:00 O2 Del Method Room Air 05/04/25 12:00 BMI result Body Mass Index 53.1 Const: General: healthy appearing, comfortable, no acute distress, alert and awake Nutritional Appearance: well nourished Orientation/consciousness: p atient oriented x3 HEENT: Other: There is a rapid rhino inserted in the left nostril, there is dried blood around it. I deflated 10 cc of air from the rapid rhino and was easily able to remove this. There was a small amount of bright red blood from the left nostril after removal of packing Head: Yes normocephalic and Yes atraumatic Eyes: Eyelids: Yes eyelids normal Conjunctivae: conjunctivae normal S clerae: sclerae normal Corneas: corneas normal Pupils: Equal, round and reactive pupils present EOM: EOMs intact bilaterally Neck: Neck: Yes full ROM Resp: Effort & Inspection: normal respiratory effort, able to speak in complete sentences and not labored Skin: General skin exam: no rashes or lesions noted and elasticity normal Neuro: General: patient oriented x3 Cranial nerves: Yes Equal, round and reactive pupils present and Yes Bilaterally intact EOM present Cognition (Neuro): normal cognition Course Course Course Narrative: 59 yo female with pMH of GERD, dysphagia, CHF, PAF on eliquis, HOCM - she was seen here on 05/02/25 s/p anterior L nares packing held eliquis for two days but took it this AM. She comes in for packing removal. She did feel like she was swallowing scant bits of blood - she cannot sleep due to it. No drips anterior nose that she knows of. She is here for nasal packing. At this time given her complexity would wait for her to be taken to a room. this is a RAPID medical screening exam the rest of the history and physical exam is to be done by the main provider. LOAN 05/04/25 928am Reevaluation(s) Reevaluation #1: On re-evaluation, the patient appears to have a very slow active epistaxis. I was unable to visualize the origin of the bleed on examination. I administered a 2nd dose of oxymetazoline and will continue to hold pressure with a nasal clamp Time: 12:27 Reevaluation #2: The patient has had no further bleeding in the last 2 hours. Labs were ordered, her hemoglobin did drop from 13.6-10.6 though her blood pressure is stable. I discussed this with her and she reports that she will be able to call her doctor tomorrow to try and get repeat labs next week. Any further bleeding she will return to the emergency department. The patient is stable for discharge Time: 14:44 Medications Administered Discontinued Medications Generic Name Dose Route Start Last Admin Trade Name Moreno PRN Reason Stop Dose Admin Oxymetazoline HCl 2 spray 05/04/25 11:11 05/04/25 11:47 Oxymetazoline Hcl 0.05 % Nasal 15 Ml [place] NOSTRIL-B 05/04/25 11:12 2 spray ONCE ONE Administration Tranexamic Acid 500 mg 05/04/25 11:11 05/04/25 11:48 Tranexamic Acid 1,000 Mg/10 Ml Vial INTRANASAL 05/04/25 11:12 500 mg ONCE ONE Administration Medical Decision Making Medical Decision Making [facility] Narrative: 59-year-old female presents for evaluation of nasal packing removal. She had had intermittent bleeding around the packing for the last 2 days but has had virtually no bleeding today. After remove the packing there was a small amount of bright red bleeding. For this reason we did give her a dose of Afrin nasal spray and topical TXA to the area. After about 30 minutes I removed the clamping, the gauze that was in her nose with the salt in TXA. There was a very small amount of bleeding when this was removed. We will observe her for an additional 15 minutes and she can safely be discharged if there was no further bleeding Differential Diagnosis Differential Diagnoses: The differential diagnosis associated with the presentation includes Epistaxis Anticoagulation Coagulopathy Posterior nosebleed Admission/Observation Consideration of admission/observation: Escalation of care including admission/observation considered Consider admission due to recurrent epistaxis Lab Data MDM Lab Attestation statement: I reviewed the patient's lab results. Leukocytosis to 16.2 likely due to rapid rhino and recurrent epistaxis. The patient does have a mild anemia worsened over the last 2 days. No significant chemistry abnormalities 05/04/25 13:56 05/04/25 13:57 Labs: Lab Results 05/04/25 05/04/25 Range/Units 13:56 13:57 WBC 16.2 H (4.8-10.8) X10*3/uL RBC 3.57 L D (4.20-5.50) X10*6/uL Hgb 10.6 L D (12.0-16.0) g/dl Hct 32.8 L D (37.0-47.0) % MCV 91.9 (80.0-98.0) fL MCH 29.7 (27.0-33.0) pg MCHC 32.3 (31.0-35.0) g/dl RDW 15.5 (11.0-16.0) % Plt Count 227 (160-400) X10*3/uL MPV 9.9 (9.4-12.3) fL Immature Gran % (Auto) 0.8 H (0.0-0.4) % Neut % (Auto) 79.4 H (45-73) % Lymph % (Auto) 11.9 L (20-40) % Zapata % (Auto) 6.2 (2-11) % Eos % (Auto) 1.0 (0-4) % Baso % (Auto) 0.7 (0-2) % Lymph # (Auto) 1.9 (1.2-4.9) X10*3/uL Zapata # (Auto) 1.0 (0.1-1.2) X10*3/uL Eos # (Auto) 0.2 (0.0-0.4) X10*3/uL Baso # (Auto) 0.1 (0.0-0.2) X10*3/uL Abs Immat Gran (auto) 0.13 H (0.00-0.03) X10*3/uL Absolute Neuts (auto) 12.9 H (2.0-8.3) x10*3/uL Absolute Nucleated RBC 0.000 (0.0-0.012) X10*3/uL Nucleated RBC % (auto) 0.0 (0.0-0.2) /100WBC PT 16.5 H (10.9-12.4) SEC INR 1.4 H (0.9-1.1) Sodium 143 (135-145) mmol/L Potassium 4.1 (3.3-5.1) mmol/L Chloride 105 (96-108) mmol/L Carbon Dioxide 29 (22-29) mmol/L Anion Gap 13 (12-20) BUN 16 (9-16) mg/dL Creatinine 0.63 (0.5-1.4) mg/dL Estim Creat Clear Calc 133.5 Estimated GFR > 60 Random Glucose 116 H (60-115) mg/dL Calcium 8.9 (8.4-10.2) mg/dL Total Bilirubin 0.7 (0.0-1.0) mg/dL AST 32 H (5-31) U/L ALT 15 (0-31) U/L Alkaline Phosphatase 53 (39-117) U/L Total Protein 7.1 (6.5-8.0) g/dL Albumin 3.9 (3.5-5.0) g/dL Discharge Plan Discharge Clinical Impression: Left-sided epistaxis Patient Disposition: Home, Self-Care Instructions: Nosebleed (ED) Additional Instructions: You were given a dose of Afrin nasal spray and TXA to help control the bleeding after the packing was removed. I recommend that you avoid blowing your nose for the next 2-3 days. You may continue your Eliquis as long as you are not bleeding. Return for new or worsening symptoms. Follow up with Dr. Cisneros, ear nose and throat Prescriptions: No Action Spiriva with HandiHaler 18 mcg capsule, w/inhalation device 1 cap inhalation DAILY Qty: 90 2RF bumetanide 2 mg tablet 2 mg PO DAILY Qty: 90 3RF montelukast 10 mg tablet 10 mg PO DAILY Qty: 90 3RF Eliquis 5 mg tablet 5 mg PO BID 90 Days Qty: 180 3RF metoprolol tartrate 50 mg tablet 75 mg PO BID Qty: 180 3RF potassium chloride 20 mEq tablet extended release 20 meq PO BEDTIME Qty: 90 3RF levothyroxine 88 mcg tablet 88 mcg PO DAILY@0600 amoxicillin-pot clavulanate [Augmentin] 500-125 mg tablet 1 tab PO Q12H Qty: 7 0RF venlafaxine 150 mg capsule,extended release 24hr 150 mg PO BEDTIME amlodipine 5 mg tablet 5 mg PO DAILY clobetasol 0.05 % cream topical metformin 500 mg tablet 500 mg PO BID Referrals: Elder Cisneros [Physician, Ear, Nose, Throat] Referral Note: recurrent epistaxis Print Language: Lao
[2025-05-04 10:14] VITALS: BP 131/67; PULSE 70; RESP 18; TEMP 35.9; O2SAT 95
--- NOTE | 2025-05-04 10:17 | PC.NURSE ---
59 F presents to ED to have her L nare nose bleed nasal rocket removed. A+Ox4, calm, cooperative. Pt denies any pain at this time but states the device in uncomfortable. No active bleeding visible at this time. RR even and unlabored, denies SOB or CP.
--- OUTSIDE RECORDS SUMMARY | 2025-05-04 11:32 | XMS_ITS | Clinical Summary ---
Author Organization [facility] Address [address] [place] [address] [place] [phone] Phone Care Team Providers Care Retort Operator Name Role Phone Antonette Kumar DO Primary [...] Devices Not on file Insurance [address] [place], [place] [id number] [place] [address] HMO POS [address] [place] [facility] [place] [facility] HMO POS [address] [place] [facility] HMO POS [address] [place] [facility] POS [address] [place] [place] [facility] [address] [place] [place] [facility] [place] [address] HMO POS [facility] HMO POS Care Teams Retort Operator Relationship Specialty Start Date End Date Antonette Kumar DO [address] [place] [id number] PCP - General Internal Medicine 11/30/17 Additional Source Comments The information contained in this document represents components of the legal health record. It is not the complete legal health record.[facility]
--- OUTSIDE RECORDS SUMMARY | 2025-05-04 11:32 | XMS_ITS | Patient Health Record ---
Author Organization Terrence Kaur MD Address [address] [place], [place] [id number] Care Team Providers Care Knit Tubing Dyer Name Role Phone Terrence Kaur Primary Care [...] PROFILE Reviewed date:05/27/2024 12:25:49 PM Interpretation: Performing Lab:[facility], [address] [place] [phone] Notes/Report: Iron 44 30-160 mcg/dL Total Iron Binding Capacity 308 228-428 mcg/dL Percent Iron Saturation 14 15-50 % Unsaturated Iron Binding 264 Free T4 (Free Thyroxine) Reviewed date:08/09/2024 04:50:18 PM Interpretation: Performing Lab:[facility], [address] [place] [phone] Notes/Report: Free T4 (Free Thyroxine) 1.12 0.71-1.85 ng/dL Zach Alexander Reviewed date:08/09/2024 12:42:40 PM Interpretation: Performing Lab:[facility], [address] [place] [phone] Notes/Report: Hold Gold See Note Specimen held untested for 24 hours; Call to request Chemistry testing. Urine Culture Reviewed date:08/10/2024 07:25:45 PM Interpretation: Performing Lab:[facility], [address] [place] [phone] Notes/Report: Urine Culture Report Result Urine Culture 10,000 to 50,000 cfu/ml Urine Culture Mixed bacterial nathalie a characteristic of Urine Culture urogenital contamination. Complete Blood Count Auto Di ff Reviewed date:08/09/2024 12:58:14 PM Interpretation: Performing Lab:[facility], [address] [place] [phone] Notes/Report: White Blood Count 11.2 4.8-10.8 X10*3/uL [...] NRBC Abs Auto 0.000 0.0-0.012 X10*3/uL Comprehensive Terril. Panel Fa Reviewed date:08/09/2024 04:50:41 PM Interpretation: Performing Lab:[facility], [address] [place] [phone] Notes/Report: Sodium 139 135-145 mmol/L Potassium 4.0 [...] Panel Reviewed date:08/09/2024 04:46:55 PM Interpretation: Performing Lab:[facility], [address] [place] [phone] Notes/Report: Triglycerides 164 <150 mg/dL Desirable Triglyceride: [...] T4 Reviewed date:08/09/2024 04:48:42 PM Interpretation: Performing Lab:[facility], [address] [place] [phone] Notes/Report: TSH reflex Free T4 4.16 0.32-4.0 uIU/mL UA ClnCatch+Micro w/rflx Cul t Reviewed date:08/09/2024 01:26:11 PM Interpretation: Performing Lab:[facility], [address] [place] [phone] Notes/Report: Urine, Clean Catch Color Urine Yellow Appearance Urine Clear PH 5.5 5.0-9.0 Glucose Urine UA Negative Negative mg/dL Urine Blood Negative Negative Specific [place] - Urine 1.020 1.005-1.025 Urine Protein Trace [...] 147 Complete Blood Count Auto Di ff Reviewed date:05/02/2025 02:49:35 PM Interpretation: Performing Lab:[facility], [address] [place] [phone] Notes/Report: White Blood Count 9.9 4.8-10.8 X10*3/uL [...] X10*3/uL NRBC Abs Auto 0.000 0.0-0.012 X10*3/uL Prothrombin Time INR Reviewed date:05/02/2025 02:22:35 PM Interpretation: Performing Lab:[facility], [address] [place] [phone] Notes/Report: Prothrombin Time 13.9 10.9-12.4 SEC INTERNATIONAL NORM RATIO 1.2 0.9-1.1 INTERNATIONAL NORMALIZED RATIO (INR) REFERENCE RANGES Reference Range For patients not on anticoagulant therapy: 0.9 - 1.1 INR ranges for oral anticoagulant therapy: For prevention and treatment of venous thrombosis and pulmonary embolism: 2.0 - 3.0 For acute myocardial infarction with aspirin therapy: 2.0 - 3.0 For acute myocardial infarction without aspirin therapy: 3.0 - 4.0 For patients with mechanical prosthetic heart valves: 2.5 - 3.5 Liver Panel Reviewed date:05/02/2025 02:49:13 PM Interpretation: Performing Lab:[facility], [address] [place] [phone] Notes/Report: Bilirubin Total 0.5 0.0-1.0 mg/dL Bilirubin Direct 0.2 0.0-0.5 mg/dL Aspartate Amino Transferase 43 5-31 U/L Alanine Aminotransferase 27 0-31 U/L Total Protein 7.7 6.5-8.0 g/dL Albumin Level 4.1 3.5-5.0 g/dL Alkaline Phosphatase 75 39-117 U/L Basic Metabolic Panel Reviewed date:05/02/2025 12:41:01 PM Interpretation: Performing Lab:[facility], [address] [place] [phone] Notes/Report: Sodium 141 135-145 mmol/L Potassium 4.0 3.3-5.1 mmol/L Chloride 102 96-108 mmol/L Carbon Dioxide 31 22-29 mmol/L Anion Gap 12 12-20 Blood Urea Nitrogen 11 9-16 mg/dL Creatinine 0.74 0.5-1.4 mg/dL Creatinine Clr Calc Pharmacy 111.9 Provided height and weight: 157.48 cm, 136.078 kg. eGFR (calculated from the MDRD study equation) and eCrCl (calculated from the Cockcroft-Gault equation) are based on different parameters and may not yield comparable results. If eCrCl result is absurd, please check patient's height/weight. Estimated Glomerular Filt Rate > 60 Chronic Kidney Disease: Estimated GFR < 60 mL/min/1.73m2 Severe Kidney Disease: Estimated GFR < 15 mL/min/1.73m2 Glucose Random 126 60-115 mg/dL Calcium 9.3 8.4-10.2 mg/dL Troponin-I High Sensitivity Reviewed date:05/02/2025 02:23:01 PM Interpretation: Performing Lab:[facility], [address] [place] [phone] Notes/Report: Troponin-I High Sensitivity 5.4 <3.5-17.0 ng/L The Joe high sensitivity Troponin-I results should be used in conjunction with other diagnostic information such as ECG, clinical observations and information, and patient symptoms to aid in the diagnosis of [place]. Lipase Reviewed date:05/02/2025 12:40:17 PM Interpretation: Performing Lab:[facility], [address] [place] [phone] Notes/Report: Lipase 16 8-78 U/L Reason For Referral No Information Medications Medication [...] 08/05/2021 Administered Covid Vaccine Unknown 12/12/2020 Administered [employer] SARS-COV-2 Moderna Unknown 09/02/2021 Administered [...] W/U Status Risk Notes Problem Atrial fibrillation (31835437) Atrial fibrillation (I48.91) Active confirmed Problem Celiac disease (665462238) Celiac disease (K90.0) Active confirmed Problem Psoriasis (3113093) Psoriasis (L40.9) Active confirmed Problem 217929128 Acquired hypothyroidism (E03.9) Active confirmed Problem Benign essential hypertension (9476793) Benign essential hypertension (I10) Active confirmed Problem Hypertrophic cardiomyopathy (860402346) Hypertrophic cardiomyopathy (I42.2) Active confirmed Problem Asthma (826304180) Asthma (J45.909) Active confirmed Problem 674851192 Controlled type 2 diabetes mellitus without complication, without long-term current use of insulin (E11.9) Active confirmed Problem 23467857 Pagophagia (F50.89) Active confirmed Problem Cardiac pacemaker in situ (649727914) History of pacemaker (Z95.0) Active confirmed Vital Signs Blood pressure diastolic 94 mm Hg 04/18/2025 Height 63 in 04/18/2025 Blood pressure systolic 148 mm Hg 04/18/2025 Weight 321 lbs 04/18/2025 BMI 56.86 kg/m2 04/18/2025 Encounters Encounter Location Date Provider Diagnosis Terrence Kaur MD [address] [place] [id number] 05/27/2024 Terrence Kaur Pagophagia F50.89 Terrence Kaur MD [address] [place] [address] [id number] 08/09/2024 Terrence Kaur Blood tests for routine general physical examination Z00.00 ; Benign essential hypertension I10 and Acquired hypothyroidism E03.9 Terrence Kaur MD [address] [place] [address] [id number] 08/16/2024 Terrence Guzmanardier Psoriasis L40.9 ; Encounter for general adult medical examination without abnormal findings Z00.00 ; Controlled type 2 diabetes mellitus without complication, without long-term current use of insulin E11.9 ; Celiac disease K90.0 ; Hypertrophic cardiomyopathy I42.2 and Encounter for immunization Z23 Terrence Kaur MD [address] [place] [address] [id number] 09/15/2024 Terrence Kaur Controlled type 2 diabetes mellitus without complication, without long-term current use of insulin E11.9 Terrence Kaur MD [address] [place] [address] [id number] 11/10/2024 Terrence Kaur Controlled type 2 diabetes mellitus without complication, without long-term current use of insulin E11.9 and Celiac disease K90.0 Terrence Kaur MD [address] [place] [id number] 01/02/2025 Terrence Guzmanardier Cellulitis L03.90 ; Psoriasis L40.9 and Controlled type 2 diabetes mellitus without complication, without long-term current use of insulin E11.9 Terrence Kaur MD [address] [place] [id number] 01/27/2025 Terrence Guzmanardier Cellulitis L03.90 an d Psoriasis L40.9 Terrence Kaur MD [address] [place] [address] [address] [id number] 02/13/2025 Terrence Kaur Hypertrophic cardiomyopathy I42.2 ; Benign essential hypertension I10 and Controlled type 2 diabetes mellitus without complication, without long-term current use of insulin E11.9 Terrence Kaur MD [address] [place] [id number] 04/18/2025 Terrence Kaur Controlled type 2 diabetes mellitus without complication, without long-term current use of insulin E11.9 ; Hypertrophic cardiomyopathy I42.2 ; Benign essential hypertension I10 and Asthma J45.909 Terrence Kaur MD [address] [place] [address] [address] [id number] 03/24/2025 Terrence Bombardier Cellulitis L03.90 Terrence Kaur MD [address] [place] [address] [id number] 06/28/2024 Terrence Bombardier Psoriasis L40.9 Terrence Kaur MD [address] [place] [address] [id number] 09/05/2024 Terrence Bombardier Atrial fibrillation I48.91 Terrence Kaur MD [address] [place] [address] [id number] 09/05/2024 Terrencejonah Lindquister Terrence Kaur MD [address] [place] [address] [id number] 10/31/2024 Terrence Bombardier Psoriasis L40.9 Terrence Kaur MD [address] [place] [address] [id number] 11/16/2024 Terrence Bombardier Asthma J45.909 Terrence Kaur MD [address] [place] [address] [id number] 12/09/2024 Terrence Bombardier Atrial fibrillation I48.91 and Psoriasis L40.9 Assessments Encounter Date Diagnosis (ICD Code) Assessment Notes Treatment Notes Treatment Clinical Notes Section Notes 05/27/2024 Pagophagia (ICD-10 - F50.89) 08/09/2024 Blood tests for routine general physical examination (ICD-10 - Z00.00) 08/09/2024 Benign essential hypertension (ICD-10 - I10) 08/16/2024 Psoriasis (ICD-10 - L40.9) needs to see dermatology/ needs to go to [place]/ info for [facility] given to patient 08/16/2024 Encounter [...] Name:Terrence Ramos ier, 08/15/2025 07:15:00 AM, [address] [place] [address], [address], [phone], Provider Name:Terrence Ramos ier, 08/22/2025 10:30:00 AM, [address] [place] [address], [place] [address], [place], [place], [phone], Insurance Providers Payer Name Payer Address Payer Phone Subscriber Number Group Number Insured Name Patient Relationship to Insured Coverage Start Date Coverage End Date [facility] [address] [place], [place] [id number] Tabby Cifuentes Self - patient is the insured Medical (General) History Medical History History ICD Code IHSS with surgery in 2018 COLONOSCOPY 2018 bimzelx is new psoriasis med
--- OUTSIDE RECORDS SUMMARY | 2025-05-04 11:32 | XMS_ITS | Encounter Summary ---
Author Organization [facility] Address [address] [place] [address] Phone Care Team Providers Care Corporate Associate Attorney Name Role Phone Antonette Kumar DO Primary Car e Provider Encounter Details Date Type Department Care Team (Late st Contact Info) Description 02/03/2018 Procedure Pass [facility] [address] [facility], [address], [address] [place] [address] Social History Tobacco Use Types [...] on filedocumented in this encounter Care Teams Corporate Associate Attorney Relationship Specialty Start Date End Date Antonette Kumar DO [address] [place], [place] [phone] PCP - General Internal Medicine 11/30/17 documented as of this encounter Additional Source Comments The information contained in this document represents components of the legal health record. It is not the complete legal health record.[facility]
[2025-05-04] MEDS: Oxymetazoline HCl 0.05 % Nasal 15 ML SPRAY 2 SPRAY NOSTRIL-B (11:47)
[2025-05-04] MEDS: Tranexamic Acid 1,000 MG/10 ML VIAL 500 MG INTRANASAL (11:48)
[2025-05-04 12:00] VITALS: BP 135/63; PULSE 70; RESP 18; TEMP 36.4; O2SAT 99
[2025-05-04 14:00] LABS: MANUAL DIFF FLAG NO
[2025-05-04 14:04] LABS: Hematocrit 32.8 % (37.0-47.0); Hemoglobin 10.6 g/dl (12.0-16.0); Imm Gran Abs Auto 0.13 X10*3/uL (0.00-0.03); Imm Gran Pct Auto 0.8 % (0.0-0.4); Lymphocytes Absolute Auto 1.9 X10*3/uL (1.2-4.9); Mean Corpuscular HGB Conc 32.3 g/dl (31.0-35.0); Mean Corpuscular Hemoglobin 29.7 pg (27.0-33.0); Mean Corpuscular Volume 91.9 fL (80.0-98.0); NRBC Abs Auto 0.000 X10*3/uL (0.0-0.012); NRBC Pct Auto 0.0 /100WBC (0.0-0.2); Platelet Count 227 X10*3/uL (160-400); Red Blood Count 3.57 X10*6/uL (4.20-5.50); White Blood Count 16.2 X10*3/uL (4.8-10.8)
[2025-05-04 14:08] LABS: INTERNATIONAL NORM RATIO 1.4 (0.9-1.1); Prothrombin Time 16.5 SEC (10.9-12.4)
[2025-05-04 14:19] LABS: Alanine Aminotransferase 15 U/L (0-31); Albumin Level 3.9 g/dL (3.5-5.0); Alkaline Phosphatase 53 U/L (39-117); Anion Gap 13 (12-20); Aspartate Amino Transferase 32 U/L (5-31); Blood Urea Nitrogen 16 mg/dL (9-16); Calcium 8.9 mg/dL (8.4-10.2); Carbon Dioxide 29 mmol/L (22-29); Chloride 105 mmol/L (96-108); Creatinine Clr Calc Pharmacy 133.5; Estimated Glomerular Filt Rate > 60; Potassium 4.1 mmol/L (3.3-5.1); Sodium 143 mmol/L (135-145); Total Protein 7.1 g/dL (6.5-8.0)
[2025-05-04 15:12] VITALS: BP 125/33; PULSE 70; RESP 20; TEMP -17.7; TEMP 0; O2SAT 96
== END 2025-05-04 15:13 | disposition home or self-care (01) ==
PROVIDERS: Physician Assistant; Emergency Provider Emergency Medicine; PCP Internal Medicine
DX: R04.0 Epistaxis (principal); I48.91 Unspecified atrial fibrillation; Z79.01 Long term (current) use of anticoagulants; Z79.899 Other long term (current) drug therapy
CPT/HCPCS: 36415; 80053; 85025; 85610; 99283; 99284

== ENCOUNTER → 2025-05-19 07:46 | Outpatient (REF) | payer OTHER, SELFPAY ==
--- OUTSIDE RECORDS SUMMARY | 2025-03-24 04:44 | XMS_ITS ---
Author Organization Terrence Kaur MD Address [address] [facility] [address] [place] [phone] Care Team Providers Care Electric Organ Assembler And Checker Name Role Phone Terrence Kaur Primary Care [...] Location Date Provider Diagnosis Terrence Kaur MD [address] [place] [address] [place] [phone] 03/24/2025 Terrence Kaur Cellulitis L03.90 Assessments Encounter [...] 01/02/2025 Next Appt Details Provider Name:Terrence green, 08/15/2025 07:15:00 AM, [address] [place] [address], [address], [phone], Provider Name:Terrence green, 08/22/2025 10:30:00 AM, [address] [place] [address], [address], [phone], Progress Notes * Cami REYNOSOeDOB:[birth year] (59 yo F)Acc No.[id number]:03/24/2025 Patient: Tabby POLLOCK :1965 A ge:59 Y S ex:Female Address:[address] [place] [address], [place], [address] * Refills Refill Doxycycline Hyclate Capsule, 100 MG, Orally, 28 Capsule, 1 capsule, twice a day, 14 days Refill Amoxicillin-Pot Clavulanate Tablet, 875-125 MG, Orally, 28 Tablet, 1 tablet, every 12 hrs, 14 days * true * Date: Generated for Keren sethi/Elisa/Tequilaitting on: 0 05/19/2025 07:49 AM EDT
--- OUTSIDE RECORDS SUMMARY | 2025-04-18 04:45 | XMS_ITS ---
Author Organization Terrence Kaur MD Address [address] [place] [phone] Care Team Providers Care Table Attendant Name Role Phone Terrence Karu Primary Care Provider Allergies Allergen (clinical drug [...] Location Date Provider Diagnosis Terrence Kaur MD [address] [place] [address] [place] [phone] 04/18/2025 Terrence Kaur Controlled type 2 diabetes [...] Next Appt Details Provider Name:Terrence Ramos ier, 08/15/2025 07:15:00 AM, 10 [facility], [address], [place], [place], [phone], Provider Name:Terrence Ramos ier, 08/22/2025 10:30:00 AM, [address], [address], [place], [place], [phone], Progress Notes * Cami HERRERAeDOB:[birth year] (59 yo F)Acc No.[id number]:04/18/2025 Progress Notes Patient: Tabby POLLOCK Provider: Nnamdi Kaur MD :1965 A ge:59 Y S ex:Female Date:04/18/2025 Address:[address] [place], [place] [phone] Subjective: * Chief Complaints: * 2 MO [...] essential hypertension - I10 4 . A sthma - J45.909 Plan: * Treatment: Value Reference [...] true * Provider: Nnamdi Kaur MD Date: 04/18/2025 Generated for Keren sethi/Elisa/eTransmitting on: 0 05/19/2025 07:49 AM EDT History and Physical Notes * [...]
--- OUTSIDE RECORDS SUMMARY | 2025-05-04 07:59 | XMS_ITS ---
Author Organization Terrence Kaur MD Address [address] [facility] [address] [place] [phone] Care Team Providers Care Cement Tester Assistant Name Role Phone Terrence Kaur Primary Care Provider [phone] REASON FOR VISIT Nose bleed Encounters Encounter Location Date Provider Diagnosis Terrence Kaur MD [address] [facility] [address] [place] [id number] 05/04/2025 Terrence Kaur Plan Of Treatment Next Appt Details Provider Name:Terrence Ramos ier, 08/15/2025 07:15:00 AM, [address] [place] [address], [place] [address], [place], [place], [phone], Provider Name:Terrence Ramos ier, 08/22/2025 10:30:00 AM, [address] [place] [address], [address], [phone], Progress Notes * Lopez HERRERAOB:[birth year] (59 yo F)Acc No.[id number]:05/04/2025 Patient: Fer LIGHT Raelene :1965 A ge:59 Y S ex:Female Address:[address] [place] [address], [address] * true * Date: Generated for Printi ng/Faxing/eTransmitting on: 0 05/19/2025 07:49 AM EDT
--- OUTSIDE RECORDS SUMMARY | 2025-05-12 07:30 | XMS_ITS ---
Author Organization Terrence Kaur MD Address [address] [place], [place] [phone] Care Team Providers Care Ear Muff Assembler Name Role Phone eTrrence Kaur Primary Care Provider Allergies Allergen (clinical [...] Status W/U Status Risk Notes Problem Leukocytosis (147719366) Elevated WBC count (D72.829) Active confirmed Vital Signs Blood pressure systolic 112 mm Hg 05/12/20 25 Blood pressure diastolic 60 mm Hg 025 Height 63 in 05/12/2025 Weight 320 lbs 05/12/2025 BMI 56.68 kg/m2 05/12/2025 Encounters Encounter Location Date Provider Diagnosis Terrence Kaur MD [address] [place] [address] [address] [place], [place] [phone] 05/12/2025 Terrence Kaur Epistaxis R04.0 ; Elevated [...] order given to patient having done at [facility] labs Plan Of Treatment Treatment Notes Assessment Notes Epistaxis will hold elequis if she starts bleeding again and then figure what to do Elevated WBC count was from the stress of the nose bleed Anemia order given to patikelly nt having done at [facility] labs Future Test Test Name Order Date Complete Blood Count Auto Diff Next Appt Details Provider Name:Terrence green, 08/15/2025 07:15:00 AM, [address] [place] [address], [address], [place], [place], [phone], Provider Name:Terrence Ramos ier, 08/22/2025 10:30:00 AM, [address], [address], [place], [place], [phone], Progress Notes * Lopez HERRERAOB:[birth year] (59 yo F)Acc No.[id number]:05/12/2025 Progress Notes Patient: Tabby POLLOCK Provider: Nnamdi Kaur MD :1965 A ge:59 Y S ex:Female Date:05/12/2025 Address:[address] [place] [address], [facility], [id number] Subjective: * Chief Complaints: * f /u [...] order given to patient having done at [facility] labs * Procedure Codes: * * Sign off status: Completed true * Provider: Nnamdi Kaur MD Date: 05/12/2025 Generated for Keren sethi/Elisa/Tequilaitting on: 0 05/19/2025 07:48 AM EDT History and Physical Notes * [...]
--- OUTSIDE RECORDS SUMMARY | 2025-05-19 04:30 | XMS_ITS ---
Author Organization Terrence Kaur MD Address [address] [place] [phone] Care Team Providers Care Marketing And Public Relations Manager Name Role Phone Terrence Kaur Primary Care Provider [phone] REASON FOR VISIT CBC Encounters Encounter Location Date Provider Diagnosis Terrence Kaur MD [address] [facility] [address] [place] [phone] 05/19/2025 Terrence Kaur Plan Of Treatment Next Appt Details Provider Name:Terrence garzonr, 08/15/2025 07:15:00 AM, [address] [place] [address], [address], [phone], Provider Name:Terrence green, 08/22/2025 10:30:00 AM, [address] [place] [address], [address], [phone], Progress Notes * Cami HERRERAeDOB:[birth year] (59 yo F)Acc No.[id number]:05/19/2025 Progress Note Patient: Tabby POLLOCK Provider: Nnamdi Kaur MD :1965 A ge:59 Y S ex:Female Date:05/19/2025 Address:[address] [place], [place] [phone] Subjective: * Chief Complaints: * 1 . CBC. * Medical History: Objective: * Vitals: Assessment: Plan: * Treatment: * * The named appointment provid er may or may not be the originator of this progress note, and it is not deemed complete until electronically signed by the appointment provider. Sign off status: Pending * Provider: Nnamdi Kaur MD Date: 05/19/2025 Generated for Keren sethi/Elisa/Tequilaitting on: 05/19/2025 07:49 AM EDT
--- OUTSIDE RECORDS SUMMARY | 2025-05-19 07:49 | XMS_ITS | Clinical Summary ---
Author Organization [facility] Address [address] [place] [address] [place] [phone] Phone Care Team Providers Care Digital Content Coordinator Name Role Phone Antonette Kumar DO Primary [...] DEPRESSION SCREENING 1979 SMOKING Hx and SMOKELESS TOBACCO SCREENING 11/08/1980 HEPATITIS C SCREENING 11/08/1985 HIV ONE-TIME SCREENING (18-65 YEARS) 11/08/1985 PAP SMEAR 11/08/1988 MAMMOGRAM 2007 COLOGUARD 11/08/2012 COLONOSCOPY 11/08/2012 COLORECTAL CANCER SCREENING 11/08/2012 FIT TEST 11/08/2012 FOBT 11/08/2012 SIGMOIDOSCOPY 11/08/2012 VIRTUAL COLONOSCOPY 11/08/2012 PNEUMOCOCCAL VACCINES (50+ years) (2 of 2 - PCV) 11/08/2017 08/21/2016 ZOSTER VACCINES (1 of 2) 11/08/2017 Adult Td,Tdap Booster 12/23/2023 12/22/2013 INFLUENZA VACCINE (#1) 2025 , 09/27/2019, 05/21/2018, Additional history exists COVID-19 VACCINE ( season) 2025 12/12/2020 HEPATITIS A VACCINES Aged Out No [...] Devices Not on file Insurance [address] [place], [place] [id number] [place], [place] [id number] POS [facility] POS [facility] POS [address] [place] [facility] POS [address] [place] [facility] POS [facility] POS [facility] HMO POS [facility] HMO POS Care Teams Digital Content Coordinator Relationship Specialty Start Date End Date Erwin [address] [place] [address] PCP - General Internal Medicine 11/30/17 Additional Source Comments The information contained in this document represents components of the legal health record. It is not the complete legal health record.[facility]
--- OUTSIDE RECORDS SUMMARY | 2025-05-19 07:49 | XMS_ITS | Encounter Summary ---
Author Organization [facility] Address [address] [place] [address] Phone Care Team Providers Care Gym Instructor Name Role Phone Antonette Kmuar DO Primary Car e Provider Encounter Details Date Type Department Care Team (Late st Contact Info) Description 02/03/2018 Procedure Pass [facility]iac General Service Technician [address] [facility], [address], [address] [place] [address] Social History Tobacco Use Types [...] on filedocumented in this encounter Care Teams Gym Instructor Relationship Specialty Start Date End Date Antonette Kumar DO [address] [place], [place] [phone] PCP - General Internal Medicine 11/30/17 documented as of this encounter Additional Source Comments The information contained in this document represents components of the legal health record. It is not the complete legal health record.[facility]
--- OUTSIDE RECORDS SUMMARY | 2025-05-19 07:49 | XMS_ITS | Patient Health Record ---
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 Name Role Phone Terrence Kaur Primary Care Provider [phone] Allergies Allergen (clinical drug ingredient) Drug/Non Drug [...] PROFILE Reviewed date:05/27/2024 12:25:49 PM Interpretation: Performing Lab:[facility], [address] [place] [phone] Notes/Report: Iron 44 30-160 mcg/dL Total Iron Binding Capacity 308 228-428 mcg/dL Percent Iron Saturation 14 15-50 % Unsaturated Iron Binding 264 Complete Blood Count Auto Di ff Reviewed date:08/09/2024 12:58:14 PM Interpretation: Performing Lab:[facility], [address] [place] [phone] Notes/Report: White Blood Count 11.2 4.8-10.8 X10*3/uL [...] NRBC Abs Auto 0.000 0.0-0.012 X10*3/uL Comprehensive [place]. Panel Fa st Reviewed date:08/09/2024 04:50:41 PM Interpretation: Performing Lab:[facility], [address] [place] [phone] Notes/Report: Sodium 139 135-145 mmol/L Potassium 4.0 [...] Panel Reviewed date:08/09/2024 04:46:55 PM Interpretation: Performing Lab:[facility], [address] [place] [phone] Notes/Report: Triglycerides 164 <150 mg/dL Desirable Triglyceride: [...] T4 Reviewed date:08/09/2024 04:48:42 PM Interpretation: Performing Lab:[facility], [address] [place] [phone] Notes/Report: TSH reflex Free T4 4.16 0.32-4.0 uIU/mL UA ClnCatch+Micro w/rflx Cul t Reviewed date:08/09/2024 01:26:11 PM Interpretation: Performing Lab:[facility], [address] [place] [phone] Notes/Report: Urine, Clean Catch Color Urine Yellow Appearance Urine Clear PH 5.5 5.0-9.0 Glucose Urine UA Negative Negative mg/dL Urine Blood Negative Negative Specific Ignacio - Urine 1.020 1.005-1.025 Urine Protein Trace [...] AM Interpretation: Performing Lab: Notes/Report: Value 147 Free T4 (Free Thyroxine) Reviewed date:08/09/2024 04:50:18 PM Interpretation: Performing Lab:[facility], [address] [place] [phone] Notes/Report: Free T4 (Free Thyroxine) 1.12 0.71-1.85 ng/dL Zach Alexander Reviewed date:08/09/2024 12:42:40 PM Interpretation: Performing Lab:[facility], [address] [place] [phone] Notes/Report: Zach Alexander See Note Specimen held untested for 24 hours; Call to request Chemistry testing. Urine Culture Reviewed date:08/10/2024 07:25:45 PM Interpretation: Performing Lab:[facility], [address] [place] [phone] Notes/Report: Urine Culture Report Result Urine Culture 10,000 to 50,000 cfu/ml Urine Culture Mixed bacterial nathalie a characteristic of Urine Culture urogenital contamination. Complete Blood Count Auto Di ff Reviewed date:05/02/2025 02:49:35 PM Interpretation: Performing Lab:[facility], [address] [place] [phone] Notes/Report: White Blood Count 9.9 4.8-10.8 X10*3/uL [...] INR Reviewed date:05/02/2025 02:22:35 PM Interpretation: Performing Lab:[facility], [address] [place] [phone] Notes/Report: Prothrombin Time 13.9 10.9-12.4 SEC INTERNATIONAL [...] Panel Reviewed date:05/02/2025 02:49:13 PM Interpretation: Performing Lab:[facility], [address] [place] [phone] Notes/Report: Bilirubin Total 0.5 0.0-1.0 mg/dL Bilirubin Direct 0.2 0.0-0.5 mg/dL Aspartate Amino Transferase 43 5-31 U/L Alanine Aminotransferase 27 0-31 U/L Total Protein 7.7 6.5-8.0 g/dL Albumin Level 4.1 3.5-5.0 g/dL Alkaline Phosphatase 75 39-117 U/L Basic Metabolic Panel Reviewed date:05/02/2025 12:41:01 PM Interpretation: Performing Lab:[facility], [address] [place] [phone] Notes/Report: Sodium 141 135-145 mmol/L Potassium 4.0 [...] Sensitivity Reviewed date:05/02/2025 02:23:01 PM Interpretation: Performing Lab:[facility], [address] [place] [phone] Notes/Report: Troponin-I High Sensitivity 5.4 <3.5-17.0 ng/L The Joe high sensitivity Troponin-I results should be used in conjunction with other diagnostic information such as ECG, clinical observations and information, and patient symptoms to aid in the diagnosis of [place]. Lipase Reviewed date:05/02/2025 12:40:17 PM Interpretation: Performing Lab:[facility], [address] [place] [phone] Notes/Report: Lipase 16 8-78 U/L Complete Blood Count Auto Di ff Reviewed date:05/04/2025 05:13:40 PM Interpretation: Performing Lab:[facility], [address] [place] [phone] Notes/Report: White Blood Count 16.2 4.8-10.8 X10*3/uL Red Blood Count 3.57 4.20-5.50 X10*6/uL Hemoglobin 10.6 12.0-16.0 g/dl Hematocrit 32.8 37.0-47.0 % Mean Corpuscular Volume 91.9 80.0-98.0 fL Mean Corpuscular Hemoglobin 29.7 27.0-33.0 pg Mean Corpuscular HGB Conc 32.3 31.0-35.0 g/dl Red Cell Distribution Width 15.5 11.0-16.0 % Platelet Count 227 160-400 X10*3/uL Mean Platelet Volume 9.9 9.4-12.3 fL Neutrophils Percent Auto 79.4 45-73 % Imm Gran Pct Auto 0.8 0.0-0.4 % Lymphocytes Percent Auto 11.9 20-40 % Monocytes Percent Auto 6.2 2-11 % Eosinophils Percent Auto 1.0 0-4 % Basophils Percent Auto 0.7 0-2 % NRBC Pct Auto 0.0 0.0-0.2 /100WBC Neutrophils Absolute Auto 12.9 2.0-8.3 x10*3/u L Imm Gran Abs Auto 0.13 0.00-0.03 X10*3/uL Lymphocytes Absolute Auto 1.9 1.2-4.9 X10*3/u L Monocytes Absolute Auto 1.0 0.1-1.2 X10*3/uL Eosinophils Absolute Auto 0.2 0.0-0.4 X10*3/u L Basophils Absolute Auto 0.1 0.0-0.2 X10*3/uL NRBC Abs Auto 0.000 0.0-0.012 X10*3/uL Prothrombin Time INR Reviewed date:05/04/2025 05:00:31 PM Interpretation: Performing Lab:[facility], [address] [place] [phone] Notes/Report: Prothrombin Time 16.5 10.9-12.4 SEC INTERNATIONAL NORM RATIO 1.4 0.9-1.1 INTERNATIONAL NORMALIZED RATIO (INR) REFERENCE RANGES [...] mechanical prosthetic heart valves: 2.5 - 3.5 Comprehensive Met. Panel Reviewed date:05/04/2025 05:00:51 PM Interpretation: Performing Lab:[facility], [address] [place] [phone] Notes/Report: Sodium 143 135-145 mmol/L Potassium 4.1 3.3-5.1 mmol/L Chloride 105 96-108 mmol/L Carbon Dioxide 29 22-29 mmol/L Anion Gap 13 12-20 Blood Urea Nitrogen 16 9-16 mg/dL Creatinine 0.63 0.5-1.4 mg/dL Creatinine Clr Calc Pharmacy 133.5 Provided height and weight: 160.02 cm, 136.078 kg. eGFR (calculated from the MDRD study equation) and eCrCl (calculated from the Cockcroft-Gault equation) are based on different parameters and may not yield comparable results. If eCrCl result is absurd, please check patient's height/weight. Estimated Glomerular Filt Rate > 60 Chronic Kidney Disease: Estimated GFR < 60 mL/min/1.73m2 Severe Kidney Disease: Estimated GFR < 15 mL/min/1.73m2 Glucose Random 116 60-115 mg/dL Calcium 8.9 8.4-10.2 mg/dL Bilirubin Total 0.7 0.0-1.0 mg/dL Aspartate Amino Transferase 32 5-31 U/L Alanine Aminotransferase 15 0-31 U/L Total Protein 7.1 6.5-8.0 g/dL Albumin Level 3.9 3.5-5.0 g/dL Alkaline Phosphatase 53 39-117 U/L Reason For Referral No Information Medications Medication SIG (Take, Route, Frequency, Duration) Notes Start Date End Date Status Levothyroxine Sodium 88 MCG TAKE 1 TABLET BY MOUTH EVERY DAY IN THE MORNING ON EMPTY STOMACH for 90 Active Tylenol 325 MG 1 tablet as needed Orally every 4 hrs Not-Taking Valsartan 320 MG TAKE 1 TABLET BY TYESHA TH EVERY DAY FOR 90 DAYS Active Clobetasol Propionate 0.05 % 1 application Externally Twice a day for 30 days Active Eliquis 5 MG as directed Orally BID Active Acetaminophen 325 MG 1 capsule as needed Orally every 6 hrs Not-Taking Amoxicillin-Pot Clavulanate 875-125 MG 1 tablet Orally every 12 hrs for 14 days 01/02/2025 Active Doxycycline Hyclate 100 MG 1 capsule Ora lly twice a day for 14 days 01/02/2025 Active Bimzelx 320 MG/2ML 2 mL Subcutaneous Active Spiriva HandiHaler 18 MCG 1 capsule by i nhaling the contents of the capsule using the HandiHaler device Inhalation Once a day Active Montelukast Sodium 10 MG TAKE 1 TABLET B Y MOUTH EVERY DAY FOR 30 DAYS for 90 Active Bumetanide 2 MG TAKE 1 TABLET BY TYESHA TH EVERY DAY FOR 30 DAYS for 90 Active Cholecalciferol 25 MCG (1000 UT) 1 capsule Orally Once a day Active Metoprolol Tartrate 50 MG 1.5 tablet wit h food Orally Twice a day Active Potassium Chloride ER 20 MEQ 1 tablet with food Orally Once a day for 30 day(s) Active metFORMIN HCl 500 MG TAKE 1 TABLET BY MO [facility] TWICE A DAY WITH A MEAL FOR 30 DAYS Active Venlafaxine HCl ER 150 MG TAKE 1 CAPSULE BY MOUTH EVERY DAY WITH FOOD Orally Once a day for 90 days Active amLODIPine Besylate 5 MG TAKE 1 TABLET B Y MOUTH EVERY DAY FOR 30 DAYS Active Immunizations Vaccine Route Administration Date Status [...] W/U Status Risk Notes Problem Atrial fibrillation (55347088) Atrial fibrillation (I48.91) Active confirmed Problem Celiac disease (846020371) Celiac disease (K90.0) Active confirmed Problem Psoriasis (3344603) Psoriasis (L40.9) Active confirmed Problem 284738816 Acquired hypothyroidism (E03.9) Active confirmed Problem Benign essential hypertension (7981539) Benign essential hypertension (I10) Active confirmed Problem Hypertrophic cardiomyopathy (351348263) Hypertrophic cardiomyopathy (I42.2) Active confirmed Problem Asthma (753567206) Asthma (J45.909) Active confirmed Problem Leukocytosis (110632294) Elevated WBC count (D72.829) Active confirmed Problem 830760970 Controlled type 2 diabetes mellitus without complication, without long-term current use of insulin (E11.9) Active confirmed Problem 09781323 Pagophagia (F50.89) Active confirmed Problem Cardiac pacemaker in situ (035466783) History of pacemaker (Z95.0) Active confirmed Vital Signs Blood pressure diastolic 60 mm Hg 05/12/2025 Height 63 in 05/12/2025 Blood pressure systolic 112 mm Hg 05/12/2025 Weight 320 lbs 05/12/2025 BMI 56.68 kg/m2 05/12/2025 Encounters Encounter Location Date Provider Diagnosis Terrence Kaur MD [address] [place], [place] [id number] 05/27/2024 Terrence Kaur Pagophagia F50.89 Terrence Kaur MD [address] [place] [id number] 08/09/2024 Terrence Kaur Blood tests for routine general physical examination Z00.00 ; Benign essential hypertension I10 and Acquired hypothyroidism E03.9 Terrence Kaur MD [address] [place], [place] [id number] 08/16/2024 Terrence Kaur Psoriasis L40.9 ; Encounter for general adult medical examination without abnormal findings Z00.00 ; Controlled type 2 diabetes mellitus without complication, without long-term current use of insulin E11.9 ; Celiac disease K90.0 ; Hypertrophic cardiomyopathy I42.2 and Encounter for immunization Z23 Terrence Kaur MD [address] [place] [id number] 09/15/2024 Terrence Kaur Controlled type 2 diabetes mellitus without complication, without long-term current use of insulin E11.9 Terrence Kaur MD [address] [place] [id number] 11/10/2024 Terrence Kaur Controlled type 2 diabetes mellitus without complication, without long-term current use of insulin E11.9 and Celiac disease K90.0 Terrence Kaur MD [address] [place] [address] [id number] 01/02/2025 Terrence Kaur Cellulitis L03.90 ; Psoriasis L40.9 and Controlled type 2 diabetes mellitus without complication, without long-term current use of insulin E11.9 Terrence Kaur MD [address] [place] [id number] 01/27/2025 Terrence Kaur Cellulitis L03.90 an d Psoriasis L40.9 Terrence Kaur MD [address] [place] [address] Drive [address] [place] [id number] 02/13/2025 Terrence Kaur Hypertrophic cardiomyopathy I42.2 ; Benign essential hypertension I10 and Controlled type 2 diabetes mellitus without complication, without long-term current use of insulin E11.9 Terrence Kaur MD [address] [place] [address] [id number] 04/18/2025 Terrence Kaur Controlled type 2 diabetes mellitus without complication, without long-term current use of insulin E11.9 ; Hypertrophic cardiomyopathy I42.2 ; Benign essential hypertension I10 and Asthma J45.909 Terrence Kaur MD [address] [place] [id number] 05/12/2025 Terrence Kaur Epistaxis R04.0 ; Elevated WBC count D72.829 and Anemia D64.9 Terrence Kaur MD [address] [place] [address] [id number] 03/24/2025 Terrence Lindquister Cellulitis L03.90 Terrence Kaur MD [address] [place] [address] [id number] 05/04/2025 Terrence Kaur MD [address] [place] [address] [id number] 06/28/2024 Terrence Bombardier Psoriasis L40.9 Terrence Kaur MD [address] [place] [id number] 09/05/2024 Terrence Bombardier Atrial fibrillation I48.91 Terrence Kaur MD [address] [place] [address] [id number] 09/05/2024 Terrence Kaur MD [address] [place] [address] [id number] 10/31/2024 Terrence Bombardier Psoriasis L40.9 Terrence Kaur MD [address] [place] [address] [id number] 11/16/2024 Terrence Thomasardier Asthma J45.909 Terrence Kaur MD [address] [place] [address] [id number] 12/09/2024 Terrence Bombardier Atrial fibrillation I48.91 and Psoriasis L40.9 Assessments Encounter Date Diagnosis (ICD Code) Assessment Notes Treatment Notes Treatment Clinical Notes Section Notes 05/27/2024 Pagophagia (ICD-10 - F50.89) 08/09/2024 Blood tests for routine general physical examination (ICD-10 - Z00.00) 08/09/2024 Benign essential hypertension (ICD-10 - I10) 08/16/2024 Psoriasis (ICD-10 - L40.9) needs to see dermatology/ needs to go to [facility]/ info for [facility] Derm given to [...] cardiomyopathy (ICD-10 - I42.2) followed by cardiology 05/12/2025 Epistaxis (ICD-10 - R04.0) will hold elequis if she starts bleeding again and then figure what to do 05/12/2025 Elevated WBC count (ICD-10 - D72.829) was from the stress of the nose bleed 03/24/2025 Cellulitis (ICD-10 - L03.90) 06/28/2024 Psoriasis [...] (ICD-10 - I10) running a little high 05/12/2025 Anemia (ICD-10 - D64.9) order given to patient having done at [facility] labs 12/09/2024 Psoriasis (ICD-10 - L40.9) 08/16/2024 Celiac [...] Provider Name:Terrence Ramos ier, 08/15/2025 07:15:00 AM, [address] [place] [address], [address], [phone], Provider Name:Terrence Ramos ier, 08/22/2025 10:30:00 AM, [address] [place] [address], [place] [address], [place], [place], [phone], Insurance Providers Payer Name Payer Address Payer Phone Subscriber Number Group Number Insured Name Patient Relationship to Insured Coverage Start Date Coverage End Date [facility] [address] [place], [place] [id number] Tabby Cifuentes Self - patient is the insured Medical (General) History Medical History History ICD Code IHSS with surgery in 2018 COLONOSCOPY 2018 bimzelx is new psoriasis med
[2025-05-19 07:59] LABS: MANUAL DIFF FLAG NO
--- NOTE | 2025-05-19 08:02 | CA_ITS ---
Transthoracic Echocardiogram Patient (Last, First, Middle): Tabby Reynoso, Gender: Female Date of : 1965 Age: 59 Procedure Date: 05/19/2025 Procedure Type: Transthoracic Echocardiogram Location: OP Height: 160.02 cm Weight: 153.77 kg BSA: 2.42 m2 Heart Rate: bpm BP: 124 / 68 mmHg Produce Wrapper: SB Referring MD: Álvaro Celis MD Dopeman: Nicolas Medina MD Symptoms: I42.1 - Obstructive hypertrophic cardiomyopathy Study Quality: Technically Difficult ECG Rhythm: Ventriculary paced rhythm Conclusions: - 1. Normal LV ejection fraction 55-60% 2. Moderately dilated left atrium 3. Mild aortic stenosis and regurgitation 4. Ogcc-ss-zjksxrlt calcific mitral stenosis with severe mitral annular calcification 5. Moderately to severely elevated right ventricular systolic pressure with significantly elevated right atrial pressures Findings Procedure Information Contrast agent, definity, is being given per protocol without apparent complications. Left Ventricle Normal left ventricular size, thickness, and systolic function. The visually estimated ejection fraction is between 55-60%. There is paradoxical septal motion consistent with a right ventricular pacemaker. There is no dynamic left ventricular outflow tract obstruction. Diastolic function is indeterminate on the basis of available data. There is mild septal asymmetric hypertrophy. Wall Motion Rest Echo Findings The apical septum is hypokinetic. The basal anteroseptal segment is akinetic. All other scored wall segments showed normal motion. Right Ventricle Normal right ventricular cavity size. There is mild to moderately decreased right ventricular systolic function. There is a pacemaker wire seen in the right ventricle. Atria The left atrium is moderately dilated. Interatrial shunt cannot be excluded. The right atrium was not well visualized. Aortic Valve The aortic valve was not well visualized. There is mild aortic valve stenosis. The peak aortic gradient is 19 mmHg.The mean gradient is 11 mmHg. The aortic valve area is 1.68 cm2. There is mild aortic valve regurgitation. Mitral Valve There is mild anterior and severe posterior mitral leaflet thickening. There is severe mitral annular calcification. There is trace mitral valve regurgitation. There is mild to moderate mitral valve stenosis. Pulmonic Valve The pulmonic valve was not well visualized. Tricuspid Valve There is mild tricuspid valve regurgitation. Significantly elevated right atrial pressure. Moderate to severe pulmonary hypertension is present. Great Vessels The aorta was not well visualized. The pulmonary artery was not well visualized. Venous The inferior vena cava is moderately dilated and does not collapse with inspiration. Pericardium/Pleural The pericardium was not well visualized. Prior Study Comparison Changes noted compared to prior study dated: 04/09/2023. mild aortic stenosis is noted. This also suggestive of [id number] mitral stenosis. RV systolic pressure is significantly elevated. Measurements 2D Linear Measurements IVSd: 1.15 0.6-0.9/0.6-1.0 cm LVIDd: 5.74 3.9-5.3/4.2-5.9 cm LVIDd Index: 2.37 2.4-3.2/2.2-3.1 cm/m2 LVIDs: 4.90 2.0-3.6 cm LVPWd: 1.03 0.7-1.1 cm LA Diam: 5.10 2.7-3.8/3.0-4.0 cm LAIDs Index: 2.11 1.5-2.3 cm/m2 LV Mass: 319.98 67-162/88-224 g LV Mass Index: 132.22 43-95/49-115 g/m2 LVOT Diam: 1.90 3.0+(-)1.3 cm 2D Systolic Function EF 4C: 41.00 >55% EF 2C: 65.40 >55% EF BiP: 55.30 >55% Mitral Valve MV VTI: 0.60 MV Pk Darke: 2.47 MV Mn Drake: 1.50 MV Pk Grad: 24.00 MV Mn Grad: 11.00 MV Pk E: 2.26 MV Decel Time: 408.00 E'Lateral: 5.08 E'Medial: 4.47 E/E' Med: 50.60 E/E' Lat: 44.50 PHT: 120.00 MVA PHT: 1.83 MVA Continuity: 1.18 Decel [place]: 5.54 Aortic Valve AoV Pk Drake: 2.20 AoV Mn Drake: 1.53 AoV VTI: 0.42 AoV Pk Grad: 19.00 Aov Mn Grad: 11.00 DAVID Cont.VTI: 1.68 AI Pk Drake: 4.25 AI [place]: 2.14 LVOT LVOT Pk Drake: 1.39 LVOT Mn Drake: 0.93 LVOT VTI: 0.25 LVOT Pk Grad: 8.00 LVOT Mn Grad: 4.00 LVOT Diam: 1.90 LVOT Area: 2.84 Diastolic Function MV Pk E: 2.26 E'Medial: 4.47 E/E' Med: 50.60 E' Laterial: 5.08 E/E' Lat: 44.50 Right Ventricle TAPSE (mm): 15.80 TVS' Drake: 6.67 Tricuspid Valve TR Pk Drake: 3.54 TR Pk Grad: 50.00 RA Press: 15.00 RVSP: 65.00 Great Vessels Aorta Ao Asc: 3.20 2.1-3.4 cm Pulmonary Veins Pulm Vein S/D 0.60 Pulmonary Valve PV Pk Drake: 0.89 Peak PV Grad: 3.00 Updated in Other Vendor System with Status of Final Nicolas Medina MD electronically signed on 05/20/2025 9:08:58 AM with status of Final
[2025-05-19 08:18] LABS: Hematocrit 33.0 % (37.0-47.0); Hemoglobin 10.2 g/dl (12.0-16.0); Imm Gran Abs Auto 0.07 X10*3/uL (0.00-0.03); Imm Gran Pct Auto 0.7 % (0.0-0.4); Lymphocytes Absolute Auto 1.4 X10*3/uL (1.2-4.9); Mean Corpuscular HGB Conc 30.9 g/dl (31.0-35.0); Mean Corpuscular Hemoglobin 29.0 pg (27.0-33.0); Mean Corpuscular Volume 93.8 fL (80.0-98.0); NRBC Abs Auto 0.000 X10*3/uL (0.0-0.012); NRBC Pct Auto 0.0 /100WBC (0.0-0.2); Platelet Count 303 X10*3/uL (160-400); Red Blood Count 3.52 X10*6/uL (4.20-5.50); White Blood Count 9.9 X10*3/uL (4.8-10.8)
== END ==
LOC: HO.CARD 07:46
PROVIDERS: Absent Provider Internal Medicine; PCP Internal Medicine; Visit Provider Internal Medicine
DX: I42.1 Obstructive hypertrophic cardiomyopathy (principal); D64.9 Anemia, unspecified
CPT/HCPCS: 36415; 85025; 93306; Q9957

== ENCOUNTER → 2025-05-19 08:02 | Outpatient (BNV) | payer OTHER, SELFPAY | PROVIDERS: Absent Provider Internal Medicine; PCP Internal Medicine; Visit Provider Internal Medicine Cardiovascular Disease | DX: I42.1 Obstructive hypertrophic cardiomyopathy (principal); I34.2 Nonrheumatic mitral (valve) stenosis; I34.81 Nonrheumatic mitral (valve) annulus calcification | CPT/HCPCS: 93306 ==

== ENCOUNTER 2025-05-22 13:25 | Outpatient (AMB) | payer OTHER, SELFPAY ==
--- OUTSIDE RECORDS SUMMARY | 2025-03-24 04:44 | XMS_ITS ---
Author Organization Terrence Kaur MD Address [address] [place] [address] [place] [phone] Care Team Providers Care Tablet Making Machine Operator Name Role Phone Terrence Kaur Primary Care [...] Location Date Provider Diagnosis Terrence Kaur MD [address] [place] [address] [place] [phone] 03/24/2025 Terrence Kaur Cellulitis L03.90 Assessments Encounter [...] 01/02/2025 Next Appt Details Provider Name:Terrence green, 06/16/2025 08:00:00 AM, [address] [place] [address], [address], [phone], Provider Name:Terrence green, 08/15/2025 07:15:00 AM, [address] [place] [address], [address], [phone], Provider Name:Terrence Ramos ier, 08/22/2025 10:30:00 AM, [address], [address], [place], [phone], Progress Notes * Cami HERRERAeDOB:[birth year] (59 yo F)Acc No.[id number]:03/24/2025 Patient: Fer MEREDITHSTEFFANYLAURENCE Tabby :1965 A ge:59 Y S ex:Female Address:[address] [place] [address], [address] * Refills Refill Doxycycline Hyclate Capsule, 100 MG, Orally, 28 Capsule, 1 capsule, twice a day, 14 days Refill Amoxicillin-Pot Clavulanate Tablet, 875-125 MG, Orally, 28 Tablet, 1 tablet, every 12 hrs, 14 days * true * Date: Generated for Keren sethi/Elisa/Tequilaitting on: 0 05/22/2025 06:38 PM EDT
--- OUTSIDE RECORDS SUMMARY | 2025-04-18 04:45 | XMS_ITS ---
Author Organization Terrence Kaur MD Address [address] [place] [phone] Care Team Providers Care Conservation Engineer Name Role Phone Terrence Kaur Primary Care [...] Location Date Provider Diagnosis Terrence Kaur MD [address] [place] [address] [place] [phone] 04/18/2025 Terrence Kaur Controlled type 2 diabetes [...] Next Appt Details Provider Name:Terrence Ramos ier, 06/16/2025 08:00:00 AM, [address] [place] [address], Suite [facility], [place], [place], [phone], Provider Name:Terrence Ramos ier, 08/15/2025 07:15:00 AM, [address] [place] [address], [place] [address], [place], [place], [phone], Provider Name:Terrence Ramos duranr, 08/22/2025 10:30:00 AM, [address] [place] [address], [place] [address], [place], [place], [phone], Progress Notes * Cami HERRERAeDOB:[birth year] (59 yo F)Acc No.[id number]:04/18/2025 Progress Notes Patient: Tabby POLLOCK Provider: Nnamdi Kaur MD :1965 A ge:59 Y S ex:Female Date:04/18/2025 Address:[address] [place], [place] [phone] Subjective: * Chief Complaints: * 2 MO [...] Kaur MD Date: 0 04/18/2025 Generated for Keern sethi/Elisa/Tequilaitting on: 0 05/22/2025 06:38 PM EDT History and Physical Notes * HPI [...]
--- OUTSIDE RECORDS SUMMARY | 2025-05-04 07:59 | XMS_ITS ---
Author Organization Terrence Kaur MD Address [address] [place] [phone] Care Team Providers Care Bullet Assembly Press Operator Name Role Phone Terrence Kaur Primary Care Provider [phone] REASON FOR VISIT Nose bleed Encounters Encounter Location Date Provider Diagnosis Terrence Kaur MD [address] [place] [address] [place] [phone] 05/04/2025 Terrence Kaur Plan Of Treatment Next Appt Details Provider Name:Terrence Ramos ier, 06/16/2025 08:00:00 AM, [address] [place] [address], [address], [phone], Provider Name:Terrence Ramos ier, 08/15/2025 07:15:00 AM, [address] [place] [address], [address], [phone], Provider Name:Terrence Ramos ier, 08/22/2025 10:30:00 AM, [address] [place] [address], [address], [phone], Progress Notes * Lopez HERRERAOB:[birth year] (59 yo F)Acc No.[id number]:05/04/2025 Patient: Fer LIGHT Raelene :1965 A ge:59 Y S ex:Female Address:[address] [place] [address], [address] * true * Date: Generated for Keren sethi/Elisa/Hari on: 0 05/22/2025 06:38 PM EDT
--- OUTSIDE RECORDS SUMMARY | 2025-05-12 07:30 | XMS_ITS ---
Author Organization Terrence Kaur MD Address [address] [place], [place] [phone] Care Team Providers Care Bicycle I Assembler Name Role Phone Terrence Kaur Primary Care [...] Status W/U Status Risk Notes Problem Leukocytosis (102462188) Elevated WBC count (D72.829) Active confirmed Vital Signs Blood pressure systolic 112 mm Hg 05/12/20 25 Blood pressure diastolic 60 mm Hg 025 Height 63 in 05/12/2025 Weight 320 lbs 05/12/2025 BMI 56.68 kg/m2 05/12/2025 Encounters Encounter Location Date Provider Diagnosis Terrence Kaur MD [address] [place] [address] [address] [place], [place] [phone] 05/12/2025 Terrence Kaur Epistaxis R04.0 ; Elevated [...] order given to patient having done at [facility] labs Plan Of Treatment Treatment Notes Assessment Notes Epistaxis will hold elequis if she starts bleeding again and then figure what to do Elevated WBC count was from the stress of the nose bleed Anemia order given to royer evans having done at [facility] labs Next Appt Details Provider Name:Terrence green, 06/16/2025 08:00:00 AM, [address] [place] [address], [address], [place], [place], [phone], Provider Name:Terrence green, 08/15/2025 07:15:00 AM, [address], [address], [place], [place], [phone], Provider Name:Terrence Ramos iesim, 08/22/2025 10:30:00 AM, [address], [address], [place], [place], [phone], Progress Notes * Lopez HERRERAOB:[birth year] (59 yo F)Acc No.[id number]:05/12/2025 Progress Notes Patient: Tabby POLLOCK Provider: Nnamdi Kaur MD :1965 A ge:59 Y S ex:Female Date:05/12/2025 Address:[address] [place] [address] Subjective: * Chief Complaints: * f /u [...] order given to patient having done at [facility] labs * Procedure Codes: * * Sign off status: Completed true * Provider: Nnamdi Kaur MD Date: 05/12/2025 Generated for Keren sethi/Elisa/Tequilaitting on: 0 05/22/2025 [...]
--- OUTSIDE RECORDS SUMMARY | 2025-05-19 04:30 | XMS_ITS ---
Author Organization Terrence Kaur MD Address [address] [place] [phone] Care Team Providers Care Caretaker Grounds Name Role Phone Terrence Kaur Primary Care Provider REASON FOR VISIT CBC Encounters Encounter Location Date Provider Diagnosis Terrence Kaur MD [address] [place] [address] [place] [phone] 05/19/2025 Terrence Kaur Plan Of Treatment Next Appt Details Provider Name:Terrence Ramos ier, 06/16/2025 08:00:00 AM, [address] [place] [address], [address], [phone], Provider Name:Terrence green, 08/15/2025 07:15:00 AM, [address] [place] [address], [address], [phone], Provider Name:Terrence Ramos ier, 08/22/2025 10:30:00 AM, [address] [place] [address], [address], [phone], Progress Notes * Cami HERRERAeDOB:[birth year] (59 yo F)Acc No.[id number]:05/19/2025 Progress Note Patient: Tabby POLLOCK Provider: Nnamdi Kaur MD :1965 A ge:59 Y S ex:Female Date:05/19/2025 Address:[address] [place] [address] Subjective: * Chief Complaints: * 1 . [...] MD Date: 0 05/19/2025 Generated for Keren sethi/Elisa/Tequilaitting on: 05/22/2025 06:38 PM EDT
[2025-05-22 13:54] VITALS: BP 120/72; PULSE 71; BMI 56.0
--- NOTE | 2025-05-22 13:54 | MHC.OFFVIS ---
Vital Signs 05/22/25 13:54 Height 5 ft 3 in Weight 316 lb BMI 56.0 BP 120/72 Blood Pressure Location Lt brachial Position Sitting Pulse 71 Pulse Source Pulse Oximeter Intake Visit Reasons: 6 month f/up device ck Allergies adhesive (ADHESIVE) Adverse Reaction (Unknown, Verified 05/04/25 09:27) RASH - SKIN CAME OFF WITH TAPE apremilast (Otezla) Adverse Reaction (Unknown, Verified 05/04/25 09:27) nausea, vomiting Sulfa (Sulfonamide Antibiotics) (SULFA (SULFONAMIDE ANTIBIOTICS)) Adverse Reaction (Unknown, Verified 05/04/25 09:27) UNKNOWN Medication List - Last Reconciled 05/22/25 by Álvaro Celis MD amlodipine 5 mg PO DAILY apixaban (Eliquis) 5 mg PO BID 90 days bimekizumab-bkzx (Bimzelx Autoinjector) mg subcut bumetanide 2 mg PO DAILY clobetasol 0.05% grams topical levothyroxine 88 mcg PO DAILY@0600 metformin 500 mg PO BID metoprolol tartrate 75 mg (1.5 x 50 mg) PO BID montelukast 10 mg PO DAILY potassium chloride ER 20 mEq PO BEDTIME tiotropium bromide (Spiriva with HandiHaler) 1 cap inhalation DAILY venlafaxine ER 150 mg PO BEDTIME HPI Comments Details: Tabby returns for follow-up regarding hypertrophic cardiomyopathy as well as atrial fibrillation. In 2018, she underwent extended septal myectomy procedure. Subsequently, she also underwent permanent pacemaker implantation. She continues to be on Bumex for congestive heart failure. Overall, weight is just about the same as before. She states that she is more short of breath now than before. Even short bouts of activity makes her short of breath. She is also markedly deconditioned. [facility] Medical History Celiac disease Mitral valve disease Morbid obesity MONICA (iron deficiency anemia) Pulmonary hypertension PAF (paroxysmal atrial fibrillation) HOCM (hypertrophic obstructive cardiomyopathy) Surgical History Hx of colonoscopy History of esophagogastroduodenoscopy (EGD) Status post ventricular septal myectomy History of cardiac pacemaker (~10/2018) History of heart surgery (~10/2018) History of cardiac catheterization Family History Father CVD (cardiovascular disease) Mother CVD (cardiovascular disease) Brother Diabetes CVD (cardiovascular disease) HTN (hypertension) Social History Household Members: Spouse and Children Housing: House Do you presently have visiting nurse or other home services: No Alcohol intake: never Comment: social Patient Tobacco Use Status: Former Tobacco user Substance Use Type: Marijuana Advance Directives Date on File: 04/09/22 service: No Current occupational status: disabled Sexual orientation: Straight/Heterosexual Gender identity: Female Review of Systems Const Denies weakness ENT Denies dizziness Card Denies chest pain, Denies chest pain with activity, Denies syncope, Denies rapid heart rate, Denies pedal edema, Denies edema, Denies leg edema, Reports lightheadedness, Denies palpitations, Reports dyspnea, Reports dyspnea on exertion and Reports orthopnea Resp Denies cough, Reports dyspnea and Reports dyspnea on exertion GI Denies hematochezia and Denies change in stool character Musc Denies abnormal gait, Denies muscle cramps, Denies muscle weakness, Denies numbness, Denies radiating pain into limb and Denies tingling Neuro Denies abnormal gait, Denies dizziness, Denies syncope, Denies numbness, Denies tingling and Denies weakness Endo Denies palpitations Physical Exam Vital Signs: Last Vital Signs Pulse 71 05/22/25 13:54 BP 120/72 05/22/25 13:54 BMI result Body Mass Index 56.0 Const General: comfortable and no acute distress Orientation/consciousness: patient oriented x3 HEENT Other: Unremarkable Head: Yes normal to inspection Neck Neck: Yes normal visual inspection Chest Chest palpation & inspection: normal inspection of the chest Resp Auscultation: clear to auscultation bilaterally Cardio Palpation: normal PMI Heart sounds: S1 normal heart sound present, S2 normal heart sound present, no gallops, Murmur heart sound present systolic II/ and no rubs GI Palpation (GI): Soft to palpation Back/Spine/Pelvis Other: unremarkable Skin General skin exam: no rashes or lesions noted Neuro General: patient oriented x3 Extrem Other: Chronic changes and some discoloration but no significant swelling. General: Yes normal to inspection Psych Mental Status: mental status grossly normal Office Procedures Cardiac Device Check Cardiac Device Check Details: Pacemaker interrogated today. Dual-chamber device programmed DDDR. Battery status 5 months. Normal lead parameters. Minimal atrial pacing. 99% ventricular pacing. 100% atrial fibrillation burden. Overall, normal device function. [id number] Cardiac Device Check, pacemaker dual lead Procedure code (CPT) selection complete Assessment & Plan Assessment & Plan (1) Acute on chronic diastolic (congestive) heart failure: Code(s): I50.33 - Acute on chronic diastolic (congestive) heart failure Category: Medical Plan: Due to recent worsening of shortness of breath, we will increase her diuretics. She can take Bumex 4 mg daily instead of 2 mg. We will also add Farxiga if covered by insurance and affordable. We will check labs in 3-4 weeks. She will contact us with her progress. (2) HOCM (hypertrophic obstructive cardiomyopathy): Code(s): I42.1 - Obstructive hypertrophic cardiomyopathy Category: Medical Plan: Status post septal myectomy procedure. (3) Persistent atrial fibrillation: Code(s): I48.19 - Other persistent atrial fibrillation Category: Medical Plan: She has essentially been in persistent atrial fibrillation. In the past, she felt the same either in sinus rhythm or in atrial fibrillation. She is not suitable for cardioversion either as unlikely to respond from obesity, untreated sleep apnea and underlying structural heart disease. She remains on beta-blockers and anticoagulation. (4) Mitral valve disease: Code(s): I05.9 - Rheumatic mitral valve disease, unspecified Category: Medical Plan: Elevated gradients across the mitral valve. Thought to be from some combination of diastolic dysfunction and increased stroke volume. Less likely that she has any significant mitral stenosis. This has been present for a long time including 2018. We will follow on echocardiogram. (5) Pulmonary hypertension: Code(s): I27.20 - Pulmonary hypertension, unspecified Category: Medical Plan: Multifactorial; suspected to be from obesity, untreated obstructive sleep apnea, left heart dysfunction, diastolic heart failure. In the past, she was even sent to Pulmonary hypertension Clinic in [place]. (6) Morbid obesity: Code(s): E66.01 - Morbid (severe) obesity due to excess calories Category: Medical Plan: This has not changed in a long time. Very likely, this is the long-term weight. (7) MIKIE (obstructive sleep apnea): Code(s): G47.33 - Obstructive sleep apnea (adult) (pediatric) Category: Medical Plan: Sleep study shows severe sleep apnea. However, patient not able to use CPAP due to intolerance. Has been discussed several times. Plan EKGs not being done as patient states it is too expensive. Orders: Orders B Type Natriuretic Peptide 3 Weeks I50.33 - Acute on chronic diastolic (congestive) heart failure Basic Metabolic Panel 3 Weeks I50.33 - Acute on chronic diastolic (congestive) heart failure Medications: New dapagliflozin propanediol (Farxiga) 10 mg PO DAILY 90 tabs 1RF I50.33 - Acute on chronic diastolic (congestive) heart failure Changed From bumetanide 2 mg PO DAILY 90 tabs 3RF I50.33 - Acute on chronic diastolic (congestive) heart failure To bumetanide 4 mg (2 x 2 mg) PO DAILY 180 tabs 3RF 90 days I50.33 - Acute on chronic diastolic (congestive) heart failure Coding Level of Care Code Est Pt Level 4 (31084) Complex EM visit Add On G2211 Diagnoses Acute on chronic diastolic (congestive) heart failure I50.33 HOCM (hypertrophic obstructive cardiomyopathy) I42.1 Persistent atrial fibrillation I48.19 Mitral valve disease I05.9 Pulmonary hypertension I27.20 Morbid obesity E66.01 MIKIE (obstructive sleep apnea) G47.33 CPT Codes Cardiac Device Check - Cardiac Device 2: [id number]-[id number] Cardiac Device Check, pacemaker dual lead ([id number])
--- OUTSIDE RECORDS SUMMARY | 2025-05-22 18:38 | XMS_ITS | Encounter Summary ---
Author Organization [facility] Address [address] [place] [address] Phone Care Team Providers Care Tongue Presser Name Role Phone Antonette Kumar DO Primary Car e Provider Encounter Details Date Type Department Care Team (Late st Contact Info) Description 02/03/2018 [place] [facility] [place] Speech Correction Consultant [address] [facility], [address], [address] [place] [address] Social History Tobacco Use Types [...] on filedocumented in this encounter Care Teams Tongue Presser Relationship Specialty Start Date End Date Antonette Kumar DO [address] [place], [place] [phone] PCP - General Internal Medicine 11/30/17 documented as of this encounter Additional Source Comments The information contained in this document represents components of the legal health record. It is not the complete legal health record.[facility]
--- OUTSIDE RECORDS SUMMARY | 2025-05-22 18:38 | XMS_ITS | Patient Health Record ---
Author Organization Terrence Kaur MD Address [address] [place] [phone] Care Team Providers Care Rn Mds Coordinator Name Role Phone Terrence Kaur Primary Care Provider [phone] Allergies Allergen (clinical drug ingredient) Drug/Non Drug [...] PROFILE Reviewed date:05/27/2024 12:25:49 PM Interpretation: Performing Lab:[facility], [address] [place] [phone] Notes/Report: Iron 44 30-160 mcg/dL Total Iron Binding Capacity 308 228-428 mcg/dL Percent Iron Saturation 14 15-50 % Unsaturated Iron Binding 264 Complete Blood Count Auto Di ff Reviewed date:08/09/2024 12:58:14 PM Interpretation: Performing Lab:[facility], [address] [place] [phone] Notes/Report: White Blood Count 11.2 4.8-10.8 X10*3/uL [...] NRBC Abs Auto 0.000 0.0-0.012 X10*3/uL Comprehensive [place]. Panel Fa st Reviewed date:08/09/2024 04:50:41 PM Interpretation: Performing Lab:[facility], [address] [place] [phone] Notes/Report: Sodium 139 135-145 mmol/L Potassium 4.0 [...] Panel Reviewed date:08/09/2024 04:46:55 PM Interpretation: Performing Lab:[facility], [address] [place] [phone] Notes/Report: Triglycerides 164 <150 mg/dL Desirable Triglyceride: [...] T4 Reviewed date:08/09/2024 04:48:42 PM Interpretation: Performing Lab:[facility], [address] [place] [phone] Notes/Report: TSH reflex Free T4 4.16 0.32-4.0 uIU/mL UA ClnCatch+Micro w/rflx Cul t Reviewed date:08/09/2024 01:26:11 PM Interpretation: Performing Lab:[facility], [address] [place] [phone] Notes/Report: Urine, Clean Catch Color Urine Yellow Appearance Urine Clear PH 5.5 5.0-9.0 Glucose Urine UA Negative Negative mg/dL Urine Blood Negative Negative Specific [place] - Urine 1.020 1.005-1.025 Urine Protein Trace [...] Thyroxine) Reviewed date:08/09/2024 04:50:18 PM Interpretation: Performing Lab:[facility], [address] [place] [phone] Notes/Report: Free T4 (Free Thyroxine) 1.12 0.71-1.85 ng/dL Zach Alexander Reviewed date:08/09/2024 12:42:40 PM Interpretation: Performing Lab:[facility], [address] [place] [phone] Notes/Report: Zach Alexander See Note Specimen held untested for 24 hours; Call to request Chemistry testing. Urine Culture Reviewed date:08/10/2024 07:25:45 PM Interpretation: Performing Lab:[facility], [address] [place] [phone] Notes/Report: Urine Culture Report Result Urine Culture 10,000 to 50,000 cfu/ml Urine Culture Mixed bacterial nathalie a characteristic of Urine Culture urogenital contamination. Complete Blood Count Auto Di ff Reviewed date:05/02/2025 02:49:35 PM Interpretation: Performing Lab:[facility], [address] [place] [phone] Notes/Report: White Blood Count 9.9 4.8-10.8 X10*3/uL [...] INR Reviewed date:05/02/2025 02:22:35 PM Interpretation: Performing Lab:[facility], [address] [place] [phone] Notes/Report: Prothrombin Time 13.9 10.9-12.4 SEC INTERNATIONAL [...] Panel Reviewed date:05/02/2025 02:49:13 PM Interpretation: Performing Lab:[facility], [address] [place] [phone] Notes/Report: Bilirubin Total 0.5 0.0-1.0 mg/dL Bilirubin Direct 0.2 0.0-0.5 mg/dL Aspartate Amino Transferase 43 5-31 U/L Alanine Aminotransferase 27 0-31 U/L Total Protein 7.7 6.5-8.0 g/dL Albumin Level 4.1 3.5-5.0 g/dL Alkaline Phosphatase 75 39-117 U/L Basic Metabolic Panel Reviewed date:05/02/2025 12:41:01 PM Interpretation: Performing Lab:[facility], [address] [place] [phone] Notes/Report: Sodium 141 135-145 mmol/L Potassium 4.0 [...] Sensitivity Reviewed date:05/02/2025 02:23:01 PM Interpretation: Performing Lab:[facility], [address] [place] [phone] Notes/Report: Troponin-I High Sensitivity 5.4 <3.5-17.0 ng/L The Joe high sensitivity Troponin-I results should be used in conjunction with other diagnostic information such as ECG, clinical observations and information, and patient symptoms to aid in the diagnosis of MS. Lipase Reviewed date:05/02/2025 12:40:17 PM Interpretation: Performing Lab:[facility], [address] [place] [phone] Notes/Report: Lipase 16 8-78 U/L Complete Blood Count Auto Di ff Reviewed date:05/04/2025 05:13:40 PM Interpretation: Performing Lab:[facility], [address] [place] [phone] Notes/Report: White Blood Count 16.2 4.8-10.8 X10*3/uL [...] INR Reviewed date:05/04/2025 05:00:31 PM Interpretation: Performing Lab:[facility], [address] [place] [phone] Notes/Report: Prothrombin Time 16.5 10.9-12.4 SEC INTERNATIONAL [...] Panel Reviewed date:05/04/2025 05:00:51 PM Interpretation: Performing Lab:[facility], [address] [place] [phone] Notes/Report: Sodium 143 135-145 mmol/L Potassium 4.1 [...] 3.5-5.0 g/dL Alkaline Phosphatase 53 39-117 U/L Complete Blood Count Auto Di ff Reviewed date:05/19/2025 12:56:45 PM Interpretation: Performing Lab:[facility], [address] [place] [phone] Notes/Report: White Blood Count 9.9 4.8-10.8 X10*3/uL Red Blood Count 3.52 4.20-5.50 X10*6/uL Hemoglobin 10.2 12.0-16.0 g/dl Hematocrit 33.0 37.0-47.0 % Mean Corpuscular Volume 93.8 80.0-98.0 fL Mean Corpuscular Hemoglobin 29.0 27.0-33.0 pg Mean Corpuscular HGB Conc 30.9 31.0-35.0 g/dl Red Cell Distribution Width 16.6 11.0-16.0 % Platelet Count 303 160-400 X10*3/uL Mean Platelet Volume 9.4 9.4-12.3 fL Neutrophils Percent Auto 74.5 45-73 % Imm Gran Pct Auto 0.7 0.0-0.4 % Lymphocytes Percent Auto 14.0 20-40 % Monocytes Percent Auto 6.1 2-11 % Eosinophils Percent Auto 3.9 0-4 % Basophils Percent Auto 0.8 0-2 % NRBC Pct Auto 0.0 0.0-0.2 /100WBC Neutrophils Absolute Auto 7.4 2.0-8.3 x10*3/u L Imm Gran Abs Auto 0.07 0.00-0.03 X10*3/uL Lymphocytes Absolute Auto 1.4 1.2-4.9 X10*3/u L Monocytes Absolute Auto 0.6 [...] W/U Status Risk Notes Problem Atrial fibrillation (13420099) Atrial fibrillation (I48.91) Active confirmed Problem Celiac disease (196419998) Celiac disease (K90.0) Active confirmed Problem Psoriasis (7750624) Psoriasis (L40.9) Active confirmed Problem 255427305 Acquired hypothyroidism (E03.9) Active confirmed Problem Benign essential hypertension (0226576) Benign essential hypertension (I10) Active confirmed Problem Hypertrophic cardiomyopathy (734037631) Hypertrophic cardiomyopathy (I42.2) Active confirmed Problem Asthma (613421585) Asthma (J45.909) Active confirmed Problem Leukocytosis (997040981) Elevated WBC count (D72.829) Active confirmed Problem 146281859 Controlled type 2 diabetes mellitus without complication, without long-term current use of insulin (E11.9) Active confirmed Problem 23177806 Pagophagia (F50.89) Active confirmed Problem Cardiac pacemaker in situ (098060160) History of pacemaker (Z95.0) Active confirmed Vital Signs Blood pressure diastolic 60 mm Hg 05/12/2025 Height 63 in 05/12/2025 Blood pressure systolic 112 mm Hg 05/12/2025 Weight 320 lbs 05/12/2025 BMI 56.68 kg/m2 05/12/2025 Encounters Encounter Location Date Provider Diagnosis Terrence Kaur MD [address] [place] [address] [id number] 05/27/2024 Terrence Kaur Pagophagia F50.89 Terrence Kaur MD [address] [place] [address] Drive [address] [place] [address] [id number] 08/09/2024 Terrence Kaur Blood tests for routine general physical examination Z00.00 ; Benign essential hypertension I10 and Acquired hypothyroidism E03.9 Terrence Kaur MD [address] [place] [address] Drive [address] [place] [address] [id number] 08/16/2024 Terrence Kaur Psoriasis L40.9 ; Encounter for general adult medical examination without abnormal findings Z00.00 ; Controlled type 2 diabetes mellitus without complication, without long-term current use of insulin E11.9 ; Celiac disease K90.0 ; Hypertrophic cardiomyopathy I42.2 and Encounter for immunization Z23 Terrence Kaur MD [address] [place] [address] [id number] 09/15/2024 Terrence Kaur Controlled type 2 diabetes mellitus without complication, without long-term current use of insulin E11.9 Terrence Kaur MD [address] [place] [address] [id number] 11/10/2024 Terrence Kaur Controlled type 2 diabetes mellitus without complication, without long-term current use of insulin E11.9 and Celiac disease K90.0 Terrence Kaur MD [address] [place] [address] [id number] 01/02/2025 Terrence Kaur Cellulitis L03.90 ; Psoriasis L40.9 and Controlled type 2 diabetes mellitus without complication, without long-term current use of insulin E11.9 Terrence Kaur MD [address] [place] [address] [id number] 01/27/2025 Terrence Kaur Cellulitis L03.90 an d Psoriasis L40.9 Terrence Kaur MD [address] [place] [address] [id number] 02/13/2025 Terrence Kaur Hypertrophic cardiomyopathy I42.2 ; Benign essential hypertension I10 and Controlled type 2 diabetes mellitus without complication, without long-term current use of insulin E11.9 Terrence Kaur MD [address] [place] [address] [id number] 04/18/2025 Terrence Kaur Controlled type 2 diabetes mellitus without complication, without long-term current use of insulin E11.9 ; Hypertrophic cardiomyopathy I42.2 ; Benign essential hypertension I10 and Asthma J45.909 Terrence Kaur MD [address] [place] [address] [id number] 05/12/2025 Terrence Kaur Epistaxis R04.0 ; Elevated WBC count D72.829 and Anemia D64.9 Terrence Kaur MD [address] [place] [address] [id number] 03/24/2025 Terrence Kaur Cellulitis L03.90 Terrence Karu MD [address] [place] [address] [id number] 05/04/2025 Terrence Kaur MD [address] [place] [address] [id number] 06/28/2024 Terrence Bombardier Psoriasis L40.9 Terrence Kaur MD [address] [place] [address] [id number] 09/05/2024 Terrence Bombardier Atrial fibrillation I48.91 Terrence Kaur MD [address] [place] [address] [id number] 09/05/2024 Terrence Ameenaer Terrence Kaur MD [address] [place] [address] [id number] 10/31/2024 Terrence Bombardier Psoriasis L40.9 Terrence Kaur MD [address] [place] [address] [id number] 11/16/2024 Terrence Thomasardier Asthma J45.909 Terrence Kaur MD [address] [place] [address] [id number] 12/09/2024 Terrence Bombardier Atrial fibrillation I48.91 and Psoriasis L40.9 Assessments Encounter Date Diagnosis (ICD Code) Assessment Notes Treatment Notes Treatment Clinical Notes Section Notes 05/27/2024 Pagophagia (ICD-10 - F50.89) 08/09/2024 Blood tests for routine general physical examination (ICD-10 - Z00.00) 08/09/2024 Benign essential hypertension (ICD-10 - I10) 08/16/2024 Psoriasis (ICD-10 - L40.9) needs to see dermatology/ needs to go to [facility]/ info for [facility] side Derm given to patient 08/16/2024 Encounter [...] order given to patient having done at [facility] labs 12/09/2024 Psoriasis (ICD-10 - L40.9) 08/16/2024 [...] Provider Name:Terrence Ramos ier, 06/16/2025 08:00:00 AM, [address] [place] [address], [id number], Provider Name:Terrence Ramos ier, 08/15/2025 07:15:00 AM, [address] [place] [address], [address], [id number], Provider Name:Terrence Ramos ier, 08/22/2025 10:30:00 AM, [address] [place] [address], [address], [id number], Insurance Providers Payer Name Payer Address Payer Phone Subscriber Number Group Number Insured Name Patient Relationship to Insured Coverage Start Date Coverage End Date [facility] [place] [address] [place], [place] [id number] Tabby Cifuentes Self - patient is the insured Medical (General) History Medical History History ICD Code IHSS with surgery in 2018 COLONOSCOPY 2018 bimzelx is new psoriasis med
--- OUTSIDE RECORDS SUMMARY | 2025-05-22 18:38 | XMS_ITS | Clinical Summary ---
Author Organization [facility] Address [address] [place] [address] [place] [phone] Phone Care Team Providers Care Armored Cable Machine Operator Name Role Phone Antonette Kumar DO [...] Devices Not on file Insurance [address] [place], [place] [id number] [place], [place] [id number] POS [facility] POS [facility] HMO POS [address] [place] [facility] HMO POS [address] [place] [facility] HMO POS [facility] HMO POS [facility] HMO POS [facility] HMO POS Care Teams Armored Cable Machine Operator Relationship Specialty Start Date End Date Erwin Kumarkeiry [address] [place] [address] PCP - General Internal Medicine 11/30/17 Additional Source Comments The information contained in this document represents components of the legal health record. It is not the complete legal health record.[facility]
== END 2025-05-22 14:14 | disposition home or self-care (01) ==
LOC: HO.HCS 13:25
PROVIDERS: PCP Internal Medicine; Visit Provider Internal Medicine
DX: I50.33 Acute on chronic diastolic (congestive) heart failure (principal); I42.1 Obstructive hypertrophic cardiomyopathy; I48.19 Other persistent atrial fibrillation; I05.9 Rheumatic mitral valve disease, unspecified; I27.20 Pulmonary hypertension, unspecified; E66.01 Morbid (severe) obesity due to excess calories; G47.33 Obstructive sleep apnea (adult) (pediatric)
CPT/HCPCS: 93280; 99214

== ENCOUNTER → 2025-05-22 13:25 | Outpatient (BNVA) | payer OTHER, SELFPAY | PROVIDERS: PCP Internal Medicine; Visit Provider Internal Medicine | DX: Z45.010 Encounter for checking and testing of cardiac pacemaker pulse generator [battery] (principal); I50.33 Acute on chronic diastolic (congestive) heart failure | CPT/HCPCS: 93280 ==

== ENCOUNTER 2025-06-16 11:22 | Outpatient (REF) | payer OTHER, SELFPAY ==
[2025-06-16 11:30] LABS: MANUAL DIFF FLAG NO
[2025-06-16 11:58] LABS: Hematocrit 42.3 % (37.0-47.0); Hemoglobin 12.9 g/dl (12.0-16.0); Imm Gran Abs Auto 0.05 X10*3/uL (0.00-0.03); Imm Gran Pct Auto 0.4 % (0.0-0.4); Lymphocytes Absolute Auto 1.9 X10*3/uL (1.2-4.9); Mean Corpuscular HGB Conc 30.5 g/dl (31.0-35.0); Mean Corpuscular Hemoglobin 28.0 pg (27.0-33.0); Mean Corpuscular Volume 92.0 fL (80.0-98.0); NRBC Abs Auto 0.000 X10*3/uL (0.0-0.012); NRBC Pct Auto 0.0 /100WBC (0.0-0.2); Platelet Count 345 X10*3/uL (160-400); Red Blood Count 4.60 X10*6/uL (4.20-5.50); White Blood Count 11.6 X10*3/uL (4.8-10.8)
[2025-06-16 12:16] LABS: Iron 36 mcg/dL (30-160); Percent Iron Saturation 10 % (15-50); Total Iron Binding Capacity 345 mcg/dL (228-428); Unsaturated Iron Binding 309 ug/dL
== END 2025-06-16 11:23 | disposition home or self-care (01) ==
LOC: HO.LNP 11:22
PROVIDERS: Visit Provider Internal Medicine
DX: D64.9 Anemia, unspecified (principal)
CPT/HCPCS: 83540; 85025

== ENCOUNTER 2025-08-15 10:39 | Outpatient (REF) | payer OTHER, SELFPAY ==
[2025-08-15 10:42] LABS: MANUAL DIFF FLAG NO
[2025-08-15 10:59] LABS: Hematocrit 48.3 % (37.0-47.0); Hemoglobin 15.1 g/dl (12.0-16.0); Imm Gran Abs Auto 0.04 X10*3/uL (0.00-0.03); Imm Gran Pct Auto 0.4 % (0.0-0.4); Lymphocytes Absolute Auto 1.6 X10*3/uL (1.2-4.9); Mean Corpuscular HGB Conc 31.3 g/dl (31.0-35.0); Mean Corpuscular Hemoglobin 27.8 pg (27.0-33.0); Mean Corpuscular Volume 88.8 fL (80.0-98.0); NRBC Abs Auto 0.000 X10*3/uL (0.0-0.012); NRBC Pct Auto 0.0 /100WBC (0.0-0.2); Platelet Count 296 X10*3/uL (160-400); Red Blood Count 5.44 X10*6/uL (4.20-5.50); White Blood Count 10.9 X10*3/uL (4.8-10.8)
[2025-08-15 11:00] LABS: Appearance Urine Clear; Glucose Urine UA >=1000 mg/dL (Negative); PH 5.0 (5.0-9.0); Specific Gravity - Urine 1.025 (1.005-1.025); UMIC TRIGGER UACC YES
[2025-08-15 11:12] LABS: Alanine Aminotransferase 30 U/L (0-31); Albumin Level 4.0 g/dL (3.5-5.0); Alkaline Phosphatase 76 U/L (39-117); Anion Gap 13 (12-20); Aspartate Amino Transferase 52 U/L (5-31); Blood Urea Nitrogen 14 mg/dL (9-16); Calcium 9.5 mg/dL (8.4-10.2); Carbon Dioxide 33 mmol/L (22-29); Chloride 97 mmol/L (96-108); Cholesterol 192 mg/dL (<200); Estimated Glomerular Filt Rate > 60; HDL Cholesterol 27 mg/dL (>40); Potassium 3.9 mmol/L (3.3-5.1); Sodium 139 mmol/L (135-145); Total Protein 7.6 g/dL (6.5-8.0); Triglycerides 165 mg/dL (<150)
[2025-08-15 11:48] LABS: Microalbum/Creatinine Ratio Ur 7.6 ug/mg cr (<30)
[2025-08-15 13:25] LABS: Free T4 (Free Thyroxine) 1.01 ng/dL (0.71-1.85)
== END 2025-08-15 10:40 | disposition home or self-care (01) ==
LOC: HO.LNP 10:39
PROVIDERS: Visit Provider Internal Medicine
DX: Z00.00 Encounter for general adult medical examination without abnormal findings (principal); I10 Essential (primary) hypertension; E11.9 Type 2 diabetes mellitus without complications; E03.9 Hypothyroidism, unspecified; D72.829 Elevated white blood cell count, unspecified
CPT/HCPCS: 80053; 80061; 81001; 82043; 82570; 83036; 84439; 84443; 85025

== ENCOUNTER 2025-08-18 15:48 | Outpatient (AMB) | payer OTHER, SELFPAY ==
--- OUTSIDE RECORDS SUMMARY | 2025-01-27 06:30 | XMS_ITS ---
Author Organization Terrence Kaur MD Address [address] [place], [place] [id number] Care Team Providers Care Yarrow Gatherer Name Role Phone Terrence Kaur Primary Care Provider [phone] Allergies Allergen (clinical drug ingredient) Drug/Non Drug Allergy documented on EMR Reaction Allergy Type Onset Date Status Substance with sulfonamide structure and antibacterial mechanism of action (substance) Sulfa Antibiotics ? Drug Allergy Active REASON FOR VISIT Cellulitis on her stomach noticed it yesterday temp yesterday was 99.7 Medications Medication SIG (Take, Route, Frequency, Duration) Notes Start Date End Date Status metFORMIN HCl 500 MG TAKE 1 TABLET BY MO UTH TWICE A DAY WITH A MEAL FOR 30 DAYS Active Acetaminophen 325 MG 1 capsule as needed Orally every 6 hrs Not-Taking Tylenol 325 MG 1 tablet as needed Orally every 4 hrs Not-Taking Doxycycline Hyclate 100 MG 1 capsule Ora lly twice a day for 14 days 01/02/2025 Active Amoxicillin-Pot Clavulanate 875-125 MG 1 tablet Orally every 12 hrs for 14 days 01/02/2025 Active Valsartan 320 MG TAKE 1 TABLET BY TYESHA TH EVERY DAY FOR 90 DAYS for 90 Active Singulair 10 MG 1 tablet Orally Once a day for 30 days Active Clobetasol Propionate 0.05 % 1 application Externally Twice a day for 30 days Active Eliquis 5 MG as directed Orally BID Active Levothyroxine Sodium 88 MCG TAKE 1 TABLET BY MOUTH EVERY DAY IN THE MORNING ON EMPTY STOMACH for 90 Active Spiriva HandiHaler 18 MCG 1 capsule by i nhaling the contents of the capsule using the HandiHaler device Inhalation Once a day Active Metoprolol Tartrate 50 MG 1.5 tablet wit h food Orally Twice a day Active amLODIPine Besylate 5 MG TAKE 1 TABLET B Y MOUTH EVERY DAY FOR 30 DAYS for 90 Active Bumetanide 2 MG TAKE 1 TABLET BY TYESHA TH EVERY DAY FOR 30 DAYS for 90 Active Venlafaxine HCl ER 150 MG TAKE 1 CAPSULE BY MOUTH EVERY DAY WITH FOOD Orally Once a day for 90 days Active Cholecalciferol 25 MCG (1000 UT) 1 capsule Orally Once a day Active Potassium Chloride ER 20 MEQ 1 tablet with food Orally Once a day for 30 day(s) Active Bimzelx 320 MG/2ML 2 mL Subcutaneous Active Vital Signs Blood pressure systolic 126 mm Hg 01/28/20 25 Blood pressure diastolic 80 mm Hg 025 Height 63 in 01/27/2025 Weight 326 lbs 01/27/2025 BMI 57.74 kg/m2 01/27/2025 Encounters Encounter Location Date Provider Diagnosis Terrence Kaur MD [address] [place], [place] [phone] 01/27/2025 Terrence Kaur Cellulitis L03.90 and Psoriasis L40.9 Assessments Encounter Date Diagnosis (ICD Code) Assessment Notes Treatment Notes Treatment Clinical Notes Section Notes 01/27/2025 Cellulitis (ICD-10 - L03.90) patient verbalized understnading to continuemedication as prescribed 01/27/2025 Psoriasis (ICD-10 - L40.9) is improving/ hopefully with the infection Plan Of Treatment Medication Medication Name Sig Start Date Stop Date Notes Doxycycline Hyclate 100 MG 1 capsule Ora lly twice a day for 14 days 01/02/2025 Amoxicillin-Pot Clavulanate 875-125 MG 1 tablet Orally every 12 hrs for 14 days 01/02/2025 Treatment Notes Assessment Notes Cellulitis patient verbalized u nderstnading to continuemedication as prescribed Psoriasis is improving/ hopefu lly with the infection Next Appt Details Provider Name:Terrence green, 08/22/2025 10:30:00 AM, [address], [address], [place], [place], [phone], Progress Notes * Lopez REYNOSOOB:[birth year] (59 yo F)Acc No.[id number]:01/27/2025 Progress Notes Patient: Tabby POLLOCK Provider: Nnamdi Kaur MD :1965 A ge:59 Y S ex:Female Date:01/27/2025 Address:[address] [place] [address], [place], [phone] Subjective: * Chief Complaints: * C ellulitis on her stomach noticed it yesterday temp yesterday was 99.7 * HPI: S ymptom(s): patient is a 59 yo female here with complaint of cellulitis on her abdoment, had gotten all better and no problems for one week. started her psoriasis bimzelx on january 19. * ROS: G eneral/Constitutional: Denies C hills. D enies F atigue. D enies F ever. D enies H eadache. E NT: Denies S ore throat. R espiratory: Denies C ough. D enies S hortness of breath at rest. D enies S hortness of breath with exertion. G astrointestinal: Denies D iarrhea. D enies N ausea. * Medical History: * Surgical History: * Hospitalization/Major Diagno stic Procedure: * Medications: T akingBimzelx 320 MG/2ML Solution Prefilled Syringe 2 mL Subcutaneous Potassium Chloride ER 20 MEQ Tablet Extended Release 1 tablet with food Orally Once a day Cholecalciferol 25 MCG (1000 UT) Capsule 1 capsule Orally Once a day Metoprolol Tartrate 50 MG Tablet 1.5 tablet with food Orally Twice a day Spiriva HandiHaler 18 MCG Capsule 1 capsule by inhaling the contents of the capsule using the HandiHaler device Inhalation Once a day Bumetanide 2 MG Tablet TAKE 1 TABLET BY MOUTH EVERY DAY FOR 30 DAYS amLODIPine Besylate 5 MG Tablet TAKE 1 TABLET BY MOUTH EVERY DAY FOR 30 DAYS Venlafaxine HCl ER 150 MG Capsule Extended Release 24 Hour TAKE 1 CAPSULE BY MOUTH EVERY DAY WITH FOOD Orally Once a day Levothyroxine Sodium 88 MCG Tablet TAKE 1 TABLET BY MOUTH EVERY DAY IN THE MORNING ON EMPTY STOMACH Singulair 10 MG Tablet 1 tablet Orally Once a day Valsartan 320 MG Tablet TAKE 1 TABLET BY MOUTH EVERY DAY FOR 90 DAYS Eliquis 5 MG Tablet as directed Orally BID Clobetasol Propionate 0.05 % Ointment 1 application Externally Twice a day Amoxicillin-Pot Clavulanate 875- 125 MG Tablet 1 tablet Orally every 12 hrs Doxycycline Hyclate 100 MG Capsule 1 capsule Orally twice a day metFORMIN HCl 500 MG Tablet TAKE 1 TABLET BY MOUTH TWICE A DAY WITH A MEAL FOR 30 DAYS Taking Bimzelx 320 MG/2ML Solution Prefilled Syringe 2 mL Subcutaneous Taking Potassium Chloride ER 20 MEQ Tablet Extended Release 1 tablet with food Orally Once a day Taking Cholecalciferol 25 MCG (1000 UT) Capsule 1 capsule Orally Once a day Taking Metoprolol Tartrate 50 MG Tablet 1.5 tablet with food Orally Twice a day Taking Spiriva HandiHaler 18 MCG Capsule 1 capsule by inhaling the contents of the capsule using the HandiHaler device Inhalation Once a day Taking Bumetanide 2 MG Tablet TAKE 1 TABLET BY MOUTH EVERY DAY FOR 30 DAYS Taking amLODIPine Besylate 5 MG Tablet TAKE 1 TABLET BY MOUTH EVERY DAY FOR 30 DAYS Taking Venlafaxine HCl ER 150 MG Capsule Extended Release 24 Hour TAKE 1 CAPSULE BY MOUTH EVERY DAY WITH FOOD Orally Once a day Taking Levothyroxine Sodium 88 MCG Tablet TAKE 1 TABLET BY MOUTH EVERY DAY IN THE MORNING ON EMPTY STOMACH Taking Singulair 10 MG Tablet 1 tablet Orally Once a day Taking Valsartan 320 MG Tablet TAKE 1 TABLET BY MOUTH EVERY DAY FOR 90 DAYS Taking Eliquis 5 MG Tablet as directed Orally BID Taking Clobetasol Propionate 0.05 % Ointment 1 application Externally Twice a day Taking Amoxicillin-Pot Clavulanate 875-125 MG Tablet 1 tablet Orally every 12 hrs Taking Doxycycline Hyclate 100 MG Capsule 1 capsule Orally twice a day Taking metFORMIN HCl 500 MG Tablet TAKE 1 TABLET BY MOUTH TWICE A DAY WITH A MEAL FOR 30 DAYS Not-Taking/PRNTylenol 325 MG Tablet 1 tablet as needed Orally every 4 hrs Acetaminophen 325 MG Capsule 1 capsule as needed Orally every 6 hrs Medication List reviewed and reconciled with the patientNot-Taking/PRN Tylenol 325 MG Tablet 1 tablet as needed Orally every 4 hrs Not-Taking/PRN Acetaminophen 325 MG Capsule 1 capsule as needed Orally every 6 hrs Medication List reviewed and reconciled with the patient * Allergies: S ulfa Antibiotics: ?yes[Allergies Verified] Objective: * Vitals: H t: 63, Wt: 326, BMI:57.74, BP:126/80, Wt-k.87. * Examination: G eneral Examination: GENERAL APPEARANCE: a lert, well hydrated, in no distress.? SKIN: a bnormal psoriasis is improving after only 2 weeks and the cellulitis came back on her abdomen. HEART: n o murmurs, rubs, gallops, regular rate and rhythm.? LUNGS: n o wheezes, rales, rhonchi, good air movement, clear to auscultation bilaterally. Assessment: * Assessment: 1. C ellulitis - L03.90 (Primary) 2 . P soriasis - L40.9 Plan: * Treatment: 2. P soriasis Notes: is improving/ hopefully with the infection * Procedure Codes: * * Sign off status: Completed true * Provider: Nnamdi Kaur MD Date: 0 01/27/2025 Generated for Rickeyi ng/Elisa/eTransmitting on: 1 10/19/2024 08:28 PM EST History and Physical Notes * HPI (History of Present Illness) Category Sub-Category Detail Notes Category Not es Symptom(s) patient is a 59 yo female here with complaint of cellulitis on her abdoment, had gotten all better and no problems for one week. started her psoriasis bimzelx on january 19 Examination Category Sub-Category Detail Notes Category Not es General Examination GENERAL APPEARANCE: alert, w ell hydrated, in no distress HEART: no murmurs, rubs, ga llops, regular rate and rhythm LUNGS: no wheezes, rales, r honchi, good air movement, clear to auscultation bilaterally SKIN: abnormal psoriasis i s improving after only 2 weeks and the cellulitis came back on her abdomen
--- OUTSIDE RECORDS SUMMARY | 2025-02-13 05:00 | XMS_ITS ---
Author Organization Terrence Kaur MD Address [address] [place] [phone] Care Team Providers Care Fitness And Wellness Coordinator Name Role Phone Terrence Kaur Primary Care Provider Allergies Allergen (clinical drug ingredient) Drug/Non Drug Allergy documented on EMR Reaction Allergy Type Onset Date Status Substance with sulfonamide structure and antibacterial mechanism of action (substance) Sulfa Antibiotics ? Drug Allergy Active Results Component Value Reference Range Notes Hemoglobin A1c Reviewed date:02/13/2025 10:14:57 AM Interpretation: Performing Lab: Notes/Report: Hemoglobin A1c 6.5 Glucose, finger stick Reviewed date:02/13/2025 10:09:07 AM Interpretation: Performing Lab: Notes/Report: Value 121 REASON FOR VISIT 3 month Medications Medication SIG (Take, Route, Frequency, Duration) Notes Start Date End Date Status amLODIPine Besylate 5 MG TAKE 1 TABLET B Y MOUTH EVERY DAY FOR 30 DAYS Active Valsartan 320 MG TAKE 1 TABLET BY TYESHA TH EVERY DAY FOR 90 DAYS Active Metoprolol Tartrate 50 MG 1.5 tablet wit h food Orally Twice a day Active Acetaminophen 325 MG 1 capsule as needed Orally every 6 hrs Not-Taking metFORMIN HCl 500 MG TAKE 1 TABLET BY MO UTH TWICE A DAY WITH A MEAL FOR 30 DAYS Active Clobetasol Propionate 0.05 % 1 application Externally Twice a day for 30 days Active Eliquis 5 MG as directed Orally BID Active Tylenol 325 MG 1 tablet as needed Orally every 4 hrs Not-Taking Levothyroxine Sodium 88 MCG TAKE 1 TABLET BY MOUTH EVERY DAY IN THE MORNING ON EMPTY STOMACH for 90 Active Singulair 10 MG 1 tablet Orally Once a day for 30 days Active Venlafaxine HCl ER 150 MG TAKE 1 CAPSULE BY MOUTH EVERY DAY WITH FOOD Orally Once a day for 90 days Active Spiriva HandiHaler 18 MCG 1 capsule by i nhaling the contents of the capsule using the HandiHaler device Inhalation Once a day Active Bumetanide 2 MG TAKE 1 TABLET BY TYESHA TH EVERY DAY FOR 30 DAYS for 90 Active Cholecalciferol 25 MCG (1000 UT) 1 capsule Orally Once a day Active Potassium Chloride ER 20 MEQ 1 tablet with food Orally Once a day for 30 day(s) Active Bimzelx 320 MG/2ML 2 mL Subcutaneous Active Vital Signs Blood pressure systolic 152 mm Hg 02/14/20 25 Blood pressure diastolic 100 mm Hg 025 Height 63 in 02/13/2025 Weight 320 lbs 02/13/2025 BMI 56.68 kg/m2 02/13/2025 weight is down 6 pounds [facility] 01-27-25 Encounters Encounter Location Date Provider Diagnosis Terrence Kaur MD [address] [place] [address] [place] [phone] 02/13/2025 Terrence Kaur Hypertrophic cardiomyopathy I42.2 ; Benign essential hypertension I10 and Controlled type 2 diabetes mellitus without complication, without long-term current use of insulin E11.9 Assessments Encounter Date Diagnosis (ICD Code) Assessment Notes Treatment Notes Treatment Clinical Notes Section Notes 02/13/2025 Hypertrophic cardiomyopathy (ICD-10 - I42.2) patient not able to do jury duty due to chronic chf and shortness of breath/ letter given to patient and signed copy scanned in chart. 02/13/2025 Benign essential hypertension (ICD-10 - I10) is running high today will recheck in 2 months, continue curretn regiment 02/13/2025 Controlled type 2 diabetes mellitus without complication, without long-term current use of insulin (ICD-10 - E11.9) stable, will continue current regiment Plan Of Treatment Medication Medication Name Sig Start Date Stop Date Notes amLODIPine Besylate 5 MG TAKE 1 TABLET B Y MOUTH EVERY DAY FOR 30 DAYS Valsartan 320 MG TAKE 1 TABLET BY TYESHA TH EVERY DAY FOR 90 DAYS Metoprolol Tartrate 50 MG 1.5 tablet wit h food Orally Twice a day metFORMIN HCl 500 MG TAKE 1 TABLET BY MO UTH TWICE A DAY WITH A MEAL FOR 30 DAYS Treatment Notes Assessment Notes Hypertrophic cardiomyopathy patient not able to do jury duty due to chronic chf and shortness of breath/ letter given to patient and signed copy scanned in chart. Benign essential hypertension is running high today will recheck in 2 months, continue curretn regiment Controlled type 2 diabetes bela saldana without complication, without long-term current use of insulin stable, will continue current regiment Next Appt Details Follow Up: 2 Months, Reason: Provider Name:Terrence Ramos ier, 08/22/2025 10:30:00 AM, [address] [place] [address], [address], [place], [place], [phone], Progress Notes * Cami HERRERAeDOB:[birth year] (59 yo F)Acc No.[id number]:02/13/2025 Progress Notes Patient: Tabby POLLOCK Provider: Nnamdi Kaur MD :1965 A ge:59 Y S ex:Female Date:02/13/2025 Address:[address] [place], [place] [phone] Subjective: * Chief Complaints: * 3 month * HPI: S ymptom(s): patient is a 59 yo female here for 3 month follow up visit/ her cellulitis has resolved. * ROS: G eneral/Constitutional: Denies C hills. [...] Ointment 1 application Externally Twice a day metFORMIN HCl 500 MG Tablet [...] 1 application Externally Twice a day Taking metFORMIN HCl 500 MG Tablet TAKE 1 TABLET BY MOUTH TWICE A DAY WITH A MEAL FOR 30 DAYS Not-Taking/PRNTylenol 325 MG Tablet 1 tablet as needed Orally every 4 hrs Acetaminophen 325 MG Capsule 1 capsule as needed Orally every 6 hrs Not- Taking/PRN Tylenol 325 MG Tablet 1 tablet as needed Orally every 4 hrs Not-Taking/PRN Acetaminophen 325 MG Capsule 1 capsule as needed Orally every 6 hrs DiscontinuedAmoxicillin-Pot Clavulanate 875-125 MG Tablet 1 tablet Orally every 12 hrs Doxycycline Hyclate 100 MG Capsule 1 capsule Orally twice a day Medication List reviewed and reconciled with the patientDiscontinued Amoxicillin-Pot Clavulanate 875-125 MG Tablet 1 tablet Orally every 12 hrs Discontinued Doxycycline Hyclate 100 MG Capsule 1 capsule Orally twice a day Medication List reviewed and reconciled with the patient * Allergies: S ulfa Antibiotics: ?yes[Allergies Verified] Objective: * Vitals: H t: 63, Wt: 320, BMI:56.68, BP:152/100, Repeat BP:130/100, Wt-k.15. weight is down 6 pounds since 01-27-25. * Examination: G eneral Examination: GENERAL APPEARANCE: a lert, well hydrated, in no distress.? HEAD: n ormocephalic. HEART: n o murmurs, rubs, gallops, regular rate and rhythm.? LUNGS: n o wheezes, rales, rhonchi, good air movement, clear to auscultation bilaterally. Assessment: * Assessment: 1. H ypertrophic cardiomyopathy - I42.2 (Primary) 2 . B enign essential hypertension - I10 3 . C ontrolled type 2 diabetes mellitus without complication, without long-term current use of insulin - E11.9 Plan: * Treatment: 2. B enign essential hypertension Continue Metoprolol Tartrate Tablet, 50 MG, 1.5 tablet with food, Orally, Twice a day; C ontinue amLODIPine Besylate Tablet, 5 MG, TAKE 1 TABLET BY MOUTH EVERY DAY FOR 30 DAYS; C ontinue Valsartan Tablet, 320 MG, TAKE 1 TABLET BY MOUTH EVERY DAY FOR 90 DAYS. Notes: is running high today will recheck in 2 months, continue curretn regiment 3. C ontrolled type 2 diabetes mellitus without complication, without long-term current use of insulin Continue metFORMIN HCl Tablet, 500 MG, TAKE 1 TABLET BY MOUTH TWICE A DAY WITH A MEAL FOR 30 DAYS.? L AB: Hemoglobin A1c (Collection Date & Time - 02/13/2025) Value Reference Range H emoglobin A1c 6.5 ?LAB: Glucose, finger stick (Collection Date & Time - 02/13/2025)* Value Reference Range V alue 121 Notes: stable, will continue current regiment?? * Procedure Codes: 8 2947 ASSAY, GLUCOSE, BLOOD QUANT, Modifiers: QW [id number] GLYCATED HEMOGLOBIN TEST, Modifiers: QW * Follow Up: 2 Months * * Sign off status: Completed true * Provider: Nnamdi Kaur MD Date: 0 02/13/2025 Generated for Keern sethi/Elisa/Joycelynsmitting on: 1 10/19/2024 08:29 PM EST History and Physical Notes * HPI (History of Present Illness) Category Sub-Category Detail Notes Category Not es Symptom(s) patient is a 59 yo female here for 3 month follow up visit/ her cellulitis has resolved. Examination Category Sub-Category Detail Notes Category Not es General Examination GENERAL APPEARANCE: alert, w ell hydrated, in no distress HEAD: normocephalic HEART: no murmurs, rubs, ga llops, regular rate and rhythm LUNGS: no wheezes, rales, r honchi, good air movement, clear to auscultation bilaterally
--- OUTSIDE RECORDS SUMMARY | 2025-03-24 03:44 | XMS_ITS ---
Author Organization Terrence Kaur MD Address [address] [place] [phone] Care Team Providers Care Nursing Care Attendant Name Role Phone Terrence Kaur Primary Care Provider REASON FOR VISIT CELLULITIS Medications Medication SIG (Take, Route, Frequency, Duration) Notes Start Date End Date Status Amoxicillin-Pot Clavulanate 875-125 MG 1 tablet Orally every 12 hrs for 14 days 01/02/2025 Active Doxycycline Hyclate 100 MG 1 capsule Ora lly twice a day for 14 days 01/02/2025 Active Encounters Encounter Location Date Provider Diagnosis Terrence Kaur MD [address] [place] [phone] 03/24/2025 Terrence Kaur Cellulitis L03.90 Assessments Encounter Date Diagnosis (ICD Code) Assessment Notes Treatment Notes Treatment Clinical Notes Section Notes 03/24/2025 Cellulitis (ICD-10 - L03.90) Plan Of Treatment Medication Medication Name Sig Start Date Stop Date Notes Amoxicillin-Pot Clavulanate 875-125 MG 1 tablet Orally every 12 hrs for 14 days 01/02/2025 Doxycycline Hyclate 100 MG 1 capsule Ora lly twice a day for 14 days 01/02/2025 Next Appt Details Provider Name:Terrence green, 08/22/2025 10:30:00 AM, [address], [address] [facility], [place], [place], [phone], Progress Notes * Cami REYNOSOeDOB:[birth year] (59 yo F)Acc No.[id number]:03/24/2025 Patient: Tabby POLLOCK :1965 A ge:59 Y S ex:Female Address:[address] [place] [address], [phone] * Refills Refill Doxycycline Hyclate Capsule, 100 MG, Orally, 28 Capsule, 1 capsule, twice a day, 14 days Refill Amoxicillin-Pot Clavulanate Tablet, 875-125 MG, Orally, 28 Tablet, 1 tablet, every 12 hrs, 14 days * true * Date: Generated for Keren stehi/Elisa/Tequilaitting on: 10/19/2024 08:28 PM EST
--- OUTSIDE RECORDS SUMMARY | 2025-04-18 03:45 | XMS_ITS ---
Author Organization Terrence Kaur MD Address [address] [place] [phone] Care Team Providers Care Wireless Consultant Name Role Phone Terrence Kaur Primary Care Provider [phone] Allergies Allergen (clinical drug ingredient) Drug/Non Drug Allergy documented on EMR Reaction Allergy Type Onset Date Status Substance with sulfonamide structure and antibacterial mechanism of action (substance) Sulfa Antibiotics ? Drug Allergy Active Results Component Value Reference Range Notes Glucose, finger stick Reviewed date:04/18/2025 08:44:53 AM Interpretation: Performing Lab: Notes/Report: Value 147 REASON FOR VISIT 2 MO F/U Medications Medication SIG (Take, Route, Frequency, Duration) Notes Start Date End Date Status Eliquis 5 MG as directed Orally BID Active Clobetasol Propionate 0.05 % 1 application Externally Twice a day for 30 days Active Levothyroxine Sodium 88 MCG TAKE 1 TABLET BY MOUTH EVERY DAY IN THE MORNING ON EMPTY STOMACH for 90 Active Amoxicillin-Pot Clavulanate 875-125 MG 1 tablet Orally every 12 hrs for 14 days 01/02/2025 Active Doxycycline Hyclate 100 MG 1 capsule Ora lly twice a day for 14 days 01/02/2025 Active Venlafaxine HCl ER 150 MG TAKE 1 CAPSULE BY MOUTH EVERY DAY WITH FOOD Orally Once a day for 90 days Active Bumetanide 2 MG TAKE 1 TABLET BY TYESHA TH EVERY DAY FOR 30 DAYS for 90 Active Potassium Chloride ER 20 MEQ 1 tablet with food Orally Once a day for 30 day(s) Active metFORMIN HCl 500 MG TAKE 1 TABLET BY MO UTH TWICE A DAY WITH A MEAL FOR 30 DAYS Active Cholecalciferol 25 MCG (1000 UT) 1 capsule Orally Once a day Active Singulair 10 MG 1 tablet Orally Once a day Active Spiriva HandiHaler 18 MCG 1 capsule by i nhaling the contents of the capsule using the HandiHaler device Inhalation Once a day Active amLODIPine Besylate 5 MG TAKE 1 TABLET B Y MOUTH EVERY DAY FOR 30 DAYS Active Bimzelx 320 MG/2ML 2 mL Subcutaneous Active Valsartan 320 MG TAKE 1 TABLET BY TYESHA TH EVERY DAY FOR 90 DAYS Active Acetaminophen 325 MG 1 capsule as needed Orally every 6 hrs Not-Taking Tylenol 325 MG 1 tablet as needed Orally every 4 hrs Not-Taking Metoprolol Tartrate 50 MG 1.5 tablet wit h food Orally Twice a day Active Vital Signs Blood pressure systolic 148 mm Hg 04/18/20 25 Blood pressure diastolic 94 mm Hg 025 Height 63 in 04/18/2025 Weight 321 lbs 04/18/2025 BMI 56.86 kg/m2 04/18/2025 Encounters Encounter Location Date Provider Diagnosis Terrence Kaur MD [address] [place] [address] [place] [phone] 04/18/2025 Terrence Kaur Controlled type 2 diabetes mellitus without complication, without long-term current use of insulin E11.9 ; Hypertrophic cardiomyopathy I42.2 ; Benign essential hypertension I10 and Asthma J45.909 Assessments Encounter Date Diagnosis (ICD Code) Assessment Notes Treatment Notes Treatment Clinical Notes Section Notes 04/18/2025 Controlled type 2 diabetes mellitus without complication, without long-term current use of insulin (ICD-10 - E11.9) 04/18/2025 Hypertrophic cardiomyopathy (ICD-10 - I42.2) followed by cardiology 04/18/2025 Benign essential hypertension (ICD-10 - I10) running a little high 04/18/2025 Asthma (ICD-10 - J45.909) was followed by dr portillo Plan Of Treatment Medication Medication Name Sig Start Date Stop Date Notes metFORMIN HCl 500 MG TAKE 1 TABLET BY MO UT TWICE A DAY WITH A MEAL FOR 30 DAYS Singulair 10 MG 1 tablet Orally Once a day Spiriva HandiHaler 18 MCG 1 capsule by dariana nhaling the contents of the capsule using the HandiHaler device Inhalation Once a day amLODIPine Besylate 5 MG TAKE 1 TABLET B Y MOUTH EVERY DAY FOR 30 DAYS Valsartan 320 MG TAKE 1 TABLET BY TYESHA TH EVERY DAY FOR 90 DAYS Metoprolol Tartrate 50 MG 1.5 tablet wit h food Orally Twice a day Treatment Notes Assessment Notes Hypertrophic cardiomyopathy followed by cardiology Benign essential hypertension running a little high Asthma was followed by dr lio whelan Next Appt Details Provider Name:Terrence Ramos ier, 08/22/2025 10:30:00 AM, 10 [facility], Suite [facility], [place], [place], [phone], Progress Notes * Cami HERRERAeDOB:[birth year] (59 yo F)Acc No.[id number]:04/18/2025 Progress Notes Patient: Tabby POLLOCK Provider: Nnamdi Kaur MD :1965 A ge:59 Y S ex:Female Date:04/18/2025 Address:[address] [place], [place] [phone] Subjective: * Chief Complaints: * 2 MO F/U * HPI: S ymptom(s): patient is a 59 yo female here for 2 month follow up visit/ heat is making her more short of breath. * ROS: G eneral/Constitutional: Denies C hills. D enies F atigue. D enies F ever. D enies H eadache. E NT: Denies S ore throat. R espiratory: Denies C ough. A dmits S hortness of breath at rest. A dmits S hortness of breath with exertion. C ardiovascular: Denies C hest pain at rest. D enies C hest pain with exertion. A dmits F luid accumulation in the legs. A dmits S hortness of breath.? G astrointestinal: Denies D iarrhea. D enies N ausea. * Medical History: * Surgical History: * Hospitalization/Major Diagno stic Procedure: * Medications: T akingBimzelx 320 MG/2ML Solution Prefilled Syringe 2 mL Subcutaneous Potassium Chloride ER 20 MEQ Tablet Extended Release 1 tablet with food Orally Once a day Cholecalciferol 25 MCG (1000 UT) Capsule 1 capsule Orally Once a day Spiriva HandiHaler 18 MCG Capsule [...] Tablet 1 tablet Orally Once a day Eliquis 5 MG Tablet as directed Orally BID Clobetasol Propionate 0.05 % Ointment 1 application Externally Twice a day Metoprolol Tartrate 50 MG Tablet 1.5 tablet with food Orally Twice a day amLODIPine Besylate 5 MG Tablet TAKE 1 TABLET BY MOUTH EVERY DAY FOR 30 DAYS Valsartan 320 MG Tablet TAKE 1 TABLET BY MOUTH EVERY DAY FOR 90 DAYS metFORMIN HCl 500 MG Tablet TAKE 1 TABLET BY MOUTH TWICE A DAY WITH A MEAL FOR 30 DAYS Doxycycline Hyclate 100 MG Capsule 1 capsule Orally twice a day Amoxicillin-Pot Clavulanate 875-125 MG Tablet 1 tablet Orally every 12 hrs Taking Bimzelx 320 MG/2ML Solution Prefilled Syringe 2 mL Subcutaneous Taking Potassium Chloride ER 20 MEQ Tablet Extended Release 1 tablet with food Orally Once a day Taking Cholecalciferol 25 MCG (1000 UT) Capsule 1 capsule Orally Once a day Taking Spiriva HandiHaler 18 MCG [...] 1 tablet Orally Once a day Taking Eliquis 5 MG Tablet as directed Orally BID Taking Clobetasol Propionate 0.05 % Ointment 1 application Externally Twice a day Taking Metoprolol Tartrate 50 MG Tablet 1.5 tablet with food Orally Twice a day Taking amLODIPine Besylate 5 MG Tablet TAKE 1 TABLET BY MOUTH EVERY DAY FOR 30 DAYS Taking Valsartan 320 MG Tablet TAKE 1 TABLET BY MOUTH EVERY DAY FOR 90 DAYS Taking metFORMIN HCl 500 MG Tablet TAKE 1 TABLET BY MOUTH TWICE A DAY WITH A MEAL FOR 30 DAYS Taking Doxycycline Hyclate 100 MG Capsule 1 capsule Orally twice a day Taking Amoxicillin-Pot Clavulanate 875-125 MG Tablet 1 tablet Orally every 12 hrs Not-Taking/PRNTylenol 325 MG Tablet 1 tablet as [...] Objective: * Vitals: H t: 63, Wt: 321, BMI:56.86, BP:148/94, Repeat BP:120/92, Wt-k.6. * Examination: G eneral Examination: GENERAL APPEARANCE: a lert, well hydrated, in no distress, female. HEAD: n ormocephalic. SKIN: g ood turgor. HEART: r egular rate and rhythm, no murmurs, rubs, gallops.? LUNGS: n o wheezes, rales, rhonchi, good air movement, clear to auscultation bilaterally. Assessment: * Assessment: 1. C ontrolled type 2 diabetes mellitus without complication, without long-term current use of insulin - E11.9 (Primary) 2 . H ypertrophic cardiomyopathy - I42.2 ?3. B enign essential hypertension - I10 4 . A sta - J45.909 Plan: * Treatment: Value Reference Range V alue 147 2.?Hypertrophic cardiomyopathy? Notes: followed by cardiology??3.?Benign essential hypertension? Continue Metoprolol Tartrate Tablet, 50 MG, 1.5 tablet with food, Orally, Twice a day;?Continue amLODIPine Besylate Tablet, 5 MG, TAKE 1 TABLET BY MOUTH EVERY DAY FOR 30 DAYS;?Continue Valsartan Tablet, 320 MG, TAKE 1 TABLET BY MOUTH EVERY DAY FOR 90 DAYS.?? Notes: running a little high??4.?Asthma? Continue Spiriva HandiHaler Capsule, 18 MCG, 1 capsule by inhaling the contents of the capsule using the HandiHaler device, Inhalation, Once a day;?Continue Singulair Tablet, 10 MG, 1 tablet, Orally, Once a day.?? Notes: was followed by dr portillo?? * Procedure Codes: 8 2947 ASSAY, GLUCOSE, BLOOD QUANT, Modifiers: QW * * Sign off status: Completed true * Provider: Nnamdi Kaur MD Date: 0 04/18/2025 Generated for Printi ng/Faevong/eTransmitting on: 1 10/19/2024 08:28 PM EST History and Physical Notes * HPI (History of Present Illness) Category Sub-Category Detail Notes Category Not es Symptom(s) patient is a 59 yo female here for 2 month follow up visit/ heat is making her more short of breath Examination Category Sub-Category Detail Notes Category Not es General Examination GENERAL APPEARANCE: alert, w ell hydrated, in no distress, female HEAD: normocephalic HEART: regular rate and rhy thm, no murmurs, rubs, gallops LUNGS: no wheezes, rales, r honchi, good air movement, clear to auscultation bilaterally SKIN: good turgor
--- OUTSIDE RECORDS SUMMARY | 2025-05-04 06:59 | XMS_ITS ---
Author Organization Terrence Kaur MD Address [address] [place] [phone] Care Team Providers Care Car Dumper Name Role Phone Terrence Kaur Primary Care Provider [phone] REASON FOR VISIT Nose bleed Encounters Encounter Location Date Provider Diagnosis Terrence Kaur MD [address] [place] [phone] 05/04/2025 Terrence Kaur Plan Of Treatment Next Appt Details Provider Name:Terrence Ramos ier, 08/22/2025 10:30:00 AM, [address], Suite [facility], [place], [place], [phone], Progress Notes * Cami HERRERAeDOB:[birth year] (59 yo F)Acc No.[id number]:05/04/2025 Patient: Fer Tabby LIGHT :1965 A ge:59 Y S ex:Female Address:[address] [place] [address], [address] * true * Date: Generated for Printi ng/Faxing/eTransmitting on: 10/19/2024 08:28 PM EST
--- OUTSIDE RECORDS SUMMARY | 2025-05-12 06:30 | XMS_ITS ---
Author Organization Terrence Kaur MD Address [address] [place], [place] [phone] Care Team Providers Care Dormitory Keeper Name Role Phone Terrence Kaur Primary Care Provider [phone] Allergies Allergen (clinical drug ingredient) Drug/Non Drug Allergy documented on EMR Reaction Allergy Type Onset Date Status Substance with sulfonamide structure and antibacterial mechanism of action (substance) Sulfa Antibiotics ? Drug Allergy Active REASON FOR VISIT f/u ERV nosebleed Medications Medication SIG (Take, Route, Frequency, Duration) Notes Start Date End Date Status Tylenol 325 MG 1 tablet as needed Orally every 4 hrs Not-Taking Valsartan 320 MG TAKE 1 TABLET BY TYESHA TH EVERY DAY FOR 90 DAYS Active Acetaminophen 325 MG 1 capsule as needed Orally every 6 hrs Not-Taking Metoprolol Tartrate 50 MG 1.5 tablet wit h food Orally Twice a day Active amLODIPine Besylate 5 MG TAKE 1 TABLET B Y MOUTH EVERY DAY FOR 30 DAYS Active Amoxicillin-Pot Clavulanate 875-125 MG 1 tablet Orally every 12 hrs for 14 days 01/02/2025 Active Doxycycline Hyclate 100 MG 1 capsule Ora lly twice a day for 14 days 01/02/2025 Active Singulair 10 MG 1 tablet Orally Once a day Active Spiriva HandiHaler 18 MCG 1 capsule by i nhaling the contents of the capsule using the HandiHaler device Inhalation Once a day Active metFORMIN HCl 500 MG TAKE 1 TABLET BY MO UTH TWICE A DAY WITH A MEAL FOR 30 DAYS Active Levothyroxine Sodium 88 MCG TAKE 1 TABLET BY MOUTH EVERY DAY IN THE MORNING ON EMPTY STOMACH for 90 Active Clobetasol Propionate 0.05 % [...] DAY FOR 30 DAYS for 90 Active Bimzelx 320 MG/2ML 2 mL Subcutaneous Active Cholecalciferol 25 MCG (1000 UT) 1 capsule Orally Once a day Active Potassium Chloride ER 20 MEQ 1 tablet with food Orally Once a day for 30 day(s) Active Problems Problem Type SNOMED Code ICD Code Onset Dates Problem Status W/U Status Risk Notes Problem Leukocytosis (368650135) Elevated WBC count (D72.829) Active confirmed Vital Signs Blood pressure systolic 112 mm Hg 05/12/20 25 Blood pressure diastolic 60 mm Hg 025 Height 63 in 05/12/2025 Weight 320 lbs 05/12/2025 BMI 56.68 kg/m2 05/12/2025 Encounters Encounter Location Date Provider Diagnosis Terrence Kaur MD [address] [place] [address] Drive [address] [place], [place] [id number] 05/12/2025 Terrence Kaur Epistaxis R04.0 ; Elevated WBC count D72.829 and Anemia D64.9 Assessments Encounter Date Diagnosis (ICD Code) Assessment Notes Treatment Notes Treatment Clinical Notes Section Notes 05/12/2025 Epistaxis (ICD-10 - R04.0) will hold elequis if she starts bleeding again and then figure what to do 05/12/2025 Elevated WBC count (ICD-10 - D72.829) was from the stress of the nose bleed 05/12/2025 Anemia (ICD-10 - D64.9) order given to patient having done at [facility] labs Plan Of Treatment Treatment Notes Assessment Notes Epistaxis will hold elequis if she starts bleeding again and then figure what to do Elevated WBC count was from the stress of the nose bleed Anemia order given to royer nt having done at [facility] labs Next Appt Details Provider Name:Terrence green, 08/22/2025 10:30:00 AM, [address] [facility], [address], [place], [place], [phone], Progress Notes * Lopez REYNOSOOB:[birth year] (59 yo F)Acc No.[id number]:05/12/2025 Progress Notes Patient: Tabby POLLOCK Provider: Nnamdi Kaur MD :1965 A ge:59 Y S ex:Female Date:05/12/2025 Address:[address] [place], [place] [phone] Subjective: * Chief Complaints: * f /u ERV nosebleed * HPI: S ymptom(s): patient is a 59 yo female here for follow up recent issues with nosebleed. * ROS: G eneral/Constitutional: Denies C hills. D enies F atigue. D enies F ever. D enies H eadache. E NT: Denies N osebleed. D enies S ore throat. R espiratory: Denies C [...] Capsule 1 capsule Orally Once a day Bumetanide 2 MG Tablet TAKE 1 TABLET BY MOUTH EVERY DAY FOR 30 DAYS Venlafaxine HCl ER 150 MG Capsule Extended Release 24 Hour TAKE 1 CAPSULE BY MOUTH EVERY DAY WITH FOOD Orally Once a day Levothyroxine Sodium 88 MCG Tablet TAKE 1 TABLET BY MOUTH EVERY DAY IN THE MORNING ON EMPTY STOMACH Eliquis 5 MG Tablet as directed Orally BID Clobetasol Propionate 0.05 % Ointment 1 application Externally Twice a day Doxycycline Hyclate 100 MG Capsule 1 capsule Orally twice a day Amoxicillin-Pot Clavulanate 875-125 MG Tablet 1 tablet Orally every 12 hrs Spiriva HandiHaler 18 MCG Capsule 1 capsule by inhaling the contents of the capsule using the HandiHaler device Inhalation Once a day Singulair 10 MG Tablet 1 tablet Orally Once a day metFORMIN HCl 500 MG Tablet TAKE 1 TABLET BY MOUTH TWICE A DAY WITH A MEAL FOR 30 DAYS Metoprolol Tartrate 50 MG Tablet 1.5 tablet with food Orally Twice a day amLODIPine Besylate 5 MG Tablet TAKE 1 TABLET BY MOUTH EVERY DAY FOR 30 DAYS Valsartan 320 MG Tablet TAKE 1 TABLET BY MOUTH EVERY DAY FOR 90 DAYS Taking Bimzelx 320 MG/2ML Solution Prefilled Syringe 2 mL Subcutaneous Taking Potassium Chloride ER 20 MEQ Tablet Extended Release 1 tablet with food Orally Once a day Taking Cholecalciferol 25 MCG (1000 UT) Capsule 1 capsule Orally Once a day Taking Bumetanide 2 MG Tablet TAKE 1 TABLET BY MOUTH EVERY DAY FOR 30 DAYS Taking Venlafaxine HCl ER 150 MG Capsule Extended Release 24 Hour TAKE 1 CAPSULE BY MOUTH EVERY DAY WITH FOOD Orally Once a day Taking Levothyroxine Sodium 88 MCG Tablet TAKE 1 TABLET BY MOUTH EVERY DAY IN THE MORNING ON EMPTY STOMACH Taking Eliquis 5 MG Tablet as directed Orally BID Taking Clobetasol Propionate 0.05 % Ointment 1 application Externally Twice a day Taking Doxycycline Hyclate 100 MG Capsule 1 capsule Orally twice a day Taking Amoxicillin-Pot Clavulanate 875-125 MG Tablet 1 tablet Orally every 12 hrs Taking Spiriva HandiHaler 18 MCG Capsule 1 capsule by inhaling the contents of the capsule using the HandiHaler device Inhalation Once a day Taking Singulair 10 MG Tablet 1 tablet Orally Once a day Taking metFORMIN HCl 500 MG Tablet TAKE 1 TABLET BY MOUTH TWICE A DAY WITH A MEAL FOR 30 DAYS Taking Metoprolol Tartrate 50 MG Tablet 1.5 tablet with food Orally Twice a day Taking amLODIPine Besylate 5 MG Tablet TAKE 1 TABLET BY MOUTH EVERY DAY FOR 30 DAYS Taking Valsartan 320 MG Tablet TAKE 1 TABLET BY MOUTH EVERY DAY FOR 90 DAYS Not-Taking/PRNTylenol 325 MG Tablet 1 tablet [...] Vitals: H t: 63, Wt: 320, BMI:56.68, BP:112/60, Wt-k.15. * Examination: G eneral Examination: GENERAL APPEARANCE: a lert, well hydrated, in no distress.? HEAD: n ormocephalic. SKIN: n ormal. HEART: r egular rate and rhythm, no murmurs, rubs, gallops.? LUNGS: n o wheezes, rales, rhonchi, good air movement, clear to auscultation bilaterally. Assessment: * Assessment: 1. E pistaxis - R04.0 (Primary) 2 . E levated WBC count - D72.829 ? 3 . A nemia - D64.9 Plan: * Treatment: 2. E levated WBC count Notes: was from the stress of the nose bleed 3. A nemia L AB: Complete Blood Count Auto Diff (Ordered for 05/19/2025) Notes: order given to patient having done at [facility] labs * Procedure Codes: * * Sign off status: Completed true * Provider: Nnamdi Kaur MD Date: 0 05/12/2025 Generated for Keren sethi/Elisa/Joycelynsmitting on: 1 10/19/2024 08:28 PM EST History and Physical Notes * HPI (History of Present Illness) Category Sub-Category Detail Notes Category Not es Symptom(s) patient is a 59 yo female here for follow up recent issues with nosebleed Examination Category Sub-Category Detail Notes Category Not es General Examination GENERAL APPEARANCE: alert, w ell hydrated, in no distress HEAD: normocephalic HEART: regular rate and rhy thm, no murmurs, rubs, gallops LUNGS: no wheezes, rales, r honchi, good air movement, clear to auscultation bilaterally SKIN: normal
--- OUTSIDE RECORDS SUMMARY | 2025-05-19 03:30 | XMS_ITS ---
Author Organization Terrence Kaur MD Address [address] [place] [phone] Care Team Providers Care Candy Cooker Helper Name Role Phone Terrence Kaur Primary Care Provider REASON FOR VISIT CBC Encounters Encounter Location Date Provider Diagnosis Terrence Kaur MD [address] [place] [phone] 05/19/2025 Terrence Kaur Plan Of Treatment Next Appt Details Provider Name:Terrence Ramos ier, 08/22/2025 10:30:00 AM, [address], Suite [facility], [place], [place], [phone], Progress Notes * Cami REYNOSOeDOB:[birth year] (59 yo F)Acc No.[id number]:05/19/2025 Progress Note Patient: Tabby POLLOCK Provider: Nnamdi Kaur MD :1965 A ge:59 Y S ex:Female Date:05/19/2025 Address:[address] [place] [address] Subjective: * Chief Complaints: * 1 . CBC. * Medical History: Objective: * Vitals: Assessment: Plan: * Treatment: * * The named appointment provid er may or may not be the originator of this progress note, and it is not deemed complete until electronically signed by the appointment provider. Sign off status: Pending * Provider: Nnamdi Kaur MD Date: 0 05/19/2025 Generated for Keren sethi/Elisa/Hari on: 1 10/19/2024 08:29 PM EST
--- OUTSIDE RECORDS SUMMARY | 2025-06-16 03:00 | XMS_ITS ---
Author Organization Terrence Kaur MD Address [address] [place], [place] [id number] Care Team Providers Care Fitness Sales Associate Name Role Phone Terrence Kaur Primary Care Provider Results Component Value Reference Range Notes Complete Blood Count Auto Di ff Reviewed date:06/16/2025 06:36:44 PM Interpretation: Performing Lab:[facility], [address] [place] [phone] Notes/Report: White Blood Count 11.6 4.8-10.8 X10*3/uL Red Blood Count 4.60 4.20-5.50 X10*6/uL Hemoglobin 12.9 12.0-16.0 g/dl Hematocrit 42.3 37.0-47.0 % Mean Corpuscular Volume 92.0 80.0-98.0 fL Mean Corpuscular Hemoglobin 28.0 27.0-33.0 pg Mean Corpuscular HGB Conc 30.5 31.0-35.0 g/dl Red Cell Distribution Width 15.3 11.0-16.0 % Platelet Count 345 160-400 X10*3/uL Mean Platelet Volume 10.1 9.4-12.3 fL Neutrophils Percent Auto 72.0 45-73 % Imm Gran Pct Auto 0.4 0.0-0.4 % Lymphocytes Percent Auto 16.7 20-40 % Monocytes Percent Auto 6.5 2-11 % Eosinophils Percent Auto 3.5 0-4 % Basophils Percent Auto 0.9 0-2 % NRBC Pct Auto 0.0 0.0-0.2 /100WBC Neutrophils Absolute Auto 8.4 2.0-8.3 x10*3/u L Imm Gran Abs Auto 0.05 0.00-0.03 X10*3/uL Lymphocytes Absolute Auto 1.9 1.2-4.9 X10*3/u L Monocytes Absolute Auto 0.8 0.1-1.2 X10*3/uL Eosinophils Absolute Auto 0.4 0.0-0.4 X10*3/u L Basophils Absolute Auto 0.1 0.0-0.2 X10*3/uL NRBC Abs Auto 0.000 0.0-0.012 X10*3/uL IRON PROFILE Reviewed date:07/13/2025 11:52:40 AM Interpretation:07-11-2025 Performing Lab:[facility], [address] [place] [phone] Notes/Report: Iron 36 30-160 mcg/dL Total Iron Binding Capacity 345 228-428 mcg/d L Percent Iron Saturation 10 15-50 % Unsaturated Iron Binding 309 REASON FOR VISIT CBC and Iron Encounters Encounter Location Date Provider Diagnosis Terrence Kaur MD [address] [place], [place] [address] [place] [phone] 06/16/2025 Terrence Kaur Anemia D64.9 Assessments Encounter Date Diagnosis (ICD Code) Assessment Notes Treatment Notes Treatment Clinical Notes Section Notes 06/16/2025 Anemia (ICD-10 - D64.9) Plan Of Treatment Next Appt Details Provider Name:Terrence Ramos ier, 08/22/2025 10:30:00 AM, [address] [place] [address], [address] [place] [address], [phone], Progress Notes * Cami HERRERAeDOB:[birth year] (59 yo F)Acc No.[id number]:06/16/2025 Progress Note Patient: Fer NADEGERaTabby Provider: Nnamdi Kaur MD :1965 A ge:59 Y S ex:Female Date:06/16/2025 Address:[address] [place], [place] [phone] Subjective: * Chief Complaints: * 1 . CBC and Iron. * Medical History: Objective: * Vitals: Assessment: * Assessment: 1. A nemia - D64.9 (Primary) Plan: * Treatment: * Procedure Codes: 3 6415 VENIPUNCT, ROUTINE* * * The named appointment provid er may or may not be the originator of this progress note, and it is not deemed complete until electronically signed by the appointment provider. Sign off status: Pending * Provider: Nnamdi Kaur MD Date: Generated for Keren sethi/Elisa/Hari on: 10/19/2024 08:29 PM EST
--- OUTSIDE RECORDS SUMMARY | 2025-07-11 08:30 | XMS_ITS ---
Author Organization Terrence Kaur MD Address [address] [place] [phone] Care Team Providers Care Pump Mechanic Name Role Phone Terrence Kaur Primary Care Provider [phone] Allergies Allergen (clinical drug ingredient) Drug/Non Drug Allergy documented on EMR Reaction Allergy Type Onset Date Status Substance with sulfonamide structure and antibacterial mechanism of action (substance) Sulfa Antibiotics ? Drug Allergy Active Results Component Value Reference Range Notes Hemoglobin A1c Reviewed date:07/11/2025 01:43:03 PM Interpretation: Performing Lab: Notes/Report: Hemoglobin A1c 6.3 Glucose, finger stick Reviewed date:07/11/2025 01:36:40 PM Interpretation: Performing Lab: Notes/Report: Value 152 Reason For Referral Reason Iron Deficiency Diagnosis 1 Iron deficiency (E61 .1) Referral Organization Terrence Kaur MD Referring Provider First Name Terrence Referring Provider Last Name aNtasha Referring Provider Speciality Internal M edicine Referred Provider Parvin Damico Referred Provider Specialty Gastroentero logy General Notes Rosibel Burns 1 09/13/2024 01:52:54 PM > referral info faxed Referral Priority Routine REASON FOR VISIT must see Iron deficiency Medications Medication SIG (Take, Route, Frequency, Duration) Notes Start Date End Date Status Tylenol 325 MG 1 tablet as needed Orally every 4 hrs Not-Taking Acetaminophen 325 MG 1 capsule as needed Orally every 6 hrs Not-Taking Jardiance 10 MG 1 tablet Orally Once a day Active Bimzelx 320 MG/2ML 2 mL Subcutaneous Active Potassium Chloride ER 20 MEQ 1 tablet with food Orally Once a day for 30 day(s) Active Metoprolol Tartrate 50 MG 2 tabs Orally Twice a day Active amLODIPine Besylate 5 MG TAKE 1 TABLET B Y MOUTH EVERY DAY FOR 30 DAYS Active Valsartan 320 MG TAKE 1 TABLET BY TYESHA TH EVERY DAY FOR 90 DAYS Active Montelukast Sodium 10 MG TAKE 1 TABLET B Y MOUTH EVERY DAY FOR 30 DAYS for 90 Active Bumetanide 2 MG 2 tabs once day for 90 days Active Clobetasol Propionate 0.05 % 1 application Externally Twice a day for 30 days Active Doxycycline Hyclate 100 MG 1 capsule Ora lly twice a day for 14 days 01/02/2025 Active Amoxicillin-Pot Clavulanate 875-125 MG 1 tablet Orally every 12 hrs for 14 days 01/02/2025 Active Spiriva HandiHaler 18 MCG 1 capsule by i nhaling the contents of the capsule using the HandiHaler device Inhalation Once a day Active metFORMIN HCl 500 MG TAKE 1 TABLET BY MO UTH TWICE A DAY WITH A MEAL FOR 30 DAYS Active Eliquis 5 MG as directed Orally BID Active Cholecalciferol 25 MCG (1000 UT) 1 capsule Orally Once a day Active Venlafaxine HCl ER 150 MG TAKE 1 CAPSULE BY MOUTH EVERY DAY WITH FOOD Orally Once a day for 90 days Active Levothyroxine Sodium 88 MCG TAKE 1 TABLET BY MOUTH EVERY DAY IN THE MORNING ON EMPTY STOMACH for 90 Active Vital Signs Blood pressure systolic 118 mm Hg 07/11/20 25 Blood pressure diastolic 80 mm Hg 025 Height 63 in 07/11/2025 Weight 315 lbs 07/11/2025 BMI 55.79 kg/m2 07/11/2025 weight is 5 pounds since 05-12 Encounters Encounter Location Date Provider Diagnosis Terrence Kaur MD [address] [place] [address] [place] [phone] 07/11/2025 Terrence Kaur Controlled type 2 diabetes mellitus without complication, without long-term current use of insulin E11.9 ; Iron deficiency E61.1 ; Hypertrophic cardiomyopathy I42.2 and Benign essential hypertension I10 Assessments Encounter Date Diagnosis (ICD Code) Assessment Notes Treatment Notes Treatment Clinical Notes Section Notes 07/11/2025 Controlled type 2 diabetes mellitus without complication, without long-term current use of insulin (ICD-10 - E11.9) 07/11/2025 Iron deficiency (ICD-10 - E61.1) has been taking iron for many years. has celiac. had a very bad nose bleed before the new anemia that has resolved/ refer back to [facility] [place] [facility] for iron deficiency 07/11/2025 Hypertrophic cardiomyopathy (ICD-10 - I42.2) stable 07/11/2025 Benign essential hypertension (ICD-10 - I10) well controlled Plan Of Treatment Treatment Notes Assessment Notes Iron deficiency has been taking iron for many years. has celiac. had a very bad nose bleed before the new anemia that has resolved/ refer back to [facility] [place] [place] [facility] for iron deficiency Hypertrophic cardiomyopathy stable Benign essential hypertension well contr olled Referrals Referral Date Details 07/11/2025 07/11/2025, Iron Def iciency, Parvin Damico Next Appt Details Provider Name:Terrence Ramos ier, 08/22/2025 10:30:00 AM, [address] [place] [address], [address], [place], [place], [phone], Progress Notes * Cami HERRERAeDOB:[birth year] (59 yo F)Acc No.[id number]:07/11/2025 Patient: Tabby POLLOCK Provider: Nnamdi Kaur MD :1965 A ge:59 Y S ex:Female Date:07/11/2025 Address:[address] [place], [place] [phone] Subjective: * Chief Complaints: * m ust see Iron deficiency * HPI: S ymptom(s): patient is a 59 yo female here for follow up regarding iron deficiency. * ROS: G eneral/Constitutional: Denies C hills. D enies F atigue. D enies F ever. D enies H eadache. E NT: Patient complaining of d iscomfort in rt submandibular area and no hearing there for years. D enies S ore throat. E ndocrine: Denies D ifficulty sleeping. A dmits D izziness.?Denies E xcessive sweating. A dmits E xcessive thirst. D enies F requent urination. R espiratory: Denies C ough. D enies S hortness of breath at rest. D enies S hortness of breath with exertion. G astrointestinal: Jamesies D iarrhea. D enies N ausea. * Medical History: * Surgical History: * Hospitalization/Major Diagno stic Procedure: * Medications: T akingJardiance 10 MG Tablet 1 tablet Orally Once a day Bimzelx 320 MG/2ML Solution Prefilled Syringe 2 mL Subcutaneous Potassium Chloride ER 20 MEQ Tablet Extended Release 1 tablet with food Orally Once a day Cholecalciferol 25 MCG (1000 UT) Capsule 1 capsule Orally Once a day Venlafaxine HCl ER 150 MG Capsule Extended [...] the HandiHaler device Inhalation Once a day metFORMIN HCl 500 MG Tablet TAKE 1 TABLET BY MOUTH TWICE A DAY WITH A MEAL FOR 30 DAYS Metoprolol Tartrate 50 MG Tablet 2 tabs Orally Twice a day amLODIPine Besylate 5 MG Tablet TAKE 1 TABLET BY MOUTH EVERY DAY FOR 30 DAYS Valsartan 320 MG Tablet TAKE 1 TABLET BY MOUTH EVERY DAY FOR 90 DAYS Montelukast Sodium 10 MG Tablet TAKE 1 TABLET BY MOUTH EVERY DAY FOR 30 DAYS Bumetanide 2 MG Tablet 2 tabs once day Taking Jardiance 10 MG Tablet 1 tablet Orally Once a day Taking Bimzelx 320 MG/2ML Solution Prefilled Syringe 2 mL Subcutaneous Taking Potassium Chloride ER 20 MEQ Tablet Extended Release 1 tablet with food Orally Once a day Taking Cholecalciferol 25 MCG (1000 UT) Capsule 1 capsule Orally Once a day Taking Venlafaxine HCl ER 150 MG Capsule [...] HandiHaler device Inhalation Once a day Taking metFORMIN HCl 500 MG Tablet TAKE 1 TABLET BY MOUTH TWICE A DAY WITH A MEAL FOR 30 DAYS Taking Metoprolol Tartrate 50 MG Tablet 2 tabs Orally Twice a day Taking amLODIPine Besylate 5 MG Tablet TAKE 1 TABLET BY MOUTH EVERY DAY FOR 30 DAYS Taking Valsartan 320 MG Tablet TAKE 1 TABLET BY MOUTH EVERY DAY FOR 90 DAYS Taking Montelukast Sodium 10 MG Tablet TAKE 1 TABLET BY MOUTH EVERY DAY FOR 30 DAYS Taking Bumetanide 2 MG Tablet 2 tabs once day Not-Taking/PRNTylenol 325 MG Tablet 1 tablet as needed Orally every 4 hrs Acetaminophen 325 MG Capsule 1 capsule as needed Orally every 6 hrs Not-Taking/PRN Tylenol 325 MG Tablet 1 tablet as needed Orally every 4 hrs Not-Taking/PRN Acetaminophen 325 MG Capsule 1 capsule as needed Orally every 6 hrs * Allergies: S ulfa Antibiotics: ?yes[Allergies Verified] Objective: * Vitals: H t: 63, Wt: 315, BMI:55.79, BP:118/80, Wt-k.88. weight is 5 pounds since 05-12-25. * Examination: G eneral Examination: GENERAL APPEARANCE: a lert, well hydrated, in no distress.? HEAD: n ormocephalic. EARS: r t ear with a perforateted ear drum. below the jaw is a slight prominant of the submandibular salivary gland. has only been a couple days. SKIN: g ood turgor. HEART: r egular rate and rhythm, no murmurs, rubs, gallops.? LUNGS: n o wheezes, rales, rhonchi, good air movement, clear to auscultation bilaterally. Assessment: * Assessment: 1. I maximo deficiency - E61.1 (Primary) 2 . C ontrolled type 2 diabetes mellitus without complication, without long-term current use of insulin - E11.9 3 . H ypertrophic cardiomyopathy - I42.2 4 . B enign essential hypertension - I10? Plan: * Treatment: 2. C ontrolled type 2 diabetes mellitus without complication, without long-term current use of insulin L AB: Hemoglobin A1c (Collection Date & Time - 07/11/2025) Value Reference Range H emoglobin A1c 6.3 ?LAB: Glucose, finger stick (Collection Date & Time - 07/11/2025)* Value Reference Range V alue 152 3.?Hypertrophic cardiomyopathy? Notes: stable??4.?Benign essential hypertension? Notes: well controlled?? * Procedure Codes: 8 2947 ASSAY, GLUCOSE, BLOOD QUANT, Modifiers: QW 08376 GLYCATED HEMOGLOBIN TEST, Modifiers: QW * * Sign off status: Completed true * Provider: Nnamdi Kaur MD Date: 09/10/2024 Generated for Keren sethi/Elisa/Hari on: 10/19/2024 08:27 PM EST History and Physical Notes * Examination Category Sub-Category Detail Notes Category Not es General Examination GENERAL APPEARANCE: alert, w ell hydrated, in no distress HEAD: normocephalic EARS: rt ear with a perfor ateted ear drum. below the jaw is a slight prominant of the submandibular salivary gland. has only been a couple days HEART: regular rate and rhy thm, no murmurs, rubs, gallops LUNGS: no wheezes, rales, r honchi, good air movement, clear to auscultation bilaterally SKIN: good turgor Consultation Request Notes Referral Date Referring Provider Referred Provider Not es 07/11/2025 Terrence Kaur Tuyyab Iron Defi ciency
--- OUTSIDE RECORDS SUMMARY | 2025-08-15 02:15 | XMS_ITS ---
Author Organization Terrence Kaur MD Address [address] [place], [place] [id number] Care Team Providers Care Zoning Administrator Name Role Phone Terrence Kaur Primary Care Provider [phone] Results Component Value Reference Range Notes Complete Blood Count Auto Di ff Reviewed date:08/15/2025 12:28:45 PM Interpretation: Performing Lab:[facility], [address] [place] [phone] Notes/Report: White Blood Count 10.9 4.8-10.8 X10*3/uL Red Blood Count 5.44 4.20-5.50 X10*6/uL Hemoglobin 15.1 12.0-16.0 g/dl Hematocrit 48.3 37.0-47.0 % Mean Corpuscular Volume 88.8 80.0-98.0 fL Mean Corpuscular Hemoglobin 27.8 27.0-33.0 pg Mean Corpuscular HGB Conc 31.3 31.0-35.0 g/dl Red Cell Distribution Width 17.1 11.0-16.0 % Platelet Count 296 160-400 X10*3/uL Mean Platelet Volume 10.1 9.4-12.3 fL Neutrophils Percent Auto 75.3 45-73 % Imm Gran Pct Auto 0.4 0.0-0.4 % Lymphocytes Percent Auto 14.5 20-40 % Monocytes Percent Auto 5.6 2-11 % Eosinophils Percent Auto 3.5 0-4 % Basophils Percent Auto 0.7 0-2 % NRBC Pct Auto 0.0 0.0-0.2 /100WBC Neutrophils Absolute Auto 8.2 2.0-8.3 x10*3/u L Imm Gran Abs Auto 0.04 0.00-0.03 X10*3/uL Lymphocytes Absolute Auto 1.6 1.2-4.9 X10*3/u L Monocytes Absolute Auto 0.6 0.1-1.2 X10*3/uL Eosinophils Absolute Auto 0.4 0.0-0.4 X10*3/u L Basophils Absolute Auto 0.1 0.0-0.2 X10*3/uL NRBC Abs Auto 0.000 0.0-0.012 X10*3/uL Comprehensive [place]. Panel Fa st Reviewed date:08/15/2025 05:39:00 PM Interpretation: Performing Lab:[facility], [address] [place] [phone] Notes/Report: Sodium 139 135-145 mmol/L Potassium 3.9 3.3-5.1 mmol/L Chloride 97 96-108 mmol/L Carbon Dioxide 33 22-29 mmol/L Anion Gap 13 12-20 Blood Urea Nitrogen 14 9-16 mg/dL Creatinine 0.85 0.5-1.4 mg/dL Estimated Glomerular Filt Rate > 60 Chronic Kidney Disease: Estimated GFR < 60 mL/min/1.73m2 Severe Kidney Disease: Estimated GFR < 15 mL/min/1.73m2 Glucose Fasting 148 60-99 mg/dL A fasting glucose of 126 mg/dl or greater on more than one occasion is considered diagnostic of diabetes. Calcium 9.5 8.4-10.2 mg/dL Bilirubin Total 0.5 0.0-1.0 mg/dL Aspartate Amino Transferase 52 5-31 U/L Alanine Aminotransferase 30 0-31 U/L Total Protein 7.6 6.5-8.0 g/dL Albumin Level 4.0 3.5-5.0 g/dL Alkaline Phosphatase 76 39-117 U/L Lipid Panel Reviewed date:08/15/2025 05:37:08 PM Interpretation: Performing Lab:[facility], [address] [place] [phone] Notes/Report: Triglycerides 165 <150 mg/dL Desirable Triglyceride: less than 150 mg/dL Borderline High Triglyceride 150-199 mg/dL High Triglyceride: 200-499 mg/dL Very High Triglyceride: greater than or equal to 5OO mg/dL Cholesterol 192 <200 mg/dL Desirable Cholesterol: less than 200 mg/dL Borderline High Cholesterol: 200-239 mg/dL High Cholesterol: greater than 239 mg/dL LDL Cholesterol Calculated 132 <100 mg/dL Desirable LDL: less than 100 mg/dL Near Optimal/Above Optimal LDL: 110-129 mg/dL Borderline High LDL: 130-159 mg/dL High LDL: 160-189 mg/dL Very High LDL: greater than or equal to 190 mg/dL HDL Cholesterol 27 >40 mg/dL Desirable HDL: greater than 40 mg/dL Note: This HDL assay may give artificially low results in patients with liver disease. TSH reflex Free T4 Reviewed date:08/15/2025 05:37:18 PM Interpretation: Performing Lab:[address] [phone] Notes/Report: TSH reflex Free T4 4.28 0.32-4.0 uIU/mL Microalbumin, Random Reviewed date:08/15/2025 12:28:16 PM Interpretation: Performing Lab:[facility], [address] [place] [phone] Notes/Report: Creatinine Urine 117.79 Microalbumin Urine 9.0 Microalbum/Creatinine Ratio Ur 7.6 <30 ug/mg cr Albumin/Creatinine Ratio Reference Ranges: Normal: < 30 ug/mg creatinine Microalbuminuria: 30 - 300 ug/mg creatinine Clinical Albuminuria: > 300 ug/mg creatinine Hemoglobin A1c Reviewed date:08/15/2025 12:27:04 PM Interpretation: Performing Lab:[address] [phone] Notes/Report: Hemoglobin A1c % 7.0 <6.0 % Hemoglobin A1C Reference Range Adults: 4.8 - 6.0 % Non diabetic: < 6.0 % Goal: < 7.0 % Additional Action Suggested: > 8.0 % Note: Hemoglobin A1c results are invalid for patients with abnormal amounts of HbF. Blood transfusions may impact the HbA1c concentration in the patient sample. Estimated Average Glucose 154 eAG = Estimated average glucose which is %A1C expressed as average glucose, using the formula of the E3G-Jioawpj Average Glucose study (ADAG), Diabetes Care, Vol.31,#8, Apr. 2007 UA ClnCatch+Micro w/rflx Cul t Reviewed date:08/15/2025 12:45:20 PM Interpretation: Performing Lab:[facility], [address] [facility] [facility], [place] [phone] Notes/Report: Urine, Clean Catch Color Urine Yellow Appearance Urine Clear PH 5.0 5.0-9.0 Glucose Urine UA >=1000 Negative mg/dL Urine Blood Negative Negative Specific [place] - Urine 1.025 1.005-1.025 Urine Protein Negative Neg-Trace mg/dL Urine Ketones Negative Negative mg/dL Nitrite Urine Negative Negative Leukocyte Esterase Urine Negative Negative RBC Urine 0-2 0-2 /HPF WBC Urine 0-5 0-5 /HPF Squamous Epithelial Cell Urine 6-10 0-2 /HPF Bacteria Urine 1+ None Seen Hyaline Casts Urine 0-2 0-2 /LPF REASON FOR VISIT yearly fasting labs Encounters Encounter Location Date Provider Diagnosis Terrence Kaur MD [address] [place] [address] [place] [phone] 08/15/2025 Terrence Kaur Blood tests for routine general physical examination Z00.00 ; Benign essential hypertension I10 ; Acquired hypothyroidism E03.9 ; Controlled type 2 diabetes mellitus without complication, without long-term current use of insulin E11.9 and Elevated WBC count D72.829 Assessments Encounter Date Diagnosis (ICD Code) Assessment Notes Treatment Notes Treatment Clinical Notes Section Notes 08/15/2025 Blood tests for routine general physical examination (ICD-10 - Z00.00) 08/15/2025 Benign essential hypertension (ICD-10 - I10) 08/15/2025 Acquired hypothyroidism (ICD-10 - E03.9) 08/15/2025 Controlled type 2 diabetes mellitus without complication, without long-term current use of insulin (ICD-10 - E11.9) 08/15/2025 Elevated WBC count (ICD-10 - D72.829) Plan Of Treatment Next Appt Details Provider Name:Terrence green, 08/22/2025 10:30:00 AM, [address], [address], [place], [place], [phone], Progress Notes * Lopez REYNOSOOB:[birth year] (59 yo F)Acc No.[id number]:08/15/2025 Progress Note Patient: Tabby POLLOCK Provider: Nnamdi Kaur MD :1965 A ge:59 Y S ex:Female Date:08/15/2025 Address:[address] [place], [place] [address] [id number] Subjective: * Chief Complaints: * 1 . Yearly fasting labs. * Medical History: Objective: * Vitals: Assessment: * Assessment: 1. B lood tests for routine general physical examination - Z00.00 (Primary) 2 .?Benign essential hypertension - I10 3 . A cquired hypothyroidism - E03.9? 4. C ontrolled type 2 diabetes mellitus without complication, without long-term current use of insulin - E11.9 5 . E levated WBC count - D72.829 ? Plan: * Treatment: 2. B enign essential hypertension L AB: Complete Blood Count Auto Diff (Collection Date & Time - 08/15/2025 07:15 AM) L AB: Comprehensive [place]. Panel Fast (Collection Date & Time - 08/15/2025 07:15 AM) L AB: Lipid Panel (Collection Date & Time - 08/15/2025 07:15 AM) L AB: TSH reflex Free T4 (Collection Date & Time - 08/15/2025 07:15 AM) L AB: Microalbumin, Random (Collection Date & Time - 08/15/2025 07:15 AM) L AB: Hemoglobin A1c (Collection Date & Time - 08/15/2025 07:15 AM) L AB: UA ClnCatch+Micro w/rflx Cult (Collection Date & Time - 08/15/2025 07:15 AM) 3. A cquired hypothyroidism L AB: Complete Blood Count Auto Diff (Collection Date & Time - 08/15/2025 07:15 AM) L AB: Comprehensive [place]. Panel Fast (Collection Date & Time - 08/15/2025 07:15 AM) L AB: Lipid Panel (Collection Date & Time - 08/15/2025 07:15 AM) L AB: TSH reflex Free T4 (Collection Date & Time - 08/15/2025 07:15 AM) L AB: Microalbumin, Random (Collection Date & Time - 08/15/2025 07:15 AM) L AB: Hemoglobin A1c (Collection Date & Time - 08/15/2025 07:15 AM) L AB: UA ClnCatch+Micro w/rflx Cult (Collection Date & Time - 08/15/2025 07:15 AM) 4. C ontrolled type 2 diabetes mellitus without complication, without long-term current use of insulin L AB: Complete Blood Count Auto Diff (Collection Date & Time - 08/15/2025 07:15 AM) L AB: Comprehensive [place]. Panel Fast (Collection Date & Time - 08/15/2025 07:15 AM) L AB: Lipid Panel (Collection Date & Time - 08/15/2025 07:15 AM) L AB: TSH reflex Free T4 (Collection Date & Time - 08/15/2025 07:15 AM) L AB: Microalbumin, Random (Collection Date & Time - 08/15/2025 07:15 AM) L AB: Hemoglobin A1c (Collection Date & Time - 08/15/2025 07:15 AM) L AB: UA ClnCatch+Micro w/rflx Cult (Collection Date & Time - 08/15/2025 07:15 AM) 5. E levated WBC count L AB: Complete Blood Count Auto Diff (Collection Date & Time - 08/15/2025 07:15 AM) L AB: Comprehensive [place]. Panel Fast (Collection Date & Time - 08/15/2025 07:15 AM) L AB: Lipid Panel (Collection Date & Time - 08/15/2025 07:15 AM) L AB: TSH reflex Free T4 (Collection Date & Time - 08/15/2025 07:15 AM) L AB: Microalbumin, Random (Collection Date & Time - 08/15/2025 07:15 AM) L AB: Hemoglobin A1c (Collection Date & Time - 08/15/2025 07:15 AM) L AB: UA ClnCatch+Micro w/rflx Cult (Collection Date & Time - 08/15/2025 07:15 AM) * Procedure Codes: 3 6415 VENIPUNCT, ROUTINE* * * The named appointment provid er may or may not be the originator of this progress note, and it is not deemed complete until electronically signed by the appointment provider. Sign off status: Pending * Provider: Nnamdi Kaur MD Date: 1 10/16/2024 Generated for Keren sethi/Elisa/eTransmitting on: 1 10/19/2024 08:29 PM EST
--- NOTE | 2025-08-18 15:51 | A.OFFVIS_ITS ---
Vital Signs 08/18/25 15:52 Height 5 ft 3 in Weight 307 lb 8 oz BMI 54.5 BP 116/68 Blood Pressure Location Lt brachial Position Sitting Pulse 68 Comment standing scale Intake Visit Reasons: Iron deficiency Intake Note: Patient complex follow up for Iron deficiency/Joanie former pt nathaniel was 2023. Patient cc: between diarrhea and constipation, sensation of food getting stuck on her esophagus, tiredness/fatigue with dizziness. Security Installation Sales Technician Required: No Accompanied by: Spouse Allergies adhesive (ADHESIVE) Adverse Reaction (Unknown, Verified 08/18/25 15:51) RASH - SKIN CAME OFF WITH TAPE apremilast (Otezla) Adverse Reaction (Unknown, Verified 08/18/25 15:51) nausea, vomiting Sulfa (Sulfonamide Antibiotics) (SULFA (SULFONAMIDE ANTIBIOTICS)) Adverse Reaction (Unknown, Verified 08/18/25 15:51) UNKNOWN Medication List - Last Reconciled 08/18/25 by Sarita Schwartz CNP amlodipine 5 mg PO DAILY apixaban (Eliquis) 5 mg PO BID 90 days bimekizumab-bkzx (Bimzelx Autoinjector) mg subcut bumetanide 4 mg (2 x 2 mg) PO DAILY 90 days cholecalciferol (vitamin D3) 250 mcg PO DAILY empagliflozin (Jardiance) 10 mg PO DAILY ferrous sulfate 325 mg PO DAILY levothyroxine 88 mcg PO DAILY@0600 metformin 500 mg PO BID metoprolol tartrate 100 mg PO BID potassium chloride ER 20 mEq PO BEDTIME venlafaxine ER 150 mg PO BEDTIME HPI HPI Iron deficiency: Details: Patient is a 59-year-old female with PMH of obesity, pulmonary hypertension, paroxysmal atrial fibrillation, celiac disease . Last visit with RAS Dave 12/10/23 for acid reflux. She is accompanied by her . Follow-up of gastroesophageal reflux and iron deficiency anemia. She has a history of dysphagia, describing a sensation of food sticking in her chest, which occurs intermittently with solids like rice and liquids like coffee, causing significant pain. An upper GI series in 2021 confirmed mild reflux without a hiatal hernia. The patient declined a barium swallow study. The patient has a history of iron deficiency anemia and takes daily [id number] iron and vitamin D supplements. Her labs from June and August showed her anemia has resolved and her iron levels were normal while on supplementation. She was diagnosed with celiac disease via a prior EGD/colonoscopy and has been attempting to follow a gluten-free diet, though she notes potential for cross-contamination. Her medical history is also significant for atrial fibrillation managed with Eliquis, and hypertrophic cardiomyopathy, for which she underwent a septal ablation and has a pacemaker. She is followed by cardiology every six months. She also has a history of prediabetes, managed with metformin, and a recent A1C of 7.0 indicates a new diagnosis of diabetes. She takes Jardiance for her heart condition. The patient reports daily non-specific stomach aches and has bowel movements that vary from multiple times a day to constipation with pellet-like stools and a sense of incomplete evacuation. She denies any history of blood in her stool. Patient denies: fever/chills, n/v, pyrosis, unintentional wt loss or melena/hematochezia. Social hx: -ETOH use 1x/year -smoke/edibles marijuana daily, denies other recreational drug use -former smoker, cessation 15+ years ago - family hx as below -denies personal hx of CA -tolerated anesthesia in the past without difficulty. [facility] Medical History (Updated 08/18/25 @ 17:14 by Sarita Schwartz CNP) Diabetes Constipation Colon cancer screening Celiac disease Mitral valve disease Morbid obesity MONICA (iron deficiency anemia) Pulmonary hypertension PAF (paroxysmal atrial fibrillation) HOCM (hypertrophic obstructive cardiomyopathy) Surgical History Hx of colonoscopy History of esophagogastroduodenoscopy (EGD) Status post ventricular septal myectomy History of cardiac pacemaker (~10/2018) History of heart surgery (~10/2018) History of cardiac catheterization Family History Father CVD (cardiovascular disease) Mother CVD (cardiovascular disease) Brother Diabetes CVD (cardiovascular disease) HTN (hypertension) Social History Household Members: Spouse and Children Housing: House Do you presently have visiting nurse or other home services: No Alcohol intake: never Comment: social Patient Tobacco Use Status: Former Tobacco user Substance Use Type: Marijuana Advance Directives Date on File: 04/09/22 service: No Current occupational status: disabled Sexual orientation: Straight/Heterosexual Gender identity: Female Review of Systems Const Reports as per HPI ENT Reports as per HPI Card Reports as per [facility] Resp Reports as per [facility] GI Reports as per [facility] Reports as per [facility] Physical Exam Vital Signs: Last Vital Signs Pulse 68 08/18/25 15:52 BP 116/68 08/18/25 15:52 BMI result Body Mass Index 53.1 Const General: healthy appearing, no acute distress and well developed Nutritional Appearance: obese Orientation/consciousness: patient oriented x3 HEENT Head: Yes normal to inspection, Yes normocephalic and Yes atraumatic Face and sinus: Yes normal facial exam Eyes General: appearance normal, both eyes and all related structures Neck Neck: Yes normal visual inspection Resp Effort & Inspection: normal respiratory effort, able to speak in complete sentences, no tracheal deviation and symmetric chest movement Cardio Jugular venous distension: no JVD GI Inspection: Yes normal to inspection, No distended and Yes obesity Palpation (GI): Soft to palpation, not firm, nontender and No hepatosplenomegaly present Auscultation: normal bowel sounds Neuro General: patient oriented x3 Gait exam (Neuro): Normal gait present Psych Appearance: grossly normal Mental Status: mental status grossly normal Speech and movement: Normal speech and movement present Affect: normal affect Attitude: cooperative Thought process: Normal thought process present Thought content: Normal thought content present Insight: Good insight present (Psych) Judgement: Good judgement present (Psych) Assessment & Plan Assessment & Plan (1) MONICA (iron deficiency anemia): Code(s): D50.9 - Iron deficiency anemia, unspecified Category: Medical Qualifiers: Iron deficiency anemia type: unspecified iron deficiency Qualified Code(s): D50.9 - Iron deficiency anemia, unspecified Plan: To investigate the underlying cause of iron deficiency, a colonoscopy is planned to rule out a gastrointestinal bleed or malignancy. - Cardiac clearance will be required from the patient's nursing staff development coordinator prior to the procedure; her next appointment is on September 14. - Guidance will be sought from prescriber/cardiology regarding holding her Eliquis. (2) Acid reflux: Comment: Upper GI series 2021 shows acid reflux hiatal hernia Code(s): K21.9 - Gastro-esophageal reflux disease without esophagitis Category: Medical Qualifiers: Esophagitis presence: esophagitis presence not specified Qualified Code(s): K21.9 - Gastro-esophageal reflux disease without esophagitis Plan: A repeat upper endoscopy (EGD) is planned to evaluate her dysphagia symptoms and monitor her celiac disease. - The patient declined a barium swallow at this time. Education on GERD prevention : -Advised against heavy meals; encouraged small meals instead of large ones. - Instructed to remain upright for 2?3 hours after eating. - Advised to avoid late-night meals, spicy foods, caffeine, alcohol, known dietary triggers, and tight-fitting clothing. - Emphasis placed on gradual implementation of lifestyle changes to improve adherence and symptom control. (3) Colon cancer screening: Code(s): Z12.11 - Encounter for screening for malignant neoplasm of colon Category: Medical Plan: as above (4) Constipation: Code(s): K59.00 - Constipation, unspecified Category: Medical Qualifiers: Constipation type: unspecified constipation type Qualified Code(s): K59.00 - Constipation, unspecified Plan: Chronic, Intermittent. Reinforced lifestyle modifications to promote regularity: -higher fiber diet, examples provided -adequate hydration with water -150 minutes of moderate intensity exercise per week (5) Diabetes: Code(s): E11.9 - Type 2 diabetes mellitus without complications Category: Medical Qualifiers: Diabetes mellitus type: type 2 Diabetes mellitus medical terminologist insulin use: without medical terminologist use Diabetes mellitus complication status: with hyperglycemia Qualified Code(s): E11.65 - Type 2 diabetes mellitus with hyperglycemia Plan: The patient was informed of her recent A1c result of 7.0 and advised to discuss management with her primary care provider. - Metformin and Jardiance will be held for the upcoming procedures, and she will receive specific instructions from the nurse. Plan Follow-up after endoscopy or sooner as needed Time: I spent a total of 40 minutes on the date of encounter which includes: Preparing to see the patient (reviewed previous documentation, test results and medical history) Performing a medically appropriate exam and/or evaluation Ordering medications, tests, and procedures Documenting clinical information in the health record Orders: Referrals GI Procedure Notification K21.9 - Gastro-esophageal reflux disease without esophagitis, K90.0 - Celiac disease, R13.10 - Dysphagia, unspecified, Z12.11 - Encounter for screening for malignant neoplasm of colon Medications: New polyethylene glycol 3350 (Miralax) per colonoscopy prep instructions 238 grams PO ONCE 238 grams 0RF bisacodyl take four tablets once day of colonoscopy prep 20 mg (4 x 5 mg) PO ONCE 4 tabs 0RF Coding Level of Care Code Established Pt Est Pt Level 5 (35567) Patient Type Established Diagnoses Iron deficiency anemia, unspecified iron deficiency anemia type D50.9 Iron deficiency anemia type: unspecified iron deficiency Gastroesophageal reflux disease, unspecified whether esophagitis present K21.9 Esophagitis presence: esophagitis presence not specified Colon cancer screening Z12.11 Constipation, unspecified constipation type K59.00 Constipation type: unspecified constipation type Type 2 diabetes mellitus with hyperglycemia, without long-term current use of insulin E11.65 Diabetes mellitus type: type 2 Diabetes mellitus medical terminologist insulin use: without nursing home use Diabetes mellitus complication status: with hyperglycemia
[2025-08-18 15:52] VITALS: BP 116/68; PULSE 68; BMI 54.5
--- OUTSIDE RECORDS SUMMARY | 2025-08-18 20:28 | XMS_ITS | Clinical Summary ---
Author Organization [facility] Address [address] [place] [address] [place] [id number] Phone Care Team Providers Care Strong Nitric Operator Name Role Phone Antonette Kumar DO [...] 09/27/2019, 05/21/2018, Additional history exists COVID-19 VACCINE (2024- season) 2025 12/12/2020 RSV VACCINE (1 - 1-dose 75+ series) 11/08/2042 HEPATITIS A VACCINES Aged Out No long [...] Medical Devices Not on file Insurance [address] [place] [id number] [place], [place] [id number] [address] [place], [place] [id number] [place] [address] HMO POS [address] [place] [facility] HMO POS [facility] HMO POS [address] [place] [facility] HMO POS [facility] HMO POS [address] [place] [facility] HMO POS [address] [place] [facility] HMO POS [address] [place] [facility] HMO POS Care Teams Strong Nitric Operator Relationship Specialty Start Date End Date Antonette Kumar DO [address] [place] [id number] PCP - General Internal Medicine 11/30/17 Additional Source Comments The information contained in this document represents components of the legal health record. It is not the complete legal health record.[facility]
--- OUTSIDE RECORDS SUMMARY | 2025-08-18 20:28 | XMS_ITS | Encounter Summary ---
Author Organization [facility] Address [address] [place] [address] Phone Care Team Providers Care Financial Services Education Consultant Name Role Phone Antonette Kumar DO Primary Car e Provider Encounter Details Date Type Department Care Team (Late st Contact Info) Description 02/03/2018 Procedure Pass [facility] Cardiac Clinical Application Specialist [address], [address] [place] [address] Social History Tobacco Use Types [...] on filedocumented in this encounter Care Teams Financial Services Education Consultant Relationship Specialty Start Date End Date Antonette Kumar DO [address] [place] [address] PCP - General Internal Medicine 11/30/17 documented as of this encounter Additional Source Comments The information contained in this document represents components of the legal health record. It is not the complete legal health record.[facility]
--- OUTSIDE RECORDS SUMMARY | 2025-08-18 20:29 | XMS_ITS | Patient Health Record ---
Author Organization Terrence Kaur MD Address [address] [place] [phone] Care Team Providers Care Legal Secretary Name Role Phone Terrence Kaur Primary Care Provider [phone] Allergies Allergen (clinical drug ingredient) Drug/Non Drug Allergy documented on EMR Reaction Allergy Type Onset Date Status Substance with sulfonamide structure and antibacterial mechanism of action (substance) Sulfa Antibiotics ? Drug Allergy Active Results Component Value Reference Range Notes Hemoglobin A1c Reviewed date:11/10/2024 10:19:52 AM Interpretation: Performing Lab: Notes/Report: Hemoglobin A1c 6.8 Hemoglobin A1c Reviewed date:02/13/2025 10:14:57 AM Interpretation: Performing Lab: Notes/Report: Hemoglobin A1c 6.5 Hemoglobin A1c Reviewed date:07/11/2025 01:43:03 PM Interpretation: Performing Lab: Notes/Report: Hemoglobin A1c 6.3 Complete Blood Count Auto Di ff Reviewed date:06/16/2025 06:36:44 PM Interpretation: Performing Lab:[facility], [address] [place] [phone] Notes/Report: White Blood Count 11.6 4.8-10.8 X10*3/uL [...] PROFILE Reviewed date:07/13/2025 11:52:40 AM Interpretation:07-11-2025 Performing Lab:[address] [phone] Notes/Report: Iron 36 30-160 mcg/dL Total Iron Binding Capacity 345 228-428 mcg/d L Percent Iron Saturation 10 15-50 % Unsaturated Iron Binding 309 Complete Blood Count Auto Di ff Reviewed date:08/15/2025 12:28:45 PM Interpretation: Performing Lab:[address] [phone] Notes/Report: White Blood Count 10.9 4.8-10.8 X10*3/uL [...] NRBC Abs Auto 0.000 0.0-0.012 X10*3/uL Comprehensive Cordell. Panel Fa st Reviewed date:08/15/2025 05:39:00 PM Interpretation: Performing Lab:[facility], [address] [place] [phone] Notes/Report: Sodium 139 135-145 mmol/L Potassium 3.9 [...] Panel Reviewed date:08/15/2025 05:37:08 PM Interpretation: Performing Lab:[address] [phone] Notes/Report: Triglycerides 165 <150 mg/dL Desirable Triglyceride: [...] T4 Reviewed date:08/15/2025 05:37:18 PM Interpretation: Performing Lab:[address] [phone] Notes/Report: TSH reflex Free T4 4.28 0.32-4.0 uIU/mL Microalbumin, Random Reviewed date:08/15/2025 12:28:16 PM Interpretation: Performing Lab:[facility], [address] [place] [phone] Notes/Report: Creatinine Urine 117.79 Microalbumin Urine 9.0 Microalbum/Creatinine Ratio Ur 7.6 <30 ug/mg cr Albumin/Creatinine Ratio Reference Ranges: Normal: < 30 ug/mg creatinine Microalbuminuria: 30 - 300 ug/mg creatinine Clinical Albuminuria: > 300 ug/mg creatinine Hemoglobin A1c Reviewed date:08/15/2025 12:27:04 PM Interpretation: Performing Lab:[facility], [address] [place] [phone] Notes/Report: Hemoglobin A1c % 7.0 <6.0 % [...] average glucose, using the formula of the [id number]-Kpobgud Average Glucose study (ADAG), Diabetes Care, Vol.31,#8, Apr. 2007 UA ClnCatch+Micro w/rflx Cul t Reviewed date:08/15/2025 12:45:20 PM Interpretation: Performing Lab:[facility], [address] [place] [phone] Notes/Report: Urine, Clean Catch Color Urine Yellow Appearance Urine Clear PH 5.0 5.0-9.0 Glucose Urine UA >=1000 Negative mg/dL Urine Blood Negative Negative Specific [place] - Urine 1.025 1.005-1.025 Urine Protein Negative [...] AM Interpretation: Performing Lab: Notes/Report: Value 147 Glucose, finger stick Reviewed date:07/11/2025 01:36:40 PM Interpretation: Performing Lab: Notes/Report: Value 152 Complete Blood Count Auto Di ff Reviewed date:05/02/2025 02:49:35 PM Interpretation: Performing Lab:[facility], [address] [place] [phone] Notes/Report: White Blood Count 9.9 4.8-10.8 X10*3/uL [...] INR Reviewed date:05/02/2025 02:22:35 PM Interpretation: Performing Lab:[facility], [address] [place] [phone] Notes/Report: Prothrombin Time 13.9 10.9-12.4 SEC [employer]NATIONAL [...] Panel Reviewed date:05/02/2025 02:49:13 PM Interpretation: Performing Lab:[address] [phone] Notes/Report: Bilirubin Total 0.5 0.0-1.0 mg/dL Bilirubin Direct 0.2 0.0-0.5 mg/dL Aspartate Amino Transferase 43 5-31 U/L Alanine Aminotransferase 27 0-31 U/L Total Protein 7.7 6.5-8.0 g/dL Albumin Level 4.1 3.5-5.0 g/dL Alkaline Phosphatase 75 39-117 U/L Basic Metabolic Panel Reviewed date:05/02/2025 12:41:01 PM Interpretation: Performing Lab:[address] [phone] Notes/Report: Sodium 141 135-145 mmol/L Potassium 4.0 [...] Sensitivity Reviewed date:05/02/2025 02:23:01 PM Interpretation: Performing Lab:[address] [phone] Notes/Report: Troponin-I High Sensitivity 5.4 <3.5-17.0 ng/ L [place] high sensitivity Troponin-I results should be used in conjunction with other diagnostic information such as ECG, clinical observations and information, and patient symptoms to aid in the diagnosis of PR. Lipase Reviewed date:05/02/2025 12:40:17 PM Interpretation: Performing Lab:[address] [phone] Notes/Report: Lipase 16 8-78 U/L Complete Blood Count Auto Di ff Reviewed date:05/04/2025 05:13:40 PM Interpretation: Performing Lab:[address] [phone] Notes/Report: White Blood Count 16.2 4.8-10.8 X10*3/uL [...] INR Reviewed date:05/04/2025 05:00:31 PM Interpretation: Performing Lab:[facility], [address] [place] [phone] Notes/Report: Prothrombin Time 16.5 10.9-12.4 SEC INTERNATIONAL [...] Panel Reviewed date:05/04/2025 05:00:51 PM Interpretation: Performing Lab:[facility], [address] [place] [phone] Notes/Report: Sodium 143 135-145 mmol/L Potassium 4.1 [...] ff Reviewed date:05/19/2025 12:56:45 PM Interpretation: Performing Lab:[facility], [address] [place] [phone] Notes/Report: White Blood Count 9.9 4.8-10.8 X10*3/uL [...] X10*3/uL NRBC Abs Auto 0.000 0.0-0.012 X10*3/uL Free T4 (Free Thyroxine) Reviewed date:08/15/2025 05:39:08 PM Interpretation: Performing Lab:[facility], [address] [place] [phone] Notes/Report: Free T4 (Free Thyroxine) 1.01 0.71-1.85 ng/dL Hold Benjamin Reviewed date:08/15/2025 12:14:14 PM Interpretation: Performing Lab:[facility], [address] [place] [phone] Notes/Report: Zach Alexander See Note Specimen held untested for 24 hours; Call to request Chemistry testing. Reason For Referral Reason Iron Deficiency Diagnosis 1 Iron deficiency (E61 .1) Referral Organization Terrence Kaur MD Referring Provider First Name Terrence Referring Provider Last Name Natasha Referring Provider Speciality Internal M edicine Referred Provider Parvin Damico Referred Provider Specialty Gastroentero logy General Notes Rosibel Burns 1 09/13/2024 01:52:54 PM > referral info faxed Referral Priority Routine Medications Medication SIG (Take, Route, Frequency, Duration) Notes Start Date End Date Status Eliquis 5 MG as directed Orally BID Active Tylenol 325 MG 1 tablet as needed Orally every 4 hrs Not-Taking Clobetasol Propionate 0.05 % 1 application Externally Twice a day for 30 days Active Acetaminophen 325 MG 1 capsule as needed Orally every 6 hrs Not-Taking Doxycycline Hyclate 100 MG 1 capsule Ora lly twice a day for 14 days 01/02/2025 Active Amoxicillin-Pot Clavulanate 875-125 MG 1 tablet Orally every 12 hrs for 14 days 01/02/2025 Active Spiriva HandiHaler 18 MCG 1 capsule by i nhaling the contents of the capsule using the HandiHaler device Inhalation Once a day Active Jardiance 10 MG 1 tablet Orally Once a day Active metFORMIN HCl 500 MG TAKE 1 TABLET BY MO [facility] TWICE A DAY WITH A MEAL FOR 30 DAYS Active Bimzelx 320 MG/2ML 2 mL Subcutaneous Active Metoprolol Tartrate 50 MG 2 tabs Orally Twice a day Active Potassium Chloride ER 20 MEQ 1 tablet with food Orally Once a day for 30 day(s) Active Montelukast Sodium 10 MG TAKE 1 TABLET B Y MOUTH EVERY DAY FOR 30 DAYS for 90 Active Levothyroxine Sodium 88 MCG TAKE 1 TABLET BY MOUTH EVERY DAY IN THE MORNING ON EMPTY STOMACH for 90 Active Bumetanide 2 MG 2 tabs once day for 90 days Active amLODIPine Besylate 5 MG TAKE 1 TABLET B Y MOUTH EVERY DAY FOR 30 DAYS for 90 Active Cholecalciferol 25 MCG (1000 UT) 1 capsule Orally Once a day Active Valsartan 320 MG TAKE 1 TABLET BY TYESHA TH EVERY DAY FOR 90 DAYS Active Venlafaxine HCl ER 150 MG TAKE 1 CAPSULE BY MOUTH EVERY DAY WITH FOOD Orally Once a day for 90 days Active Immunizations Vaccine Route Administration Date Status [...] W/U Status Risk Notes Problem Atrial fibrillation (51453962) Atrial fibrillation (I48.91) Active confirmed Problem Celiac disease (973593571) Celiac disease (K90.0) Active confirmed Problem Psoriasis (0091695) Psoriasis (L40.9) Active confirmed Problem 682942337 Acquired hypothyroidism (E03.9) Active confirmed Problem Benign essential hypertension (9268618) Benign essential hypertension (I10) Active confirmed Problem Hypertrophic cardiomyopathy (907532360) Hypertrophic cardiomyopathy (I42.2) Active confirmed Problem Asthma (135082772) Asthma (J45.909) Active confirmed Problem Leukocytosis (077173336) Elevated WBC count (D72.829) Active confirmed Problem 546278155 Controlled type 2 diabetes mellitus without complication, without long-term current use of insulin (E11.9) Active confirmed Problem 09622348 Pagophagia (F50.89) Active confirmed Problem Cardiac pacemaker in situ (381971304) History of pacemaker (Z95.0) Active confirmed Vital Signs Blood pressure diastolic 80 mm Hg 07/11/2025 jamey ght is 5 pounds since 05-12-25 Height 63 in 07/11/2025 weight is 5 aggie nds since 05-12-25 Blood pressure systolic 118 mm Hg 07/11/2025 weig ht is 5 pounds since 05-12-25 Weight 315 lbs 07/11/2025 weight is 5 aggie nds since 05-12-25 BMI 55.79 kg/m2 07/11/2025 weight is 5 aggie nds since 05-12-25 Encounters Encounter Location Date Provider Diagnosis Terrence Kaur MD [address] [id number] 06/16/2025 Terrence Kaur Anemia D64.9 Terrence Kaur MD [address] [place] [id number] 08/15/2025 Terrence Kaur Blood tests for routine general physical examination Z00.00 ; Benign essential hypertension I10 ; Acquired hypothyroidism E03.9 ; Controlled type 2 diabetes mellitus without complication, without long-term current use of insulin E11.9 and Elevated WBC count D72.829 Terrence Kaur MD [address] [id number] 09/15/2024 Terrence Kaur Controlled type 2 diabetes mellitus without complication, without long-term current use of insulin E11.9 Terrence Kaur MD [address] [place] [address] [id number] 11/10/2024 Terrence Kaur Controlled type 2 diabetes mellitus without complication, without long-term current use of insulin E11.9 and Celiac disease K90.0 Terrence Kaur MD [address] [id number] 01/02/2025 Terrence Kaur Cellulitis L03.90 ; Psoriasis L40.9 and Controlled type 2 diabetes mellitus without complication, without long-term current use of insulin E11.9 Terrence Kaur MD [address] [id number] 01/27/2025 Terrence Kaur Cellulitis L03.90 an d Psoriasis L40.9 Terrence Kaur MD [address] [place] [id number] 02/13/2025 Terrence Kaur Hypertrophic cardiomyopathy I42.2 ; Benign essential hypertension I10 and Controlled type 2 diabetes mellitus without complication, without long-term current use of insulin E11.9 Terrence Kaur MD [address] [place] [id number] 04/18/2025 Terrence Kaur Controlled type 2 diabetes mellitus without complication, without long-term current use of insulin E11.9 ; Hypertrophic cardiomyopathy I42.2 ; Benign essential hypertension I10 and Asthma J45.909 Terrence Kaur MD [address] [place] [address] [id number] 05/12/2025 Terrence Kaur Epistaxis R04.0 ; Elevated WBC count D72.829 and Anemia D64.9 Terrence Kaur MD [address] [place] [address] [id number] 07/11/2025 Terrence Kaur Controlled type 2 diabetes mellitus without complication, without long-term current use of insulin E11.9 ; Iron deficiency E61.1 ; Hypertrophic cardiomyopathy I42.2 and Benign essential hypertension I10 Terrence Kaur MD [address] [place] [id number] 03/24/2025 Terrence Kaur Cellulitis L03.90 Terrence Kaur MD [address] [place] [address] [id number] 05/04/2025 Terrence Kaur MD [address] [place] [address] [id number] 09/05/2024 Terrence Kaur Atrial fibrillation I48.91 Terrence Kaur MD [address] [place] [address] [id number] 09/05/2024 Terrence Kaur MD [address] [place] [address] [id number] 10/31/2024 Terrence Kaur Psoriasis L40.9 Terrence Kaur MD [address] [place] [id number] 11/16/2024 Terrence Kaur Asthma J45.909 Terrence Kaur MD [address] [place] [address] [id number] 12/09/2024 Terrence Bombardier Atrial fibrillation I48.91 and Psoriasis L40.9 Assessments Encounter Date Diagnosis (ICD Code) Assessment Notes Treatment Notes Treatment Clinical Notes Section Notes 06/16/2025 Anemia (ICD-10 - D64.9) 08/15/2025 Blood tests for routine general physical examination (ICD-10 - Z00.00) 09/15/2024 Controlled type 2 diabetes mellitus without [...] from the stress of the nose bleed 07/11/2025 Controlled type 2 diabetes mellitus without complication, without long-term current use of insulin (ICD-10 - E11.9) 07/11/2025 Iron deficiency (ICD-10 - E61.1) has been taking iron for many years. has celiac. had a very bad nose bleed before the new anemia that has resolved/ refer back [place] [facility] [place] deficiency 03/24/2025 Cellulitis (ICD-10 - L03.90) 09/05/2024 Atrial fibrillation (ICD-10 - I48.91) 10/31/2024 Psoriasis (ICD-10 - L40.9) 11/16/2024 Asthma (ICD-10 - J45.909) 12/09/2024 Atrial fibrillation (ICD-10 - I48.91) 08/15/2025 Benign essential hypertension (ICD-10 - I10) 11/10/2024 Celiac disease (ICD-10 - K90.0) well [...] order given to patient [place] [facility] 07/11/2025 Hypertrophic cardiomyopathy (ICD-10 - I42.2) stable 12/09/2024 Psoriasis (ICD-10 - L40.9) 08/15/2025 Acquired hypothyroidism (ICD-10 - E03.9) 01/02/2025 Controlled type 2 diabetes mellitus without complication, without long-term current use of insulin (ICD-10 - E11.9) stable, will continue current regiment 02/13/2025 Controlled type 2 diabetes mellitus without complication, without long-term current use of insulin (ICD-10 - E11.9) stable, will continue current regiment 04/18/2025 Asthma (ICD-10 - J45.909) was followed by dr portillo 07/11/2025 Benign essential hypertension (ICD-10 - I10) well controlled 08/15/2025 Controlled type 2 diabetes mellitus without complication, without long-term current use of insulin (ICD-10 - E11.9) 08/15/2025 Elevated WBC count (ICD-10 - D72.829) Plan Of Treatment Pending Test Test Name Order Date XR GI SERIES 08/05/2022 Next Appt Details Provider Name:Terrence Ramos ier, 08/22/2025 10:30:00 AM, [address], [address], [place], [place], [id number], Insurance Providers Payer Name Payer Address Payer Phone Subscriber Number Group Number Insured Name Patient Relationship to Insured Coverage Start Date Coverage End Date [facility] [address] [place], [place] [phone] [id number] Tabby Cifuentes Self - patient is the insured Medical (General) History Medical History History ICD Code IHSS with surgery in 2018 COLONOSCOPY 2018 bimzelx is new psoriasis med
== END 2025-08-18 17:08 | disposition home or self-care (01) ==
LOC: HO.HGI 15:48
PROVIDERS: PCP Internal Medicine; Visit Provider Nurse Practitioner Family
DX: K21.9 Gastro-esophageal reflux disease without esophagitis (principal); K59.00 Constipation, unspecified; E11.65 Type 2 diabetes mellitus with hyperglycemia; D50.9 Iron deficiency anemia, unspecified
CPT/HCPCS: 99214

== ENCOUNTER → 2025-08-28 12:15 | Outpatient (BNV) | payer OTHER, SELFPAY | PROVIDERS: PCP Internal Medicine; Visit Provider Internal Medicine | DX: Z95.810 Presence of automatic (implantable) cardiac defibrillator (principal) | CPT/HCPCS: 93297 ==

== ENCOUNTER → 2025-08-28 12:19 | Outpatient (BNV) | payer OTHER, SELFPAY | PROVIDERS: PCP Internal Medicine; Visit Provider Internal Medicine | DX: Z95.810 Presence of automatic (implantable) cardiac defibrillator (principal) | CPT/HCPCS: 93294 ==